=== PATIENT | female | born 1955 | race Caucasian/White ===

== ENCOUNTER → 2024-04-04 | Outpatient (CLI) | payer MEDICARE, SELFPAY ==
[2024-04-04 15:00] LABS: Absolute Lymphocyte Count 2.03 X10^3/uL (0.83-4.51); Absolute Neutrophil Count 4.4 X10^3/uL (2.0-7.7); Basophil# 0.08 X10^3/uL; Basophil% 1.1 % (0-1); Hematocrit 39.9 % (37-47); Lymphocyte # 2.03 X10^3/ul (0.83-4.51); Lymphocyte % 27.3 % (19-41); Mean Corp Hgb Conc 32.6 g/dL (32-36); Mean Corpuscular Hgb 30.7 pg (27.0-32.0); Mean Corpuscular Volume 94.1 fL (81-99); Mean Platelet Vol. 9.7 fl (6.2-12.0); Monocyte# 0.63 X10^3/uL; Monocyte% 8.5 % (0-10); NRBC Flagged by Analyzer 0 % (0-5); Neutrophil # 4.38 X10^3/uL (2.7-7.7); Neutrophil % 58.8 % (47-70); Platelet Count 343 K/mm3 (150-450); RBC Distribution Width CV 13.9 % (11.6-14.6); RBC Distribution Width SD 47.7 fl (35.1-43.9); Red Blood Count 4.24 M/mm3 (4.2-5.4); White Blood Count 7.4 K/mm3 (4.4-11.0)
[2024-04-04 15:18] LABS: ALB/GLOB Ratio 0.9 RATIO (0.9-2.4); AST(SGOT) 19 U/L (15-37); Alanine Aminotransfer ALT/SGPT 29 U/L (13-56); Albumin, Serum 3.4 g/dL (3.2-5.0); Alkaline Phosphatase 80 U/L (45-117); Anion Gap 6 (5-15); BUN 13 mg/dL (7-18); BUN/Creat Ratio 19.3 RATIO (10-20); Calcium,Total 8.8 mg/dL (8.5-10.1); Chloride 99 mmol/L (98-107); Creatinine, Serum 0.67 mg/dL (0.55-1.02); EST Glomerular Filtration Rate 92 mL/min (>60); Est Glom Filt Rate - Afr Amer 111 mL/min (>60); Globulin 3.9 g/dL (2.2-4.2); Glucose 110 mg/dL (74-106); Potassium 3.5 mmol/L (3.5-5.1); Protein, Total 7.3 g/dL (6.4-8.2); Sodium Level 136 mmol/L (136-145); Total Bilirubin < 0.10 mg/dL (0.20-1.00)
== END | disposition home or self-care (01) ==
LOC: MTLAB 12:52
PROVIDERS: PCP Family Medicine; Referring Provider Internal Medicine Rheumatology; Visit Provider Internal Medicine Rheumatology
DX: M06.4 Inflammatory polyarthropathy (principal); Z79.899 Other long term (current) drug therapy; M19.041 Primary osteoarthritis, right hand
CPT/HCPCS: 36415; 80053; 85025

== ENCOUNTER → 2024-05-01 | Outpatient (CLI) | payer MEDICARE, SELFPAY ==
[2024-05-01 12:42] LABS: Absolute Lymphocyte Count 1.63 X10^3/uL (0.83-4.51); Absolute Neutrophil Count 4.1 X10^3/uL (2.0-7.7); Basophil# 0.07 X10^3/uL; Eosinophil# 0.24 X10^3/uL; Eosinophils% 3.6 % (0-5); Hematocrit 41.8 % (37-47); Hemoglobin 13.4 g/dL (12.0-15.0); Lymphocyte # 1.63 X10^3/ul (0.83-4.51); Lymphocyte % 24.2 % (19-41); Mean Corp Hgb Conc 32.1 g/dL (32-36); Mean Corpuscular Hgb 30.4 pg (27.0-32.0); Mean Corpuscular Volume 94.8 fL (81-99); Mean Platelet Vol. 9.7 fl (6.2-12.0); Monocyte# 0.66 X10^3/uL; Monocyte% 9.8 % (0-10); NRBC Flagged by Analyzer 0 % (0-5); Neutrophil # 4.12 X10^3/uL (2.7-7.7); Neutrophil % 61.1 % (47-70); Platelet Count 370 K/mm3 (150-450); RBC Distribution Width SD 48.7 fl (35.1-43.9); Red Blood Count 4.41 M/mm3 (4.2-5.4); White Blood Count 6.7 K/mm3 (4.4-11.0)
[2024-05-01 12:50] LABS: Vitamin D,25 Hydroxy 44.1 ng/mL
[2024-05-01 12:51] LABS: ALB/GLOB Ratio 0.8 RATIO (0.9-2.4); AST(SGOT) 20 U/L (15-37); Alanine Aminotransfer ALT/SGPT 30 U/L (13-56); Albumin, Serum 3.2 g/dL (3.2-5.0); Alkaline Phosphatase 78 U/L (45-117); Anion Gap 9 (5-15); BUN 15 mg/dL (7-18); BUN/Creat Ratio 21.3 RATIO (10-20); Calcium,Total 9.2 mg/dL (8.5-10.1); Chloride 103 mmol/L (98-107); Cholesterol 144 mg/dL (200); EST Glomerular Filtration Rate 87 mL/min (>60); Est Glom Filt Rate - Afr Amer 105 mL/min (>60); Globulin 4.1 g/dL (2.2-4.2); Glucose 109 mg/dL (74-106); High Density Lipoprotein 64 mg/dL; Magnesium 1.8 mg/dL (1.6-2.6); Potassium 3.9 mmol/L (3.5-5.1); Protein, Total 7.3 g/dL (6.4-8.2); Sodium Level 137 mmol/L (136-145); T4 Free Direct 1.11 ng/dL (0.76-1.46); Triglycerides 133 mg/dL; Very Low Density Lipoprotein 27 mg/dL (5-40)
== END | disposition home or self-care (01) ==
LOC: MFPLAB 10:24
PROVIDERS: PCP Family Medicine; Visit Provider Family Medicine
DX: E11.59 Type 2 diabetes mellitus with other circulatory complications (principal); E03.9 Hypothyroidism, unspecified; M81.0 Age-related osteoporosis without current pathological fracture
CPT/HCPCS: 36415; 80053; 80061; 82306; 83036; 83735; 84439; 84443; 85025

== ENCOUNTER → 2024-05-29 | Outpatient (CLI) | payer MEDICARE, SELFPAY ==
[2024-05-29 15:14] LABS: Absolute Neutrophil Count 5.4 X10^3/uL (2.0-7.7); Basophil# 0.05 X10^3/uL; Basophil% 0.7 % (0-1); Eosinophil# 0.15 X10^3/uL; Hematocrit 42.9 % (37-47); Hemoglobin 13.5 g/dL (12.0-15.0); Lymphocyte % 19.7 % (19-41); Mean Corp Hgb Conc 31.5 g/dL (32-36); Mean Corpuscular Hgb 29.7 pg (27.0-32.0); Mean Corpuscular Volume 94.5 fL (81-99); Mean Platelet Vol. 9.7 fl (6.2-12.0); Monocyte# 0.48 X10^3/uL; Monocyte% 6.3 % (0-10); NRBC Flagged by Analyzer 0 % (0-5); Neutrophil % 70.9 % (47-70); Platelet Count 362 K/mm3 (150-450); RBC Distribution Width CV 13.9 % (11.6-14.6); RBC Distribution Width SD 48.1 fl (35.1-43.9); Red Blood Count 4.54 M/mm3 (4.2-5.4); White Blood Count 7.6 K/mm3 (4.4-11.0)
[2024-05-29 15:34] LABS: ALB/GLOB Ratio 0.8 RATIO (0.9-2.4); AST(SGOT) 20 U/L (15-37); Alanine Aminotransfer ALT/SGPT 30 U/L (13-56); Albumin, Serum 3.5 g/dL (3.2-5.0); Alkaline Phosphatase 91 U/L (45-117); Anion Gap 6 (5-15); BUN 13 mg/dL (7-18); BUN/Creat Ratio 18.3 RATIO (10-20); Calcium,Total 9.5 mg/dL (8.5-10.1); Chloride 102 mmol/L (98-107); Creatinine, Serum 0.71 mg/dL (0.55-1.02); EST Glomerular Filtration Rate 86 mL/min (>60); Est Glom Filt Rate - Afr Amer 104 mL/min (>60); Globulin 4.2 g/dL (2.2-4.2); Glucose 187 mg/dL (74-106); Potassium 3.9 mmol/L (3.5-5.1); Protein, Total 7.7 g/dL (6.4-8.2); Sodium Level 138 mmol/L (136-145)
== END | disposition home or self-care (01) ==
PROVIDERS: PCP Family Medicine; Referring Provider Internal Medicine Rheumatology; Visit Provider Internal Medicine Rheumatology
DX: M06.4 Inflammatory polyarthropathy (principal); Z79.899 Other long term (current) drug therapy
CPT/HCPCS: 36415; 80053; 85025

== ENCOUNTER → 2024-07-14 | Outpatient (CLI) | payer MEDICARE, SELFPAY ==
[2024-07-14 12:53] LABS: AST(SGOT) 21 U/L (15-37); Alanine Aminotransfer ALT/SGPT 30 U/L (13-56); Anion Gap 7 (5-15); BUN 12 mg/dL (7-18); BUN/Creat Ratio 19.9 RATIO (10-20); Calcium,Total 8.8 mg/dL (8.5-10.1); Chloride 104 mmol/L (98-107); Cholesterol 149 mg/dL (200); EST Glomerular Filtration Rate 104 mL/min (>60); Est Glom Filt Rate - Afr Amer 126 mL/min (>60); Glucose 109 mg/dL (74-106); High Density Lipoprotein 56 mg/dL; Potassium 3.8 mmol/L (3.5-5.1); Sodium Level 137 mmol/L (136-145); T4 Free Direct 1.18 ng/dL (0.76-1.46); Thyroid Stim Hormone (TSH) 0.283 uIU/mL (0.358-3.740); Triglycerides 201 mg/dL; Very Low Density Lipoprotein 40 mg/dL (5-40)
[2024-07-14 13:06] LABS: Vitamin D,25 Hydroxy 45.1 ng/mL
[2024-07-14 13:09] LABS: Microalbumin,Random Urine 6.4 mg/L (NO RANGE EST.)
[2024-07-14 14:38] LABS: Hemoglobin A1c 5.9 % (3.8-5.6)
== END | disposition home or self-care (01) ==
PROVIDERS: PCP Family Medicine; Referring Provider Nurse Practitioner Adult Health; Visit Provider Nurse Practitioner Adult Health
DX: E11.65 Type 2 diabetes mellitus with hyperglycemia (principal); E89.0 Postprocedural hypothyroidism; E55.9 Vitamin D deficiency, unspecified
CPT/HCPCS: 36415; 80048; 80061; 82043; 82306; 83036; 84439; 84443; 84450; 84460

== ENCOUNTER → 2024-08-25 | Outpatient (CLI) | payer MEDICARE, SELFPAY ==
[2024-08-25 12:17] LABS: Absolute Lymphocyte Count 1.55 X10^3/uL (0.83-4.51); Absolute Neutrophil Count 4.4 X10^3/uL (2.0-7.7); Basophil# 0.06 X10^3/uL; Basophil% 0.9 % (0-1); Eosinophil# 0.15 X10^3/uL; Eosinophils% 2.2 % (0-5); Hematocrit 43.5 % (37-47); Lymphocyte # 1.55 X10^3/ul (0.83-4.51); Lymphocyte % 23.2 % (19-41); Mean Corp Hgb Conc 32.2 g/dL (32-36); Mean Corpuscular Hgb 30.2 pg (27.0-32.0); Mean Platelet Vol. 9.7 fl (6.2-12.0); Monocyte# 0.51 X10^3/uL; Monocyte% 7.6 % (0-10); NRBC Flagged by Analyzer 0 % (0-5); Neutrophil % 65.8 % (47-70); Platelet Count 362 K/mm3 (150-450); RBC Distribution Width CV 13.6 % (11.6-14.6); RBC Distribution Width SD 46.8 fl (35.1-43.9); Red Blood Count 4.63 M/mm3 (4.2-5.4); White Blood Count 6.7 K/mm3 (4.4-11.0)
[2024-08-25 16:40] LABS: ALB/GLOB Ratio 0.9 RATIO (0.9-2.4); AST(SGOT) 20 U/L (15-37); Alanine Aminotransfer ALT/SGPT 34 U/L (13-56); Albumin, Serum 3.8 g/dL (3.2-5.0); Alkaline Phosphatase 80 U/L (45-117); Anion Gap 5 (5-15); BUN 13 mg/dL (7-18); BUN/Creat Ratio 18.5 RATIO (10-20); Calcium,Total 9.4 mg/dL (8.5-10.1); Chloride 100 mmol/L (98-107); EST Glomerular Filtration Rate 87 mL/min (>60); Est Glom Filt Rate - Afr Amer 105 mL/min (>60); Globulin 4.1 g/dL (2.2-4.2); Glucose 112 mg/dL (74-106); Potassium 3.6 mmol/L (3.5-5.1); Protein, Total 7.9 g/dL (6.4-8.2); Sodium Level 134 mmol/L (136-145)
== END | disposition home or self-care (01) ==
LOC: MTLAB 10:03
PROVIDERS: PCP Family Medicine; Referring Provider Internal Medicine Rheumatology; Visit Provider Internal Medicine Rheumatology
DX: M06.4 Inflammatory polyarthropathy (principal); Z79.899 Other long term (current) drug therapy

== ENCOUNTER → 2024-09-12 | Outpatient (CLI) | payer MEDICARE, SELFPAY ==
[2024-09-12 12:54] LABS: Absolute Neutrophil Count 3.9 X10^3/uL (2.0-7.7); Basophil# 0.06 X10^3/uL; Basophil% 0.9 % (0-1); Eosinophil# 0.27 X10^3/uL; Eosinophils% 4.2 % (0-5); Hematocrit 42.1 % (37-47); Hemoglobin 13.8 g/dL (12.0-15.0); Lymphocyte % 24.9 % (19-41); Mean Corp Hgb Conc 32.8 g/dL (32-36); Mean Corpuscular Hgb 30.9 pg (27.0-32.0); Mean Corpuscular Volume 94.2 fL (81-99); Mean Platelet Vol. 9.8 fl (6.2-12.0); Monocyte# 0.61 X10^3/uL; Monocyte% 9.5 % (0-10); NRBC Flagged by Analyzer 0 % (0-5); Neutrophil # 3.87 X10^3/uL (2.7-7.7); Neutrophil % 60.3 % (47-70); Platelet Count 362 K/mm3 (150-450); RBC Distribution Width CV 14.3 % (11.6-14.6); RBC Distribution Width SD 49.1 fl (35.1-43.9); Red Blood Count 4.47 M/mm3 (4.2-5.4); White Blood Count 6.4 K/mm3 (4.4-11.0)
[2024-09-12 14:09] LABS: ALB/GLOB Ratio 0.9 RATIO (0.9-2.4); AST(SGOT) 22 U/L (15-37); Alanine Aminotransfer ALT/SGPT 35 U/L (13-56); Albumin, Serum 3.6 g/dL (3.2-5.0); Alkaline Phosphatase 79 U/L (45-117); Anion Gap 9 (5-15); BUN 12 mg/dL (7-18); Calcium,Total 9.1 mg/dL (8.5-10.1); Chloride 101 mmol/L (98-107); Cholesterol 151 mg/dL (200); Creatinine, Serum 0.63 mg/dL (0.55-1.02); EST Glomerular Filtration Rate 99 mL/min (>60); Est Glom Filt Rate - Afr Amer 120 mL/min (>60); Globulin 3.9 g/dL (2.2-4.2); Glucose 116 mg/dL (74-106); High Density Lipoprotein 67 mg/dL; Potassium 3.6 mmol/L (3.5-5.1); Protein, Total 7.5 g/dL (6.4-8.2); Sodium Level 137 mmol/L (136-145); T4 Free Direct 1.07 ng/dL (0.76-1.46); Thyroid Stim Hormone (TSH) 0.758 uIU/mL (0.358-3.740); Triglycerides 176 mg/dL; Very Low Density Lipoprotein 35 mg/dL (5-40)
[2024-09-13 10:40] LABS: Vitamin D,25 Hydroxy 43.5 ng/mL
[2024-09-15 14:42] LABS: Hemoglobin A1c 5.6 % (3.8-5.6)
== END | disposition home or self-care (01) ==
LOC: MTLAB 09:55
PROVIDERS: PCP Family Medicine; Referring Provider Family Medicine; Visit Provider Family Medicine
DX: R73.09 Other abnormal glucose (principal); E03.9 Hypothyroidism, unspecified; M81.0 Age-related osteoporosis without current pathological fracture
CPT/HCPCS: 36415; 80053; 80061; 82306; 83036; 84439; 84443; 85025

== ENCOUNTER → 2024-10-07 | Outpatient (CLI) | payer MEDICARE, SELFPAY ==
--- NOTE | 2024-10-07 12:53 | BI_ITS ---
PROCEDURE: SCRN MAMM (CAD)W/FATOU BILAT REASON FOR EXAM: F, Age 69 y/o, presents for annual screening mammogram. Family history of breast cancer in a paternal aunt in her 70s. TECHNIQUE: Bilateral screening digital breast tomosynthesis with 2D and 3D images. Computer aided detection. COMPARISON: 10/18/2022, 05/04/2021 FINDINGS: There are scattered areas of fibroglandular density. There is an irregular high density mass in the upper-outer right breast at posterior depth. No suspicious masses, areas of developing architectural distortion, or suspicious calcifications in the left breast. BI/SCRN MAMM (CAD)W/FATOU BILAT IMPRESSION: The irregular high density mass in the upper-outer right breast at posterior de pth requires further evaluation. Recommend diagnostic ultrasound of the right breast. BI-RADS 0: INCOMPLETE - NEED ADDITIONAL IMAGING EVALUATION. Follow-up code: Additional Views obtained/call backs The patient will be notified of the results by letter. Reading Location: [id number]
--- NOTE | 2024-10-07 12:55 | BD_ITS ---
PROCEDURE: DEXA BONE DENSITY STUDY REASON FOR EXAM: F, age 69 y/o . Postmenopausal. TECHNIQUE: DEXA scan of the lumbar spine and both hips. Scanning of the left forearm was obtained as well. COMPARISON: None. FINDINGS: Lumbar Spine (L1-L4): g/cm2 (1.282)/T-score (2 point)/Z-score (4.4) findings are suggestive of normal with a low fracture risk. Left Femur Total: g/cm2 (0.745)/T-score (-1.6)/Z-score (0.0) Left Femoral Neck: g/cm2 (0.513)/T-score (-3.0)/Z-score (-1.1) Right Femur Total: g/cm2 (0.745)/T-score (-1.6)/Z-score (0.0) Right Femoral Neck: g/cm2 (0.513)/T-score (-3.0)/Z-score (-1.1) Left Forearm: g/cm2 (0.550)/T-score (-0.5)/Z-score (1.6) BD/Dexa Bone Density Study IMPRESSION: The patient is considered osteoporotic as outlined below according to World Hea th Organization (WHO) criteria with a high fracture risk. Reading Location: [id number]
== END | disposition home or self-care (01) ==
LOC: OPBD 12:51
PROVIDERS: PCP Family Medicine
DX: Z12.31 Encounter for screening mammogram for malignant neoplasm of breast (principal); Z80.3 Family history of malignant neoplasm of breast; M81.0 Age-related osteoporosis without current pathological fracture
CPT/HCPCS: 77063; 77067; 77080

== ENCOUNTER → 2024-10-14 | Outpatient (CLI) | payer MEDICARE, SELFPAY ==
--- NOTE | 2024-10-14 10:35 | US_ITS ---
PROCEDURE: BREAST LIMITED UNILATERAL REASON FOR EXAM: 69-year-old female presents for diagnostic ultrasound of the right breast, callback from screening mammogram of 10/07/2024. Family history of breast cancer in a paternal aunt in her 70s.. TECHNIQUE: Targeted right breast ultrasound. COMPARISON: Mammogram 10/07/2024, 10/18/2022 and 05/04/2021 FINDINGS: RIGHT: Follow-up examination performed of the right breast mass seen on the screening mammogram of 10/07/2024. On the present examination, the ultrasound performed of the upper-outer right breast demonstrates an irregular hypoechoic mass with ill-defined margins and posterior acoustic shadowing at 9-10 o'clock 10 cm from the nipple measuring 1.0 x 0.7 x 0.8 cm. There is increased flow at the periphery of the mass. This mass correlates to the mammographic finding. Also, at 12 o'clock 8 cm from the nipple there is a cystic mass, with an internal septation and no associated flow measuring 0.5 x 0.3 x 0.5 cm. This mass appears mammographically stable dating back to 2020 and is considered benign. US/Breast Limited Unilateral IMPRESSION: Suspicious right breast mass at 9-10 o'clock 10 cm from the nipple. Recommend further evaluation with tissue sampling with ultrasound-guided core needle biopsy. BI-RADS 4: SUSPICIOUS ABNORMALITY. Follow-up code: Biopsy Recommended Reading Location: [id number]
[2024-10-14 12:24] LABS: Absolute Lymphocyte Count 2.08 X10^3/uL (0.83-4.51); Absolute Neutrophil Count 5.1 X10^3/uL (2.0-7.7); Basophil# 0.07 X10^3/uL; Basophil% 0.9 % (0-1); Eosinophils% 2.5 % (0-5); Hemoglobin 13.8 g/dL (12.0-15.0); Lymphocyte # 2.08 X10^3/ul (0.83-4.51); Lymphocyte % 25.6 % (19-41); Mean Corp Hgb Conc 32.9 g/dL (32-36); Mean Corpuscular Hgb 30.5 pg (27.0-32.0); Mean Corpuscular Volume 92.9 fL (81-99); Mean Platelet Vol. 9.8 fl (6.2-12.0); Monocyte# 0.66 X10^3/uL; Monocyte% 8.1 % (0-10); NRBC Flagged by Analyzer 0 % (0-5); Neutrophil # 5.07 X10^3/uL (2.7-7.7); Neutrophil % 62.5 % (47-70); Platelet Count 401 K/mm3 (150-450); RBC Distribution Width CV 14.3 % (11.6-14.6); RBC Distribution Width SD 48.4 fl (35.1-43.9); Red Blood Count 4.52 M/mm3 (4.2-5.4); White Blood Count 8.1 K/mm3 (4.4-11.0)
[2024-10-14 13:14] LABS: ALB/GLOB Ratio 1.3 RATIO (0.9-2.4); AST(SGOT) 21 U/L (<=31); Alanine Aminotransfer ALT/SGPT 23 U/L (<=34); Albumin, Serum 4.3 g/dL (3.4-4.8); Alkaline Phosphatase 89 U/L (35-104); Anion Gap 13 (5-15); BUN 11 mg/dL (4-19); BUN/Creat Ratio 17.8 RATIO (10-20); Calcium,Total 9.7 mg/dL (7.6-11.0); Carbon Dioxide 27.5 mmol/L (21.0-32.0); Chloride 97 mmol/L (98-108); Creatinine, Serum 0.64 mg/dL (0.70-1.20); EST Glomerular Filtration Rate 95 (>60); Globulin 3.4 g/dL (2.2-4.2); Glucose 111 mg/dL (70-99); Potassium 3.5 mmol/L (3.3-5.1); Protein, Total 7.6 g/dL (5.9-8.4); Sodium Level 138 mmol/L (133-145); Total Bilirubin 0.29 mg/dL (0.00-1.30)
[2024-10-14 14:35] LABS: Cholesterol 149 mg/dL (<=200); High Density Lipoprotein 65 mg/dL; Low Density Lipoprotein Calc. 55 mg/dL; Triglycerides 145 mg/dL; Very Low Density Lipoprotein 29 mg/dL (5-40); Vitamin D,25 Hydroxy 46.9 ng/mL (30-100); cholesterol:hdl ratio screen 2.28
[2024-10-15 08:09] LABS: LDL, Direct 120295 70 mg/dL (0-99)
== END | disposition home or self-care (01) ==
PROVIDERS: PCP Family Medicine; Referring Provider Family Medicine; Visit Provider Family Medicine
DX: E11.65 Type 2 diabetes mellitus with hyperglycemia (principal); M06.4 Inflammatory polyarthropathy; E89.0 Postprocedural hypothyroidism; E55.9 Vitamin D deficiency, unspecified; E78.49 Other hyperlipidemia; Z79.899 Other long term (current) drug therapy; N63.11 Unspecified lump in the right breast, upper outer quadrant
CPT/HCPCS: 36415; 76642; 80053; 80061; 82306; 83036; 83721; 84439; 84443; 85025

== ENCOUNTER → 2024-10-23 | Outpatient (CLI) | payer MEDICARE, SELFPAY ==
--- NOTE | 2024-10-23 14:55 | BREAST_PTH ---
PATIENT: LAURI RASCON LOC: [facility] U#:[id number] AGE/SX: 69/F ROOM: RE10/23/[address]: Dr. Leela Bazan MD : 1955 BED: DIS: 10/23/2024 SPEC #: [id number] RECD: 10/24/24 09:19 STATUS: ARAVIND REQ #: [id number] PABLO: 10/23/24 14:[address]: Leela Bazan DEPT: SURGICAL PATHOLOGY RECD BY: Humza Westfall ENTERED: 10/24/24 09:20 SP TYPE: BREAST OTHR DR: Dr. Jere Mae MD Tissues: A - Right breast, NOS Procedures: Immunohistochemical Stains Surgery Specimen Level IV IHC Stain ADDITIONAL HEADER OPERATION: Right breast biopsy PRE-OP DIAGNOSIS: Right breast biopsy TISSUE SUBMITTED: A- Right breast mass - 9o'clock, 10cm from nipple Ischemic Time: 1 minute Formalin fixation Time: >48 hours MICROSCOPIC DIAGNOSIS A. RIGHT BREAST MASS AT 9:00, 10 CM FROM NIPPLE, CORE BIOPSY: * Invasive ductal carcinoma NST, at least 0.7 cm. * Grade 2 (tubule 3, nuclear 2, mitosis 1) * Estrogen Receptor: positive (95%, strong intensity) * Progesterone Receptor: positive (95%, strong intensity) * HER2 (IHC): equivocal (2+) * HER2(FISH): pending at [facility] (to be reported in an addendum) * Ki67 proliferative index: 15-20% Note: E-cadherin IHC is positive, confirming the ductal origin. MICROSCOPIC DESCRIPTION Slides are reviewed. These tests were developed and their performance characteristics determined by [facility]. They may not have been cleared or approved by the U.S. Food and Drug Administration. The FDA has determined that such clearance or approval is not necessary. The above immunohistochemical/dualISH markers are ordered and reviewed by the Pathologist. GROSS DESCRIPTION Received in fixative is one container labeled with the patient's name and designated right breast mass. The specimen consists of 2 cores of red soft tissue measuring in aggregate 1 x 0.3 x 0.2 cm. TE1 eh 10/24/24 CPT:35136, [id number] ADDENDUM ADDENDUM ADDENDUM ADDENDUM ADDENDUM ADDENDUM ADDENDUM ADDENDUM ADDENDUM ADDENDUM ADDENDUM ADDENDUM ADDENDUM ADDENDUM ADDENDUM ADDENDUM ADDENDUM ADDENDUM 11/10/2024 08:23 ADDENDUM 11/10/2024 08:23 ADDENDUM 11/10/2024 08:23 ADDENDUM 11/10/2024 08:23 ADDENDUM 12/12/2024 11:44 ADDENDUM 11/10/2024 08:23 This addendum is added to incorporate an outside pathology consultation report. The case was examined at [facility] by Dr. Terrell (#[id number]) and the following diagnosis was rendered. A. Right breast mass at 9:00, 10 cm from nipple, core biopsy: HER2 FISH: Negative HER2 FISH REPORT: HER2 SCORE: NEGATIVE HER2/CEP17 RATIO: 09 HER2 COPY NUMBER/CELL: 2.3 Please see complete above mentioned consultation report in EMR ONCOTYPE DX BREAST RECURRENCE SCORE REPORT - BLOCK A1 RECURRENCE SCORE: 3 DISTANT RECURRENCE RISK AT 9 YEARS: 3% GROUP AVERAGE ABSOLUTE CHEMOTHERAPY BENEFIT: <1% Please see complete above mentioned consultation report in EMR
== END | disposition home or self-care (01) ==
LOC: LABSPEC 15:23
PROVIDERS: PCP Family Medicine; Referring Provider Surgery; Visit Provider Surgery
DX: N63.10 Unspecified lump in the right breast, unspecified quadrant (principal)
CPT/HCPCS: 88305; 88341; 88342

== ENCOUNTER 2024-11-18 09:26 | Day surgery (SDC) | payer MEDICARE, SELFPAY ==
[2024-11-18] VITALS (9 sets, daily range): BP systolic 126–160; BP diastolic 47–69; PULSE 86–102; RESP 16–18; TEMP 36.1–36.9; O2SAT 92–98; BMI 34.2
[2024-11-18] MEDS: 0.9% Normal Saline (1000mL) 1,000 ML 15 ML IV (10:07)
--- NOTE | 2024-11-18 10:08 | NM_ITS ---
EXAM: SENTINEL LYMPH NODE INJECTION CLINICAL HISTORY: RIGHT BREAST CANCER. COMPARISON: RIGHT BREAST ULTRASOUND DATED 10/14/2024. TECHNIQUE: Radiopharmaceutical: 556 uCi of Technetium 99 M Tilmanocept (Lymphoseek) Injection site: Periareolar subdermal injection at 12 o'clock. FINDINGS: No significant findings. NM/Lymph Node Injection Only IMPRESSION: Successful right breast sentinel lymph node injection. Reading Location: [place] [address]
--- NOTE | 2024-11-18 10:21 | PCM.HP.BLA ---
History and Physical Date of Admission: 11/18/24 Date of Service: 11/07/24 MR#: [id number] Acct: [id number] Name: LAURI RASCON Rep #: [id number] : 1955 Provider: Dr. Leela Bazan MD Age/Sex: 69/F Location: [facility] Status: Signed Intake Vital Signs 10/23/2514:02 11/07/2508:53 Height 5 ft 4 in Weight: 170 lb 173 lb BMI 29.2 BP 131/75 H 161/75 H Blood Pressure Location Lt brachial Rt brachial Position Sitting Sitting Respiration 17 17 Pulse 83 82 Pulse Source Monitor Monitor Temp 97.4 F L Temp Source Temporal Pulse Oximetry (%) 92 98 Oxygen Delivery Method room air room air Intake Visit Reasons: DISCUSS BREAST SURGERY Chief Complaint: discuss breast surgery Is patient in pain?: No Allergies sitagliptin (From Januvia) Allergy (Intermediate, Verified 11/10/24 09:00) hallucinationsSulfa (Sulfonamide Antibiotics) Allergy (Intermediate, Verified 11/10/24 09:00) Hivesvenlafaxine (From Effexor) Allergy (Intermediate, Verified 11/10/24 09:00) Other Medications ?Medication ?Instructions ?Recorded ?Confirmed ?Type alendronate 70 mg tablet 70 mg PO ADAMS 10/23/24 11/10/24 History amlodipine 5 mg-benazepril 20 mg 1 cap PO QDAY 10/23/24 11/10/24 History capsule aspirin 81 mg tablet,delayed 81 mg PO QHS 10/23/24 11/10/24 History release atorvastatin 20 mg tablet 20 mg PO QDAY 10/23/24 11/10/24 History calcium glucarate 500 mg capsule 1 tab-cap PO QDAY 10/23/24 11/10/24 History levothyroxine 137 mcg tablet 68.5 mcg PO ADAMS 10/23/24 11/10/24 History (Synthroid) methotrexate (PF) 25 mg/0.5 mL 25 mg subcut FR 10/23/24 11/10/24 History subcutaneous auto-injector multivitamin 1 tab PO QAM 10/23/24 11/10/24 History pantoprazole 40 mg tablet,delayed 40 mg PO QDAY 10/23/24 11/10/24 History release semaglutide 0.25 mg or 0.5 mg (2 1 mg subcut FR 10/23/24 11/10/24 History mg/3 mL) subcutaneous pen injector (Ozempic) sertraline 100 mg tablet (Zoloft) 100 mg PO QDAY 10/23/24 11/10/24 History meloxicam 15 mg tablet 7.5 mg PO DAILY PRN PRN pain 11/10/24 11/10/24 History mirtazapine 15 mg tablet 15 mg PO QHS ANXIETY AND SLEEP 11/10/24 11/10/24 History Have you fallen in the past year?: No PFSH Medical History (Updated 11/10/24 @ 09:22 by Lori Ashton) Wears glasses Wears dentures Cancer Post-menopausal Anxiety Alcohol use Depression High cholesterol Dietary restriction History of ulceration Former smoker History of rheumatic fever Thyroid disease Rheumatoid arthritis Heart murmur GERD (gastroesophageal reflux disease) HTN (hypertension) Diabetes Surgical History (Updated 11/10/24 @ 09:10 by Lori Ashton) History of Trina fundoplication History of colonoscopy History of back surgery H/O thyroidectomy Family History (Updated 10/23/24 @ 14:34 by Annalise Matos) Aunt Breast cancerFather Diabetes Heart disease HypertensionMother CancerSister Diabetes Heart disease Social History (Updated 10/23/24 @ 15:01 by Annalise Matos) Smoking Status: Former smoker HPI HPI HPI: 69-year-old female presents with her to discuss right breast biopsy pathology and plan for surgical treatment. Pathology showed invasive ductal carcinoma ER/LA positive, HER2/josselyn equivocal, FISH pending, grade 2. This was approximately a centimeter on ultrasound. ROS General General: Yes breast cancer; No weight change, appetite, fatigue or colon cancer HEENT HEENT: Yes eye surgery; No difficulty swallowing, eye injury, swollen glands or hoarseness Endo Endocrine: Yes thyroid disease, diabetes mellitus and thyroid cancer; No Hair loss, heat intolerance or cold intolerance Skin Skin: No rash or changing moles Breast Breast: Yes right breast lump, abnormal mammogram and abnormal US; No left breast lump, nipple discharge, breast pain or breast enlargement Musc Musculoskeletal: Yes rheumatoid arthritis; No back problems, arthritis, gout or joint pain Cardio Cardiovascular: Yes murmur and high blood pressure; No pacemaker, heart disease, atrial fibrillation, heart attack, heart stent, palpitations, shortness of breath with exertion or chest pain Psych Psychiatric: No depression, anxiety or hearing voices Resp Respiratory: No shortness of breath, No sleep apnea, No cough, No COPD, No asthma, No emphysema and No wheezing Gastro Gastrointestinal: No abdominal pain, No nausea or vomiting, No diarrhea, No constipation, No blood in stool, Yes acid reflux, No hemorrhoids, No ulcers, No gallbladder problem and No black,tarry stools Pancho Hematologic: No blood thinners, No blood disorders, No bleeding, No anemia and No blood clots Neuro Neurologic: No numbness and No tingling Exam Const General: cooperative, healthy appearing and no acute distress HENMT Head: normal to inspection Chest Other: Right breast biopsy well-healed, able to visualize mass with bedside ultrasound Resp Effort & Inspection: normal respiratory effort Cardio Rate: regular rate GI Inspection: non-distended Palpation: soft Skin General: no rashes or lesions noted Neuro General: patient oriented x3 Extrem General: no clubbing, cyanosis or edema Psych Affect: normal affect Assessment and Plan Assessment and Plan (1) Invasive ductal carcinoma of right breast: Status: Acute Orders: Orders Lymph Node Injection Only 11/18/24 C50.911 - Malignant neoplasm of unspecified site of right female breast, N63.10 - Unspecified lump in the right breast, unspecified quadrant Plan I have given the patient options for initial surgical treatment. Options are the following: lumpectomy followed by radiation therapy vs. mastectomy vs. mastectomy followed by immediate reconstruction (which would be covered with insurance due to breast cancer). I have described the procedures to the patient. I have described the advantages and disadvantages of the options, but I have told the patient that among the options, the survival rate for breast cancer is the same. I have told the patient that with all the surgeries that a sentinel lymph node biopsy is required. I have described the procedure of sentinel lymph node biopsy to the patient. I have told the patient that if the biopsy is positive for metastatic disease (greater than 2 nodes), then a full axillary lymph node dissection would be considered at time of operation. I have told the patient that adjuvant chemotherapy will be discussed if the lymph nodes reveal metastatic disease. Also, a full lymph node dissection will increase the risk for lymphedema, especially if there are 4 or more lymph nodes positive for metastatic disease and radiation to the axilla is also required. I have told the patient the risks of surgery, including but not limited to: infection, bleeding, scar tissue, seroma and persistent seroma, lymph leak, injury to any blood vessels, injury to any nerves (particularly the long thoracic, the thoracodorsal, and the second intercostal brachial and the resultant sequelae), lymphedema, cosmetic deformity, dysesthesias, wound infections, further surgery (especially if margins are not clear), complications of anesthesia, etc. the patient understands. Patient plan to have an ultrasound wire needle localization right breast lumpectomy, sentinel lymph node biopsy with nuclear tracer and blue dye and possible axillary node dissection. I have answered all the patient?s questions at this point to her satisfaction and she has no further questions. Leela Bazan M.D. Pager: [phone] [facility] [address] [place] [address] [address] [place] [address] Office: [phone] Coding Level of Care Code Off vis,est,level 4 Diagnoses Invasive ductal carcinoma of right breast C50.911 Clinical Quality Measures Falls Risk Screening/Assistive Devices Have you fallen in the past year?: No 11/10/24 1141 <Electronically signed by Leela Bazna MD> Date Leela Bazan MD
[2024-11-18 10:30] LABS: Bedside Glucose 127 mg/dL (74-106)
--- NOTE | 2024-11-18 11:05 | PRE.ANES_ITS ---
ASA Classification* ASA Classification ASA Classification: 2 Assessment & Plan Anesthesia* Anesthesia Assessment Anesthesia Assessment: Discussed sedation and/or anesthesia options, risks, benefits, and alternatives with patient/parents/legal guardian/POA. Questions invited. The patient/parents/legal guardian/POA seems to understand and agrees to proceed with anesthesia plan. Reviewed the physical assessment, medical history, allergy history and patient home medications list prior to surgery/procedure/anesthetic and documented any changes. Performed airway and anesthesia risk assessments. Anesthesia Type Anesthesia Type: General History Source History Obtained from:: Patient and Chart Anesthesia Focused Assessment* Temperature: 98.4 F Pulse Rate: 86 Blood Pressure: 160/51 Respiratory Rate: 16 Pulse Ox: 98 Oxygen Delivery Method: Room Air Airway Assessment Mouth opens: >3 cm Mallampati Score: II Teeth Condition: Missing (Missing molars on the lower jaw.) and Partial (Patient has upper partial. It is out. Rest of the teeth are tight.) Neck Range of motion (ROM): Full ROM Focused Labs Anesthesia Preop lab: CBC WBC 8.1 K/mm3 (4.4-11.0) 10/14/24 10:15 10/14/24 RBC 4.52 M/mm3 (4.2-5.4) 10/14/24 10:10/14/24 Hgb 13.8 g/dL (12.0-15.0) 10/14/24 10:15 10/14/24 Hct 42.0 % (37-47) 10/14/24 10:15 10/14/24 Plt Count 401 K/mm3 (150-450) 10/14/24 10:15 10/14/24 CHEMISTRY Potassium 3.5 mmol/L (3.3-5.1) 10/14/24 10:15 10/14/24 Sodium 138 mmol/L (133-145) 10/14/24 10:10/14/24 Magnesium 1.8 mg/dL (1.6-2.6) 05/01/24 10:25 05/01/24 BUN 11 mg/dL (4-19) 10/14/24 10:15 10/14/24 Creatinine 0.64 mg/dL (0.70-1.20) L 10/14/24 10:15 Glucose 111 mg/dL (70-99) H 10/14/24 10:15 10/14/24 POC Glucose 127 mg/dL (74-106) H 11/18/24 09:54 11/18/24 TSH 1.030 uIU/mL (0.300-4.200) 10/14/24 10:15 03/0 12/05 COAG Pre-Assessment Diagnosis/Proposed Procedure Planned Operative Procedure(s): (R) U/S wire loc right Breast, Lumpectomy,[place] Node,blue dye & lymphoseek, poss Ax Dis Anesthesia History 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 When Was Last Pacemaker Check QUESTION #4 FULL TEXT: You/Your Family Experience fever (hyperthermia) with Anesthesia Last Oral Intake Last Oral intake: Last Oral Intake NPO since 07:30 11/18/24 09:55 Meds taken in AM with sips of Yes 11/18/24 09:55 water? Meds patient instructed to take am of surgery Any additional information?: Yes NPO since: 07:30 (Patient took a.m. 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 Female Yes 11/10/24 09:11 HX of Motion Sickness No 11/10/24 09:11 HX of N/V After Surgery No 11/10/24 09:11 Non-Smoker Yes 11/10/24 09:11 Duration of Surgery greater Yes 11/10/24 09:11 than 60 minutes Number of Risk Factors 3 11/10/24 09:11 PONV Score Moderate Risk 11/10/24 09:11 Height & Weight Height & Weight: Anesthesia: Height & Weight Height 4 ft 11 in 11/18/24 09:55 Weight: 77 kg 11/18/24 09:55 Body Mass Index (BMI) 34.2 11/18/24 09:55 Respiratory Assessment Respiratory Assessment - explosive operator: Respiratory Tract Infection Hx - explosive operator Hx Respiratory Tract Infection No 11/10/24 09:11 STOP Sleep Apnea STOP Sleep Apnea - explosive operator: STOP Sleep Apnea - explosive operator Hx Hypertension Yes: PER PT, CONTROLLED ON 11/10/24 09:11 MEDS Hx Sleep Apnea No 11/10/24 09:11 CPAP BIPAP Do you snore loudly (louder Yes 11/10/24 09:11 than talking or can be heard Do you often feel tired/ No 11/10/24 09:11 fatigued/ sleepy during daytime? Has anyone observed you stop No 11/10/24 09:11 breathing during sleep? STOP Results Positive 11/10/24 09:11 QUESTION #5 FULL TEXT : Do you snore loudly (louder than talking or can be heard through closed doors)? 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 Specify any problems Hx of Preganancy in last 3 No 11/10/24 09:11 Months Nurse Filling Out Transfusion MGRIFFITH 11/10/24 09:11 & Questions: Date: 11/10/24 11/10/24 09:11 Time: 09:13 11/10/24 09:11 Patient unable to answer at this time (ie. confused, unrespo /Reproduction History /Reproductive History - explosive operator: /Reproductive Hx- explosive operator Hx Now No 11/10/24 09:11 Gestational Age (in weeks): EDC: Hx Hx Para Hx Section SAB No 11/10/24 09:11 Active Medications Active Medications: Current Medications Generic Name Dose Route Start Last Admin Trade Name Uzair PRN Reason Stop Dose Admin Cefazolin Sodium 2 gm/ N/A 20 mls @ 400 mls/hr 11/18/24 11:30 IV 11/18/24 11:32 PREOP ONE Sodium Chloride 1,000 mls @ 15 mls/hr 11/18/24 09:40 11/18/24 10:07 IV 15 mls/hr .Q48H EDIN Administration PFSH Medical History Wears glasses Wears dentures Cancer Post-menopausal Anxiety Alcohol use Depression High cholesterol Dietary restriction History of ulceration Former smoker History of rheumatic fever Thyroid disease Rheumatoid arthritis Heart murmur GERD (gastroesophageal reflux disease) HTN (hypertension) Diabetes Home Medications ?Medication ?Instructions ?Recorded ?Last Taken ?Type alendronate 70 mg tablet 70 mg PO ADAMS 10/23/24 Unknown History amlodipine 5 mg-benazepril 20 mg 1 cap PO QDAY 5 11/18/24 08:00 History capsule aspirin 81 mg tablet,delayed 81 mg PO QHS 10/23/2410/07 History release atorvastatin 20 mg tablet 20 mg PO QDAY 10/23/24 Unkno wn History calcium glucarate 500 mg capsule 1 tab-cap PO QDAY Unknown History levothyroxine 137 mcg tablet 68.5 mcg PO ADAMS 10/23/24 0 11/18/24 08:00 History (Synthroid) methotrexate (PF) 25 mg/0.5 mL 25 mg subcut FR 5 11/14/24 History subcutaneous auto-injector multivitamin 1 tab PO QAM 10/23/24 Unknow n History pantoprazole 40 mg tablet,delayed 40 mg PO QDAY 11/18/24 08:00 History release semaglutide 0.25 mg or 0.5 mg (2 1 mg subcut FR 11/07/24 History mg/3 mL) subcutaneous pen injector (Ozempic) sertraline 100 mg tablet (Zoloft) 100 mg PO QDAY 10/23 Unknown History meloxicam 15 mg tablet 7.5 mg PO DAILY PRN PRN pain 11/10/24 Unknown History mirtazapine 15 mg tablet 15 mg PO QHS ANXIETY AND SLE EP 11/10/24 Unknown History Allergy/AdvReac Type Severity Reaction Status Date / Time sitagliptin (From Januvia) Allergy Intermediate hallucinati Verified 11/18/24 09:50 ons Sulfa (Sulfonamide Allergy Intermediate Hives Verified 11/18/24 09:50 Antibiotics) venlafaxine (From Effexor) Allergy Intermediate Other Verified 11/18/24 09:50 Family History Aunt Breast cancer Father Diabetes Heart disease Hypertension Mother Cancer Sister Diabetes Heart disease Surgical History History of Trina fundoplication History of colonoscopy History of back surgery H/O thyroidectomy Social History Smoking Status: Former smoker Review of Systems (Anesthesia) ROS Narrative System reviewed and no additional complaints, except as documented.
[2024-11-18] MEDS: Cefazolin 2 GM in Syringe IV (11:16)
--- NOTE | 2024-11-18 11:30 | LYMN_PTH ---
PATIENT: LAURI RASCON [place]: [facility] [place][id number] AGE/SX: 69/F ROOM: RE11/18/[address]: Dr. Leela Bazan MD : [id number] BED: DIS: 11/18/2024 SPEC #: [id number] RECD: 11/18/24 13:17 STATUS: ARAVIND REGem #: [id number] PABLO: 11/18/24 11:[address]: Leela Bazan DEPT: SURGICAL PATHOLOGY RECD BY: Humza Westfall ENTERED: 11/18/24 13:18 SP TYPE: LYMPH NODE OTHR DR: Dr. Jere Mae MD Tissues: A - LYMPH NODE BIOPSY B - Right breast, NOS Procedures: Frozen Section (charge) Immunohistochemical Stains Frozen Section Add[facility]l ([facility]) Surgery Specimen Level IV IHC Stain ADDITIONAL HEADER OPERATION: Ultrasound wire localization right breast, lumpectomy, sentinel lymph node, blue dye radiotracer PRE-OP DIAGNOSIS: Invasive ductal carcinoma of right breast TISSUE SUBMITTED: A- Right breast sentinel lymph node, B- Right breast mass *long stitch- lateral, short stitch- superior* Ischemic Time: 1 minute Fixation Time: hours FROZEN SECTION DIAGNOSIS A. Right breast sentinel lymph node, excision: Negative for macrometastasis. B. Right breast mass for gross assessment of margins: Margins grossly adequate. Diagnoses provided by Dr Sergio Quintana. MICROSCOPIC DIAGNOSIS A. Right axilla, sentinel lymph node, biopsy: * Negative for metastasis (0/1). * IHC for pancytokeratin was utilized in the assessment. B. Right breast, invasive ductal carcinoma, lumpectomy: * Invasive ductal carcinoma NST, Grade 2 (tubule 3, nuclear 2, mitosis 1) 1.3 cm (pT1c pN0) margins free- see Synoptic Report. * DCIS (ductal carcinoma in situ), intermediate nuclear grade, negative for comedonecrosis, margins free (<1 mm to superior and medial margins) * Scattered microcalcifications noted. COMMENT SYNOPTIC REPORT FOR INVASIVE BREAST CARCINOMA Specimen (P=partial, M=mastectomy): P Laterality (R=right, L=left): R Focality (U=unifocal, M=multifocal): U Tumor size (cm): 1.3 Histologic type: invasive ductal NST Histologic grade: 2 ??? Tubule score (1-3): 3 ??? Nuclear score (1-3): 2 ??? Mitotic score (1-3): 1 Skin, nipple epidermis, skeletal muscle (I=involved, N=negative, NA=not applicable): NA Lymphovascular invasion (E=extensive, F=focal, N=not identified): N Margins of main specimen (P=positive, N=negative): N Distance to closest margin of main specimen (mm): 5 Designation of closest margin of main specimen: anterior, medial Designation of other margins of main specimen </=1 mm: NA Re-resection margin status (P=positive, N=negative, NA=not applicable): NA DCIS (P=present, N=not identified): P ?? Nuclear grade: intermediate ?? Comedo necrosis (P=present, N=not identified): N ?? Extensive intraductal component (P=present, N=not identified): P ?? Margins of main specimen (P=positive, N=negative): N ?? Distance to closest margin of main specimen (mm): < 1 ?? Designation of closest margin of main specimen: superior and medial ?? Designation of other margins of main specimen </=2 mm: NA ?? Longest span </= 2 mm to margin of main specimen (mm): < 1 ?? Re-resection margin status (P=positive, N=negative, NA=not applicable): NA Regional lymph nodes: ?? Total number of lymph nodes: 1 ?? Number of sentinel lymph nodes: 1 ?? Number with macrometastases: 0 ?? Number with micrometastases: 0 ?? Number with isolated tumor cells: 0 ?? Size of largest wayne metastasis (mm): NA ?? Size of extranodal extension (mm) (N=not identified): NA Estrogen receptor: positive (95%, strong intensity) Progesterone receptor: positive (95%, strong intensity) HER2 IHC: negative (1+) HER2 FISH: NA Specimen in which ER/ND/HER2 performed: [id number] B4 pTNM: pT1c pN0 Additional findings: Comment: IHCs utilized in the assessment: Pankeratin A1,2) CK5/6 (B1,2,3,6) SMM (B1,2) E-cadherin (B1) ER (B4) ND (B4) HER2(B4) CD31 (B6) The above synoptic report complies, in slightly modified form, with the guidelines of the [employer] [place] [employer] and the Association of Directors of Anatomic and Surgical Pathology for the reporting of cancer specimens. MICROSCOPIC DESCRIPTION Slides are reviewed. All matched controls reacted appropriately. These tests were developed and their performance characteristics determined by [facility]. They may not have been cleared or approved by the U.S. Food and Drug Administration. The FDA has determined that such clearance or approval is not necessary. The above immunohistochemical/dualISH markers are ordered and reviewed by the Pathologist. GROSS DESCRIPTION A. Received fresh for intraoperative consultation in a container labeled with the patient's name, date of , and right breast sentinel node is a 2.4 x 2.3 x 1.1 cm fragment of zavaleta-yellow fatty tissue. Sectioning reveals a zavaleta-pink, firm strip of possible lymph node which is submitted for frozen section analysis. The remaining remnants are submitted entirely as follows:A1. Frozen section remnantA2. Remainder of fatty tissue B. Received fresh for intraoperative consultation in a container labeled with the patient's name, date of , and right breast mass, long stitch lateral, short stitch superior is an oriented, 20.7 g right lumpectomy specimen with a long stitch indicating lateral and short stitch indicating superior. The specimen is 5.2 cm from superior to inferior, 4.2 cm from medial to lateral, and 3.5 cm from anterior to posterior. A metal localization wire is protruding from the lateral margin. Ink jimenez:Vvmfgefo-jtpsYddrqakh-gzvynIljkwg-akuJxtmcof-ltvsezWdsmcxvj-qdxosiIvvdznslb-black The specimen is serially sectioned from superior to inferior into 6 slices to reveal an ill-defined, white-zavaleta, spiculated, and firm mass within slices 2-5, toward the mid-aspect of the specimen. A spiral metal biopsy clip is identified within the mass in slice 3.Mass measurement: 1.3 x 1.3 x 1.0 cm. It is situated to the margins as follows:Anterior: 0.5 cmPosterior/deep: 0.5 cmMedial: 0.5 cmSuperior: 0.7 cmInferior: 0.7 cmLateral: 1.0 cm No other mass lesion is grossly recognized. The remaining cut surfaces are comprised of approximately 90% zavaleta-yellow adipose tissue and 10% white-zavaleta, dense and nodular fibrous tissue. College Admissions Counselor sections:B1. Slice 1, perpendicular sections of superior marginB2. Slice 2, mass to closest medial/deep marginB3. Slice 3, mass at greatest dimension (area of clip) to deep and closest anterior margin B4. Slice 4, mass with deep and closest lateral marginB5. Slice 4, fibrous area adjacent to mass with medial and anterior marginsB6. Slice 5, mass to lateral/deep margins (margin disrupted due to removal of localization wire) with sampled adjacent medial/anterior marginB7. Slice 6, perpendicular sections of inferior margin Total formalin fixation: Between 6 and 72 hours. [facility] 11-19-2024 CPT:[id number]
--- NOTE | 2024-11-18 12:25 | BI_ITS ---
PROCEDURE: BREAST BIOPSY SPECIMEN 11/18/2024 REASON FOR EXAM: 69-year-old female presents for localization of the biopsy-proven malignancy in the right breast. TECHNIQUE: The image submitted demonstrates a specimen with the wire, biopsy marker clip and right breast tissue sample. COMPARISON: Mammogram 10/07/2024 and ultrasound 10/14/2024 BI/Breast Biopsy Specimen IMPRESSION: WIRE / NEEDLE LOCALIZATION OF THE RIGHT BREAST. Reading Location: [id number]
--- NOTE | 2024-11-18 12:31 | OP.PCM_ITS ---
Oncology: [place] Requirements . Oncology surgical intervention performed: [place] Node Biopsy for Breast Cancer performed [place] Node Bx - Breast Cancer: Synoptic Portion: Element Response Options Operation performed with curative intent. Yes Tracer(s) used to identify sentinel nodes in the upfront surgery (non- neoadjuvant) setting (select all that apply). Dye; Radioactive tracer Tracer(s) used to identify sentinel nodes in the neoadjuvant setting (select all that apply).N/A. All nodes (colored or non-colored) present at the end of a dye-filled lymphatic channel were removed. Yes All significantly radioactive nodes were removed. Yes All palpably suspicious nodes were removed. N/A. Biopsy-proven positive nodes marked with clips prior to chemotherapy were identified and removed. N/A. Operative Report (Standard) Operative Information Date of Procedure: 11/18/24 Pre-Operative Diagnosis: Right breast cancer Post-Operative Diagnosis: Same Surgery/Procedure Performed: Ultrasound-guided right breast needle localization lumpectomy, sentinel lymph node biopsy with Lymphazurin and Lymphoseek insurance office manager: Yes Seismology Teacher: Julia Boyle Tasks completed by first officer: Opening & closing and Retracting Type of Anesthesia: General/Supplemental RN Documented Start/Stop Times: Operation Date: 11/18/24 11:30 Case Time Into Pre-Op 11/18/24 09:35 Out of Pre-Op 11/18/24 11:15 Anesthesia Start 11/18/24 11:16 Into Room 11/18/24 11:16 Procedure Start 11/18/24 11:50 Procedure End 11/18/24 12:46 Anesthesia End 11/18/24 12:52 Out of Room 11/18/24 12:52 Into Recovery 11/18/24 12:55 Into Phase II Recovery 11/18/24 13:15 Out of Recovery 11/18/24 13:15 Out of Phase II 11/18/24 14:07 Procedure Start Time: 11:50 Procedure Stop Time: 12:46 Select all DRAINS/GRAFTS/IMPLANTS that apply: None Special Medications: Ancef 2 g IV x 1 Estimated Blood Loss: 15 cc Specimen collected: Yes Description of specimen(s) removed: Right sentinel lymph node, right lumpectomy/breast mass Description of surgery: In AC the breast tissue was injected with Lymphoseek. 30 minutes later the patient was taken to the operating room and general anesthesia was induced. 5 cc of Lymphazurin 1% blue dye was injected in the 4 quadrants periareolar a long with 10 cc of normal saline. This was massaged gently for 5 minutes. The right breast and axilla were prepped and draped in usual sterile fashion. A timeout was completed verifying correct patient, procedure, site, positioning, special equipment prior to beginning procedure. Handheld gamma probe was used to identify the location of the hottest spot in the axilla. Prior to the incision, the counts were 15. The incision was made in the hot and blue was identified. The probe was placed in contact with the node in the 10 count was 549. The bed of the node measured 14 counts. No anya tional blue or hot nodes or palpable were detected. Frozen had 1 negative. Ultrasound was use for localization of the breast mass using the Kopan's needle. The wire was placed just inferiorly to the mass. A radial incision was planned in such a way as to minimize the amount of dissection to reach the mass. Flaps were raised in the location of the wire confirmed. The wire was delivered into the wound. 2 silk qeczyi-pq-ymvtf stay suture was placed around the wire and used for traction. Dissection was then taken down circumferentially, taking care to include the entire localization needle and wide margin of grossly normal tissue. The specimen and entire localizing wire were removed. The specimen was oriented and sent to mammography for x-ray. Confirmation was received that the entire target lesion and needle/clip had been resected. 3 medium clips were placed in the line at the deep area of the cavity. The cavities were irrigated. Hemostasis was checked. The breast and axillary incisions were closed with interrupted sutures of 3-0 Vicryl and subcuticular sutures of 4-0 Monocryl. No attempt was made to close the space. Steri-Strips were placed at the breast incision and Dermabond at the axilla incision. A supportive/surgical bra placed. The patient tolerated procedure well was taken to the postanesthesia care in stable condition Surgical Findings: See operative report Complications Complications: No
--- NOTE | 2024-11-18 12:39 | DCINST_ITS ---
Discharge Instructions Diet Discharge Diet: No restrictions Activity Discharge Activity: May Not Drive (for 2-3 days or while taking narcotic pain meds.) May shower in (days): 1 Lifting Restrictions: 10 pounds for 1 week. Dressing / Incision Call your doctor if your incision/area has: Continuous Slow Oozing, Sudden Increased Bleeding, Increased Pain/ Swelling and Increased Redness Call your doctor if you observe: Fever of 101 or Higher Suture Line Care: Avoid Pulling/Pushing and Avoid Pinching/Bending Remove Dressing in: 1 day Additional Dressing/Incision Instructions:: Remove bulky dressing tomorrow. May leave op-site dressing for 3-4 days. Dermabond (glue) was used at the axillary incision this may start to peel off in about 5 days. Okay to remove Steri- Strips from the breast incision in 7 to 10 days. Follow Up Care Please Follow Up With: Leela Rivera MD When: Please call [phone] for an appointment to be seen in 2 week. Test Results: Test results from this visit will be discussed in further detail at your follow- up appointment, if applicable. Discharge Plan Admission Attending Provider: Leela Rivera Primary Care Provider: Jere Mae Instructions Print Language: Ukrainian Discharge Orders/Prescriptions Prescriptions: New tramadol 50 mg tablet 50 mg PO Q6H PRN (Reason: pain) 2 Days Qty: 5 0RF Continued atorvastatin 20 mg tablet 20 mg PO QDAY alendronate 70 mg tablet 70 mg PO ADAMS calcium glucarate 500 mg capsule 1 tab-cap PO QDAY methotrexate (PF) 25 mg/0.5 mL auto-injector 25 mg subcut FR pantoprazole 40 mg tablet,delayed release (DR/EC) 40 mg PO QDAY multivitamin Tablet 1 tab PO QAM Ozempic 0.25 mg or 0.5 mg (2 mg/3 mL) pen injector 1 mg subcut FR Patient Comments: PT TO STOP TAKING 7 DAYS BEFORE SURGERY ON 11/18/[address] RIVERA INSTRUCTIONS Rx Instructions: for 4 weeks levothyroxine [Synthroid] 137 mcg tablet 68.5 mcg PO ADAMS sertraline [Zoloft] 100 mg tablet 100 mg PO QDAY amlodipine-benazepril 5-20 mg capsule 1 cap PO QDAY mirtazapine 15 mg tablet 15 mg PO QHS Patient Comments: [NO ORIGINAL SIG] meloxicam 15 mg tablet 7.5 mg PO DAILY PRN PRN (Reason: pain) Patient Comments: [NO ORIGINAL SIG] Held aspirin 81 mg tablet,delayed release (DR/EC) 81 mg PO QHS Hold Instructions: Resume on 11/20/24. Patient Comments: PT TO STOP ON 11/13/24 FOR SURGERY ON 11/18/[address] RIVERA INSTRUCTIONS; LAST DOSE 11/12/2024 Referrals / Follow Up: Jere Mae MD [Primary Care Provider] - Disposition Disposition (needs filled in before D/C Order can be placed): Home, Self Care
[2024-11-18] MEDS: Bupivacaine 0.25% 30 ML Vial (12:40)
--- NOTE | 2024-11-18 14:20 | PCM.POST.ANE ---
Anesthesia: Postop Eval I Current Vital Signs Temperature: 97 F Pulse Rate: 95 Blood Pressure: 132/47 Respiratory Rate: 16 Pulse Ox: 98 Oxygen Delivery Method: Room Air Assessment Airway patent: Yes Spontaneous unlabored respirations: Yes Mental status: Awake and Calm nausea: No Vomiting: No Anesthesia Complication: No Fluid Hydration Crystalloid volume administer (ml): 900 Total IV fluid infused: 900 Progress Note Anesthesia document: Postop Eval 1 completed: Yes
--- NOTE | 2024-11-18 20:18 | POSTOPAN2_ITS ---
Anesthesia Postop Eval I Sum Postop Eval Completion status Anesthesia document: Postop Eval 1 completed: Yes Anesthesia Postop Eval I Summary Anesthesia Postop Eval I Summary: Anesthesia Postop Eval I: Assessment Summary Airway patent Yes 11/18/24 14:21 NET [email or web address] Spontaneous unlabored Yes 11/18/24 14:21 NET [email or web address] respirations Mental status Awake,Calm 11/18/24 14:21 NET [email or web address] nausea No 11/18/24 14:21 NET [email or web address] Vomiting No 11/18/24 14:21 NET [email or web address] Anesthesia Postop Eval I: Fluid Summary Crystalloid volume administer 900 11/18/24 14:21 NET [email or web address] (ml) Colloids volume administered ( ml) Blood Product volume administered (ml) Total IV fluid infused 900 11/18/24 14:21 NET [email or web address] Anesthesia Postop Eval I: Summary Notes Anesthesia Complication No 11/18/24 14:21 NET [email or web address] Anesthesia Complication Comment: Post-operative progress note Anesthesia: Postop Eval II Evaluation Mental status: Awake and Calm Pain Level: 1 nausea: No Vomiting: No Complications Anesthesia Complication: No
--- NOTE | 2024-11-18 20:18 | PCM.POSTANE2 ---
Anesthesia Postop Eval I Sum Postop Eval Completion status Anesthesia document: Postop Eval 1 completed: Yes Anesthesia Postop Eval I Summary Anesthesia Postop Eval I Summary: Anesthesia Postop Eval I: Assessment Summary Airway patent Yes 11/18/24 14:21 DNA [email or web address] Spontaneous unlabored Yes 11/18/24 14:21 DNA [email or web address] respirations Mental status Awake,Calm 11/18/24 14:21 DNA [email or web address] nausea No 11/18/24 14:21 DNA [email or web address] Vomiting No 11/18/24 14:21 DNA [email or web address] Anesthesia Postop Eval I: Fluid Summary Crystalloid volume administer 900 11/18/24 14:21 DNA [email or web address] (ml) Colloids volume administered ( ml) Blood Product volume administered (ml) Total IV fluid infused 900 11/18/24 14:21 DNA [email or web address] Anesthesia Postop Eval I: Summary Notes Anesthesia Complication No 11/18/24 14:21 DNA [email or web address] Anesthesia Complication Comment: Post-operative progress note Anesthesia: Postop Eval II Evaluation Mental status: Awake and Calm Pain Level: 1 nausea: No Vomiting: No Complications Anesthesia Complication: No
== END 2024-11-18 14:08 | disposition home or self-care (01) ==
LOC: SDC 09:27 → AC 09:29
PROVIDERS: PCP Family Medicine; Referring Provider Surgery; Visit Provider Surgery
PROC: 0HBV0ZZ Excision of Bilateral Breast, Open Approach (ICD-10-PCS; CPT 19302; principal; 2024-11-18 11:15)
DX: C50.911 Malignant neoplasm of unspecified site of right female breast (principal); Z17.0 Estrogen receptor positive status [ER+]; E78.00 Pure hypercholesterolemia, unspecified; I10 Essential (primary) hypertension; Z79.82 Long term (current) use of aspirin; Z79.899 Other long term (current) drug therapy; Z87.891 Personal history of nicotine dependence; Z80.3 Family history of malignant neoplasm of breast
CPT/HCPCS: 19301; 00404; 38792; 76098; 82962; 88305; 88331; 88332; 88341; 88342; A4648; A9520; J2405; Q9968

== ENCOUNTER → 2025-02-11 | Outpatient (CLI) | payer MEDICARE, SELFPAY ==
[2025-02-11 12:22] LABS: Hematocrit 42.2 % (37-47); Hemoglobin 14.1 g/dL (12.0-15.0); Immature Granulocytes Count 0.040 X10^3/uL (0.0-0.0); Mean Corp Hgb Conc 33.4 g/dL (32-36); Mean Corpuscular Volume 94.8 fL (81-99); Mean Platelet Vol. 10.0 fl (6.2-12.0); NRBC Flagged by Analyzer 0 % (0-5); Platelet Count 312 K/mm3 (150-450); RBC Distribution Width CV 14.7 % (11.6-14.6); RBC Distribution Width SD 50.8 fl (35.1-43.9); Red Blood Count 4.45 M/mm3 (4.2-5.4); White Blood Count 6.9 K/mm3 (4.4-11.0)
[2025-02-11 16:16] LABS: Creatinine, Urine (random) 37.40 mg/dL (28.00-217.00); Microalbumin,Random Urine < 12.0 mg/L (NO RANGE EST.)
[2025-02-11 16:42] LABS: AST(SGOT) 23 U/L (<=31); Alanine Aminotransfer ALT/SGPT 23 U/L (<=34); Albumin, Serum 4.1 g/dL (3.4-4.8); Alkaline Phosphatase 78 U/L (35-104); Anion Gap 12 (5-15); BUN 16 mg/dL (4-19); BUN/Creat Ratio 27.4 RATIO (10-20); Calcium,Total 9.3 mg/dL (7.6-11.0); Carbon Dioxide 25.1 mmol/L (21.0-32.0); Chloride 101 mmol/L (98-108); Cholesterol 140 mg/dL (<=200); Globulin 3.0 g/dL (2.2-4.2); Glucose 93 mg/dL (70-99); Low Density Lipoprotein Calc. 53 mg/dL; Potassium 4.0 mmol/L (3.3-5.1); Triglycerides 120 mg/dL; Very Low Density Lipoprotein 24 mg/dL (5-40); Vitamin D,25 Hydroxy 45.5 ng/mL (30-100); cholesterol:hdl ratio screen 2.21
== END | disposition home or self-care (01) ==
LOC: MTLAB 10:26
PROVIDERS: PCP Family Medicine; Referring Provider Internal Medicine Rheumatology; Visit Provider Internal Medicine Rheumatology
DX: M06.4 Inflammatory polyarthropathy (principal); E11.65 Type 2 diabetes mellitus with hyperglycemia; Z79.899 Other long term (current) drug therapy; E55.9 Vitamin D deficiency, unspecified
CPT/HCPCS: 36415; 80053; 80061; 82043; 82306; 82570; 83036; 84439; 84443; 85025

== ENCOUNTER → 2025-03-25 | Outpatient (CLI) | payer MEDICARE, SELFPAY ==
[2025-03-25 12:40] LABS: Hematocrit 40.6 % (37-47); Hemoglobin 13.6 g/dL (12.0-15.0); Immature Granulocytes Count 0.020 X10^3/uL (0.0-0.0); Mean Corp Hgb Conc 33.5 g/dL (32-36); Mean Corpuscular Volume 93.1 fL (81-99); Mean Platelet Vol. 9.8 fl (6.2-12.0); NRBC Flagged by Analyzer 0 % (0-5); Platelet Count 353 K/mm3 (150-450); RBC Distribution Width CV 14.3 % (11.6-14.6); RBC Distribution Width SD 48.4 fl (35.1-43.9); Red Blood Count 4.36 M/mm3 (4.2-5.4); White Blood Count 6.4 K/mm3 (4.4-11.0)
[2025-03-25 12:58] LABS: AST(SGOT) 24 U/L (<=31); Alanine Aminotransfer ALT/SGPT 28 U/L (<=34); Albumin, Serum 4.1 g/dL (3.4-4.8); Alkaline Phosphatase 90 U/L (35-104); Anion Gap 13 (5-15); BUN 14 mg/dL (4-19); BUN/Creat Ratio 23.0 RATIO (10-20); Calcium,Total 9.4 mg/dL (7.6-11.0); Carbon Dioxide 24.2 mmol/L (21.0-32.0); Chloride 102 mmol/L (98-108); Globulin 3.1 g/dL (2.2-4.2); Glucose 114 mg/dL (70-99); Potassium 3.7 mmol/L (3.3-5.1)
--- OUTSIDE RECORDS SUMMARY | 2025-03-25 18:46 | XMS RPT_ITS | CCD ---
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 Name Role Phone DOMINIQUE PEDROZA DO Primary Care Physician [phone] YOVANY DO, DOMINIQUE Primary Care Unavailable YOVANY KAUFMAN, DOMINIQUE Attending Unavailable RYNE HAGAN, DR MAGANA Attending Unavailabl e YOVANY DO, DOMINIQUE Primary Care Unavailable YOVANY DO, DOMINIQUE Primary Care Unavailable EMMA RESIDENT BUYER, VICTORINA CULLEN Attending Unavaila ble OYVANY KAUFMAN, DOMINIQUE Primary Care Unavailable RYNE HAGAN, DR MAGANA Attending Unavailadis e YOVANY DO, DOMINIQUE Primary Care Unavailable EMMA RESIDENT BUYER, VICTORINA CULLEN Attending Unavaila ble YOVANY DO, DOMINIQUE Primary Care Unavailable YOVANY DO, DOMINIQUE Attending Unavailable YOVANY DO, DOMINIQUE Primary Care Unavailable EMMA RESIDENT BUYER, VICTORINA CULLEN Attending Unavaildionicio Mae MD, Dr. Boris Leyva Primary Care Provider Emma RESIDENT BUYER-C, Victorina Attending Provider [phone] Emma RESIDENT BUYER-C, Victorina Referring Provider [phone] Izzy Michele MD Attending Provider Dr. Izzy Michele MD Referring Provider Dr. Boris Mae MD Attending Provider Dr. Boris Mae MD Referring Provider [phone] Dr. Boris Mae MD Other Provider KACIE ANDUJAR Attending Provider KACIE ANDUJAR Referring Provider Ryne HAGAN, Dr. Magana Other Provider Con RESIDENT BUYER-CKacie Other Provider Hortensia HAGAN, Dr. Swenson Attending Provider [phone] Hortensia HAGAN, Dr. Swenson Referring Provider Carmelita HAGAN, Dr. Boris Leyva Primary Care Provider Hortensia HAGAN, Dr. Swenson Other Provider Carmelita HAGAN, Dr. Boris Leyva Primary Care Provider Geneva HAGAN, Dr. Cleary Attending Provider [place] , Dr. Vilchis Attending Provider Carmelita HAGAN, Dr. Boris Leyva Primary Care Provider Carmelita HAGAN, Dr. Boris Leyva Attending Provider Carmelita HAGAN, Dr. Boris Leyva Referring Provider Camille HAGAN, Dr. Manzano Attending Provider [place] , Dr. Vilchis Referring Provider [facility], Dr. Vilchis Referring Provider [facility], Dr. Vilchis Referring Provider [facility], Dr. Vilchis Referring Provider Carmelita HAGAN, Dr. Boris Leyva Primary Care Provider [phone] Carmelita HAGAN, Dr. Boris Leyva Referring Provider [place] , Dr. Vilchis Referring Provider Ryne HAGAN, Dr. Magana Attending Provider Ryne HAGAN, Dr. Magana Referring Provider Emma JOHNSON-C, Victorina Other Provider Carmeltia HAGAN, Dr. Boris Leyva Primary Care Provider Carmelita HAGAN, Dr. Boris Leyva Referring Provider [phone] Hortensia HAGAN, Dr. Swenson Attending Provider Hortensia HAGAN, Dr. Swenson Referring Provider Izzy Michele Attending Unavailable Vellanki, Izzy Referring Unavailable Schinmayo, Boris E Primary Care Unavailable SchinBoris huber E Primary Care Unavailable SchBoris umanzor Attending Unavailable Vellanki, Izzy Attending Unavailable Vellanraleigh, Izzy Referring Unavailable Schinner, Boris E Primary Care Unavailable Schinner, Boris E Primary Care Unavailable Schinner, Boris E Referring Unavailable SchinBoris huber E Attending Unavailable Emma RESIDENT BUYER, Victorina Attending Unavailable Emma RESIDENT BUYER, Victorina Referring Unavailable Schinmayo, Boris E Primary Care Unavailable Vellanki, Izzy Consulting Unavailable Schinmayo, Boris E Primary Care Unavailable Schinmayo, Boris E Referring Unavailable SchBoris umanzor Attending Unavailable Kacie Andujar Consulting Unavailable Deng Beard Attending Unavailable Deng Beard Referring Unavailable SchBoris umanzor Primary Care Unavailable SchBoris umanzor Primary Care Unavailable Robotham, Leela Referring Unavailable Robotham, Leela Attending Unavailable Deng Beard Attending Unavailable Boris Mae Primary Care Unavailable Deng Beard Referring Unavailable Deng Beard Attending Unavailable Boris Mae Primary Care Unavailable Deng Beard Attending Unavailable Boris Mae Referring Unavailable SchBoris umanzor Primary Care Unavailable Deng Beard Attending Unavailable Boris Mae Referring Unavailable Boris Mae Primary Care Unavailable Deng Beard Attending Unavailable Deng Beard Referring Unavailable Boris Mae Primary Care Unavailable Deng Beard Referring Unavailable Deng Beard Attending Unavailable Boris aMe Primary Care Unavailable Deng Beard Referring Unavailable Deng Beard Attending Unavailable SchBoris umanzor Primary Care Unavailable Robotham, Leela Attending Unavailable Boris Mae Primary Care Unavailable SchBoris umanzor Referring Unavailable Vellanki, Izzy Referring Unavailable Vellanraleigh, Izzy Attending Unavailable Boris Mae Primary Care Unavailable Vellanki, Izzy Attending Unavailable Vellanki, Izzy Referring Unavailable Emma RESIDENT BUYER, Victorina Consulting Unavailable SchBoris umanzor E Primary Care Unavailable Deng Beard Referring Unavailable Deng Beard Attending Unavailable Boris Mae E Primary Care Unavailable Deng Beard Referring Unavailable Deng Beard Attending Unavailable SchinBoris huber E Primary Care Unavailable Schinmayo, Boris E Primary Care Unavailable Robotham, Leela Referring Unavailable Robotham, Leela Consulting Unavailable Robotham, Leela Attending Unavailable Deng Beard Referring Unavailable Deng Beard Attending Unavailable Boris Mae Primary Care Unavailable Robotham, Leela Attending Unavailable Robotham, Leela Referring Unavailable Boris Mae E Primary Care Unavailable Deng Beard Referring Unavailable Deng Beard Attending Unavailable Boris Mae E Primary Care Unavailable SchinnerBoris E Primary Care Unavailable ERIK FRANKLIN Attending Unavailable ERIK FRANKLIN Referring Unavailable SchinBoris huber Consulting Unavailable SchinnerBoris E Primary Care Unavailable Evin Bean Attending Unavailable Schinner, Boris E Referring Unavailable Schinner, Boris E Primary Care Unavailable Robotham, Leela Referring Unavailable Evin Bean Attending Unavailable Boris Mae E Primary Care Unavailable Robotham, Leela Attending Unavailable Boris Mae E Referring Unavailable Robotham, Leela Attending Unavailable SchBoris umanzor E Primary Care Unavailable Boris Mae E Referring Unavailable Allergies Allergy Classification Reported Allergen(s) Allergy Type Date of Onset Reaction(s) Facility canagliflozin (2 sources) canagliflozin; Translations: [canagliflozin] Drug Allergy [facility] Latex (2 sources) Latex Substance Allergy Rash [facility] Sulfonamides (antibiotic) (2 sources) Sulfamethoxazole; Translations: [sulfamethoxazole ] Drug Allergy Nausea and vomiting (disorder) [facility] venlafaxine (2 sources) venlafaxine; Translations: [venlafaxine] Drug Allergy [facility] (11 sources) canagliflozin; Translations: [canagliflozin] Drug Allergy [facility] (11 sources) Latex Allergy to substance Rash [facility] (11 sources) Sulfamethoxazole; Translations: [sulfamethoxazole ] Drug Allergy Nausea and vomiting (disorder) [facility] (20 sources) venlafaxine; Translations: [venlafaxine] Drug Allergy 10-24-19 25 Other [facility] Comment on above: hallucinations (10 sources) SITagliptin Drug Allergy 03-13-[address] [facility] (10 sources) Sulfonamides (Antibiotic) Allergy to substance 10-24-[address] [facility] (1 source) SITagliptin Drug Allergy 03-05-[address] [facility] (1 source) Sulfonamides (Antibiotic) Drug allergy (disorder) 03-05-[address] [facility] (1 source) venlafaxine Drug Allergy 03-05-[address] [facility] Medications Current Medications Medication Drug Class(es) Dates Sig (Normalized) Sig (Original) alendronic acid 70 mg oral tablet (20 sources) Bisphosphonate Start: 10-23-2024 Alendronate 70 mg tablet Active 70 mg PO ADAMS October 23, 2024 12:00am Start: 09-12-2021 alendronate 70 mg oral tablet Dose : 70 mg = 1 tab(s), Oral, qWeek, # 12 tab(s), 0 Refill(s) Start Date: 09/12/21 Status: Ordered amLODIPine 5 mg / benazepril hydrochloride 20 mg oral capsule (20 sources) Dihydropyridine Calcium Channel Lauren, Angiotensin Converting Enzyme Inhibitor Start: 10-23-2024 Amlodipine-Benazepril 5-20 mg capsule Active 1 NMA PO daily October 23, 2024 12:00am Start: 09-26-2023 take 1 capsule by [facility] once daily amlodipine-benazepril 5 mg-10 mg oral capsule Dose = 1 cap(s), Oral, qDay, # 90 cap(s), 3 Refill(s), Pharmacy: [facility], Diabetes High blood pressure, 158.3, cm, 03/15/23 15:24:00 EDT, Height, kg, 03/15/23 15:24:00 EDT, Dosing Weight Start Date: 09/26/23 Status: Ordered Start: 09-08-2022 take 1 capsule by [facility] once daily amlodipine-benazepril 5 mg-10 mg oral capsule Dose = 1 cap(s), Oral, qDay, # 90 cap(s), 3 Refill(s), Pharmacy: [facility], Diabetes High blood pressure, 150.5, cm, 09/08/22 14:39:00 EST, Height, kg, 09/08/22 14:39:00 EST, Dosing Weight Start Date: 09/08/22 Status: Ordered Start: 09-28-2021 take 1 capsule by [facility] once daily amlodipine-benazepril 5 mg-10 mg oral capsule Dose = 1 cap(s), Oral, qDay, # 90 cap(s), 3 Refill(s), Pharmacy: [facility], Hypertension, 149, cm, 09/28/21 13:31:00 EST, Height, kg, 09/28/21 13:31:00 EST, Dosing Weight Start Date: 09/28/21 Status: Ordered Start: 03-24-2021 take 1 capsule by [facility] once daily amlodipine-benazepril 5 mg-10 mg oral capsule Dose = 1 cap(s), Oral, qDay, # 90 cap(s), 1 Refill(s), Pharmacy: [facility], Hypertension, 150, cm, 03/24/21 14:06:00 EDT, Height, kg, 03/24/21 14:06:00 EDT, Dosing Weight Start Date: 03/24/21 Status: Ordered aspirin 81 mg delayed release oral tablet (20 sources) Platelet Aggregation Inhibitor, Nonsteroidal Anti-inflammatory Drug Start: 10-23-2024 take 1 tablet by mouth at bedtime Aspirin 81 mg tablet,delayed release (DR/EC) Active 81 mg PO AT BEDTIME October 23, 2024 12:00am On Hold: Resume on 11/20/24. Start: 03-04-2019 aspirin 81 mg oral delayed release tablet Dose : 81 mg = 1 tab(s), Oral, Daily, 0 Refill(s) Start Date: 03/04/19 Status: Ordered Start: 03-04-2019 aspirin 81 mg oral delayed release tablet Dose : 81 mg = 1 tab(s), Oral, Daily, 0 Refill(s) Start Date: 03/04/19 Status: Ordered atorvastatin 20 mg oral tablet (20 sources) HMG-CoA Reductase Inhibitor Start: 10-23-2024 take 1 tablet by mouth once daily Atorvastatin 20 mg tablet Active 20 mg PO daily October 23, 2024 12:00am Start: 09-26-2023 End: 09-20-2024 atorvastatin 20 mg oral tabl et Dose : 20 mg = 1 tab(s), Oral, qDay, # 90 tab(s), 3 Refill(s), Pharmacy: [facility], Hypercholesterolemia, 158.3, cm, 03/15/23 15:24:00 EDT, Height, kg, 03/15/23 15:24:00 EDT, Dosing Weight Start Date: 09/26/23 Stop Date: 09/20/24 Status: Ordered Start: 09-08-2022 End: 09-03-2023 atorvastatin 20 mg oral tabl et Dose : 20 mg = 1 tab(s), Oral, qDay, # 90 tab(s), 3 Refill(s), Pharmacy: [facility], Hypercholesterolemia, 150.5, cm, 09/08/22 14:39:00 EST, Height, kg, 09/08/22 14:39:00 EST, Dosing Weight Start Date: 09/08/22 Stop Date: 09/03/23 Status: Ordered Start: 09-01-2020 End: 06-18-2022 atorvastatin 20 mg oral tabl et Dose : 20 mg = 1 tab(s), Oral, qDay, # 90 tab(s), 3 Refill(s), Pharmacy: [facility], Hypercholesterolemia, 150, cm, 06/23/21 15:00:00 EST, Height, kg, 06/23/21 15:00:00 EST, Dosing Weight Start Date: 06/23/21 Stop Date: 06/18/22 Status: Ordered Calcium (11 sources) Phosphate Binder, Calcium Start: 09-12-2021 take 1 tablet by mouth twice daily Calcium 500+D oral tablet, chewable Dose = 1 tab(s), Chewed, BID, 0 Refill(s) Start Date: 09/12/21 Status: Ordered calcium glucarate 500 mg oral capsule (10 sources) Start: 10-23-2024 Calcium Glucarate 500 mg capsule Active 1 NMA PO daily October 23, 2024 12:00am cetirizine hydrochloride 10 mg oral tablet (2 sources) Histamine-1 Receptor Antagonist Start: 03-04-2019 cetirizine 10 mg oral tablet Dose : 10 mg = 1 tab(s), Oral, qDay, # 30 tab(s), 0 Refill(s) Start Date: 03/04/19 Status: Ordered fenofibric acid 135 mg delayed release oral capsule (13 sources) Peroxisome Proliferator Receptor alpha Agonist Start: 10-23-2024 take 1 capsule by mouth once daily Fenofibric Acid (Choline) (Trilipix) 135 mg capsule,delayed release(DR/EC) Active 135 mg PO daily October 23, 2024 12:00am Start: 09-12-2021 Trilipix 135 m g oral delayed release capsule Dose : 135 mg = 1 cap(s), Oral, Daily, # 30 cap(s), 0 Refill(s) Start Date: 09/12/21 Status: Ordered Fish Oils (13 sources) Start: 03-04-2019 Fish Oil 1200 mg oral capsule Dose : 2,400 mg = 2 cap(s), Oral, qDay, # 90 cap(s), 0 Refill(s) Start Date: 03/04/19 Status: Ordered folic acid 1 mg oral tablet (7 sources) Start: 12-30-2024 take 1 tablet by mouth once daily Folic Acid 1 mg tablet Active 1 mg PO daily December 30, 2024 12:00am HUMANA TRUE METRIX AIR METER (13 sources) Start: 03-04-2019 HUMANA TRUE METRIX AIR METER HUMANA TRUE METRIX AIR METER, 0 Refill(s) Start Date: 03/04/19 Status: Ordered hydroCHLOROthiazide 25 mg / triamterene 37.5 mg oral capsule (13 sources) Potassium-spar ing Diuretic, Thiazide Diuretic Start: 09-26-2023 take 1 capsule by mouth once daily hydrochlorothiaz chu-triamterene 25 mg-37.5 mg oral capsule Dose = 2 cap(s), Oral, Daily, # 180 cap(s), 3 Refill(s), Pharmacy: [facility], High blood pressure, 158.3, cm, 03/15/23 15:24:00 EDT, Height, kg, 03/15/23 15:24:00 EDT, Dosing Weight Start Date: 09/26/23 Status: Ordered Start: 09-08-2022 take 1 capsule by mouth once daily hydrochlorothiazide-triamterene 25 mg-37 .5 mg oral capsule Dose = 2 cap(s), Oral, Daily, # 180 cap(s), 3 Refill(s), Pharmacy: [facility], High blood pressure, 150.5, cm, 09/08/22 14:39:00 EST, Height, kg, 09/08/22 14:39:00 EST, Dosing Weight Start Date: 09/08/22 Status: Ordered Start: 06-23-2021 take 1 capsule by mouth once daily hydrochlorothiazide-triamterene 25 mg-37 .5 mg oral capsule Dose = 2 cap(s), Oral, Daily, # 180 cap(s), 3 Refill(s), Pharmacy: [facility], High blood pressure, 150, cm, 06/23/21 15:00:00 EST, Height, kg, 06/23/21 15:00:00 EST, Dosing Weight Start Date: 06/23/21 Status: Ordered Start: 09-01-2020 take 1 capsule by mouth once daily hydrochlorothiazide-triamterene 25 mg-37 .5 mg oral capsule Dose = 2 cap(s), Oral, Daily, # 180 cap(s), 3 Refill(s), Pharmacy: [facility], High blood pressure, 152, cm, 09/01/20 15:26:00 EST, Height, kg, 09/01/20 15:26:00 EST, Dosing Weight Start Date: 09/01/20 Status: Ordered levothyroxine sodium 0.137 mg oral tablet (20 sources) l-Thyroxine Start: 10-23-2024 Levothyroxine (Synthroid) 137 mcg tablet Active 68.5 ug PO ADAMS October 23, 2024 12:00am Start: 10-23-2024 take 1 tablet by sharmaine th once daily Levothyroxine (Synthroid) 137 mcg tablet Active 137 ug PO daily October 23, 2024 12:00am Start: 03-04-2019 levothyroxine 175 mcg (0.175 mg) oral tablet Dose : 175 mcg = 1 tab(s), Oral, qDay, # 30 tab(s), 0 Refill(s) Start Date: 03/04/19 Status: Ordered meloxicam 15 mg oral tablet (20 sources) Nonsteroidal Anti-inflammatory Drug Start: 11-10-2024 take 7.5 mg by mouth once daily as needed for pain Meloxicam 15 mg tablet Active 7.5 mg PO DAILY NEEDED as needed for pain November 10, 2024 12:00am Start: 09-26-2023 meloxicam 15 m g oral tablet Dose : 15 mg = 1 tab(s), Oral, qDay, # 90 tab(s), 3 Refill(s), Pharmacy: [facility], 158.3, cm, 03/15/23 15:24:00 EDT, Height, kg, 03/15/23 15:24:00 EDT, Dosing Weight Start Date: 09/26/23 Status: Ordered Start: 09-08-2022 meloxicam 15 m g oral tablet Dose : 15 mg = 1 tab(s), Oral, qDay, # 90 tab(s), 3 Refill(s), Pharmacy: [facility], 150.5, cm, 09/08/22 14:39:00 EST, Height, kg, 09/08/22 14:39:00 EST, Dosing Weight Start Date: 09/08/22 Status: Ordered Start: 04-28-2022 meloxicam 15 m g oral tablet Dose : 15 mg = 1 tab(s), Oral, qDay, # 90 tab(s), 0 Refill(s), Pharmacy: [facility] (Now [facility]), 149, cm, 09/28/21 13:31:00 EST, Height, kg, 09/28/21 13:31:00 EST, Dosing Weight Start Date: 04/28/22 Status: Ordered Start: 06-23-2021 meloxicam 15 m g oral tablet Dose : 15 mg = 1 tab(s), Oral, qDay, # 90 tab(s), 1 Refill(s), Pharmacy: [facility], 150, cm, 06/23/21 15:00:00 EST, Height, kg, 06/23/21 15:00:00 EST, Dosing Weight Start Date: 06/23/21 Status: Ordered Start: 12-21-2020 meloxicam 15 m g oral tablet Dose : 15 mg = 1 tab(s), Oral, qDay, # 90 tab(s), 1 Refill(s), Pharmacy: [facility], 152, cm, 10/26/20 15:31:00 EDT, Height, kg, 10/26/20 15:31:00 EDT, Dosing Weight Start Date: 12/21/20 Status: Ordered 0.5 ml methotrexate 50 mg/ml auto-injector (10 sources) Folate Analog Metabolic Inhibitor Start: 10-23-2024 Methotrexate (Pf) 25 mg/0.5 mL auto-injector Active 25 mg SC FR October 23, 2024 12:00am Start: 10-23-2024 Methotrexate ( Pf) 25 mg/0.5 mL auto-injector Active 25 mg SC EVERY WEEK October 23, 2024 12:00am mirtazapine 15 mg oral tablet (20 sources) Start: 11-10-2024 take 1 tablet by mouth at bedtime Mirtazapine 15 mg tablet Active 15 mg PO AT BEDTIME November 10, 2024 12:00am ANXIETY AND SLEEP Start: 09-26-2023 mirtazapine 15 mg oral tablet Dose : 15 mg = 1 tab(s), Oral, qHS, # 90 tab(s), 3 Refill(s), Pharmacy: [facility], Depression, 158.3, cm, 03/15/23 15:24:00 EDT, Height, kg, 03/15/23 15:24:00 EDT, Dosing Weight Start Date: 09/26/23 Status: Ordered Start: 09-08-2022 mirtazapine 15 mg oral tablet Dose : 15 mg = 1 tab(s), Oral, qHS, # 90 tab(s), 3 Refill(s), Pharmacy: [facility], Depression, 150.5, cm, 09/08/22 14:39:00 EST, Height, kg, 09/08/22 14:39:00 EST, Dosing Weight Start Date: 09/08/22 Status: Ordered Start: 06-23-2021 mirtazapine 15 mg oral tablet Dose : 15 mg = 1 tab(s), Oral, qHS, # 90 tab(s), 3 Refill(s), Pharmacy: [facility], Depression, 150, cm, 06/23/21 15:00:00 EST, Height, kg, 06/23/21 15:00:00 EST, Dosing Weight Start Date: 06/23/21 Status: Ordered Start: 09-01-2020 mirtazapine 15 mg oral tablet Dose : 15 mg = 1 tab(s), Oral, qHS, # 90 tab(s), 3 Refill(s), Pharmacy: [facility], Depression, 152, cm, 09/01/20 15:26:00 EST, Height, kg, 09/01/20 15:26:00 EST, Dosing Weight Start Date: 09/01/20 Status: Ordered Multivitamin preparation (11 sources) Start: 09-12-2021 take 1 tablet by mouth once daily Multivitamin Dose = 1 tab(s), Oral, Daily, 0 Refill(s) Start Date: 09/12/21 Status: Ordered Multivitamin tablet (10 sources) Start: 10-23-2024 Multivitamin t ablet Active 1 {tbl} PO EVERY MORNING October 23, 2024 12:00am ondansetron 4 mg oral tablet (4 sources) Serotonin-3 Receptor Antagonist Start: 09-13-2021 Zofran 4 mg oral tablet Dose : 4 mg = 1 tab(s), Oral, q6h, PRN Nausea/Vomiting, # 20 tab(s), 0 Refill(s), Pharmacy: [facility]/pharmacy #[id number], 149.9, cm, 09/12/21 20:22:00 EST, Height, kg, 09/12/21 20:22:00 EST, Dosing Weight Start Date: 09/13/21 Status: Ordered Ozempic (1 mg dose) 2 mg/1.5 mL subcutaneous solution (4 sources) Start: 03-04-2019 Ozempic (1 mg dose) 2 mg/1.5 mL subcutaneous solution Dose : 1 mg =, Subcutaneous, qWeek, # 3 mL, 0 Refill(s) Start Date: 03/04/19 Status: Ordered pantoprazole 40 mg delayed release oral tablet (20 sources) Proton Pump Inhibitor Start: 10-23-2024 take 1 tablet by mouth once daily Pantoprazole 40 mg tablet,delayed release (DR/EC) Active 40 mg PO daily October 23, 2024 12:00am Start: 09-26-2023 pantoprazole 4 0 mg oral enteric coated tablet Dose : 40 mg = 1 tab(s), Oral, BID, # 180 tab(s), 3 Refill(s), Pharmacy: [facility], GERD without esophagitis, 158.3, cm, 03/15/23 15:24:00 EDT, Height, kg, 03/15/23 15:24:00 EDT, Dosing Weight Start Date: 09/26/23 Status: Ordered Start: 09-08-2022 pantoprazole 4 0 mg oral enteric coated tablet Dose : 40 mg = 1 tab(s), Oral, BID, # 180 tab(s), 3 Refill(s), Pharmacy: [facility], GERD without esophagitis, 150.5, cm, 09/08/22 14:39:00 EST, Height, kg, 09/08/22 14:39:00 EST, Dosing Weight Start Date: 09/08/22 Status: Ordered Start: 09-28-2021 pantoprazole 4 0 mg oral enteric coated tablet Dose : 40 mg = 1 tab(s), Oral, BID, # 180 tab(s), 3 Refill(s), Pharmacy: [facility], GERD without esophagitis, 149, cm, 09/28/21 13:31:00 EST, Height, kg, 09/28/21 13:31:00 EST, Dosing Weight Start Date: 09/28/21 Status: Ordered Start: 10-26-2020 pantoprazole 4 0 mg oral enteric coated tablet Dose : 40 mg = 1 tab(s), Oral, BID, # 180 tab(s), 3 Refill(s), Pharmacy: [facility], GERD without esophagitis, 152, cm, 10/26/20 15:31:00 EDT, Height, kg, 10/26/20 15:31:00 EDT, Dosing Weight Start Date: 10/26/20 Status: Ordered 1 mg dose 1.5 ml semaglutide 1.34 mg/ml pen injector (9 sources) Start: 03-04-2019 Ozempic (1 mg dose) 2 mg/1.5 mL subcutaneous solution Dose : 1 mg =, Subcutaneous, qWeek, # 3 mL, 0 Refill(s) Start Date: 03/04/19 Status: Ordered Semaglutide (10 sources) Start: 10-23-2024 Semaglutide (O zempic) 0.25 mg or 0.5 mg (2 mg/3 mL) pen injector Active 1 mg SC FR October 23, 2024 12:00am for 4 weeks Start: 10-23-2024 Semaglutide (O zempic) 0.25 mg or 0.5 mg (2 mg/3 mL) pen injector Active 1 mg SC EVERY WEEK October 23, 2024 12:00am for 4 weeks sertraline 100 mg oral tablet (20 sources) Serotonin Reuptake Inhibitor Start: 10-23-2024 take 1 tablet by mouth once daily Sertraline (Zoloft) 100 mg tablet Active 100 mg PO daily October 23, 2024 12:00am Start: 09-26-2023 sertraline 100 mg oral tablet Dose : 100 mg = 1 tab(s), Oral, qDay, # 90 tab(s), 3 Refill(s), Pharmacy: [facility], Depression, 158.3, cm, 03/15/23 15:24:00 EDT, Height, kg, 03/15/23 15:24:00 EDT, Dosing Weight Start Date: 09/26/23 Status: Ordered Start: 09-08-2022 sertraline 100 mg oral tablet Dose : 100 mg = 1 tab(s), Oral, qDay, # 90 tab(s), 3 Refill(s), Pharmacy: [facility], Depression, 150.5, cm, 09/08/22 14:39:00 EST, Height, kg, 09/08/22 14:39:00 EST, Dosing Weight Start Date: 09/08/22 Status: Ordered Start: 06-23-2021 sertraline 100 mg oral tablet Dose : 100 mg = 1 tab(s), Oral, qDay, # 90 tab(s), 3 Refill(s), Pharmacy: [facility], Depression, 150, cm, 06/23/21 15:00:00 EST, Height, kg, 06/23/21 15:00:00 EST, Dosing Weight Start Date: 06/23/21 Status: Ordered Start: 09-01-2020 sertraline 100 mg oral tablet Dose : 100 mg = 1 tab(s), Oral, qDay, # 90 tab(s), 3 Refill(s), Pharmacy: [facility], Depression, 152, cm, 09/01/20 15:26:00 EST, Height, kg, 09/01/20 15:26:00 EST, Dosing Weight Start Date: 09/01/20 Status: Ordered Triamterene-Hydrochlorothiaz id 50-25 mg capsule (7 sources) Start: 12-03-2024 Triamterene-Hydrochlorothiaz id 50-25 mg capsule Active NMA PO December 03, 2024 12:00am zinc gluconate 50 mg oral ta blet (11 sources) Start: 09-12-2021 zinc (as gluconate) 50 mg or al tablet Dose : 50 mg = 1 tab(s), Oral, Daily, 0 Refill(s) Start Date: 09/12/21 Status: Ordered Completed/Discontinued Medications Medication Drug Class(es) Dates Sig (Normalized) Sig (Original) cefdinir 300 mg oral capsule (7 sources) Cephalosporin Antibacterial Start: 12-04-2024 End: 12-30-2024 take 1 capsule by mouth twice daily Cefdinir 300 mg capsule Discontinued 300 mg PO TWICE A DAY 6 0 December 04, 2024 12:00am December 30, 2024 1:35pm sucralfate 1000 mg oral tablet (12 sources) Aluminum Complex Start: 09-13-2021 End: 09-20-2021 Carafate 1 g oral tablet Dose : 1 gram(s) = 1 tab(s), Oral, TIDAC, # 21 tab(s), 0 Refill(s), Pharmacy: [facility]/pharmacy #[id number], 149.9, cm, 09/12/21 20:22:00 EST, Height, kg, 09/12/21 20:22:00 EST, Dosing Weight Start Date: 09/13/21 Stop Date: 09/20/21 Status: Ordered Start: 10-26-2020 End: 12-25-2020 Carafate 1 g oral tablet Dos e : 1 gram(s) = 1 tab(s), Oral, QID, # 120 tab(s), 1 Refill(s), Pharmacy: [facility]/pharmacy #[id number], GERD without esophagitis, 152, cm, 10/26/20 15:31:00 EDT, Height, kg, 10/26/20 15:31:00 EDT, Dosing Weight Start Date: 10/26/20 Stop Date: 12/25/20 Status: Ordered traMADol hydrochloride 50 mg oral tablet (8 sources) Opioid Agonist Start: 11-18-2024 End: 12-03-2024 take 1 tablet by mouth every six hours as needed for pain Tramadol 50 mg tablet Discontinued 50 mg PO EVERY 6 HOURS as needed for pain 5 2 0 November 18, 2024 12:00am December 03, 2024 9:25am Postoperative pain Other acute postprocedural pain Problems Active Problems Problem Classification Problem Date Documented Da te Episodic/Chronic Anxiety disorders (20 sources) Anxiety; Translations: [Claustrophobia] 09-22-2016 Chronic Cancer of breast (20 sources) Malignant neoplasm of unspecified site of right female breast; Translations: [Infiltrating ductal carcinoma of right breast] Onset: 5 11-10-2024 Chronic Complications of surgical procedures or medical care (1 source) Postoperative hypothyroidism; Translations: [Postprocedural hypothyroidism] Chronic Diabetes mellitus with complications (3 sources) Hyperglycemia due to type 2 diabetes mellitus; Translations: [Type 2 diabetes mellitus with hyperglycemia] Onset: 4 Chronic Diabetes mellitus without complication (20 sources) Diabetes mellitus; Translations: [Type 2 diabetes mellitus] 10-02-2014 Chronic Disorders of lipid metabolism (20 sources) Hypercholesterolemia; Translations: [Pure hypercholesterolemia, unspecified] 10-02-2014 Chronic Esophageal disorders (13 sources) Gastroesophageal reflux disease 09-22-2016 Chronic Essential hypertension (20 sources) Hypertensive disorder; Translations: [Essential (primary) hypertension] 10-02-2014 Chronic Comment on above: PER PT, CONTROLLED O N MEDS Mood disorders (13 sources) Depressive disorder 09-22-2016 Chronic Nutritional deficiencies (14 sources) Vitamin D deficiency; Translations: [Vitamin D deficiency, unspecified] 09-22-2016 Chronic Osteoarthritis (13 sources) Arthritis 10-02-2014 Chronic Other aftercare (11 sources) Post-discharge follow-up 09-28-2021 Episodic Other connective tissue disease (4 sources) Polymyalgia 11-02-2023 Chronic Other diseases of kidney and ureters (11 sources) Kidney lesion 09-28-2021 Episodic Other gastrointestinal disorders (11 sources) Adrenal mass 09-28-2021 Episodic Other lower respiratory disease (13 sources) Dyspnea 09-22-2016 Episodic Comment on above: occasional upon awak ening Other lower respiratory disease (13 sources) Snoring 09-22-2016 Episodic Other non-traumatic joint disorders (4 sources) Multiple joint pain 11-02-2023 Episodic Other nutritional; endocrine; and metabolic disorders (13 sources) Morbid obesity 09-22-2016 Chronic Other nutritional; endocrine; and metabolic disorders (7 sources) Obesity 09-08-2022 Chronic Other nutritional; endocrine; and metabolic disorders (4 sources) Body mass index 30+ - obesity 03-15-2023 Chronic Other upper respiratory disease (13 sources) Seasonal allergy 09-22-2016 Chronic Pancreatic disorders (not diabetes) (20 sources) Cyst of pancreas; Translations: [Pancreatic duct disorder] 09-28-2021 Episodic Residual codes; unclassified (12 sources) Needs influenza immunization 06-23-2021 Episodic Residual codes; unclassified (12 sources) Requires vaccination 06-23-2021 Episodic Residual codes; unclassified (14 sources) Other specified postprocedural states; Translations: [Status post right breast lumpectomy] 12-02-2024 Episodic Retinal detachments; defects; vascular occlusion; and retinopathy (13 sources) Age related macular degeneration 09-22-2016 Chronic Rheumatoid arthritis and related disease (8 sources) Rheumatoid arthritis; Translations: [Rheumatoid arthritis, unspecified] Onset: 12-03-2024 Chronic Spondylosis; intervertebral disc disorders; other back problems (13 sources) Displacement of lumbar intervertebral disc without myelopathy 09-22-2016 Chronic Spondylosis; intervertebral disc disorders; other back problems (13 sources) Backache 09-22-2016 Episodic Substance-related disorders (13 sources) Smoker 09-22-2016 Chronic Comment on above: occasional Thyroid disorders (13 sources) Hypothyroidism 09-22-2016 Chronic Thyroid disorders (13 sources) Thyroid dysfunction 10-02-2014 Episodic Unclassified (13 sources) Eye glasses, device (physical object) 09-22-2016 Unclassified (20 sources) Patient encounter status 06-23-2021 Unclassified (16 sources) Infiltrating ductal carcinoma of right breast; Translations: [C50.911 - Malignant neoplasm of unspecified site of right female breast] Past or Other Problems Problem Classification Problem Date Documented Da te Episodic/Chronic Diabetes mellitus without complication (1 source) Other abnormal glucose; Translations: [Other abnormal glucose] Onset: 10-01-2024 Episodic Nonmalignant breast conditions (13 sources) Breast lump; Translations: [Unspecified lump in the right breast, unspecified quadrant] Onset: 11-03-2024 10-23-2024 Episodic Other screening for suspected conditions (not mental disorders or infectious disease) (8 sources) Viral screening status; Translations: [Encounter for screening mammogram for malignant neoplasm of breast] Onset: 10-20-2024 09-08-2022 Episodic Results Test Name Value Interpretation Reference Range Facility Radiation Oncology Visiton 0 03-05-2025 Radiation Oncology Visit [facility] [address] [place] [address] OFFICE VISIT Date of Service: 03/05/25 1301 MR#: [id number] Acct: [id number] Name: ALLYSON CLAUDIO Rep #: [id number] : 1955 From: Deng Beard DO Age/Sex: 69/F [place] [facility] [place]: Signed Intake Vital Signs 02/04/25 12:53 03/05/25 13:02 Height 4 ft 11 in 4 ft 11 in Weight: 173 lb 8 oz 173 lb 5 oz BMI 35.0 34.9 BP 147/76 H 157/74 H Blood Pressure Location Lt brachial Lt brachial Position Sitting Sitting Respiration 16 18 Pulse 89 81 Pulse Source Monitor Monitor Temp 98.8 F 97.2 F L Temperature Source Temporal Artery Temporal Artery Pulse Oximetry (%) 95 94 Oxygen Delivery Method room air room air Intake Visit Reasons: 1 MONTH F/U POST RT Is patient in pain?: No Allergies sitagliptin (From Januvia) Allergy (Intermediate, Verified 03/05/25 13:03) hallucinations Sulfa (Sulfonamide Antibiotics) Allergy (Intermediate, Verified 03/05/25 13:03) Hives venlafaxine (From Effexor) Allergy (Intermediate, Verified 03/05/25 13:03) Other Medications ???Medication ???Instructions ???Recorded ???Confirmed ???Type alendronate 70 mg tablet 70 mg PO ADAMS 10/23/24 03/05/25 Hist ory amlodipine 5 mg-benazepril 20 mg 1 cap PO QDAY 10/23/24 03/05/25 Hi story capsule aspirin 81 mg tablet,delayed 81 mg PO QHS 10/23/24 03/05/25 His tory release Held on 11/18/24. Instructions: Resume on 11/20/24. atorvastatin 20 mg tablet 20 mg PO QDAY 10/23/24 03/05/25 Hi story calcium glucarate 500 mg capsule 1 tab-cap PO QDAY 10/23/24 5 History levothyroxine 137 mcg tablet 68.5 mcg PO ADAMS 10/23/24 03/05/25 H istory (Synthroid) methotrexate (PF) 25 mg/0.5 mL 25 mg subcut FR 10/23/24 03/05/25 History subcutaneous auto-injector multivitamin 1 tab PO QAM 10/23/24 03/05/25 His tory pantoprazole 40 mg tablet,delayed 40 mg PO QDAY 10/23/24 03/05/25 H istory release semaglutide 0.25 mg or 0.5 mg (2 1 mg subcut FR 10/23/24 03/05/25 H istory mg/3 mL) subcutaneous pen injector (Ozempic) sertraline 100 mg tablet (Zoloft) 100 mg PO QDAY 10/23/24 03/05/25 History meloxicam 15 mg tablet 7.5 mg PO DAILY PRN PRN pain 11/1003/05/25 History mirtazapine 15 mg tablet 15 mg PO QHS ANXIETY AND SLEEP 03/05/25 History triamterene 50 cap PO 12/03/24 03/05/25 History mg-hydrochlorothiazide 25 mg capsule folic acid 1 mg tablet 1 mg PO QDAY 12/30/24 03/05/25 His tory Have you fallen in the past year?: No [facility] Medical History Wears glasses Wears dentures Cancer Post-menopausal Anxiety Alcohol use Depression High cholesterol Dietary restriction History of ulceration Former smoker History of rheumatic fever Thyroid disease Rheumatoid arthritis Heart murmur GERD (gastroesophageal reflux disease) HTN (hypertension) Diabetes Home Medications ???Medication ???Instructions ???Recorded ???Last Taken ???Type alendronate 70 mg tablet 70 mg PO ADAMS 10/23/24 Unknown Histo ry amlodipine 5 mg-benazepril 20 mg 1 cap PO QDAY 10/23/24 11/18/24 08 :00 History capsule aspirin 81 mg tablet,delayed 81 mg PO QHS 10/23/24 11/12/24 His tory release Held on 11/18/24. Instructions: Resume on 11/20/24. atorvastatin 20 mg tablet 20 mg PO QDAY 10/23/24 Unknown His tory calcium glucarate 500 mg capsule 1 tab-cap PO QDAY 10/23/24 Unknown History levothyroxine 137 mcg tablet 68.5 mcg PO ADAMS 10/23/24 11/18/24 0 8:00 History (Synthroid) methotrexate (PF) 25 mg/0.5 mL 25 mg subcut FR 10/23/24 11/14/24 History subcutaneous auto-injector multivitamin 1 tab PO QAM 10/23/24 Unknown Hist ory pantoprazole 40 mg tablet,delayed 40 mg PO QDAY 10/23/24 11/18/24 0 8:00 History release semaglutide 0.25 mg or 0.5 mg (2 1 mg subcut FR 10/23/24 11/07/24 H istory mg/3 mL) subcutaneous pen injector (Ozempic) sertraline 100 mg tablet (Zoloft) 100 mg PO QDAY 10/23/24 Unknown H istory meloxicam 15 mg tablet 7.5 mg PO DAILY PRN PRN pain 11/10 Unknown History mirtazapine 15 mg tablet 15 mg PO QHS ANXIETY AND SLEEP Unknown History triamterene 50 cap PO 12/03/24 Unknown History mg-hydrochlorothiazide 25 mg capsule folic acid 1 mg tablet 1 mg PO QDAY 12/30/24 Unknown Hist ory Allergy/AdvReac Type Severity Reaction Status Date / Time sitagliptin (From Januvia) Allergy Intermediate hallucinati Verified 03/05/25 13:03 ons Sulfa (Sulfonamide Allergy Intermediate Hives Verified 03/05/25 13:03 Antibiotics) venlafaxine (From Effexor) Allergy Intermediate Other Verified 03/05/25 13:03 Family History ... Normal [facility] Absolute lymphocyte countOrd ered By: Izzy Michele on 02-11-2025 Lymphocytes Auto (Unsp spec) [#/Vol] 1.20 10*3/uL 0.83-4.[address] [facility] Absolute neutrophil countOrd ered By: Izzy Michele on 02-11-2025 Neutrophils (Bld) [#/Vol] 4.6 10*3/uL 2.0-7.[address] [facility] Anion gap in Serum or Plasma Ordered By: Izzy Michele on 02-11-2025 Anion gap [Moles/Vol] 12 mmol/L 5-15 [facility] Automated lymphocyte count a s percentage of total leukocytesOrdered By: Izzy Michele on 02-11-2025 Lymphocytes/100 WBC Auto (Unsp spec) 17.5 % Low 19-[address] [facility] BUN/creatinine ratioOrdered By: Izzycynthia Michele on 02-11-2025 Urea nitrogen/Creatinine [Mass ratio] 27.4 mg/mg High 10-[address] [facility] Basophil percentageOrdered B y: Izzy Michele on 02-11-2025 Basophils/100 WBC (Bld) 1.0 % 0-[address] [facility] Bilirubin, totalOrdered By: Izzy Michele on 02-11-2025 Bilirubin [Mass/Vol] 0.18 mg/dL 0.00-1.30 [facility] CBC W/Diff, Automatedon Absolute Lymph 1.20 X10 3/uL Normal 0.83-4.[address] [facility] Comment on above: Order Comment: DR.VE DUNCAN GETS CBCD AND CMP. DR. VICTORINA CARTER GETS ALLRESULTS [id number] Performed By: #### L 501.080 #### [facility] [address] [place], [address] Absolute Neut 4.6 X10 3/uL Normal 2.0-7.[address] [facility] Comment on above: Order Comment: DR.VE DUNCAN GETS CBCD AND CMP. DR. VICTORINA CARTER GETS ALLRESULTS [id number] Performed By: #### L 501.080 #### [facility] [address] [place], [address] Basophils/100 WBC (Bld) 1.0 % Normal 0-[address] [facility] Comment on above: Order Comment: DR.VE DUNCAN GETS CBCD AND CMP. DR. VICTORINA CARTER GETS ALLRESULTS [id number] Performed By: #### L 501.080 #### [facility] [address] [place], [address] Eosinophils/100 WBC (Bld) 4.1 % Normal 0-[address] [facility] Comment on above: Order Comment: DR.VE DUNCAN GETS CBCD AND CMP. DR. VICTORINA CARTER GETS ALLRESULTS [id number] Performed By: #### L 501.080 #### [facility] [address] [place], [address] Erythrocyte distribution width (RBC) [Ratio] 14.7 % High 11.6-14.[address] [facility] Comment on above: Order Comment: DR.VE DUNCAN GETS CBCD AND CMP. DR. VICTORINA CARTER GETS ALLRESULTS [id number] Performed By: #### L 501.080 #### [facility] [address] [place], [address] Hematocrit (Bld) [Volume fraction] 42.2 % Normal 37-[address] [facility] Comment on above: Order Comment: DR.VE DUNCAN GETS CBCD AND CMP. DR. VICTORINA CARTER GETS ALLRESULTS [id number] Performed By: #### L 501.080 #### [facility] [address] [place], [address] Hemoglobin (Bld) [Mass/Vol] 14.1 g/dL Normal 12.0-15.[address] [facility] Comment on above: Order Comment: DR.VE DUNCAN GETS CBCD AND CMP. DR. VICTORINA CARTER GETS ALLRESULTS [id number] Performed By: #### L 501.080 #### [facility] [address] [place], [address] IG% 0.600 Normal 0.0-0.[address] [facility] Comment on above: Order Comment: DR.VE DUNCAN GETS CBCD AND CMP. DR. VICTORINA CARTER GETS ALLRESULTS [id number] Result Comment: IG% - Immature Granulocytes (promyelocytes, myelocytes and metamyelocytes) > 1% indicates that a LEFT SHIFT is Present. Performed By: #### L 501.080 #### [facility] [address] [place], [address] Lymphocytes/100 WBC (Bld) 17.5 % Low 19-[address] [facility] Comment on above: Order Comment: DR.VE DUNCAN GETS CBCD AND CMP. DR. VICTORINA CARTER GETS ALLRESULTS [id number] Performed By: #### L 501.080 #### [facility] [address] [place], [address] MCH (RBC) [Entitic mass] 31.7 pg Normal 27.0-32.[address] [facility] Comment on above: Order Comment: DR.VE DUNCAN GETS CBCD AND CMP. DR. VICTORINA CARTER GETS ALLRESULTS [id number] Performed By: #### L 501.080 #### [facility] [address] [place], [address] MCHC (RBC) [Mass/Vol] 33.4 g/dL Normal 32-36 [facility] Comment on above: Order Comment: DR.VE DUNCAN GETS CBCD AND CMP. DR. VICTORINA CARTER GETS ALLRESULTS [id number] Performed By: #### L 501.080 #### [facility] [address] [place], [address] MCV (RBC) [Entitic vol] 94.8 fL Normal 81-99 [facility] Comment on above: Order Comment: DR.VE DUNCAN GETS CBCD AND CMP. DR. VICTORINA CARTER GETS ALLRESULTS [id number] Performed By: #### L 501.080 #### [facility] [address] [place], [address] Monocytes/100 WBC (Bld) 10.2 % High 0-[address] [facility] Comment on above: Order Comment: DR.VE DUNCAN GETS CBCD AND CMP. DR. VICTORINA CARTER GETS ALLRESULTS [id number] Performed By: #### L 501.080 #### [facility] [address] [place], [address] Neutrophils/100 WBC (Bld) 66.6 % Normal 47-[address] [facility] Comment on above: Order Comment: DR.VE DUNCAN GETS CBCD AND CMP. DR. VICTORINA CARTER GETS ALLRESULTS [id number] Performed By: #### L 501.080 #### [facility] [address] [place], [address] Nucleated RBC (Bld) [#/Vol] 0 10*3/uL Normal 0-[address] [facility] Comment on above: Order Comment: DR.VE DUNCAN GETS CBCD AND CMP. DR. VICTORINA CARTER GETS ALLRESULTS [id number] Performed By: #### L 501.080 #### [facility] [address] [place], [address] Platelet mean volume (Bld) [Entitic vol] 10.0 fL Normal 6.2-12.[address] [facility] Comment on above: Order Comment: DR.VE DUNCAN GETS CBCD AND CMP. DR. VICTORINA CARTER GETS ALLRESULTS [id number] Performed By: #### L 501.080 #### [facility] [address] [place], [address] Platelets (Bld) [#/Vol] 312 10*3/uL Normal 150-[address] [facility] Comment on above: Order Comment: DR.VE DUNCAN GETS CBCD AND CMP. DR. VICTORINA CARTER GETS ALLRESULTS [id number] Performed By: #### L 501.080 #### [facility] [address] [place], [address] RBC (Bld) [#/Vol] 4.45 10*6/uL Normal 4.2-5.4 [facility] Comment on above: Order Comment: DR.VE DUNCAN GETS CBCD AND CMP. DR. VICTORINA CARTER GETS ALLRESULTS [id number] Performed By: #### L 501.080 #### [facility] [address] [place], [address] RDW SD 50.8 fl High 35.1-43.[address] [facility] Comment on above: Order Comment: DR.VE DUNCAN GETS CBCD AND CMP. DR. VICTORINA CARTER GETS ALLRESULTS [id number] Performed By: #### L 501.080 #### [facility] [address] [place], [address] WBC (Bld) [#/Vol] 6.9 10*3/uL Normal 4.4-11.0 [facility] Comment on above: Order Comment: DR.VE DUNCAN GETS CBCD AND CMP. DR. VICTORINA CARTER GETS ALLRESULTS [id number] Performed By: #### L 501.080 #### [facility] [address] [place], [address] Calculated very low density lipoprotein (VLDL) cholesterol measurementOrdered By: Izzy Michele on 02-11-2025 Calculated very low density lipoprotein (VLDL) cholesterol measurement 24 mg/dL 5-[address] [facility] Carbon dioxide, total [Moles /volume] in Central venous bloodOrdered By: Izzy Michele on 02-11-2025 CO2 [Moles/Vol] 25.1 mmol/L 21.0-32.[address] [facility] Chloride assayOrdered By: Godfrey Michele on 02-11-2025 Chloride [Moles/Vol] 101 mmol/L 98-108 [facility] Comprehensive Metabolic Prof ilon 02-11-2025 Albumin [Mass/Vol] 4.1 g/dL Normal 3.4-4.8 [facility] Comment on above: Order Comment: DR.VE DUNCAN GETS CBCD AND CMP. DR. VICTORINA CARTER GETS ALLRESULTS [id number] Performed By: #### L 501.080 #### [facility] [address] [place], [address] Albumin/Globulin [Mass ratio] 1.4 {ratio} Normal 0.9-2.[address] [facility] Comment on above: Order Comment: DR.VE DUNCAN GETS CBCD AND CMP. DR. VICTORINA CARTER GETS ALLRESULTS [id number] Performed By: #### L 501.080 #### [facility] [address] [place], [address] ALK PHOS 78 U/L Normal 35-[address] [facility] Comment on above: Order Comment: DR.VE DUNCAN GETS CBCD AND CMP. DR. VICTORINA CARTER GETS ALLRESULTS [id number] Performed By: #### L 501.080 #### [facility] [address] [place], [address] ALT [Catalytic activity/Vol] 23 U/L Normal <=[address] [facility] Comment on above: Order Comment: DR.VE DUNCAN GETS CBCD AND CMP. DR. VICTORINA CARTER GETS ALLRESULTS [id number] Performed By: #### L 501.080 #### [facility] [address] [place], [address] AST [Catalytic activity/Vol] 23 U/L Normal <=[address] [facility] Comment on above: Order Comment: DR.VE DUNCAN GETS CBCD AND CMP. DR. VICTORINA CARTER GETS ALLRESULTS [id number] Performed By: #### L 501.080 #### [facility] [address] [place], [address] Bilirubin [Mass/Vol] 0.18 mg/dL Normal 0.00-1.30 [facility] Comment on above: Order Comment: DR.VE DUNCAN GETS CBCD AND CMP. DR. VICTORINA CARTER GETS ALLRESULTS [id number] Performed By: #### L 501.080 #### [facility] [address] [place], [address] BUN/CRE 27.4 RATIO High 10-[address] [facility] Comment on above: Order Comment: DR.VE DUNCAN GETS CBCD AND CMP. DR. VICTORINA CARTER GETS ALLRESULTS [id number] Performed By: #### L 501.080 #### [facility] [address] [place], [address] Calcium [Mass/Vol] 9.3 mg/dL Normal 7.6-11.0 [facility] Comment on above: Order Comment: DR.VE DNUCAN GETS CBCD AND CMP. DR. VICTORINA CARTER GETS ALLRESULTS [id number] Performed By: #### L 501.080 #### [facility] [address] [place], [address] Chloride [Moles/Vol] 101 mmol/L Normal 98-108 [facility] Comment on above: Order Comment: DR.VE DUNCAN GETS CBCD AND CMP. DR. VICTORINA CARTER GETS ALLRESULTS [id number] Performed By: #### L 501.080 #### [facility] [address] [place], [address] CO2 [Moles/Vol] 25.1 mmol/L Normal 21.0-32.[address] [facility] Comment on above: Order Comment: DR.VE DUNCAN GETS CBCD AND CMP. DR. VICTORINA CARTER GETS ALLRESULTS [id number] Performed By: #### L 501.080 #### [facility] [address] [place], [address] Creatinine [Mass/Vol] 0.59 mg/dL Low 0.70-1.20 [facility] Comment on above: Order Comment: DR.VE DUNCAN GETS CBCD AND CMP. DR. VICTORINA CARTER GETS ALLRESULTS [id number] Performed By: #### L 501.080 #### [facility] [address] [place], [address] GAP 12 Normal 5-[address] [facility] Comment on above: Order Comment: DR.VE DUNCAN GETS CBCD AND CMP. DR. VICTORINA CARTER GETS ALLRESULTS [id number] Performed By: #### L 501.080 #### [facility] [address] [facility] [place], [address] GFR/1.73 sq M.predicted among non-blacks MDRD (S/P/Bld) [Vol rate/Area] 96 mL/min/{1.73_m2} Normal >[address] [facility] Comment on above: Order Comment: DR.VE DUNCAN GETS CBCD AND CMP. DR. VICTORINA CARTER GETS ALLRESULTS [id number] Result Comment: mL/m in/1.73m2 CKD-EPI Creatinine Equation (2020) Performed By: #### L 501.080 #### [facility] [address] [place], [address] Globulin (S) [Mass/Vol] 3.0 g/dL Normal 2.2-4.2 [facility] Comment on above: Order Comment: DR.VE DUNCAN GETS CBCD AND CMP. DR. VICTORINA CARTER GETS ALLRESULTS [id number] Performed By: #### L 501.080 #### [facility] [address] [place], [address] Glucose [Mass/Vol] 93 mg/dL Normal 70-99 [facility] Comment on above: Order Comment: DR.VE DUNCAN GETS CBCD AND CMP. DR. VICTORINA CARTER GETS ALLRESULTS [id number] Performed By: #### L 501.080 #### [facility] [address] [place], [address] Potassium [Moles/Vol] 4.0 mmol/L Normal 3.3-5.1 [facility] Comment on above: Order Comment: DR.VE DUNCAN GETS CBCD AND CMP. DR. VICTORINA CARTER GETS ALLRESULTS [id number] Performed By: #### L 501.080 #### [facility] [address] [place], [address] Sodium [Moles/Vol] 139 mmol/L Normal 133-145 [facility] Comment on above: Order Comment: DR.VE DUNCAN GETS CBCD AND CMP. DR. VICTORINA CARTER GETS ALLRESULTS [id number] Performed By: #### L 501.080 #### [facility] [address] [place], [address] T PROT 7.2 g/dL Normal 5.9-8.[address] [facility] Comment on above: Order Comment: DR.VE DUNCAN GETS CBCD AND CMP. DR. VICTORINA CARTER GETS ALLRESULTS [id number] Performed By: #### L 501.080 #### [facility] [address] [place], [address] Urea nitrogen [Mass/Vol] 16 mg/dL Normal 4-[address] [facility] Comment on above: Order Comment: DR.VE DUNCAN GETS CBCD AND CMP. DR. VICTORINA CARTER GETS ALLRESULTS [id number] Performed By: #### L 501.080 #### [facility] [address] [place], [address] Eosinophil percentageOrdered By: Izzy Michele on 02-11-2025 Eosinophils/100 WBC (Bld) 4.1 % 0-[address] [facility] Erythrocyte distribution wid th ratioOrdered By: Izzy Michele on 02-11-2025 Erythrocyte distribution width (RBC) [Ratio] 14.7 % High 11.6-14.[address] [facility] Erythrocyte distribution wid th standard deviationOrdered By: Izzy Michele on 02-11-2025 Erythrocyte distribution width (RBC) [Ratio] 50.8 fl High 35.1-43.[address] [facility] Glomerular filtration rate ( GFR) estimation/1.73 sq m using serum, plasma, or whole bOrdered By: Izzy Michele on 02-11-2025 GFR/1.73 sq M.predicted among non-blacks MDRD (S/P/Bld) [Vol rate/Area] 96 mL/min/{1.73_m2} >[address] [facility] Comment on above: mL/min/1.73m2 CKD-EP I Creatinine Equation (2020) Hematocrit Auto (Bld) [Volum e fraction]Ordered By: Izzy Michele on 02-11-2025 Hematocrit (Bld) [Volume fraction] 42.2 % 37-[address] [facility] Hemoglobin A1con 02-11-2025 HbA1c (Bld) [Mass fraction] 6.0 % High <=5.[address] [facility] Comment on above: Order Comment: DR.VE DUNCAN GETS CBCD AND CMP. DR. VICTORINA CARTER GETS ALLRESULTS [id number] Result Comment: Norm al < 5.7 % Prediabetic 5.7 - 6.4 % Diabetic >or= 6.5 % Please note range changes. Performed By: #### L 501.080 #### [facility] [address] [place] [address], [id number] Hemoglobin A1c percentageOrd ered By: Izzy Michele on 02-11-2025 HbA1c (Bld) [Mass fraction] 6.0 % High <5.[address] [facility] Comment on above: Normal < 5.7 % Predi abetic 5.7 - 6.4 % Diabetic >or= 6.5 % Please note range changes. Hemoglobin measurementOrdere d By: Izzy Michele on 02-11-2025 Hemoglobin (Bld) [Mass/Vol] 14.1 g/dL 12.0-15.[address] [facility] Immature granulocytes/100 WB C Auto (Bld)Ordered By: Izzy Michele on 02-11-2025 Immature granulocytes/100 WBC (Bld) 0.600 % 0.0-0.[address] [facility] Comment on above: IG% - Immature Granu locytes (promyelocytes, myelocytes and metamyelocytes) > 1% indicates that a LEFT SHIFT is Present. LDL calc ser/plasOrdered By: Izzy Michele on 02-11-2025 Cholesterol in LDL [Mass/Vol] 53 mg/dL [facility] Comment on above: Izcfdiyciu=008-031 m g/dL & Higher Surb=192 mg/dL or greater Laboratory - Chemistry and C hemistry - challengeOrdered By: Izzy Michele on 02-11-2025 AST [Catalytic activity/Vol] 23 U/L <[address] [facility] Lipid Profileon 02-11-2025 CHOL:HDL 2.[address] [facility] Comment on above: Order Comment: DR.VE DUNCAN GETS CBCD AND CMP. DR. VICTORINA CARTER GETS ALLRESULTS [id number] Performed By: #### L 501.080 #### [facility] [address] [place], [place], [phone] (421) Cholesterol [Mass/Vol] 140 mg/dL Normal <=200 [facility] Comment on above: Order Comment: DR.VE DUNCAN GETS CBCD AND CMP. DR. VICTORINA CARTER GETS ALLRESULTS [id number] Result Comment: Chol esterol level, Desirable <200 mg/dL Borderline high cholesterol 200-239 mg/dL High cholesterol >=240 mg/dL Recommendations of the NCEP Adult Treatment Panel for the following risk-cutoff thresholds for the [place] population. Performed By: #### L 501.080 #### [facility] [address] [place], [address] Cholesterol in HDL [Mass/Vol] 63 mg/dL Normal [facility] Comment on above: Order Comment: DR.VE DUNCAN GETS CBCD AND CMP. DR. VICTORINA CARTER GETS ALLRESULTS [id number] Result Comment: Viktoriya onal Cholesterol Education Program (NCEP) guidelines: <40 mg/dL: Low HDL-cholesterol (major risk factor for CHD) >= 60 mg/dL: High HDL-cholesterol (negative risk factor for CHD) HDL-cholesterol is affected by a number of factors, e.g. smoking, exercise, hormones, sex and age. Performed By: #### L 501.080 #### [facility] [address] [place], [address] (622) Cholesterol in LDL [Mass/Vol] 53 mg/dL Normal [facility] Comment on above: Order Comment: DR.VE DUNCAN GETS CBCD AND CMP. DR. VICTORINA CARTER GETS ALLRESULTS [id number] Result Comment: Bord svprqp=230-737 mg/dL Higher Xgoo=669 mg/dL or greater Performed By: #### L 501.080 #### [facility] [address] [facility] [place], [address] (782) Cholesterol in VLDL [Mass/Vol] 24 mg/dL Normal 5-[address] [facility] Comment on above: Order Comment: DR.VE DUNCAN GETS CBCD AND CMP. DR. VICTORINA CARTER GETS ALLRESULTS [id number] Performed By: #### L 501.080 #### [facility] [address] [facility] [place], [place], [phone] ([address] Triglyceride [Mass/Vol] 120 mg/dL Normal [facility] Comment on above: Order Comment: DR.VE DUNCAN GETS CBCD AND CMP. DR. VICTORINA CARTER GETS ALLRESULTS [id number] Result Comment: The drugs N-Acetylcysteine and Metamizole may falsely depress this assay. Normal range: <150 mg/dL Borderline High: 150-199 mg/dL High: 200-499 mg/dL Very High: >500 mg/dL Performed By: #### L 501.080 #### [facility] [address] [place], [place], [id number] (150) MCV (mean corpuscular volume ) determinationOrdered By: Izzy Michele on 02-11-2025 MCV (RBC) [Entitic vol] 94.8 fL 81-[address] [facility] Mean corpuscular hemoglobin (MCH) determinationOrdered By: Izzy Michele on 02-11-2025 MCH (RBC) [Entitic mass] 31.7 pg 27.0-32.[address] [facility] Mean corpuscular hemoglobin concentration (MCHC) determinationOrdered By: Izzy Michele on 02-11-2025 MCHC (RBC) [Mass/Vol] 33.4 g/dL 32-36 [facility] Mean platelet volume determi nationOrdered By: Izzy Michele on 02-11-2025 Platelet mean volume (Bld) [Entitic vol] 10.0 fL 6.2-12.[address] [facility] Microalb:Creat Ratio,Random URon 02-11-2025 Creatinine [Mass/Vol] 37.40 mg/dL Normal 28.00- 217.[address] [facility] Comment on above: Order Comment: DR.VE DUNCAN GETS CBCD AND CMP. DR. VICTORINA CARTER GETS ALLRESULTS [id number] Performed By: #### L 501.080 #### [facility] [address] [place], [address] MALB:CREAT UNABLE TO CALCULATE Normal [facility] Comment on above: Order Comment: DR.VE DUNCAN GETS CBCD AND CMP. DR. VICTORINA CARTER GETS ALLRESULTS [id number] Performed By: #### L 501.080 #### [facility] [address] [place], [address] MICROALBUMIN,UR < 12.0 Normal NO RANGE EST. [facility] Comment on above: Order Comment: DR.VE DUNCAN GETS CBCD AND CMP. DR. VICTORINA CARTER GETS ALLRESULTS [id number] Performed By: #### L 501.080 #### [facility] [address] [place], [address] Microalbumin/creat ratio urO rdered By: Izzy Michele on 02-11-2025 Urine microalbumin/creatinine ratio measurement UNABLE TO CALCULATE mg/g CRE [facility] Monocyte percentageOrdered B y: Izzy Michele on 02-11-2025 Monocytes/100 WBC (Bld) 10.2 % High 0-[address] [facility] Neutrophil percentageOrdered By: Izzy Michele on 02-11-2025 Neutrophils/100 WBC (Bld) 66.6 % 47-[address] [facility] Nucleated red blood cell per centageOrdered By: Izzy Michele on 02-11-2025 Nucleated RBC/100 WBC (Bld) [Ratio] 0 % 0-[address] [facility] Platelet countOrdered By: Godfrey Michele on 02-11-2025 Platelets (Bld) [#/Vol] 312 10*3/uL 150-[address] [facility] Potassium measurement (mass/ volume)Ordered By: Izzy Michele on 02-11-2025 Potassium (Unsp spec) [Mass/Vol] 4.0 mmol/L 3.3-5.[address] [facility] RBC Auto (Bld) [#/Vol]Ordere d By: Izzy Michele on 02-11-2025 RBC (Bld) [#/Vol] 4.45 10*6/uL 4.2-5.4 [facility] Random urine creatinine lelia urement (mass/volume)Ordered By: Izzy Michele on 02-11-2025 Creatinine Unsp time (U) [Mass/Vol] 37.40 mg/dL 28.00-217.[address] [facility] Screening total cholesterol/ high density lipoprotein (HDL) cholesterol ratioOrdered By: Izzy Michele on 02-11-2025 Cholesterol.total/Nisreen sterol in HDL [Mass ratio] 2.21 {ratio} [facility] Serum creatinine measurement (mass/volume)Ordered By: Izzy Michele on 02-11-2025 Creatinine [Mass/Vol] 0.59 mg/dL Low 0.70-1.20 [facility] Serum globulin measurementOr dered By: Izzy Michele on 02-11-2025 Globulin (S) [Mass/Vol] 3.0 g/dL 2.2-4.[address] [facility] Serum glucose measurement (m ass/volume)Ordered By: Izzy Michele on 02-11-2025 Glucose [Mass/Vol] 93 mg/dL 70-99 [facility] Serum or plasma alanine salas otransferase (ALT) measurementOrdered By: Izzy Michele on 02-11-2025 ALT [Catalytic activity/Vol] 23 U/L <[address] [facility] Serum or plasma albumin lelia urement (mass/volume)Ordered By: Izzy Michele on 02-11-2025 Albumin [Mass/Vol] 4.1 g/dL 3.4-4.8 [facility] Serum or plasma albumin/glob ulin mass ratioOrdered By: Izzy Michele on 02-11-2025 Albumin/Globulin [Mass ratio] 1.4 {ratio} 0.9-2.[address] [facility] Serum or plasma alkaline zander sphatase measurementOrdered By: Izzy Michele on 02-11-2025 ALP [Catalytic activity/Vol] 78 U/L 35-[address] [facility] Serum or plasma calcium lelia urement (mass/volume)Ordered By: Izzy Michele on 02-11-2025 Calcium [Mass/Vol] 9.3 mg/dL 7.6-11.0 [facility] Serum or plasma cholesterol in HDL measurement (mass/volume)Ordered By: Izzy Michele on 02-11-2025 Cholesterol in HDL [Mass/Vol] 63 mg/dL >[address] [facility] Comment on above: National Cholesterol Education Program (NCEP) guidelines:<40 mg/dL: Low HDL-cholesterol (major risk factor for CHD)>= 60 mg/dL: High HDL-cholesterol (negative risk factor for CHD)HDL-cholesterol is affected by a number of factors, e.g. smoking, exercise, hormones, sex and age. Serum or plasma cholesterol measurement (mass/volume)Ordered By: Izzy Michele on 02-11-2025 Cholesterol [Mass/Vol] 140 mg/dL <201 [facility] Comment on above: Cholesterol level, D esirable <200 mg/dLBorderline high cholesterol 200-239 mg/dLHigh cholesterol >=240 mg/dLRecommendations of the NCEP Adult Treatment Panel for the following risk-cutoff thresholds for the [place] population. Serum or plasma urea nitroge n measurement (mass/volume)Ordered By: Izzy Michele on 02-11-2025 Urea nitrogen [Mass/Vol] 16 mg/dL 4-[address] [facility] Sodium levelOrdered By: Alex Michele on 02-11-2025 Sodium [Moles/Vol] 139 mmol/L 133-145 [facility] T4 Free Directon 02-11-2025 T4 FREE DIRECT 1.20 ng/dL Normal 0.76-1.[address] [facility] Comment on above: Order Comment: DR.VE DUNCAN GETS CBCD AND CMP. DR. VICTORINA CARTER GETS ALLRESULTS [id number] Performed By: #### L 501.080 #### [facility] [address] [place], [place], [id number] T4 freeOrdered By: Izzy Small on 02-11-2025 Free T4 [Mass/Vol] 1.20 ng/dL 0.76-1.46 [facility] TSH DL <= 0.005 mIU/L QnOrde red By: Izzy Michele on 02-11-2025 TSH Qn 1.930 uIU/mL 0.300-4.[address] [facility] Thyroid Stim Hormone (TSH)on 02-11-2025 TSH 1.930 uIU/mL Normal 0.300-4.[address] [facility] Comment on above: Order Comment: DR.VE DUNCAN GETS CBCD AND CMP. DR. VICTORINA CARTER GETS ALLRESULTS [id number] Performed By: #### L 501.080 #### [facility] [address] [facility] [place], [place], [phone] Total proteinOrdered By: Ina Michele on 02-11-2025 Protein [Mass/Vol] 7.2 g/dL 5.9-8.4 [facility] Triglycerides measurementOrd ered By: Izzy Michele on 02-11-2025 Triglyceride [Mass/Vol] 120 mg/dL <[address] [facility] Comment on above: The drugs N-Acetylcy steine and Metamizole may falsely depress this assay. Normal range: <150 mg/dLBorderline High: 150-199 mg/dLHigh: 200-499 mg/dLVery High: >500 mg/dL Urine albumin measurement [facility] detection limit of 20 mg/L or less (mass/volume)Ordered By: Izzy Michele on 02-11-2025 Albumin DL <= 20 mg/L (U) [Mass/Vol] < 12.0 mg/L NO RANGE EST. [facility] Vitamin D,25 Hydroxyon 02-11 Vitamin D 25-OH 45.5 ng/mL Normal 30-[address] [facility] Comment on above: Order Comment: DR.VE DUNCAN GETS CBCD AND CMP. DR. VICTORINA CARTER GETS ALLRESULTS [id number] Result Comment: Viky min D Status Deficiency: <20 ng/mL (50nmol/L) Insufficiency: 20-30 ng/mL (50-75 nmol/L) Sufficiency: 30-100 ng/mL (75-250 nmol/L) Toxicity: >100 ng/mL (>250 nmol/L) Performed By: #### L 501.080 #### [facility] [address] [facility] [place], [address] White blood cell (WBC) count Ordered By: Izzy Michele on 02-11-2025 WBC (Bld) [#/Vol] 6.9 10*3/uL 4.4-11.0 [facility] Radiation Oncology Visiton 0 02-04-2025 Radiation On[address] [facility] [address] [facility] [place] [address] OFFICE VISIT Date of Service: 02/04/25 1251 MR#: [id number] Acct: [id number] Name: ALLYSON CLAUDIO Rep #: [id number] : 1955 From: Deng Beard DO Age/Sex: 69/F Location: [facility] [place] [facility] Status: Signed Intake Vital Signs 12/30/24 13:36 01/28/25 12:45 02/04/25 12:53 Height 4 ft 11 in 4 ft 11 in 4 ft 11 in Weight: 174 lb 6 oz 173 lb 8 oz BMI 35.2 35.0 BP 145/77 H 147/76 H Blood Pressure Location Lt brachial Lt brachial Position Sitting Sitting Respiration 18 16 Pulse 87 89 Pulse Source Monitor Monitor Temp 98.6 F 98.8 F Temperature Source Temporal Artery Temporal Artery Pulse Oximetry (%) 95 95 Oxygen Delivery Method room air room air Intake Visit Reasons: OTV Is patient in pain?: No Allergies sitagliptin (From Januvia) Allergy (Intermediate, Verified 02/04/25 12:53) hallucinations Sulfa (Sulfonamide Antibiotics) Allergy (Intermediate, Verified 02/04/25 12:53) Hives venlafaxine (From Effexor) Allergy (Intermediate, Verified 02/04/25 12:53) Other Medications ???Medication ???Instructions ???Recorded ???Confirmed ???Type alendronate 70 mg tablet 70 mg PO ADAMS 10/23/24 02/04/25 Hist ory amlodipine 5 mg-benazepril 20 mg 1 cap PO QDAY 10/23/24 02/04/25 Hi story capsule aspirin 81 mg tablet,delayed 81 mg PO QHS 10/23/24 02/04/25 His tory release Held on 11/18/24. Instructions: Resume on 11/20/24. atorvastatin 20 mg tablet 20 mg PO QDAY 10/23/24 02/04/25 Hi story calcium glucarate 500 mg capsule 1 tab-cap PO QDAY 10/23/2402/04/ 5 History levothyroxine 137 mcg tablet 68.5 mcg PO ADAMS 10/23/24 02/04/25 H istory (Synthroid) methotrexate (PF) 25 mg/0.5 mL 25 mg subcut FR 10/23/24 02/04/25 History subcutaneous auto-injector multivitamin 1 tab PO QAM 10/23/24 02/04/25 His tory pantoprazole 40 mg tablet,delayed 40 mg PO QDAY 10/23/24 02/04/25 H istory release semaglutide 0.25 mg or 0.5 mg (2 1 mg subcut FR 10/23/24 02/04/25 H istory mg/3 mL) subcutaneous pen injector (Ozempic) sertraline 100 mg tablet (Zoloft) 100 mg PO QDAY 10/23/24 02/04/25 History meloxicam 15 mg tablet 7.5 mg PO DAILY PRN PRN pain 11/1002/04/25 History mirtazapine 15 mg tablet 15 mg PO QHS ANXIETY AND SLEEP 02/04/25 History triamterene 50 cap PO 12/03/24 02/04/25 History mg-hydrochlorothiazide 25 mg capsule folic acid 1 mg tablet 1 mg PO QDAY 12/30/24 02/04/25 His tory Have you fallen in the past year?: No PFSH PFSH Medical History Wears glasses Wears dentures Cancer Post-menopausal Anxiety Alcohol use Depression High cholesterol Dietary restriction History of ulceration Former smoker History of rheumatic fever Thyroid disease Rheumatoid arthritis Heart murmur GERD (gastroesophageal reflux disease) HTN (hypertension) Diabetes Home Medications ???Medication ???Instructions ???Recorded ???Last Taken ???Type alendronate 70 mg tablet 70 mg PO ADAMS 10/23/24 Unknown Histo ry amlodipine 5 mg-benazepril 20 mg 1 cap PO QDAY 10/23/24 11/18/24 08 :00 History capsule aspirin 81 mg tablet,delayed 81 mg PO QHS 10/23/24 11/12/24 His tory release Held on 11/18/24. Instructions: Resume on 11/20/24. atorvastatin 20 mg tablet 20 mg PO QDAY 10/23/24 Unknown His tory calcium glucarate 500 mg capsule 1 tab-cap PO QDAY 10/23/24 Unknown History levothyroxine 137 mcg tablet 68.5 mcg PO ADAMS 10/23/24 11/18/24 0 8:00 History (Synthroid) methotrexate (PF) 25 mg/0.5 mL 25 mg subcut FR 10/23/24 11/14/24 History subcutaneous auto-injector multivitamin 1 tab PO QAM 10/23/24 Unknown Hist ory pantoprazole 40 mg tablet,delayed 40 mg PO QDAY 10/23/24 11/18/24 0 8:00 History release semaglutide 0.25 mg or 0.5 mg (2 1 mg subcut FR 10/23/24 11/07/24 H istory mg/3 mL) subcutaneous pen injector (Ozempic) sertraline 100 mg tablet (Zoloft) 100 mg PO QDAY 10/23/24 Unknown H istory meloxicam 15 mg tablet 7.5 mg PO DAILY PRN PRN pain 11/10 Unknown History mirtazapine 15 mg tablet 15 mg PO QHS ANXIETY AND SLEEP Unknown History triamterene 50 cap PO 12/03/24 Unknown History mg-hydrochlorothiazide 25 mg capsule folic acid 1 mg tablet 1 mg PO QDAY 12/30/24 Unknown Hist ory Allergy/AdvReac Type Severity Reaction Status Date / Time sitagliptin (From Januvia) Allergy Intermediate hallucinati Verified 02/04/25 12:53 ons Sulfa (Sulfonamide Allergy Intermediate Hives Verified 02/04/25 12:53 Antibiotics) venlafaxine (From Effexor) Allergy Intermediate Other Verified 02/04/25 12:53 Family History (Reviewed 02/04/25 @ (more content not included)... Normal [facility] Radiation Oncology Visit [facility] [address] [place] [address] [place] [address] OFFICE VISIT Date of Service: 02/04/25 0900 MR#: [id number] Acct: [id number] Name: ALLYSON CLAUDIO Rep #: [id number] : 1955 From: Deng Beard DO Age/Sex: 69/F [place] [facility] [place] Status: Signed End of Treatment Summary: Diagnosis: Allyson Claudio is a 69 year-old female diagnosed with pathologic stage IA (pT1c pN0 (sn) Mx) grade 2 invasive ductal carcinoma (ER 95%, MI 95%, HER2 2+ IHC and negative on FISH) of the right breast 9:00 location status post bilateral great mammogram (10/07/2024), right breast ultrasound (10/14/2024), right breast ultrasound-guided biopsy (10/24/2024), and completion of right breast lumpectomy and sentinel lymph node biopsy (11/18/2024). Oncologic History: 10/07/2024: Patient completed bilateral screening mammography.??? This demonstrated irregular high density mass in the upper outer right breast at the posterior depth requiring further evaluation.??? BI-RADS Category 0. 10/14/2024: Patient completed right breast ultrasound.??? This demonstrated a suspicious right breast mass at the 9 to 10 o'clock position 10 cm in the nipple.??? Recommend biopsy.??? BI-RADS Category 4 10/24/2024: Right breast ultrasound at the 9:00 mass centimeters the nipple was performed.??? This demonstrated grade 2 invasive ductal carcinoma (ER 95%, MI 95%, HER2 2+ IHC and negative on FISH) 11/18/2024: Patient completed right breast lumpectomy and sentinel lymph node biopsy.??? Pathology demonstrated grade 2 invasive ductal carcinoma measuring 1.3 cm, margins are negative with the closest margin being 5 mm.??? There is associated intermediate grade DCIS with close margin at less than 1 mm in the superior and medial margin.??? 1 lymph node was removed and did not contain metastatic disease.??? No lymph-vascular invasion.??? pT1c pN0 (sn) Radiation Treatment History: None The patient completed a course of external beam radiotherapy in our department. This treatment was delivered for curative intent. Treatment was given according to the following parameters: ALLYSON CLAUDIO received adjuvant radiation therapy consisting of 4256 cGy delivered to the right breast. She was treated with a 3D conformal treatment plan in the prone position. The patient did not receive concurrent chemotherapy. Date of First Treatment: 01/13/2025 Date of Last Treatment: 02/04/2025 Total Elapsed Days (including weekend and holidays): 22 Missed Treatments: none Response and Tolerance: The patient tolerated this course of radiotherapy well overall. The following radiation related toxicities developed during the course of radiation therapy: * Grade 1 skin erythema * Grade 1 fatigue Total weight change during therapy: N/A Disposition: The patient tolerated the planned course of radiation therapy well without unexpected toxicity in an appropriate time course. I reviewed management of potential toxicities and discussed expected timing for toxicity resolution. I will have ALLYSON follow-up in one month for a routine visit. ALLYSON will maintain follow up with all other providers. ALLYSON was instructed to call with any further questions or concerns in the interim. If we can provide any further information on this patient's course of care, please do not hesitate to ask. We would like to thank you very much for allowing us to participate in the care of this patient. Sincerely, Deng Beard DO, MS Supervisor [employer] [facility], Department of Radiation Oncology [facility] 02/04/25 1311 Date Deng Beard DO Cosigner Signature: Date (if applicable) CC: Dr. Boris Mae MD; Dr. Evin Bean MD; Dr. Leela Rivera MD Normal [facility] Radiation Oncology Visiton 0 01-28-2025 Radiation Oncology Visit [facility] [address] [place] [address] OFFICE VISIT Date of Service: 01/28/25 1242 MR#: [id number] Acct: [id number] Name: ALLYSON CLAUDIO Rep #: [id number] : 1955 From: Deng Beard DO Age/Sex: 69/F [place] [facility] [place]: Signed Intake Vital Signs 12/30/24 13:36 01/28/25 12:45 Height 4 ft 11 in 4 ft 11 in Weight: 174 lb 6 oz BMI 35.2 BP 145/77 H Blood Pressure Location Lt brachial Position Sitting Respiration 18 Pulse 87 Pulse Source Monitor Temp 98.6 F Temperature Source Temporal Artery Pulse Oximetry (%) 95 Oxygen Delivery Method room air Intake Visit Reasons: OTV Is patient in pain?: No Allergies sitagliptin (From Januvia) Allergy (Intermediate, Verified 01/28/25 12:51) hallucinations Sulfa (Sulfonamide Antibiotics) Allergy (Intermediate, Verified 01/28/25 12:51) Hives venlafaxine (From Effexor) Allergy (Intermediate, Verified 01/28/25 12:51) Other Medications ???Medication ???Instructions ???Recorded ???Confirmed ???Type alendronate 70 mg tablet 70 mg PO ADAMS 10/23/24 01/28/25 Hist ory amlodipine 5 mg-benazepril 20 mg 1 cap PO QDAY 10/23/24 01/28/25 Hi story capsule aspirin 81 mg tablet,delayed 81 mg PO QHS 10/23/24 01/28/25 His tory release Held on 11/18/24. Instructions: Resume on 11/20/24. atorvastatin 20 mg tablet 20 mg PO QDAY 10/23/24 01/28/25 Hi story calcium glucarate 500 mg capsule 1 tab-cap PO QDAY 10/23/24 5 History levothyroxine 137 mcg tablet 68.5 mcg PO ADAMS 10/23/24 01/28/25 H istory (Synthroid) methotrexate (PF) 25 mg/0.5 mL 25 mg subcut FR 10/23/24 01/28/25 History subcutaneous auto-injector multivitamin 1 tab PO QAM 10/23/24 01/28/25 His tory pantoprazole 40 mg tablet,delayed 40 mg PO QDAY 10/23/24 01/28/25 H istory release semaglutide 0.25 mg or 0.5 mg (2 1 mg subcut FR 10/23/24 01/28/25 H istory mg/3 mL) subcutaneous pen injector (Ozempic) sertraline 100 mg tablet (Zoloft) 100 mg PO QDAY 10/23/24 01/28/25 History meloxicam 15 mg tablet 7.5 mg PO DAILY PRN PRN pain 11/1001/28/25 History mirtazapine 15 mg tablet 15 mg PO QHS ANXIETY AND SLEEP 01/28/25 History triamterene 50 cap PO 12/03/24 01/28/25 History mg-hydrochlorothiazide 25 mg capsule folic acid 1 mg tablet 1 mg PO QDAY 12/30/24 01/28/25 His tory Have you fallen in the past year?: No PFSH PFSH Medical History Wears glasses Wears dentures Cancer Post-menopausal Anxiety Alcohol use Depression High cholesterol Dietary restriction History of ulceration Former smoker History of rheumatic fever Thyroid disease Rheumatoid arthritis Heart murmur GERD (gastroesophageal reflux disease) HTN (hypertension) Diabetes Home Medications ???Medication ???Instructions ???Recorded ???Last Taken ???Type alendronate 70 mg tablet 70 mg PO ADAMS 10/23/24 Unknown Histo ry amlodipine 5 mg-benazepril 20 mg 1 cap PO QDAY 10/23/24 11/18/24 08 :00 History capsule aspirin 81 mg tablet,delayed 81 mg PO QHS 10/23/24 11/12/24 His tory release Held on 11/18/24. Instructions: Resume on 11/20/24. atorvastatin 20 mg tablet 20 mg PO QDAY 10/23/24 Unknown His tory calcium glucarate 500 mg capsule 1 tab-cap PO QDAY 10/23/24 Unknown History levothyroxine 137 mcg tablet 68.5 mcg PO ADAMS 10/23/24 11/18/24 0 8:00 History (Synthroid) methotrexate (PF) 25 mg/0.5 mL 25 mg subcut FR 10/23/24 11/14/24 History subcutaneous auto-injector multivitamin 1 tab PO QAM 10/23/24 Unknown Hist ory pantoprazole 40 mg tablet,delayed 40 mg PO QDAY 10/23/24 11/18/24 0 8:00 History release semaglutide 0.25 mg or 0.5 mg (2 1 mg subcut FR 10/23/24 11/07/24 H istory mg/3 mL) subcutaneous pen injector (Ozempic) sertraline 100 mg tablet (Zoloft) 100 mg PO QDAY 10/23/24 Unknown H istory meloxicam 15 mg tablet 7.5 mg PO DAILY PRN PRN pain 11/10 Unknown History mirtazapine 15 mg tablet 15 mg PO QHS ANXIETY AND SLEEP Unknown History triamterene 50 cap PO 12/03/24 Unknown History mg-hydrochlorothiazide 25 mg capsule folic acid 1 mg tablet 1 mg PO QDAY 12/30/24 Unknown Hist ory Allergy/AdvReac Type Severity Reaction Status Date / Time sitagliptin (From Januvia) Allergy Intermediate hallucinati Verified 01/28/25 12:51 ons Sulfa (Sulfonamide Allergy Intermediate Hives Verified 01/28/25 12:51 Antibiotics) venlafaxine (From Effexor) Allergy Intermediate Other Verified 01/28/25 12:51 Family History Aunt Breast cancer Father Diabetes Heart disease Hypertension Mother Cancer Sister Diab (more content not included)... Normal [facility] Radiation Oncology Visiton 0 01-21-2025 Radiation Oncology Visit [facility] [address] [address] OFFICE VISIT Date of Service: 01/21/25 1235 MR#: [id number] Acct: [id number] Name: ALLYSON CLAUDIO Rep #: [id number] : 1955 From: Jose Juan Obrien MD Age/Sex: 69/F Location: [facility] [place] Status: Signed Intake Vital Signs 12/30/24 13:36 01/21/25 12:52 Height 4 ft 11 in 4 ft 11 in Weight: 173 lb 4 oz BMI 34.9 BP 138/84 H Blood Pressure Location Lt brachial Position Sitting Respiration 16 Pulse 87 Pulse Source Monitor Temp 98.3 F Temperature Source Temporal Artery Pulse Oximetry (%) 94 Oxygen Delivery Method room air Intake Visit Reasons: OTV Is patient in pain?: No Allergies sitagliptin (From Januvia) Allergy (Intermediate, Verified 01/21/25 12:51) hallucinations Sulfa (Sulfonamide Antibiotics) Allergy (Intermediate, Verified 01/21/25 12:51) Hives venlafaxine (From Effexor) Allergy (Intermediate, Verified 01/21/25 12:51) Other Medications ???Medication ???Instructions ???Recorded ???Confirmed ???Type alendronate 70 mg tablet 70 mg PO ADAMS 10/23/24 01/21/25 Hist ory amlodipine 5 mg-benazepril 20 mg 1 cap PO QDAY 10/23/24 01/21/25 Hi story capsule aspirin 81 mg tablet,delayed 81 mg PO QHS 10/23/24 01/21/25 His tory release Held on 11/18/24. Instructions: Resume on 11/20/24. atorvastatin 20 mg tablet 20 mg PO QDAY 10/23/24 01/21/25 Hi story calcium glucarate 500 mg capsule 1 tab-cap PO QDAY 10/23/24 5 History levothyroxine 137 mcg tablet 68.5 mcg PO ADAMS 10/23/24 01/21/25 H istory (Synthroid) methotrexate (PF) 25 mg/0.5 mL 25 mg subcut FR 10/23/24 01/21/25 History subcutaneous auto-injector multivitamin 1 tab PO QAM 10/23/24 01/21/25 His tory pantoprazole 40 mg tablet,delayed 40 mg PO QDAY 10/23/24 01/21/25 H istory release semaglutide 0.25 mg or 0.5 mg (2 1 mg subcut FR 10/23/24 01/21/25 H istory mg/3 mL) subcutaneous pen injector (Ozempic) sertraline 100 mg tablet (Zoloft) 100 mg PO QDAY 10/23/24 01/21/25 History meloxicam 15 mg tablet 7.5 mg PO DAILY PRN PRN pain 11/1001/21/25 History mirtazapine 15 mg tablet 15 mg PO QHS ANXIETY AND SLEEP 01/21/25 History triamterene 50 cap PO 12/03/24 01/21/25 History mg-hydrochlorothiazide 25 mg capsule folic acid 1 mg tablet 1 mg PO QDAY 12/30/24 01/21/25 His tory Have you fallen in the past year?: No PFSH [facility] Medical History Wears glasses Wears dentures Cancer Post-menopausal Anxiety Alcohol use Depression High cholesterol Dietary restriction History of ulceration Former smoker History of rheumatic fever Thyroid disease Rheumatoid arthritis Heart murmur GERD (gastroesophageal reflux disease) HTN (hypertension) Diabetes Home Medications ???Medication ???Instructions ???Recorded ???Last Taken ???Type alendronate 70 mg tablet 70 mg PO ADAMS 10/23/24 Unknown Histo ry amlodipine 5 mg-benazepril 20 mg 1 cap PO QDAY 10/23/24 11/18/24 08 :00 History capsule aspirin 81 mg tablet,delayed 81 mg PO QHS 10/23/24 11/12/24 His tory release Held on 11/18/24. Instructions: Resume on 11/20/24. atorvastatin 20 mg tablet 20 mg PO QDAY 10/23/24 Unknown His tory calcium glucarate 500 mg capsule 1 tab-cap PO QDAY 10/23/24 Unknown History levothyroxine 137 mcg tablet 68.5 mcg PO ADAMS 10/23/24 11/18/24 0 8:00 History (Synthroid) methotrexate (PF) 25 mg/0.5 mL 25 mg subcut FR 10/23/24 11/14/24 History subcutaneous auto-injector multivitamin 1 tab PO QAM 10/23/24 Unknown Hist ory pantoprazole 40 mg tablet,delayed 40 mg PO QDAY 10/23/24 11/18/24 0 8:00 History release semaglutide 0.25 mg or 0.5 mg (2 1 mg subcut FR 10/23/24 11/07/24 H istory mg/3 mL) subcutaneous pen injector (Ozempic) sertraline 100 mg tablet (Zoloft) 100 mg PO QDAY 10/23/24 Unknown H istory meloxicam 15 mg tablet 7.5 mg PO DAILY PRN PRN pain 11/10 Unknown History mirtazapine 15 mg tablet 15 mg PO QHS ANXIETY AND SLEEP Unknown History triamterene 50 cap PO 12/03/24 Unknown History mg-hydrochlorothiazide 25 mg capsule folic acid 1 mg tablet 1 mg PO QDAY 12/30/24 Unknown Hist ory Allergy/AdvReac Type Severity Reaction Status Date / Time sitagliptin (From Januvia) Allergy Intermediate hallucinati Verified 01/21/25 12:51 ons Sulfa (Sulfonamide Allergy Intermediate Hives Verified 01/21/25 12:51 Antibiotics) venlafaxine (From Effexor) Allergy Intermediate Other Verified 01/21/25 12:51 Family History Aunt Breast cancer Father Diabetes Heart disease Hypertension Mother Cancer Sister (more content not included)... Normal [facility] Radiation Oncology Visiton 0 01-14-2025 Radiation Oncology Visit [facility] [place] [address] OFFICE VISIT Date of Service: 01/14/25 1004 MR#: [id number] Acct: [id number] Name: ALLYSON CLAUDIO Rep #: [id number] : 1955 From: Deng Beard DO Age/Sex: 69/F Location: [facility] [place] Status: Signed Intake Vital Signs 12/30/24 13:36 01/14/25 10:06 Height 4 ft 11 in 4 ft 11 in Weight: 172 lb 7 oz BMI 34.8 BP 184/78 H Blood Pressure Location Lt radial Position Sitting Respiration 18 Pulse 78 Pulse Source Monitor Temp 98.8 F Temperature Source Temporal Artery Pulse Oximetry (%) 94 Oxygen Delivery Method room air Intake Visit Reasons: OTV Chief Complaint: Breast cancer Is patient in pain?: No Allergies sitagliptin (From Januvia) Allergy (Intermediate, Verified 01/14/25 10:04) hallucinations Sulfa (Sulfonamide Antibiotics) Allergy (Intermediate, Verified 01/14/25 10:04) Hives venlafaxine (From Effexor) Allergy (Intermediate, Verified 01/14/25 10:04) Other Medications ???Medication ???Instructions ???Recorded ???Confirmed ???Type alendronate 70 mg tablet 70 mg PO ADAMS 10/23/24 01/14/25 Hist ory amlodipine 5 mg-benazepril 20 mg 1 cap PO QDAY 10/23/24 01/14/25 Hi story capsule aspirin 81 mg tablet,delayed 81 mg PO QHS 10/23/24 01/14/25 His tory release Held on 11/18/24. Instructions: Resume on 11/20/24. atorvastatin 20 mg tablet 20 mg PO QDAY 10/23/24 01/14/25 Hi story calcium glucarate 500 mg capsule 1 tab-cap PO QDAY 10/23/24 5 History levothyroxine 137 mcg tablet 68.5 mcg PO ADAMS 10/23/24 01/14/25 H istory (Synthroid) methotrexate (PF) 25 mg/0.5 mL 25 mg subcut FR 10/23/24 01/14/25 History subcutaneous auto-injector multivitamin 1 tab PO QAM 10/23/24 01/14/25 His tory pantoprazole 40 mg tablet,delayed 40 mg PO QDAY 10/23/24 01/14/25 H istory release semaglutide 0.25 mg or 0.5 mg (2 1 mg subcut FR 10/23/24 01/14/25 H istory mg/3 mL) subcutaneous pen injector (Ozempic) sertraline 100 mg tablet (Zoloft) 100 mg PO QDAY 10/23/24 01/14/25 History meloxicam 15 mg tablet 7.5 mg PO DAILY PRN PRN pain 11/1001/14/25 History mirtazapine 15 mg tablet 15 mg PO QHS ANXIETY AND SLEEP 01/14/25 History triamterene 50 cap PO 12/03/24 01/14/25 History mg-hydrochlorothiazide 25 mg capsule folic acid 1 mg tablet 1 mg PO QDAY 12/30/24 01/14/25 His tory Have you fallen in the past year?: No PFSH PFSH Medical History Wears glasses Wears dentures Cancer Post-menopausal Anxiety Alcohol use Depression High cholesterol Dietary restriction History of ulceration Former smoker History of rheumatic fever Thyroid disease Rheumatoid arthritis Heart murmur GERD (gastroesophageal reflux disease) HTN (hypertension) Diabetes Home Medications ???Medication ???Instructions ???Recorded ???Last Taken ???Type alendronate 70 mg tablet 70 mg PO ADAMS 10/23/24 Unknown Histo ry amlodipine 5 mg-benazepril 20 mg 1 cap PO QDAY 10/23/24 11/18/24 08 :00 History capsule aspirin 81 mg tablet,delayed 81 mg PO QHS 10/23/24 11/12/24 His tory release Held on 11/18/24. Instructions: Resume on 11/20/24. atorvastatin 20 mg tablet 20 mg PO QDAY 10/23/24 Unknown His tory calcium glucarate 500 mg capsule 1 tab-cap PO QDAY 10/23/24 Unknown History levothyroxine 137 mcg tablet 68.5 mcg PO ADAMS 10/23/24 11/18/24 0 8:00 History (Synthroid) methotrexate (PF) 25 mg/0.5 mL 25 mg subcut FR 10/23/24 11/14/24 History subcutaneous auto-injector multivitamin 1 tab PO QAM 10/23/24 Unknown Hist ory pantoprazole 40 mg tablet,delayed 40 mg PO QDAY 10/23/24 11/18/24 0 8:00 History release semaglutide 0.25 mg or 0.5 mg (2 1 mg subcut FR 10/23/24 11/07/24 H istory mg/3 mL) subcutaneous pen injector (Ozempic) sertraline 100 mg tablet (Zoloft) 100 mg PO QDAY 10/23/24 Unknown H istory meloxicam 15 mg tablet 7.5 mg PO DAILY PRN PRN pain 11/10 Unknown History mirtazapine 15 mg tablet 15 mg PO QHS ANXIETY AND SLEEP Unknown History triamterene 50 cap PO 12/03/24 Unknown History mg-hydrochlorothiazide 25 mg capsule folic acid 1 mg tablet 1 mg PO QDAY 12/30/24 Unknown Hist ory Allergy/AdvReac Type Severity Reaction Status Date / Time sitagliptin (From Januvia) Allergy Intermediate hallucinati Verified 01/14/25 10:04 ons Sulfa (Sulfonamide Allergy Intermediate Hives Verified 01/14/25 10:04 Antibiotics) venlafaxine (From Effexor) Allergy Intermediate Other Verified 01/14/25 10:04 Family History Aunt Breast cancer Father Diabetes Heart disease Hyp (more content not included)... Normal [facility] Radiation Oncology Visiton 0 12-30-2024 Radiation Oncology Visit [facility] [address] [place] [address] OFFICE VISIT Date of Service: 12/30/24 1328 MR#: [id number] Acct: [id number] Name: ALLYSON CLAUDIO Jami Rep #: [id number] : 1955 From: Deng Beard DO Age/Sex: 69/F [place] [facility] [place]: Signed Intake Vital Signs 12/17/24 10:02 12/30/24 13:36 Height 4 ft 11 in 4 ft 11 in Weight: 173 lb 174 lb 1 oz BMI 34.9 35.2 BP 161/76 H 155/83 H Blood Pressure Location Lt brachial Lt brachial Position Sitting Sitting Respiration 18 18 Pulse 92 83 Pulse Source Monitor Monitor Temp 98.4 F 97.2 F L Temperature Source Temporal Artery Temporal Artery Pulse Oximetry (%) 94 96 Oxygen Delivery Method room air room air Intake Visit Reasons: CONSULT - BREAST Is patient in pain?: No Allergies sitagliptin (From Januvia) Allergy (Intermediate, Verified 12/30/24 13:35) hallucinations Sulfa (Sulfonamide Antibiotics) Allergy (Intermediate, Verified 12/30/24 13:35) Hives venlafaxine (From Effexor) Allergy (Intermediate, Verified 12/30/24 13:35) Other Medications ???Medication ???Instructions ???Recorded ???Confirmed ???Type alendronate 70 mg tablet 70 mg PO ADAMS 10/23/24 12/30/24 Hist ory amlodipine 5 mg-benazepril 20 mg 1 cap PO QDAY 10/23/24 12/30/24 Hi story capsule aspirin 81 mg tablet,delayed 81 mg PO QHS 10/23/24 12/30/24 His tory release Held on 11/18/24. Instructions: Resume on 11/20/24. atorvastatin 20 mg tablet 20 mg PO QDAY 10/23/24 12/30/24 Hi story calcium glucarate 500 mg capsule 1 tab-cap PO QDAY 10/23/24 5 History levothyroxine 137 mcg tablet 68.5 mcg PO ADAMS 10/23/24 12/30/24 H istory (Synthroid) methotrexate (PF) 25 mg/0.5 mL 25 mg subcut FR 10/23/24 12/30/24 History subcutaneous auto-injector multivitamin 1 tab PO QAM 10/23/24 12/30/24 His tory pantoprazole 40 mg tablet,delayed 40 mg PO QDAY 10/23/24 12/30/24 H istory release semaglutide 0.25 mg or 0.5 mg (2 1 mg subcut FR 10/23/24 12/30/24 H istory mg/3 mL) subcutaneous pen injector (Ozempic) sertraline 100 mg tablet (Zoloft) 100 mg PO QDAY 10/23/24 12/30/24 History meloxicam 15 mg tablet 7.5 mg PO DAILY PRN PRN pain 11/1012/30/24 History mirtazapine 15 mg tablet 15 mg PO QHS ANXIETY AND SLEEP 12/30/24 History triamterene 50 cap PO 12/03/24 12/30/24 History mg-hydrochlorothiazide 25 mg capsule folic acid 1 mg tablet 1 mg PO QDAY 12/30/24 12/30/24 His tory Have you fallen in the past year?: No PFSH PFSH Medical History Wears glasses Wears dentures Cancer Post-menopausal Anxiety Alcohol use Depression High cholesterol Dietary restriction History of ulceration Former smoker History of rheumatic fever Thyroid disease Rheumatoid arthritis Heart murmur GERD (gastroesophageal reflux disease) HTN (hypertension) Diabetes Home Medications ???Medication ???Instructions ???Recorded ???Last Taken ???Type alendronate 70 mg tablet 70 mg PO ADAMS 10/23/24 Unknown Histo ry amlodipine 5 mg-benazepril 20 mg 1 cap PO QDAY 10/23/24 11/18/24 08 :00 History capsule aspirin 81 mg tablet,delayed 81 mg PO QHS 10/23/24 11/12/24 His tory release Held on 11/18/24. Instructions: Resume on 11/20/24. atorvastatin 20 mg tablet 20 mg PO QDAY 10/23/24 Unknown His tory calcium glucarate 500 mg capsule 1 tab-cap PO QDAY 10/23/24 Unknown History levothyroxine 137 mcg tablet 68.5 mcg PO ADAMS 10/23/24 11/18/24 0 8:00 History (Synthroid) methotrexate (PF) 25 mg/0.5 mL 25 mg subcut FR 10/23/24 11/14/24 History subcutaneous auto-injector multivitamin 1 tab PO QAM 10/23/24 Unknown Hist ory pantoprazole 40 mg tablet,delayed 40 mg PO QDAY 10/23/24 11/18/24 0 8:00 History release semaglutide 0.25 mg or 0.5 mg (2 1 mg subcut FR 10/23/24 11/07/24 H istory mg/3 mL) subcutaneous pen injector (Ozempic) sertraline 100 mg tablet (Zoloft) 100 mg PO QDAY 10/23/24 Unknown H istory meloxicam 15 mg tablet 7.5 mg PO DAILY PRN PRN pain 11/10 Unknown History mirtazapine 15 mg tablet 15 mg PO QHS ANXIETY AND SLEEP Unknown History triamterene 50 cap PO 12/03/24 Unknown History mg-hydrochlorothiazide 25 mg capsule folic acid 1 mg tablet 1 mg PO QDAY 12/30/24 Unknown Hist ory Allergy/AdvReac Type Severity Reaction Status Date / Time sitagliptin (From Januvia) Allergy Intermediate hallucinati Verified 12/30/24 13:35 ons Sulfa (Sulfonamide Allergy Intermediate Hives Verified 12/30/24 13:35 Antibiotics) venlafaxine (From Effexor) Allergy Intermediate Other Verified 12/30/24 13:35 Family History ... Normal [facility] Oncology Visit Reporton Oncology Visit Report [facility] [address] [place] [address] OFFICE VISIT Date of Service: 12/17/24 0956 MR#: [id number] Acct: [id number] Name: ALLYSON CLAUDIO Rep #: [id number] : 1955 From: Evin Bean MD Age/Sex: 69/F [place] [facility] [place]: Signed HPI Subjective Date of Service 12/17/24 Chief Complaint Breast cancer History of Present Illness 69-year-old female who is vigilant with annual screening mammography. October 07, 2024 screening mammogram: IMPRESSION: The irregular high density mass in the upper-outer right breast at posterior depth requires further evaluation. Recommend diagnostic ultrasound of the right breast. October 14, 2024 breast ultrasound: IMPRESSION: Suspicious right breast mass at 9-10 o'clock 10 cm from the nipple. Recommend further evaluation with tissue sampling with ultrasound-guided core needle biopsy. October 23, 2024 RIGHT BREAST MASS AT 9:00, 10 CM FROM NIPPLE, CORE BIOPSY: - Invasive ductal carcinoma NST, at least 0.7 cm. - Grade 2 (tubule 3, nuclear 2, mitosis 1) - Estrogen Receptor: positive (95%, strong intensity) - Progesterone Receptor: positive (95%, strong intensity) - HER2 (IHC): equivocal (2+) - HER2(FISH): pending at [facility] (to be reported in an addendum) - Ki67 proliferative index: 15-20% - HER2 FISH REPORT: HER2 SCORE: NEGATIVE November 18, 2024 Ultrasound wire localization right breast, lumpectomy, sentinel lymph node, blue dye radiotracer FROZEN SECTION DIAGNOSIS A. Right breast sentinel lymph node, excision: Negative for macrometastasis. B. Right breast mass for gross assessment of margins: Margins grossly adequate. Diagnoses provided by Dr Isrrael Quintana. MICROSCOPIC DIAGNOSIS A. Right axilla, sentinel lymph node, biopsy: - Negative for metastasis (0/1). - IHC for pancytokeratin was utilized in the assessment. B. Right breast, invasive ductal carcinoma, lumpectomy: - Invasive ductal carcinoma NST, Grade 2 (tubule 3, nuclear 2, mitosis 1) 1.3 cm (pT1c pN0) margins free??? see Synoptic Report. - DCIS (ductal carcinoma in situ), intermediate nuclear grade, negative for comedonecrosis, margins free (<1 mm to superior and medial margins) - Scattered microcalcifications noted. COMMENT SYNOPTIC REPORT FOR INVASIVE BREAST CARCINOMA Specimen (P=partial, M=mastectomy): P Laterality (R=right, L=left): R Focality (U=unifocal, M=multifocal): U Tumor size (cm): 1.3 Histologic type: invasive ductal NST Histologic grade: 2 Tubule score (1-3): 3 Nuclear score (1-3): 2 Mitotic score (1-3): 1 Skin, nipple epidermis, skeletal muscle (I=involved, N=negative, NA=not applicable): NA Lymphovascular invasion (E=extensive, F=focal, N=not identified): N Margins of main specimen (P=positive, N=negative): N Distance to closest margin of main specimen (mm): 5 Designation of closest margin of main specimen: anterior, medial Designation of other margins of main specimen Re-resection margin status (P=positive, N=negative, NA=not applicable): NA DCIS (P=present, N=not identified): P Nuclear grade: intermediate Comedo necrosis (P=present, N=not identified): N Extensive intraductal component (P=present, N=not identified): P Margins of main specimen (P=positive, N=negative): N Distance to closest margin of main specimen (mm): < 1 Designation of closest margin of main specimen: superior and medial Designation of other margins of main specimen Longest span Re-resection margin status (P=positive, N=negative, NA=not applicable): NA Regional lymph nodes: Total number of lymph nodes: 1 Number of sentinel lymph nodes: 1 Number with macrometastases: 0 Number with micrometastases: 0 Number with isolated tumor cells: 0 Size of largest wayne metastasis (mm): NA Size of extranodal extension (mm) (N=not identified): NA Estrogen receptor: positive (95%, strong intensity) Progesterone receptor: positive (95%, strong intensity) HER2 IHC: negative (1+) HER2 FISH: NA Specimen in which ER/MI/HER2 performed: [id number] B4 pTNM: pT1c pN0 Additional findings: Comment: IHCs utilized in the assessment: Pankeratin A1,2) CK5/6 (B1,2,3,6) SMM (B1,2) E-cadherin (B1) ER (B4) MI (B4) HER2(B4) CD31 (B6) December 2024 Oncotype DX score of 3 (low risk) Treatment summary and response: November 18, 2024 right partial mastectomy with sentinel lymph node biopsy. [facility] Medical History Wears glasses Wears dentures Cancer Post-menopausal Anxiety Alcohol use Depression High cholesterol Dietary restriction History of ulceration Former smoker History of rheumatic fever Thyroid disease Rheumatoid arthritis Heart murmur GERD (gastroesophageal reflux disease) HTN (hypertension) Diabetes Surgical History S/P (more content not included)... Normal [facility] Oncology Visit Reporton 11-12 Oncology Visit Report [facility] [address] [place] [address] OFFICE VISIT Date of Service: 12/03/24916 MR#: [id number] Acct: [id number] Name: ALLYSON CLAUDIO Rep #: [id number] : 1955 From: Evin Bean MD Age/Sex: 69/F [place] [facility] [place]: Signed HPI Subjective Date of Service 12/03/24 Chief Complaint Breast cancer History of Present Illness 69-year-old female who is vigilant with annual screening mammography. October 07, 2024 screening mammogram: IMPRESSION: The irregular high density mass in the upper-outer right breast at posterior depth requires further evaluation. Recommend diagnostic ultrasound of the right breast. October 14, 2024 breast ultrasound: IMPRESSION: Suspicious right breast mass at 9-10 o'clock 10 cm from the nipple. Recommend further evaluation with tissue sampling with ultrasound-guided core needle biopsy. October 23, 2024 RIGHT BREAST MASS AT 9:00, 10 CM FROM NIPPLE, CORE BIOPSY: - Invasive ductal carcinoma NST, at least 0.7 cm. - Grade 2 (tubule 3, nuclear 2, mitosis 1) - Estrogen Receptor: positive (95%, strong intensity) - Progesterone Receptor: positive (95%, strong intensity) - HER2 (IHC): equivocal (2+) - HER2(FISH): pending at [facility] (to be reported in an addendum) - Ki67 proliferative index: 15-20% - HER2 FISH REPORT: HER2 SCORE: NEGATIVE November 18, 2024 Ultrasound wire localization right breast, lumpectomy, sentinel lymph node, blue dye radiotracer FROZEN SECTION DIAGNOSIS A. Right breast sentinel lymph node, excision: Negative for macrometastasis. B. Right breast mass for gross assessment of margins: Margins grossly adequate. Diagnoses provided by Dr Isrrael Quintana. MICROSCOPIC DIAGNOSIS A. Right axilla, sentinel lymph node, biopsy: - Negative for metastasis (0/1). - IHC for pancytokeratin was utilized in the assessment. B. Right breast, invasive ductal carcinoma, lumpectomy: - Invasive ductal carcinoma NST, Grade 2 (tubule 3, nuclear 2, mitosis 1) 1.3 cm (pT1c pN0) margins free??? see Synoptic Report. - DCIS (ductal carcinoma in situ), intermediate nuclear grade, negative for comedonecrosis, margins free (<1 mm to superior and medial margins) - Scattered microcalcifications noted. COMMENT SYNOPTIC REPORT FOR INVASIVE BREAST CARCINOMA Specimen (P=partial, M=mastectomy): P Laterality (R=right, L=left): R Focality (U=unifocal, M=multifocal): U Tumor size (cm): 1.3 Histologic type: invasive ductal NST Histologic grade: 2 Tubule score (1-3): 3 Nuclear score (1-3): 2 Mitotic score (1-3): 1 Skin, nipple epidermis, skeletal muscle (I=involved, N=negative, NA=not applicable): NA Lymphovascular invasion (E=extensive, F=focal, N=not identified): N Margins of main specimen (P=positive, N=negative): N Distance to closest margin of main specimen (mm): 5 Designation of closest margin of main specimen: anterior, medial Designation of other margins of main specimen Re-resection margin status (P=positive, N=negative, NA=not applicable): NA DCIS (P=present, N=not identified): P Nuclear grade: intermediate Comedo necrosis (P=present, N=not identified): N Extensive intraductal component (P=present, N=not identified): P Margins of main specimen (P=positive, N=negative): N Distance to closest margin of main specimen (mm): < 1 Designation of closest margin of main specimen: superior and medial Designation of other margins of main specimen Longest span Re-resection margin status (P=positive, N=negative, NA=not applicable): NA Regional lymph nodes: Total number of lymph nodes: 1 Number of sentinel lymph nodes: 1 Number with macrometastases: 0 Number with micrometastases: 0 Number with isolated tumor cells: 0 Size of largest wayne metastasis (mm): NA Size of extranodal extension (mm) (N=not identified): NA Estrogen receptor: positive (95%, strong intensity) Progesterone receptor: positive (95%, strong intensity) HER2 IHC: negative (1+) HER2 FISH: NA Specimen in which ER/MI/HER2 performed: [id number] B4 pTNM: pT1c pN0 Additional findings: Comment: IHCs utilized in the assessment: Pankeratin A1,2) CK5/6 (B1,2,3,6) SMM (B1,2) E-cadherin (B1) ER (B4) MI (B4) HER2(B4) CD31 (B6) Treatment summary and response: November 18, 2024 right partial mastectomy with sentinel lymph node biopsy. [facility] Medical History (Updated 12/03/24 @ 10:[address] Evin Bean MD) Wears glasses Wears dentures Cancer Post-menopausal Anxiety Alcohol use Depression High cholesterol Dietary restriction History of ulceration Former smoker History of rheumatic fever Thyroid disease Rheumatoid arthritis Heart murmur GERD (gastroesophageal reflux disease) HTN (hypertension) Diabetes Surgical History S/P lumpectomy, right breast History of N (more content not included)... Normal [facility] Surgery Visit Reporton 12-02 Surgery Visit Report [facility] [address] [place] [address] OFFICE VISIT Date of Service: 12/02/24 MR#: [id number] Acct: [id number] Name: ALLYSON CLAUDIO Rep #: [id number] : 1955 Provider: Dr. Leela palomo MD Age/Sex: 69/F Location: [facility] Status: Signed Intake Vital Signs 11/18/24 09:55 Height 4 ft 11 in Intake Visit Reasons: LUMPECTOMY DOS 11/18 Chief Complaint: lumpectomy 11/18 Is patient in pain?: No Allergies sitagliptin (From Januvia) Allergy (Intermediate, Verified 12/03/24 09:24) hallucinations Sulfa (Sulfonamide Antibiotics) Allergy (Intermediate, Verified 12/03/24 09:24) Hives venlafaxine (From Effexor) Allergy (Intermediate, Verified 12/03/24 09:24) Other Medications ???Medication ???Instructions ???Recorded ???Confirmed ???Type alendronate 70 mg tablet 70 mg PO ADAMS 10/23/24 12/03/24 Hist ory amlodipine 5 mg-benazepril 20 mg 1 cap PO QDAY 10/23/24 12/03/24 Hi story capsule aspirin 81 mg tablet,delayed 81 mg PO QHS 10/23/24 12/03/24 His tory release Held on 11/18/24. Instructions: Resume on 11/20/24. atorvastatin 20 mg tablet 20 mg PO QDAY 10/23/24 12/03/24 Hi story calcium glucarate 500 mg capsule 1 tab-cap PO QDAY 10/23/24 5 History levothyroxine 137 mcg tablet 68.5 mcg PO ADAMS 10/23/24 12/03/24 H istory (Synthroid) methotrexate (PF) 25 mg/0.5 mL 25 mg subcut FR 10/23/24 12/03/24 History subcutaneous auto-injector multivitamin 1 tab PO QAM 10/23/24 12/03/24 His tory pantoprazole 40 mg tablet,delayed 40 mg PO QDAY 10/23/24 12/03/24 H istory release semaglutide 0.25 mg or 0.5 mg (2 1 mg subcut FR 10/23/24 12/03/24 H istory mg/3 mL) subcutaneous pen injector (Ozempic) sertraline 100 mg tablet (Zoloft) 100 mg PO QDAY 10/23/24 12/03/24 History meloxicam 15 mg tablet 7.5 mg PO DAILY PRN PRN pain 11/1012/03/24 History mirtazapine 15 mg tablet 15 mg PO QHS ANXIETY AND SLEEP 12/03/24 History triamterene 50 cap PO 12/03/24 12/03/24 History mg-hydrochlorothiazide 25 mg capsule cefdinir 300 mg capsule 300 mg PO BID #6 caps 12/04/24 Rx Have you fallen in the past year?: No Subjective Details: 69-year-old female presents status post ultrasound-guided right breast lumpectomy and sentinel lymph node biopsy. Patient's pathology showed 1 lymph node negative, invasive ductal carcinoma grade 2 (pT1c, pN0)???margins negative. Patient is doing well, patient does state that the axilla is little more sore than the other incision. But denies any drainage. Objective Details: Right lumpectomy incision healing well clean dry and intact, right axillary incision slight blanching and erythema on exam Coding Level of Care Code Global Post Op Diagnoses S/P lumpectomy, right breast Z98.890 [facility] Medical History (Updated 12/03/24 @ 10:[address] Evin Bean MD) Wears glasses Wears dentures Cancer Post-menopausal Anxiety Alcohol use Depression High cholesterol Dietary restriction History of ulceration Former smoker History of rheumatic fever Thyroid disease Rheumatoid arthritis Heart murmur GERD (gastroesophageal reflux disease) HTN (hypertension) Diabetes Surgical History S/P lumpectomy, right breast History of Trina fundoplication History of colonoscopy History of back surgery H/O thyroidectomy Family History (Updated 12/03/24 @ 09:28 by Sofia Romano) Aunt Breast cancer Father Diabetes Heart disease Hypertension Mother Cancer Sister Diabetes Heart disease AD (Alzheimer's disease) Social History (Updated 12/03/24 @ 09:28 by Sofia Romano) Smoking Status: Former smoker Tobacco: How many years used: 20 alcohol intake: never substance use type: does not use Assessment and Plan (No Qualifiers) Assessment and Plan (1) S/P lumpectomy, right breast: Status: Acute Plan Will plan to send in cefdinir 300 mg p.o. twice daily x 3 days for the right axillary incision. Will have patient follow-up in a couple weeks. Patient is agreeable to plan. Leela Rivera M.D. Pager: [phone] [facility] [address] [place] [address] [address] [place] [address] Office: [phone] 12/04/24811 Date Leela Hernández Signature: Date (if applicable) CC: Dr. Boris Mae MD Normal [facility] Bedside Glucoseon 11-18-2024 FINGERSTICK GLU 127 mg/dL High 74-[address] [facility] Comment on above: Result Comment: STEPHAN BELL OF PATIENT CARE PER NURSING PROTOCOL Performed By: #### L 501.080 #### [facility] [address] [facility] [place], [address] Breast Biopsy Specimenon Breast Biopsy Specimen [facility] [address] [place], [place] [id number] Breast Biopsy Specimen MR#: [id number] Acct: [id number] Name: ALLYSON CLAUDIO #: [id number] : 1955 F 69 From: Erica Armendariz MD PCP: Dr. Boris Mae MD Status: [facility] Study: Breast Biopsy Specimen Date of Exam: 11/18/24 Exam# [id number] Ordering Dr: Leela Rivera MD PROCEDURE: BREAST BIOPSY SPECIMEN 11/18/2024 REASON FOR EXAM: 69-year-old female presents for localization of the biopsy-proven malignancy in the right breast. TECHNIQUE: The image submitted demonstrates a specimen with the wire, biopsy marker clip and right breast tissue sample. COMPARISON: Mammogram 10/07/2024 and ultrasound 10/14/2024 BI/Breast Biopsy Specimen IMPRESSION: WIRE / NEEDLE LOCALIZATION OF THE RIGHT BREAST. Reading Location: [facility] CC: Dr. Boris Mae MD; Dr. Leela Rivera MD Production Solderer: Signed Normal [facility] Discharge Instructionon Discharge Instruction [facility] Medical Records Department [address] [place] [address] Instructions for Home/Discharge Instructions 11/18/24 1239 MR#: [id number] Acct: [id number] Name: ALLYSON CLAUDIO Rep #: [id number] : 1955 69 From: Leela Rivera MD PCP: Dr. Boris Mae MD Status:[facility] Discharge Instructions Diet Discharge Diet: No restrictions Activity Discharge Activity: May Not Drive (for 2-3 days or while taking narcotic pain meds.) May shower in (days): 1 Lifting Restrictions: 10 pounds for 1 week. Dressing / Incision Call your doctor if your incision/area has: Continuous Slow Oozing, Sudden Increased Bleeding, Increased Pain/ Swelling and Increased Redness Call your doctor if you observe: Fever of 101 or Higher Suture Line Care: Avoid Pulling/Pushing and Avoid Pinching/Bending Remove Dressing in: 1 day Additional Dressing/Incision Instructions:: Remove bulky dressing tomorrow. May leave op-site dressing for 3-4 days. Dermabond (glue) was used at the axillary incision this may start to peel off in about 5 days. Okay to remove Steri-Strips from the breast incision in 7 to 10 days. Follow Up Care Please Follow Up With: Leela Rivera MD When: Please call [phone] for an appointment to be seen in 2 week. Test Results: Test results from this visit will be discussed in further detail at your follow-up appointment, if applicable. Discharge Plan Admission Attending Provider: Leela Rivera Primary Care Provider: Boris Mae Instructions Print Language: [place] Discharge Orders/Prescriptions Prescriptions: New tramadol 50 mg tablet 50 mg PO Q6H PRN (Reason: pain) 2 Days Qty: 5 0RF Continued atorvastatin 20 mg tablet 20 mg PO QDAY alendronate 70 mg tablet 70 mg PO ADAMS calcium glucarate 500 mg capsule 1 tab-cap PO QDAY methotrexate (PF) 25 mg/0.5 mL auto-injector 25 mg subcut FR pantoprazole 40 mg tablet,delayed release (DR/EC) 40 mg PO QDAY multivitamin Tablet 1 tab PO QAM Ozempic 0.25 mg or 0.5 mg (2 mg/3 mL) pen injector 1 mg subcut FR Patient Comments: PT TO STOP TAKING 7 DAYS BEFORE SURGERY ON 11/18/[address] RIVERA INSTRUCTIONS Rx Instructions: for 4 weeks levothyroxine [Synthroid] 137 mcg tablet 68.5 mcg PO ADAMS sertraline [Zoloft] 100 mg tablet 100 mg PO QDAY amlodipine-benazepril 5-20 mg capsule 1 cap PO QDAY mirtazapine 15 mg tablet 15 mg PO QHS Patient Comments: [NO ORIGINAL SIG] meloxicam 15 mg tablet 7.5 mg PO DAILY PRN PRN (Reason: pain) Patient Comments: [NO ORIGINAL SIG] Held aspirin 81 mg tablet,delayed release (DR/EC) 81 mg PO QHS Hold Instructions: Resume on 11/20/24. Patient Comments: PT TO STOP ON 11/13/24 FOR SURGERY ON 11/18/[address] RIVERA INSTRUCTIONS; LAST DOSE 11/12/2024 Referrals / Follow Up: Boris Mae MD [Primary Care Provider] - Disposition Disposition (needs filled in before D/C Order can be placed): Home, Self Care 11/18/24 0865 Leela Rivera MD CC: Dr. Boris Mae MD Signed Normal [facility] Frozen Section (charge)on Frozen Section (charge) ------ ---- Patient Age/Sex Location Account Attending Physician ---- ALLYSON CLAUDIO 69/F [facility] [id number] Dr. Leela Rivera MD ---- Specimen: [id number] Received: 11/18/24 Status: ARAVIND Miner Num: [id number] Spec Type: LYMPH NODE Subm Dr: Dr. Leela Rivera MD HEADER OPERATION: Ultrasound wire localization right breast, lumpectomy, sentinel lymph node, blue dye radiotracer PRE-OP DIAGNOSIS: Invasive ductal carcinoma of right breast TISSUE SUBMITTED: A- Right breast sentinel lymph node, B- Right breast mass *long stitch- lateral, short stitch- superior* Ischemic Time: 1 minute Fixation Time: hours ---- FROZEN SECTION DIAGNOSIS A. Right breast sentinel lymph node, excision: Negative for macrometastasis. B. Right breast mass for gross assessment of margins: Margins grossly adequate. Diagnoses provided by Dr Isrrael Quintana. MICROSCOPIC DIAGNOSIS A. Right axilla, sentinel lymph node, biopsy: * Negative for metastasis (0/1). * IHC for pancytokeratin was utilized in the assessment. B. Right breast, invasive ductal carcinoma, lumpectomy: * Invasive ductal carcinoma NST, Grade 2 (tubule 3, nuclear 2, mitosis 1) 1.3 cm (pT1c pN0) margins free- see Synoptic Report. * DCIS (ductal carcinoma in situ), intermediate nuclear grade, negative for comedonecrosis, margins free (<1 mm to superior and medial margins) * Scattered microcalcifications noted. COMMENT SYNOPTIC REPORT FOR INVASIVE BREAST CARCINOMA Specimen (P=partial, M=mastectomy): P Laterality (R=right, L=left): R Focality (U=unifocal, M=multifocal): U Tumor size (cm): 1.3 Histologic type: invasive ductal NST Histologic grade: 2 ? Tubule score (1-3): 3 ? Nuclear score (1-3): 2 ? Mitotic score (1-3): 1 Skin, nipple epidermis, skeletal muscle (I=involved, N=negative, NA=not applicable): NA Lymphovascular invasion (E=extensive, F=focal, N=not identified): N Margins of main specimen (P=positive, N=negative): N Distance to closest margin of main specimen (mm): 5 Designation of closest margin of main specimen: anterior, medial ---- Patient Age/Sex Location Account Attending Physician ---- ALLYSON CLAUDIO 69/F [facility] [id number] Dr. Leela Rivera MD ---- Designation of other margins of main specimen Re-resection margin status (P=positive, N=negative, NA=not applicable): NA DCIS (P=present, N=not identified): P ? Nuclear grade: intermediate ? Comedo necrosis (P=present, N=not identified): N ? Extensive intraductal component (P=present, N=not identified): P ? Margins of main specimen (P=positive, N=negative): N ? Distance to closest margin of main specimen (mm): < 1 ? Designation of closest margin of main specimen: superior and medial ? Designation of other margins of main specimen ? Longest span ? Re-resection margin status (P=positive, N=negative, NA=not applicable): NA Regional lymph nodes: ? Total number of lymph nodes: 1 ? Number of sentinel lymph nodes: 1 ? Number with macrometastases: 0 ? Number with micrometastases: 0 ? Number with isolated tumor cells: 0 ? Size of largest wayne metastasis (mm): NA ? Size of extranodal extension (mm) (N=not identified): NA Estrogen receptor: positive (95%, strong intensity) Progesterone receptor: positive (95%, strong intensity) HER2 IHC: negative (1+) HER2 FISH: NA Specimen in which ER/MI/HER2 performed: [id number] B4 pTNM: pT1c pN0 Additional findings: Comment: IHCs utilized in the assessment: Pankeratin A1,2) CK5/6 (B1,2,3,6) SMM (B1,2) E-cadherin (B1) ER (B4) MI (B4) HER2(B4) CD31 (B6) The above synoptic report complies, in slightly modified form, with the guidelines of the [employer] [place] [employer] and the Association of Directors of Anatomic and Surgical Pathology for the reporting of cancer specimens. MICROSCOPIC DESCRIPTION Slides are reviewed. All matched controls reacted appropriately. These tests were developed and their performance characteristics determined by [facility]. They may not have been cleared or approved by the U.S. Food and Drug Administration. The FDA has determined that such clearance or approval is not necessary. -------- (more content not included)... Normal [facility] Comment on above: Performed By: #### L 500.4050, L100.0100, L506.0400, L501.9985, L501.9520, L506.1001, L500.4100, L3300.4490 #### [facility] [address], [address] Gl[facility] at [facility] deOrdered By: Leela Rivera on 11-18-2024 [facility] 127 mg/dL High 74-[address] [facility] Comment on above: MANAGEMENT OF PATIEN T CARE PER NURSING PROTOCOL Glucose [Mass/Vol] 127 mg/dL High 74-106 [facility] Comment on above: MANAGEMENT OF PATIEN T CARE PER NURSING PROTOCOL Lymph Node Injection Onlyon 11-18-2024 Lymph Node Injection Only [facility] Imaging Services [address] [facility] [place] [address] Lymph Node Injection Only MR#: [id number] Acct: [id number] Name: ALLYSON CLAUDIO Rep #: [id number] : 1955 F 69 From: Tate Beaulieu MD PCP: Dr. Boris Mae MD Status: [facility] Study: Lymph Node Injection Only Date of Exam: Exam# [id number] Ordering Dr: Jayla Ashton EXAM: SENTINEL LYMPH NODE INJECTION CLINICAL HISTORY: RIGHT BREAST CANCER. COMPARISON: RIGHT BREAST ULTRASOUND DATED 10/14/2024. TECHNIQUE: Radiopharmaceutical: 556 uCi of Technetium 99 M Tilmanocept (Lymphoseek) Injection site: Periareolar subdermal injection at 12 o'clock. FINDINGS: No significant findings. NM/Lymph Node Injection Only IMPRESSION: Successful right breast sentinel lymph node injection. Reading Location: [place] [address] CC: OTILIA Ashton; Dr. Boris Mae MD; Dr. Leela Rivera MD Production Solderer: Signed Normal [facility] MR/POSTOP.[facility] 11-18-2024 MR/POSTOP.[facility] Medical Records Department [address] [facility] [place] [address] Anesthesia Postop Eval I 11/18/24 1420 MR#: [id number] Acct: [id number] Name: ALLYSON CLAUDIO Rep #: [id number] : 1955 69 From: Sekou Crooks CRNA PCP: Dr. Boris Mae MD Status:[facility] Y Race: C Location: [facility] Anesthesia: Postop Eval I Current Vital Signs Temperature: 97 F Pulse Rate: 95 Blood Pressure: 132/47 Respiratory Rate: 16 Pulse Ox: 98 Oxygen Delivery Method: Room Air Assessment Airway patent: Yes Spontaneous unlabored respirations: Yes Mental status: Awake and Calm nausea: No Vomiting: No Anesthesia Complication: No Fluid Hydration Crystalloid volume administer (ml): 900 Total IV fluid infused: 900 Progress Note Anesthesia document: Postop Eval 1 completed: Yes 11/18/24 1421 Date Sekou Crooks SERGING MACHINE OPERATOR AUTOMATIC Cosigner Signature: Date CC: Signed Normal [facility] MR/[id number] 11-18-2024 MR/POSTOPAN2 [facility] Medical Records Department [address] [facility] [place] [address] Anesthesia Postop Eval II 11/18/242017 MR#: [id number] Acct: [id number] Name: ALLYSON CLAUDIO Rep #: [id number] : 1955 69 From: Fredo Hayward MD PCP: Dr. Boris Mae MD Status:[facility] Y Race: C Location: [facility] Anesthesia Postop Eval I Sum Postop Eval Completion status Anesthesia document: Postop Eval 1 completed: Yes Anesthesia Postop Eval I Summary Anesthesia Postop Eval I Summary: Anesthesia Postop Eval I: Assessment Summary Airway patent Yes 11/18/24 14:21 SERGING MACHINE OPERATOR AUTOMATIC.[email or web address] Spontaneous unlabored Yes 11/18/24 14:21 SERGING MACHINE OPERATOR AUTOMATIC.JBLOU respirations Mental status Awake,Calm 11/18/24 14:21 SERGING MACHINE OPERATOR AUTOMATIC.JBLOU nausea No 11/18/24 14:21 SERGING MACHINE OPERATOR AUTOMATIC.JBLOU Vomiting No 11/18/24 14:21 SERGING MACHINE OPERATOR AUTOMATIC.JBLOU Anesthesia Postop Eval I: Fluid Summary Crystalloid volume administer 900 11/18/24 14:21 SERGING MACHINE OPERATOR AUTOMATIC.JBLOU (ml) Colloids volume administered ( ml) Blood Product volume administered (ml) Total IV fluid infused 900 11/18/24 14:21 SERGING MACHINE OPERATOR AUTOMATIC.JBLOU Anesthesia Postop Eval I: Summary Notes Anesthesia Complication No 11/18/24 14:21 SERGING MACHINE OPERATOR AUTOMATIC.JBLOU Anesthesia Complication Comment: Post-operative progress note Anesthesia: Postop Eval II Evaluation Mental status: Awake and Calm Pain Level: 1 nausea: No Vomiting: No Complications Anesthesia Complication: No 11/18/242018 Date Fredo Hayward MD Cosigner Signature: Date CC: Signed Normal [facility] Operative Reporton 5 Operative Report [facility] Medical Records Department [address] [place] [address] Operative Report 11/18/24 1231 MR#: [id number] Acct: [id number] Name: ALLYSON CLAUDIO Rep #: [id number] : 1955 69 From: Leela Rivera MD PCP: Dr. Boris Mae MD Status:[facility] Location: [facility] Oncology: Galen Requirements . Oncology surgical intervention performed: [place] Node Biopsy for Breast Cancer performed [place] Node Bx - Breast Cancer: Synoptic Portion: Element Response Options Operation performed with curative intent. Yes Tracer(s) used to identify sentinel nodes in the upfront surgery (non-neoadjuvant) setting (select all that apply). Dye; Radioactive tracer Tracer(s) used to identify sentinel nodes in the neoadjuvant setting (select all that apply).N/A. All nodes (colored or non-colored) present at the end of a dye-filled lymphatic channel were removed. Yes All significantly radioactive nodes were removed. Yes All palpably suspicious nodes were removed. N/A. Biopsy-proven positive nodes marked with clips prior to chemotherapy were identified and removed. N/A. Operative Report (Standard) Operative Information Date of Procedure: 11/18/24 Pre-Operative Diagnosis: Right breast cancer Post-Operative Diagnosis: Same Surgery/Procedure Performed: Ultrasound-guided right breast needle localization lumpectomy, sentinel lymph node biopsy with Lymphazurin and Lymphoseek progress developer: Yes Steam Room Attendant: Julia Boyle Tasks completed by international first officer: Opening closing and Retracting Type of Anesthesia: General/Supplemental RN Documented Start/Stop Times: Operation Date: 11/18/24 11:30 Case Time Into Pre-Op 11/18/24 09:35 Out of Pre-Op 11/18/24 11:15 Anesthesia Start 11/18/24 11:16 Into Room 11/18/24 11:16 Procedure Start 11/18/24 11:50 Procedure End 11/18/24 12:46 Anesthesia End 11/18/24 12:52 Out of Room 11/18/24 12:52 Into Recovery 11/18/24 12:55 Into Phase II Recovery 11/18/24 13:15 Out of Recovery 11/18/24 13:15 Out of Phase II 11/18/24 14:07 Procedure Start Time: 11:50 Procedure Stop Time: 12:46 Select all DRAINS/GRAFTS/IMPLANTS that apply: None Special Medications: Ancef 2 g IV x 1 Estimated Blood Loss: 15 cc Specimen collected: Yes Description of specimen(s) removed: Right sentinel lymph node, right lumpectomy/breast mass Description of surgery: In AC the breast tissue was injected with Lymphoseek. 30 minutes later the patient was taken to the operating room and general anesthesia was induced. 5 cc of Lymphazurin 1% blue dye was injected in the 4 quadrants periareolar along with 10 cc of normal saline. This was massaged gently for 5 minutes. The right breast and axilla were prepped and draped in usual sterile fashion. A timeout was completed verifying correct patient, procedure, site, positioning, special equipment prior to beginning procedure. Handheld gamma probe was used to identify the location of the hottest spot in the axilla. Prior to the incision, the counts were 15. The incision was made in the hot and blue was identified. The probe was placed in contact with the node in the 10 count was 549. The bed of the node measured 14 counts. No additional blue or hot nodes or palpable were detected. Frozen had 1 negative. Ultrasound was use for localization of the breast mass using the Kopan's needle. The wire was placed just inferiorly to the mass. A radial incision was planned in such a way as to minimize the amount of dissection to reach the mass. Flaps were raised in the location of the wire confirmed. The wire was delivered into the wound. 2 silk zodzow-fq-ylyde stay suture was placed around the wire and used for traction. Dissection was then taken down circumferentially, taking care to include the entire localization needle and wide margin of grossly normal tissue. The specimen and entire localizing wire were removed. The specimen was oriented and sent to mammography for x-ray. Confirmation was received that the entire target lesion and needle/clip had been resected. 3 medium clips were placed in the line at the deep area of the cavity. The cavities were irrigated. Hemostasis was checked. The breast and axillary incisions were closed with interrupted sutures of 3-0 Vicryl and subcuticular sutures of 4-0 Monocryl. No attempt was made to close the space. Steri-Strips were placed at the breast incision and Dermabond at the axilla incision. A supportive/surgical bra placed. The patient tolerated procedure well was taken to the postanesthesia care in stable condition Surgical Findings: See operative report Complications Complications: No 11/19/24 0708 Cosigner Signature (if applicable): CC: Dr. Boris Mae MD; Dr. Leela Rivera MD Signed Normal [facility] Surgery Visit Reporton 11-07 Surgery Visit Report [facility] [address] [facility] [place] [address] OFFICE VISIT Date of Service: 11/07/24 MR#: [id number] Acct: [id number] Name: ALLYSON CLAUDIO Rep #: [id number] : 1955 Provider: Dr. Leela palomo MD Age/Sex: 69/F Location: [facility] Status: Signed Intake Vital Signs 10/23/24 15:02 11/07/24 09:53 Height 5 ft 4 in Weight: 170 lb 173 lb BMI 29.2 BP 131/75 H 161/75 H Blood Pressure Location Lt brachial Rt brachial Position Sitting Sitting Respiration 17 17 Pulse 83 82 Pulse Source Monitor Monitor Temp 97.4 F L Temp Source Temporal Pulse Oximetry (%) 92 98 Oxygen Delivery Method room air room air Intake Visit Reasons: DISCUSS BREAST SURGERY Chief Complaint: discuss breast surgery Is patient in pain?: No Allergies sitagliptin (From Januvia) Allergy (Intermediate, Verified 11/10/24 09:00) hallucinations Sulfa (Sulfonamide Antibiotics) Allergy (Intermediate, Verified 11/10/24 09:00) Hives venlafaxine (From Effexor) Allergy (Intermediate, Verified 11/10/24 09:00) Other Medications ???Medication ???Instructions ???Recorded ???Confirmed ???Type alendronate 70 mg tablet 70 mg PO ADAMS 10/23/24 11/10/24 Hist ory amlodipine 5 mg-benazepril 20 mg 1 cap PO QDAY 10/23/24 11/10/24 Hi story capsule aspirin 81 mg tablet,delayed 81 mg PO QHS 10/23/24 11/10/24 His tory release atorvastatin 20 mg tablet 20 mg PO QDAY 10/23/24 11/10/24 Hi story calcium glucarate 500 mg capsule 1 tab-cap PO QDAY 10/23/24 5 History levothyroxine 137 mcg tablet 68.5 mcg PO ADAMS 10/23/24 11/10/24 H istory (Synthroid) methotrexate (PF) 25 mg/0.5 mL 25 mg subcut FR 10/23/24 11/10/24 History subcutaneous auto-injector multivitamin 1 tab PO QAM 10/23/24 11/10/24 His tory pantoprazole 40 mg tablet,delayed 40 mg PO QDAY 10/23/24 11/10/24 H istory release semaglutide 0.25 mg or 0.5 mg (2 1 mg subcut FR 10/23/24 11/10/24 H istory mg/3 mL) subcutaneous pen injector (Ozempic) sertraline 100 mg tablet (Zoloft) 100 mg PO QDAY 10/23/24 11/10/24 History meloxicam 15 mg tablet 7.5 mg PO DAILY PRN PRN pain 11/1011/10/24 History mirtazapine 15 mg tablet 15 mg PO QHS ANXIETY AND SLEEP 11/10/24 History Have you fallen in the past year?: No PFSH Medical History (Updated 11/10/24 @ 09:22 by Lori Ashton) Wears glasses Wears dentures Cancer Post-menopausal Anxiety Alcohol use Depression High cholesterol Dietary restriction History of ulceration Former smoker History of rheumatic fever Thyroid disease Rheumatoid arthritis Heart murmur GERD (gastroesophageal reflux disease) HTN (hypertension) Diabetes Surgical History (Updated 11/10/24 @ 09:10 by Lori Ashton) History of Trina fundoplication History of colonoscopy History of back surgery H/O thyroidectomy Family History (Updated 10/23/24 @ 14:34 by Annalise Matos) Aunt Breast cancer Father Diabetes Heart disease Hypertension Mother Cancer Sister Diabetes Heart disease Social History (Updated 10/23/24 @ 15:01 by Annalise Matos) Smoking Status: Former smoker HPI HPI HPI: 69-year-old female presents with her to discuss right breast biopsy pathology and plan for surgical treatment. Pathology showed invasive ductal carcinoma ER/MI positive, HER2/josselyn equivocal, FISH pending, grade 2. This was approximately a centimeter on ultrasound. ROS General General: Yes breast cancer; No weight change, appetite, fatigue or colon cancer HEENT HEENT: Yes eye surgery; No difficulty swallowing, eye injury, swollen glands or hoarseness Endo Endocrine: Yes thyroid disease, diabetes mellitus and thyroid cancer; No Hair loss, heat intolerance or cold intolerance Skin Skin: No rash or changing moles Breast Breast: Yes right breast lump, abnormal mammogram and abnormal US; No left breast lump, nipple discharge, breast pain or breast enlargement Musc Musculoskeletal: Yes rheumatoid arthritis; No back problems, arthritis, gout or joint pain Cardio Cardiovascular: Yes murmur and high blood pressure; No pacemaker, heart disease, atrial fibrillation, heart attack, heart stent, palpitations, shortness of breath with exertion or chest pain Psych Psychiatric: No depression, anxiety or hearing voices Resp Respiratory: No shortness of breath, No sleep apnea, No cough, No COPD, No asthma, No emphysema and No wheezing Gastro Gastrointestinal: No abdominal pain, No nausea or vomiting, No diarrhea, No constipation, No blood in stool, Yes acid reflux, No hemorrhoids, No ulcers, No gallbladder problem and No black,tarry st ools Pancho Hematologic: No blood thinners, No blood disorders, No bleeding, No anemia and No blood cl (more content not included)... Normal [facility] SURG PATH REQUESTon 11-01-19 Case Report Normal [facility] Comment on above: Result Comment: Surg ical Pathology Report Case: [id number] Authorizing Provider: Maddison Quintana MD Collected: 10/31/2024 09:06 AM Ordering Location[facility] Received: 10/31/2024 09:06 AM [place] Pathologist: Brian Terrell MD, PhD Specimen: SURG PATH, Outside slides [id number] (A1); Right breast mass at 9:00, 10 cm from nipple, core biopsy; Molecular testing Performed By: #### S URGP #### [facility] (DEFAULT) [address] [address] Clinical History Request received fro isrrael Quintana MD at [facility], [address] [place] [address], for molecular studies on a paraffin block received from [facility]. [facility] Comment on above: Performed By: #### S URGP #### [facility] (DEFAULT) [address] [address] Gross Description [facility] Comment on above: Result Comment: The following material(s) are received from [facility], [address] [place] [address] with an identifying Surgical Pathology Report: 1 H&E slide and 2 unstained slides marked [id number] (A1), which is submitted to the [facility] histology/IHC laboratory for recutting and additional staining for HER2 FISH testing. Materials will be returned upon completion. Grosser for this case was: Dyana Quiñones Performed By: #### S URGP #### [facility] (DEFAULT) [address] [address] Microscopic Description Normal [facility] Comment on above: Result Comment: Tiss ue was assessed by a molecular pathologist to select areas for analysis and to correlate immunostaining with histology. No morphologic assessment was requested. Performed By: #### S URGP #### [facility] (DEFAULT) [address] [address] Pathologic Diagnosis [facility] Comment on above: Result Comment: Outs chu Slides: [id number] (10/23/24) Right breast mass at 9:00, 10 cm from nipple, core biopsy: HER2 FISH: Negative (see report for details) at 2129 EDT Performed By: #### S URGP #### [facility] (DEFAULT) [address] [place] [address] Professional Interpretation Performed at: Normal [facility] Comment on above: Result Comment: [facility] For Immediate Release to Patient's MyChart? Yes [address], [facility] [address] [place], [place] [address] Performed By: #### S URGP #### [facility] (DEFAULT) [address] [place] [address] Surgical pathology reportOrd ered By: Maddison Quintana on 10-29-[address] [facility] Immunohistochemical Stainson 10-23-2024 Immunohistochemical Stains ---- Patient Age/Sex Location Account Attending Physician ---- ALLYSON CLAUDIO 69/F [facility]SPEC [id number] Dr. Leela Rivera MD ---- Specimen: [id number] Received: 10/24/24 Status: ARAVIND Miner Num: [id number] Spec Type: BREAST Subm Dr: Dr. Leela Rivera MD HEADER OPERATION: Right breast biopsy PRE-OP DIAGNOSIS: Right breast biopsy TISSUE SUBMITTED: A- Right breast mass - 9o'clock, 10cm from nipple Ischemic Time: 1 minute Formalin fixation Time: >48 hours ---- MICROSCOPIC DIAGNOSIS A. RIGHT BREAST MASS AT 9:00, 10 CM FROM NIPPLE, CORE BIOPSY: * Invasive ductal carcinoma NST, at least 0.7 cm. * Grade 2 (tubule 3, nuclear 2, mitosis 1) * Estrogen Receptor: positive (95%, strong intensity) * Progesterone Receptor: positive (95%, strong intensity) * HER2 (IHC): equivocal (2+) * HER2(FISH): pending at [facility] (to be reported in an addendum) * Ki67 proliferative index: 15-20% Note: E-cadherin IHC is positive, confirming the ductal origin. MICROSCOPIC DESCRIPTION Slides are reviewed. These tests were developed and their performance characteristics determined by [facility]. They may not have been cleared or approved by the U.S. Food and Drug Administration. The FDA has determined that such clearance or approval is not necessary. The above immunohistochemical/du alISH markers are ordered and reviewed by the Pathologist. GROSS DESCRIPTION Received in fixative is one container labeled with the patient's name and designated right breast mass. The specimen consists of 2 cores of red soft tissue measuring in aggregate 1 x 0.3 x 0.2 cm. TE1 eh 10/24/24 CPT:89677, 29285,10002,03241l9 ---- ---- Patient Age/Sex Location Account Attending Physician ---- ALLYSON CLAUDIO 69/F [facility]SPEC [id number] Dr. Leela Rivera MD ---- ADDENDUM Addendum 2 Entered: 12/12/24-1144 ONCOTYPE DX BREAST RECURRENCE SCORE REPORT - BLOCK A1 RECURRENCE SCORE: 3 DISTANT RECURRENCE RISK AT 9 YEARS: 3% GROUP AVERAGE ABSOLUTE CHEMOTHERAPY BENEFIT: <1% Please see complete above mentioned consultation report in EMR Addendum Signed (signature on file) Dr. Maddison Quintana MD 12/12/24 1337 ---- Addendum 1 Entered: 11/10/24 This addendum is added to incorporate an outside pathology consultation report. The case was examined at [facility] by Dr. Terrell (#[id number]) and the following diagnosis was rendered. A. Right breast mass at 9:00, 10 cm from nipple, core biopsy: HER2 FISH: Negative HER2 FISH REPORT: HER2 SCORE: NEGATIVE HER2/CEP17 RATIO: 09 HER2 COPY NUMBER/CELL: 2.3 Please see complete above mentioned consultation report in EMR Addendum Signed (signature on file) Dr. Maddison Quintana MD 11/10/24 1321 ---- ---- Patient Age/Sex Location Account Attending Physician ---- ALLYSON CLAUDIO 69/F [facility] [id number] Dr. Leela Rivera MD ---- Signed (signature on file) Dr. Maddison Quintana MD 10/29/24 1108 ---- Normal [facility] Comment on above: Performed By: #### L 500.4050, L100.0100, L506.0400, L501.9985, L501.9520, L506.1001, L500.4100, L3300.4490 #### [facility] [address] [place], [place], [address] Surgery Visit Reporton 10-23 Surgery Visit Report [facility] [address] [place] [address] OFFICE VISIT Date of Service: 10/23/24 MR#: [id number] Acct: [id number] Name: ALLYSON CLAUDIO Jami Rep #: [id number] : 1955 Provider: Dr. Leela palomo MD Age/Sex: 69/F Location: [facility] Status: Signed Intake Vital Signs 10/23/24 15:02 Height 5 ft 4 in Weight: 170 lb BMI 29.2 BP 131/75 H Blood Pressure Location Lt brachial Position Sitting Respiration 17 Pulse 83 Pulse Source Monitor Temp 97.4 F L Temp Source Temporal Pulse Oximetry (%) 92 Oxygen Delivery Method room air Intake Visit Reasons: BIRADS 4 Chief Complaint: birads 4 Is patient in pain?: No Allergies sitagliptin (From Mena) Allergy (Intermediate, Verified 10/23/24 15:04) hallucinations Sulfa (Sulfonamide Antibiotics) Allergy (Intermediate, Verified 10/23/24 15:04) Hives venlafaxine (From Effexor) Allergy (Intermediate, Verified 10/23/24 15:04) Other Medications ???Medication ???Instructions ???Recorded ???Confirmed ???Type alendronate 70 mg tablet 70 mg PO QWEEK 10/23/24 10/23/24 H istory amlodipine 5 mg-benazepril 20 mg 1 cap PO QDAY 10/23/24 10/23/24 Hi story capsule aspirin 81 mg tablet,delayed 81 mg PO QDAY 10/23/24 10/23/24 Hi story release atorvastatin 20 mg tablet 20 mg PO QDAY 10/23/24 10/23/24 Hi story calcium glucarate 500 mg capsule 1 tab-cap PO QDAY 10/23/24 5 History fenofibric acid (choline) 135 mg 135 mg PO QDAY 10/23/24 10/23/24 H istory capsule,delayed release (Trilipix) levothyroxine 137 mcg tablet 137 mcg PO QDAY 10/23/24 10/23/24 History (Synthroid) methotrexate (PF) 25 mg/0.5 mL 25 mg subcut QWEEK 10/23/24 History subcutaneous auto-injector multivitamin 1 tab PO QAM 10/23/24 10/23/24 His tory pantoprazole 40 mg tablet,delayed 40 mg PO QDAY 10/23/24 10/23/24 H istory release semaglutide 0.25 mg or 0.5 mg (2 1 mg subcut QWEEK 10/23/24 5 History mg/3 mL) subcutaneous pen injector (Ozempic) sertraline 100 mg tablet (Zoloft) 100 mg PO QDAY 10/23/24 10/23/24 History Have you fallen in the past year?: No PFSH Medical History (Updated 10/23/24 @ 14:31 by Annalise Matos) Thyroid disease Rheumatoid arthritis Heart murmur GERD (gastroesophageal reflux disease) Diabetes HTN (hypertension) Surgical History (Updated 10/23/24 @ 14:33 by Annalise Matos) H/O thyroidectomy Family History (Updated 10/23/24 @ 14:34 by Annalise Matos) Aunt Breast cancer Father Diabetes Heart disease Hypertension Mother Cancer Sister Diabetes Heart disease Social History (Updated 10/23/24 @ 15:01 by Annalise Matos) Smoking Status: Never smoker HPI HPI HPI: 69-year-old female presents due to abnormal mammogram and ultrasound. Patient denies any pain or trauma or change in overlying skin or nipple discharge. Patient's ultrasound showed a suspicious right breast mass 9-10 o'clock 10 cm from the nipple given a BI-RADS 4. Age at menses 06/24, age at time of of first child N/A, paternal aunts history of breast cancer greater than age 50, previous breast biopsy 1 on the left cyst per patient. ROS General General: No weight change, appetite, fatigue, colon cancer, breast cancer or weakness HEENT HEENT: Yes eye surgery; No difficulty swallowing, eye injury, swollen glands or hoarseness Endo Endocrine: Yes thyroid disease, diabetes mellitus and thyroid cancer; No Hair loss, heat intolerance or cold intolerance Skin Skin: No rash or changing moles Breast Breast: Yes right breast lump, abnormal mammogram and abnormal US; No left breast lump, nipple discharge, breast pain or breast enlargement Musc Musculoskeletal: Yes rheumatoid arthritis; No back problems, arthritis, gout or joint pain Cardio Cardiovascular: Yes murmur and high blood pressure; No pacemaker, heart disease, atrial fibrillation, heart attack, heart stent, palpitations, shortness of breath with exertion or chest pain Psych Psychiatric: No depression, anxiety or hearing voices Resp Respiratory: No shortness of breath, No sleep apnea, No cough, No COPD, No asthma, No emphysema and No wheezing Gastro Gastrointestinal: No abdominal pain, No nausea or vomiting, No diarrhea, No constipation, No blood in stool, Yes acid reflux, No hemorrhoids, No ulcers, No gallbladder problem and No black,tarry stools Pancho Hematologic: No blood thinners, No blood disorders, No bleeding, No anemia and No blood clots Neuro Neurologic: No system reviewed and no additional complaints, except as documented, No as per HPI, No abnormal gait, No abnormal hearing, No abnormal movements, No abnormal speech, No behavioral changes, No burning sensations, No confusion, No convulsi (more content not included)... Normal [facility] LDL, Directon 10-15-2024 Cholesterol in LDL [Mass/Vol] 70 mg/dL Normal 0-[address] [facility] Comment on above: Order Comment: DR RUBIO NEEDS RESULTS OF CMP, A1C, TSH, T4F, VITD, LIPIDW/REFLEX OF LEOPOLDO MICHELE GET CMP CBCDN Result Comment: Perf ormed at: - [facility] [address] [id number] Sales Account Associate: Nathan Brown PhD, Phone: [phone] Performed By: #### L 500.4050, L100.0100 #### [facility] [address] [place], [place], [id number] COMMENT TNP Normal . [facility] Comment on above: Order Comment: DR RUBIO NEEDS RESULTS OF CMP, A1C, TSH, T4F, VITD, LIPIDW/REFLEX OF LEOPOLDO MICHELE GET CMP CBCDN Performed By: #### L 500.4050, L100.0100 #### [facility] [address] [place], [place], [address] Absolute lymphocyte countOrd ered By: Boris Mae on 10-14-2024 Lymphocytes Auto (Unsp spec) [#/Vol] 2.08 10*3/uL 0.83-4.[address] [facility] Absolute neutrophil countOrd ered By: Boris Mae on 10-14-2024 Neutrophils (Bld) [#/Vol] 5.1 10*3/uL 2.0-7.[address] [facility] Anion gap in Serum or Plasma Ordered By: Boris Mae on 10-14-2024 Anion gap [Moles/Vol] 13 mmol/L 5-15 [facility] Automated lymphocyte count a s percentage of total leukocytesOrdered By: Boris Mae on 10-14-2024 Lymphocytes/100 WBC Auto (Unsp spec) 25.6 % 19-[address] [facility] BUN/creatinine ratioOrdered By: Boris Mae on 10-14-2024 Urea nitrogen/Creatinine [Mass ratio] 17.8 mg/mg 10-[address] [facility] Basophil percentageOrdered B y: Boris Mae on 10-14-2024 Basophils/100 WBC (Bld) 0.9 % 0-[address] [facility] Bilirubin, totalOrdered By: Boris Mae on 10-14-2024 Bilirubin [Mass/Vol] 0.29 mg/dL 0.00-1.30 [facility] Breast Limited Unilateralon 10-14-2024 Breast Limited Unilateral [facility] [address] [place], [place] [address] Breast Limited Unilateral MR#: [id number] Acct: [id number] Name: ALLYSON CLAUDIO Rep #: [id number] : 1955 F 69 From: Erica Armendariz MD PCP: Dr. Boris Mae MD Status: REG CLI Study: Breast Limited Unilateral Date of Exam: Exam# [id number] Ordering Dr: Boris Mae MD PROCEDURE: BREAST LIMITED UNILATERAL REASON FOR EXAM: 69-year-old female presents for diagnostic ultrasound of the right breast, callback from screening mammogram of 10/07/2024. Family history of breast cancer in a paternal aunt in her 70s.. TECHNIQUE: Targeted right breast ultrasound. COMPARISON: Mammogram 10/07/2024, 10/18/2022 and 05/04/2021 FINDINGS: RIGHT: Follow-up examination performed of the right breast mass seen on the screening mammogram of 10/07/2024. On the present examination, the ultrasound performed of the upper-outer right breast demonstrates an irregular hypoechoic mass with ill-defined margins and posterior acoustic shadowing at 9-10 o'clock 10 cm from the nipple measuring 1.0 x 0.7 x 0.8 cm. There is increased flow at the periphery of the mass. This mass correlates to the mammographic finding. Also, at 12 o'clock 8 cm from the nipple there is a cystic mass, with an internal septation and no associated flow measuring 0.5 x 0.3 x 0.5 cm. This mass appears mammographically stable dating back to 2020 and is considered benign. US/Breast Limited Unilateral IMPRESSION: Suspicious right breast mass at 9-10 o'clock 10 cm from the nipple. Recommend further evaluation with tissue sampling with ultrasound-guided core needle biopsy. BI-RADS 4: SUSPICIOUS ABNORMALITY. Follow-up code: Biopsy Recommended Reading Location: [id number] CC: Dr. Boris Mae MD Production Solderer: Signed Normal [facility] CBC W/Diff, Automatedon 03-0 Absolute Lymph 2.08 X10 3/uL Normal 0.83-4.[address] [facility] Comment on above: Order Comment: DR RUBIO NEEDS RESULTS OF CMP, A1C, TSH, T4F, VITD, LIPID W/REFLEX OF LDL SHINNER VELLANKI GET CMP CBCD Performed By: #### L 500.4050, L100.0100, L506.0400, L501.9985, L501.9520, L506.1001, L500.4100, L3300.4490 #### [facility] [address] [place], [address] Absolute Neut 5.1 X10 3/uL Normal 2.0-7.[address] [facility] Comment on above: Order Comment: DR RUBIO NEEDS RESULTS OF CMP, A1C, TSH, T4F, VITD, LIPID W/REFLEX OF LDL SHINNER VELLANKI GET CMP CBCD Performed By: #### L 500.4050, L100.0100, L506.0400, L501.9985, L501.9520, L506.1001, L500.4100, L3300.4490 #### [facility] [address] [place], [address] Basophils/100 WBC (Bld) 0.9 % Normal 0-[address] [facility] Comment on above: Order Comment: DR RUBIO NEEDS RESULTS OF CMP, A1C, TSH, T4F, VITD, LIPID W/REFLEX OF LDL SHINNER VELLANKI GET CMP CBCD Performed By: #### L 500.4050, L100.0100, L506.0400, L501.9985, L501.9520, L506.1001, L500.4100, L3300.4490 #### [facility] [address] [place], [address] Eosinophils/100 WBC (Bld) 2.5 % Normal 0-[address] [facility] Comment on above: Order Comment: DR RUBIO NEEDS RESULTS OF CMP, A1C, TSH, T4F, VITD, LIPID W/REFLEX OF LDL SHINNER VELLANKI GET CMP CBCD Performed By: #### L 500.4050, L100.0100, L506.0400, L501.9985, L501.9520, L506.1001, L500.4100, L3300.4490 #### [facility] [address] [place], [address] Erythrocyte distribution width (RBC) [Ratio] 14.3 % Normal 11.6-14.[address] [facility] Comment on above: Order Comment: DR RUBIO NEEDS RESULTS OF CMP, A1C, TSH, T4F, VITD, LIPID W/REFLEX OF LDL SHINNER VELLANKI GET CMP CBCD Performed By: #### L 500.4050, L100.0100, L506.0400, L501.9985, L501.9520, L506.1001, L500.4100, L3300.4490 #### [facility] [address] [place], [address] Hematocrit (Bld) [Volume fraction] 42.0 % Normal 37-[address] [facility] Comment on above: Order Comment: DR RUBIO NEEDS RESULTS OF CMP, A1C, TSH, T4F, VITD, LIPID W/REFLEX OF LDL SHINNER VELLANKI GET CMP CBCD Performed By: #### L 500.4050, L100.0100, L506.0400, L501.9985, L501.9520, L506.1001, L500.4100, L3300.4490 #### [facility] [address] [place], [address] Hemoglobin (Bld) [Mass/Vol] 13.8 g/dL Normal 12.0-15.[address] [facility] Comment on above: Order Comment: DR RUBIO NEEDS RESULTS OF CMP, A1C, TSH, T4F, VITD, LIPID W/REFLEX OF LDL SHINNER VELLANKI GET CMP CBCD Performed By: #### L 500.4050, L100.0100, L506.0400, L501.9985, L501.9520, L506.1001, L500.4100, L3300.4490 #### [facility] [address] [place], [address] IG% 0.400 Normal 0.0-0.[address] [facility] Comment on above: Order Comment: DR RUBIO NEEDS RESULTS OF CMP, A1C, TSH, T4F, VITD, LIPID W/REFLEX OF LDL SHINNER VELLANRALEIGH GET CMP CBCD Result Comment: IG% - Immature Granulocytes (promyelocytes, myelocytes and metamyelocytes) > 1% indicates that a LEFT SHIFT is Present. Performed By: #### L 500.4050, L100.0100, L506.0400, L501.9985, L501.9520, L506.1001, L500.4100, L3300.4490 #### [facility] [address] [place], [address] Lymphocytes/100 WBC (Bld) 25.6 % Normal 19-[address] [facility] Comment on above: Order Comment: DR RUBIO NEEDS RESULTS OF CMP, A1C, TSH, T4F, VITD, LIPID W/REFLEX OF LDL [facility] CMP CBCD Performed By: #### L 500.4050, L100.0100, L506.0400, L501.9985, L501.9520, L506.1001, L500.4100, L3300.4490 #### [facility] [address] [place], [address] MCH (RBC) [Entitic mass] 30.5 pg Normal 27.0-32.[address] [facility] Comment on above: Order Comment: DR RUBIO NEEDS RESULTS OF CMP, A1C, TSH, T4F, VITD, LIPID W/REFLEX OF LDL SHINNER VELLANKI [facility] CMP CBCD Performed By: #### L 500.4050, L100.0100, L506.0400, L501.9985, L501.9520, L506.1001, L500.4100, L3300.4490 #### [facility] [address] [place], [address] MCHC (RBC) [Mass/Vol] 32.9 g/dL Normal 32-36 [facility] Comment on above: Order Comment: DR RUBIO NEEDS RESULTS OF CMP, A1C, TSH, T4F, VITD, LIPID W/REFLEX OF LDL SHINNER VELLANKI [facility] CMP CBCD Performed By: #### L 500.4050, L100.0100, L506.0400, L501.9985, L501.9520, L506.1001, L500.4100, L3300.4490 #### [facility] [address] [place], [address] MCV (RBC) [Entitic vol] 92.9 fL Normal 81-[address] [facility] Comment on above: Order Comment: DR RUBIO NEEDS RESULTS OF CMP, A1C, TSH, T4F, VITD, LIPID W/REFLEX OF LDL [facility] C[facility] Performed By: #### L 500.4050, L100.0100, L506.0400, L501.9985, L501.9520, L506.1001, L500.4100, L3300.4490 #### [facility] [address] [place], [address] Monocytes/100 WBC (Bld) 8.1 % Normal 0-[address] [facility] Comment on above: Order Comment: DR RUBIO NEEDS RESULTS OF CMP, A1C, TSH, T4F, VITD, LIPID W/REFLEX OF LDL SHINNER VELLANKI GET CMP CBCD Performed By: #### L 500.4050, L100.0100, L506.0400, L501.9985, L501.9520, L506.1001, L500.4100, L3300.4490 #### [facility] [address] [place], [address] Neutrophils/100 WBC (Bld) 62.5 % Normal 47-[address] [facility] Comment on above: Order Comment: DR RUBIO NEEDS RESULTS OF CMP, A1C, TSH, T4F, VITD, LIPID W/REFLEX OF LDL SHINNER VELLANKI GET CMP CBCD Performed By: #### L 500.4050, L100.0100, L506.0400, L501.9985, L501.9520, L506.1001, L500.4100, L3300.4490 #### [facility] [address] [place], [address] Nucleated RBC (Bld) [#/Vol] 0 10*3/uL Normal 0-[address] [facility] Comment on above: Order Comment: DR RUBIO NEEDS RESULTS OF CMP, A1C, TSH, T4F, VITD, LIPID W/REFLEX OF LDL [facility] GET CMP CBCD Performed By: #### L 500.4050, L100.0100, L506.0400, L501.9985, L501.9520, L506.1001, L500.4100, L3300.4490 #### [facility] [address] [place], [address] Platelet mean volume (Bld) [Entitic vol] 9.8 fL Normal 6.2-12.[address] [facility] Comment on above: Order Comment: DR RUBIO NEEDS RESULTS OF CMP, A1C, TSH, T4F, VITD, LIPID W/REFLEX OF LDL SHINNER VELLANKI GET CMP CBCD Performed By: #### L 500.4050, L100.0100, L506.0400, L501.9985, L501.9520, L506.1001, L500.4100, L3300.4490 #### [facility] [address] [place], [address] Platelets (Bld) [#/Vol] 401 10*3/uL Normal 150-[address] [facility] Comment on above: Order Comment: DR RUBIO NEEDS RESULTS OF CMP, A1C, TSH, T4F, VITD, LIPID W/REFLEX OF LDL SHINNER VELLANKI GET CMP CBCD Performed By: #### L 500.4050, L100.0100, L506.0400, L501.9985, L501.9520, L506.1001, L500.4100, L3300.4490 #### [facility] [address] [place], [address] RBC (Bld) [#/Vol] 4.52 10*6/uL Normal 4.2-5.4 [facility] Comment on above: Order Comment: DR RUBIO NEEDS RESULTS OF CMP, A1C, TSH, T4F, VITD, LIPID W/REFLEX OF LDL SHINNER VELLANKI GET CMP CBCD Performed By: #### L 500.4050, L100.0100, L506.0400, L501.9985, L501.9520, L506.1001, L500.4100, L3300.4490 #### [facility] [address] [place], [address] RDW SD 48.4 fl High 35.1-43.[address] [facility] Comment on above: Order Comment: DR RUBIO NEEDS RESULTS OF CMP, A1C, TSH, T4F, VITD, LIPID W/REFLEX OF LDL SHINNER VELLANKI GET CMP CBCD Performed By: #### L 500.4050, L100.0100, L506.0400, L501.9985, L501.9520, L506.1001, L500.4100, L3300.4490 #### [facility] [address] [place], [address] WBC (Bld) [#/Vol] 8.1 10*3/uL Normal 4.4-11.0 [facility] Comment on above: Order Comment: DR RUBIO NEEDS RESULTS OF CMP, A1C, TSH, T4F, VITD, LIPID W/REFLEX OF LDL ALEE ARREGUIN CMP CBCD Performed By: #### L 500.4050, L100.0100, L506.0400, L501.9985, L501.9520, L506.1001, L500.4100, L3300.4490 #### [facility] [address] [place], [place], [id number] Calculated very low density lipoprotein (VLDL) cholesterol measurementOrdered By: Boris Mae on 10-14-2024 Calculated very low density lipoprotein (VLDL) cholesterol measurement 29 mg/dL 5-[address] [facility] VLDL Cholesterol 29 mg/dL 5-[address] [facility] Carbon dioxide, total [Moles /volume] in Central venous bloodOrdered By: Boris Mae on 10-14-2024 CO2 [Moles/Vol] 27.5 mmol/L 21.0-32.[address] [facility] Chloride assayOrdered By: Guillermina Mae on 10-14-2024 Chloride [Moles/Vol] 97 mmol/L Low 98-108 [facility] Cholesterol in LDL Direct as say [Mass/Vol]Ordered By: Boris Mae on 10-14-2024 Cholesterol in LDL [Mass/Vol] 70 mg/dL 0-[address] [facility] Comment on above: Performed at: [facility] [address] [id number] Director: Nathan Brown PhD, Phone: [phone] LDL Cholesterol Direct 70 mg/dL 0-99 [facility] Comment on above: Performed at: [facility] [id number] [place] [id number] Director: Nathan Brown PhD, Phone: [phone] Comprehensive Metabolic Prof vasiliy 10-14-2024 Albumin [Mass/Vol] 4.3 g/dL Normal 3.4-4.8 [facility] Comment on above: Order Comment: DR RUBIO NEEDS RESULTS OF CMP, A1C, TSH, T4F, VITD, LIPID W/REFLEX OF LDL ALEE ARREGUIN CMP CBCD N Performed By: #### L 500.4050, L100.0100, L506.0400, L501.9985, L501.9520, L506.1001, L500.4100, L3300.4490 #### [facility] [address] [place], [address] Albumin/Globulin [Mass ratio] 1.3 {ratio} Normal 0.9-2.[address] [facility] Comment on above: Order Comment: DR RUBIO NEEDS RESULTS OF CMP, A1C, TSH, T4F, VITD, LIPID W/REFLEX OF LDL [facility] GET CMP CBCD N Performed By: #### L 500.4050, L100.0100, L506.0400, L501.9985, L501.9520, L506.1001, L500.4100, L3300.4490 #### [facility] [address] [place], [place], [phone] ([phone] ALK PHOS 89 U/L Normal 35-[address] [facility] Comment on above: Order Comment: DR RUBIO NEEDS RESULTS OF CMP, A1C, TSH, T4F, VITD, LIPID W/REFLEX OF LDL [facility] GET CMP CBCD N Performed By: #### L 500.4050, L100.0100, L506.0400, L501.9985, L501.9520, L506.1001, L500.4100, L3300.4490 #### [facility] [address] [place], [address] ALT [Catalytic activity/Vol] 23 U/L Normal <=[address] [facility] Comment on above: Order Comment: DR RUBIO NEEDS RESULTS OF CMP, A1C, TSH, T4F, VITD, LIPID W/REFLEX OF LDL SHINNER VELLANKI GET CMP CBCD N Performed By: #### L 500.4050, L100.0100, L506.0400, L501.9985, L501.9520, L506.1001, L500.4100, L3300.4490 #### [facility] [address] [place], [address] AST [Catalytic activity/Vol] 21 U/L Normal <=[address] [facility] Comment on above: Order Comment: DR RUBIO NEEDS RESULTS OF CMP, A1C, TSH, T4F, VITD, LIPID W/REFLEX OF LDL SHINNER VELLANKI GET CMP CBCD N Performed By: #### L 500.4050, L100.0100, L506.0400, L501.9985, L501.9520, L506.1001, L500.4100, L3300.4490 #### [facility] [address] [place], [address] Bilirubin [Mass/Vol] 0.29 mg/dL Normal 0.00-1.30 [facility] Comment on above: Order Comment: DR RUBIO NEEDS RESULTS OF CMP, A1C, TSH, T4F, VITD, LIPID W/REFLEX OF LDL SHINNER VELLANKI [facility] CMP CBCD N Performed By: #### L 500.4050, L100.0100, L506.0400, L501.9985, L501.9520, L506.1001, L500.4100, L3300.4490 #### [facility] [address] [place], [address] BUN/CRE 17.8 RATIO Normal 10-[address] [facility] Comment on above: Order Comment: DR RUBIO NEEDS RESULTS OF CMP, A1C, TSH, T4F, VITD, LIPID W/REFLEX OF LDL SHINNER VELLANKI GET CMP CBCD N Performed By: #### L 500.4050, L100.0100, L506.0400, L501.9985, L501.9520, L506.1001, L500.4100, L3300.4490 #### [facility] [address] [place], [address] Calcium [Mass/Vol] 9.7 mg/dL Normal 7.6-11.0 [facility] Comment on above: Order Comment: DR RUBIO NEEDS RESULTS OF CMP, A1C, TSH, T4F, VITD, LIPID W/REFLEX OF LDL SHINNER VELLANKI GET CMP CBCD N Performed By: #### L 500.4050, L100.0100, L506.0400, L501.9985, L501.9520, L506.1001, L500.4100, L3300.4490 #### [facility] [address] [place], [address] Chloride [Moles/Vol] 97 mmol/L Low 98-108 [facility] Comment on above: Order Comment: DR RUBIO NEEDS RESULTS OF CMP, A1C, TSH, T4F, VITD, LIPID W/REFLEX OF LDL SHINNER VELLANKI GET CMP CBCD N Performed By: #### L 500.4050, L100.0100, L506.0400, L501.9985, L501.9520, L506.1001, L500.4100, L3300.4490 #### [facility] [address] [place] [place], [address] CO2 [Moles/Vol] 27.5 mmol/L Normal 21.0-32.[address] [facility] Comment on above: Order Comment: DR RUBIO NEEDS RESULTS OF CMP, A1C, TSH, T4F, VITD, LIPID W/REFLEX OF LDL SHINNER VELLANKI GET CMP CBCD N Performed By: #### L 500.4050, L100.0100, L506.0400, L501.9985, L501.9520, L506.1001, L500.4100, L3300.4490 #### [facility] [address] [place], [address] Creatinine [Mass/Vol] 0.64 mg/dL Low 0.70-1.20 [facility] Comment on above: Order Comment: DR RUBIO NEEDS RESULTS OF CMP, A1C, TSH, T4F, VITD, LIPID W/REFLEX OF LDL SHINNER VELLANKI GET CMP CBCD N Performed By: #### L 500.4050, L100.0100, L506.0400, L501.9985, L501.9520, L506.1001, L500.4100, L3300.4490 #### [facility] [address] [place], [place], [id number] GAP 13 Normal 5-[address] [facility] Comment on above: Order Comment: DR RUBIO NEEDS RESULTS OF CMP, A1C, TSH, T4F, VITD, LIPID W/REFLEX OF LDL SHINNER VELLANKI GET CMP CBCD N Performed By: #### L 500.4050, L100.0100, L506.0400, L501.9985, L501.9520, L506.1001, L500.4100, L3300.4490 #### [facility] [address] [place], [address] GFR/1.73 sq M.predicted among non-blacks MDRD (S/P/Bld) [Vol rate/Area] 95 mL/min/{1.73_m2} Normal >[address] [facility] Comment on above: Order Comment: DR RUBIO NEEDS RESULTS OF CMP, A1C, TSH, T4F, VITD, LIPID W/REFLEX OF LDL SHINNER VELLANKI GET CMP CBCD N Result Comment: mL/m in/1.73m2 CKD-EPI Creatinine Equation (2020) Performed By: #### L 500.4050, L100.0100, L506.0400, L501.9985, L501.9520, L506.1001, L500.4100, L3300.4490 #### [facility] [address] [place], [place], [phone] Globulin (S) [Mass/Vol] 3.4 g/dL Normal 2.2-4.[address] [facility] Comment on above: Order Comment: DR RUBIO NEEDS RESULTS OF CMP, A1C, TSH, T4F, VITD, LIPID W/REFLEX OF LDL SHINNER VELLANKI GET CMP CBCD N Performed By: #### L 500.4050, L100.0100, L506.0400, L501.9985, L501.9520, L506.1001, L500.4100, L3300.4490 #### [facility] [address] [place], [address] Glucose [Mass/Vol] 111 mg/dL High 70-99 [facility] Comment on above: Order Comment: DR RUBIO NEEDS RESULTS OF CMP, A1C, TSH, T4F, VITD, LIPID W/REFLEX OF LDL [facility] CBCD N Performed By: #### L 500.4050, L100.0100, L506.0400, L501.9985, L501.9520, L506.1001, L500.4100, L3300.4490 #### [facility] [address] [place], [address] Potassium [Moles/Vol] 3.5 mmol/L Normal 3.3-5.1 [facility] Comment on above: Order Comment: DR RUBIO NEEDS RESULTS OF CMP, A1C, TSH, T4F, VITD, LIPID W/REFLEX OF LDL [facility] CMP CBCD N Performed By: #### L 500.4050, L100.0100, L506.0400, L501.9985, L501.9520, L506.1001, L500.4100, L3300.4490 #### [facility] [address] [place], [address] Sodium [Moles/Vol] 138 mmol/L Normal 133-145 [facility] Comment on above: Order Comment: DR RUBIO NEEDS RESULTS OF CMP, A1C, TSH, T4F, VITD, LIPID W/REFLEX OF LDL [facility] VELLANKI [facility] CMP CBCD N Performed By: #### L 500.4050, L100.0100, L506.0400, L501.9985, L501.9520, L506.1001, L500.4100, L3300.4490 #### [facility] [address] [place], [address] T PROT 7.6 g/dL Normal 5.9-8.[address] [facility] Comment on above: Order Comment: DR RUBIO NEEDS RESULTS OF CMP, A1C, TSH, T4F, VITD, LIPID W/REFLEX OF LDL [facility] CMP CBCD N Performed By: #### L 500.4050, L100.0100, L506.0400, L501.9985, L501.9520, L506.1001, L500.4100, L3300.4490 #### [facility] [address] [place], [place], [phone] Urea nitrogen [Mass/Vol] 11 mg/dL Normal 4-[address] [facility] Comment on above: Order Comment: DR RUBIO NEEDS RESULTS OF CMP, A1C, TSH, T4F, VITD, LIPID W/REFLEX OF LDL [facility] CMP CBCD N Performed By: #### L 500.4050, L100.0100, L506.0400, L501.9985, L501.9520, L506.1001, L500.4100, L3300.4490 #### [facility] [address] [place], [place], [phone] Eosinophil percentageOrdered By: Boris Mae on 10-14-2024 Eosinophils/100 WBC (Bld) 2.5 % 0-[address] [facility] Erythrocyte distribution wid th ratioOrdered By: Boris Mae on 10-14-2024 Erythrocyte distribution width (RBC) [Ratio] 14.3 % 11.6-14.[address] [facility] Erythrocyte distribution wid th standard deviationOrdered By: Boris Mae on 10-14-2024 Erythrocyte distribution width (RBC) [Entitic vol] 48.4 fL High 35.1-43.[address] [facility] Erythrocyte distribution width (RBC) [Ratio] 48.4 fl High 35.1-43.[address] [facility] GFR/1.73 sq M.predicted tara g non-blacks MDRD (S/P/Bld) [Vol rate/Area]Ordered By: Boris Mae on 10-14-2024 Estimated GFR (MDRD) Non-Af Amer [address] [facility] Comment on above: mL/min/1.73m2 CKD-EP I Creatinine Equation (2020) Glomerular filtration rate ( GFR) estimation/1.73 sq m using serum, plasma, or whole bOrdered By: Boris Mae on 10-14-2024 GFR/1.73 sq M.predicted among non-blacks MDRD (S/P/Bld) [Vol rate/Area] 95 mL/min/{1.73_m2} >[address] [facility] Comment on above: mL/min/1.73m2 CKD-EP I Creatinine Equation (2020) Hematocrit Auto (Bld) [Volum e fraction]Ordered By: Boris Mae on 10-14-2024 Hematocrit (Bld) [Volume fraction] 42.0 % 37-[address] [facility] Hemoglobin A1con 10-14-2024 HbA1c (Bld) [Mass fraction] 6.0 % Normal <=5.[address] [facility] Comment on above: Order Comment: DR RUBIO NEEDS RESULTS OF CMP, A1C, TSH, T4F, VITD, LIPID W/REFLEX OF LDL ALEE MICHELE GET CMP CBCD Performed By: #### L 500.4050, L100.0100, L506.0400, L501.9985, L501.9520, L506.1001, L500.4100, L3300.4490 #### [facility] [address] [place], [place], [address] Hemoglobin A1c percentageOrd ered By: Boris Mae on 10-14-2024 HbA1c (Bld) [Mass fraction] 6.0 % >5.[address] [facility] Hemoglobin measurementOrdere d By: Boris Mae on 10-14-2024 Hemoglobin (Bld) [Mass/Vol] 13.8 g/dL 12.0-15.[address] [facility] Immature granulocytes/100 WB C Auto (Bld)Ordered By: Boris Mae on 10-14-2024 Immature granulocytes/100 WBC (Bld) 0.400 % 0.0-0.[address] [facility] Comment on above: IG% - Immature Granu locytes (promyelocytes, myelocytes and metamyelocytes) > 1% indicates that a LEFT SHIFT is Present. L506.1001on 10-14-2024 Vitamin D 25-OH 46.9 ng/mL Normal 30-[address] [facility] Comment on above: Order Comment: DR RUBIO NEEDS RESULTS OF CMP, A1C, TSH, T4F, VITD, LIPIDW/REFLEX OF LDLALEE MICHELE GET CMP CBCD Result Comment: Viky min D Status Deficiency: <20 ng/mL (50nmol/L) Insufficiency: 20-30 ng/mL (50-75 nmol/L) Sufficiency: 30-100 ng/mL (75-250 nmol/L) Toxicity: >100 ng/mL (>250 nmol/L) Performed By: #### L 500.4050, L100.0100 #### [facility] [address] [place], [place], [phone] LDL calc ser/plasOrdered By: Boris Mae on 10-14-2024 Cholesterol in LDL [Mass/Vol] 55 mg/dL [facility] Comment on above: Lpyvcfqnvl=586-010 m g/dL & Higher Bkro=076 mg/dL or greater LDL Cholesterol, Calculated 55 mg/dL [facility] Comment on above: Qujnykywdl=049-869 m g/dL & Higher Addx=864 mg/dL or greater Laboratory - Chemistry and C hemistry - challengeOrdered By: Boris Mae on 10-14-2024 AST [Catalytic activity/Vol] 21 U/L <[address] [facility] - Miscellaneous t estsOrdered By: Boris Mae on 10-14-2024 Service comment (Unsp spec) [Interp] TNP [facility] Comment on above: Test not performed Lipid Profileon 10-14-2024 CHOL:HDL 2.[address] [facility] Comment on above: Order Comment: DR RUBIO NEEDS RESULTS OF CMP, A1C, TSH, T4F, VITD, LIPID W/REFLEX OF LDL ALEE ARREGUIN CMP CBCD Performed By: #### L 500.4050, L100.0100, L506.0400, L501.9985, L501.9520, L506.1001, L500.4100, L3300.4490 #### [facility] [address] [place], [place], [phone] (148) Cholesterol [Mass/Vol] 149 mg/dL Normal <=200 [facility] Comment on above: Order Comment: DR RUBIO NEEDS RESULTS OF CMP, A1C, TSH, T4F, VITD, LIPID W/REFLEX OF LDL SHINNER VELLANKI GET CMP CBCD Result Comment: Chol esterol level, Desirable <200 mg/dL Borderline high cholesterol 200-239 mg/dL High cholesterol >=240 mg/dL Recommendations of the NCEP Adult Treatment Panel for the following risk-cutoff thresholds for the [place] population. Performed By: #### L 500.4050, L100.0100, L506.0400, L501.9985, L501.9520, L506.1001, L500.4100, L3300.4490 #### [facility] [address] [place], [phone] Cholesterol in HDL [Mass/Vol] 65 mg/dL Normal [facility] Comment on above: Order Comment: DR RUBIO NEEDS RESULTS OF CMP, A1C, TSH, T4F, VITD, LIPID W/REFLEX OF LDL SHINNER VELLANKI GET [facility] CBCD Result Comment: Viktoriya onal Cholesterol Education Program (NCEP) guidelines: <40 mg/dL: Low HDL-cholesterol (major risk factor for CHD) >= 60 mg/dL: High HDL-cholesterol (negative risk factor for CHD) HDL-cholesterol is affected by a number of factors, e.g. smoking, exercise, hormones, sex and age. Performed By: #### L 500.4050, L100.0100, L506.0400, L501.9985, L501.9520, L506.1001, L500.4100, L3300.4490 #### [facility] [address] [place], [phone] Cholesterol in LDL [Mass/Vol] 55 mg/dL Normal [facility] Comment on above: Order Comment: DR RUBIO NEEDS RESULTS OF CMP, A1C, TSH, T4F, VITD, LIPID W/REFLEX OF LDL SHINNER VELLANKI GET CMP CBCD Result Comment: Bord qzizuy=570-811 mg/dL Higher Bzyn=047 mg/dL or greater Performed By: #### L 500.4050, L100.0100, L506.0400, L501.9985, L501.9520, L506.1001, L500.4100, L3300.4490 #### [facility] [address] [place], [address] Cholesterol in VLDL [Mass/Vol] 29 mg/dL Normal 5-[address] [facility] Comment on above: Order Comment: DR RUBIO NEEDS RESULTS OF CMP, A1C, TSH, T4F, VITD, LIPID W/REFLEX OF LDL ALEE ARREGUIN CMP CBCD Performed By: #### L 500.4050, L100.0100, L506.0400, L501.9985, L501.9520, L506.1001, L500.4100, L3300.4490 #### [facility] [address] [facility] [place], [address] Triglyceride [Mass/Vol] 145 mg/dL Normal [facility] Comment on above: Order Comment: DR RUBIO NEEDS RESULTS OF CMP, A1C, TSH, T4F, VITD, LIPID W/REFLEX OF LDL ALEE ARREGUIN CMP CBCD Result Comment: The drugs N-Acetylcysteine and Metamizole may falsely depress this assay. Normal range: <150 mg/dL Borderline High: 150-199 mg/dL High: 200-499 mg/dL Very High: >500 mg/dL Performed By: #### L 500.4050, L100.0100, L506.0400, L501.9985, L501.9520, L506.1001, L500.4100, L3300.4490 #### [facility] [address] [place], [address] Lymphocytes Auto (Unsp spec) [#/Vol]Ordered By: Boris Mae on 10-14-2024 Lymphocytes (Bld) [#/Vol] 2.08 10*3/uL 0.83-4.[address] [facility] Lymphocytes/100 WBC Auto (Un sp spec)Ordered By: Boris Mae on 10-14-2024 Lymphocytes/100 WBC (Bld) 25.6 % 19-[address] [facility] MCV (mean corpuscular volume ) determinationOrdered By: Boris Mae on 10-14-2024 MCV (RBC) [Entitic vol] 92.9 fL 81-[address] [facility] Mean corpuscular hemoglobin (MCH) determinationOrdered By: Boris Mae on 10-14-2024 MCH (RBC) [Entitic mass] 30.5 pg 27.0-32.[address] [facility] Mean corpuscular hemoglobin concentration (MCHC) determinationOrdered By: Boris Mae on 10-14-2024 MCHC (RBC) [Mass/Vol] 32.9 g/dL 32-36 [facility] Mean platelet volume determi nationOrdered By: Boris Mae on 10-14-2024 Platelet mean volume (Bld) [Entitic vol] 9.8 fL 6.2-12.[address] [facility] Monocyte percentageOrdered B y: Boris Mae on 10-14-2024 Monocytes/100 WBC (Bld) 8.1 % 0-10 [facility] Neutrophil percentageOrdered By: Boris Mae on 10-14-2024 Neutrophils/100 WBC (Bld) 62.5 % 47-[address] [facility] Nucleated red blood cell per centageOrdered By: Boris Mae on 10-14-2024 Nucleated RBC/100 WBC (Bld) [Ratio] 0 % 0-[address] [facility] Platelet countOrdered By: Guillermina Mae on 10-14-2024 Platelets (Bld) [#/Vol] 401 10*3/uL 150-[address] [facility] Potassium (Unsp spec) [Mass/ Vol]Ordered By: Boris Mae on 10-14-2024 Potassium [Moles/Vol] 3.5 mmol/L 3.3-5.1 [facility] Potassium measurement (mass/ volume)Ordered By: Boris Mae on 10-14-2024 Potassium (Unsp spec) [Mass/Vol] 3.5 mmol/L 3.3-5.[address] [facility] RBC Auto (Bld) [#/Vol]Ordere d By: Boris Mae on 10-14-2024 RBC (Bld) [#/Vol] 4.52 10*6/uL 4.2-5.4 [facility] Screening total cholesterol/ high density lipoprotein (HDL) cholesterol ratioOrdered By: Boris Mae on 10-14-2024 Cholesterol.total/Nisreen sterol in HDL [Mass ratio] 2.28 {ratio} [facility] Serum creatinine measurement (mass/volume)Ordered By: Boris Mae on 10-14-2024 Creatinine [Mass/Vol] 0.64 mg/dL Low 0.70-1.20 [facility] Serum globulin measurementOr dered By: Boris Mae on 10-14-2024 Globulin (S) [Mass/Vol] 3.4 g/dL 2.2-4.[address] [facility] Serum glucose measurement (m ass/volume)Ordered By: Boris Mae on 10-14-2024 Glucose [Mass/Vol] 111 mg/dL High 70-99 [facility] Serum or plasma alanine salas otransferase (ALT) measurementOrdered By: Boris Mae on 10-14-2024 ALT [Catalytic activity/Vol] 23 U/L <[address] [facility] Serum or plasma albumin lelia urement (mass/volume)Ordered By: Boris Mae on 10-14-2024 Albumin [Mass/Vol] 4.3 g/dL 3.4-4.8 [facility] Serum or plasma albumin/glob ulin mass ratioOrdered By: Boris Mae on 10-14-2024 Albumin/Globulin [Mass ratio] 1.3 {ratio} 0.9-2.[address] [facility] Serum or plasma alkaline zander sphatase measurementOrdered By: Boris Mae on 10-14-2024 ALP [Catalytic activity/Vol] 89 U/L 35-[address] [facility] Serum or plasma calcium lelia urement (mass/volume)Ordered By: Boris Mae on 10-14-2024 Calcium [Mass/Vol] 9.7 mg/dL 7.6-11.0 [facility] Serum or plasma cholesterol in HDL measurement (mass/volume)Ordered By: Boris Mae on 10-14-2024 Cholesterol in HDL [Mass/Vol] 65 mg/dL >[address] [facility] Comment on above: National Cholesterol Education Program (NCEP) guidelines:<40 mg/dL: Low HDL-cholesterol (major risk factor for CHD)>= 60 mg/dL: High HDL-cholesterol (negative risk factor for CHD)HDL-cholesterol is affected by a number of factors, e.g. smoking, exercise, hormones, sex and age. Serum or plasma cholesterol measurement (mass/volume)Ordered By: Boris Mae on 10-14-2024 Cholesterol [Mass/Vol] 149 mg/dL <201 [facility] Comment on above: Cholesterol level, D esirable <200 mg/dLBorderline high cholesterol 200-239 mg/dLHigh cholesterol >=240 mg/dLRecommendations of the NCEP Adult Treatment Panel for the following risk-cutoff thresholds for the [place] population. Serum or plasma urea nitroge n measurement (mass/volume)Ordered By: Boris Mae on 10-14-2024 Urea nitrogen [Mass/Vol] 11 mg/dL 4-[address] [facility] Service comment (Unsp spec) [Interp]Ordered By: Boris Mae on 10-14-2024 LDL Cholesterol Direct Comment TNP [facility] Comment on above: Test not performed Sodium levelOrdered By: Boris Mae on 10-14-2024 Sodium [Moles/Vol] 138 mmol/L 133-145 [facility] T4 Free Directon 10-14-2024 T4 FREE DIRECT 1.40 ng/dL Normal 0.76-1.[address] [facility] Comment on above: Order Comment: DR RUBIO NEEDS RESULTS OF CMP, A1C, TSH, T4F, VITD, LIPID W/REFLEX OF LDL ALEE MICHELE GET CMP CBCD N N Performed By: #### L 500.4050, L100.0100, L506.0400, L501.9985, L501.9520, L506.1001, L500.4100, L3300.4490 #### [facility] [address] [place], [place], [id number] T4 freeOrdered By: Boris cherry on 10-14-2024 Free T4 [Mass/Vol] 1.40 ng/dL 0.76-1.46 [facility] TSH DL <= 0.005 mIU/L QnOrde red By: Boris Mae on 10-14-2024 Thyroid Stimulating Hormone (TSH) 1.030 uIU/mL 0.300-4.[address] [facility] TSH Qn 1.030 uIU/mL 0.300-4.[address] [facility] Thyroid Stim Hormone (TSH)on 10-14-2024 TSH 1.030 uIU/mL Normal 0.300-4.[address] [facility] Comment on above: Order Comment: DR RUBIO NEEDS RESULTS OF CMP, A1C, TSH, T4F, VITD, LIPID W/REFLEX OF LDL ALEE ARREGUIN CMP CBCD Performed By: #### L 500.4050, L100.0100, L506.0400, L501.9985, L501.9520, L506.1001, L500.4100, L3300.4490 #### [facility] [facility]) [facility] [address] [place], [address] Total proteinOrdered By: Ramirez Mae on 10-14-2024 Protein [Mass/Vol] 7.6 g/dL 5.9-8.4 [facility] Triglycerides measurementOrd ered By: Boris Mae on 10-14-2024 Triglyceride [Mass/Vol] 145 mg/dL <[address] [facility] Comment on above: The drugs N-Acetylcy steine and Metamizole may falsely depress this assay. Normal range: <150 mg/dLBorderline High: 150-199 mg/dLHigh: 200-499 mg/dLVery High: >500 mg/dL Vitamin D, 25-hydroxyOrdered By: Boris Mae on 10-14-2024 Vitamin D 25-Hydroxy 46.9 ng/mL 30-100 [facility] Comment on above: Vitamin D StatusDefi ciency: <20 ng/mL (50nmol/L)Insufficiency: 20-30 ng/mL (50-75 nmol/L)Sufficiency: 30-100 ng/mL (75-250 nmol/L)Toxicity: >100 ng/mL (>250 nmol/L) White blood cell (WBC) count Ordered By: Boris Mae on 10-14-2024 WBC (Bld) [#/Vol] 8.1 10*3/uL 4.4-11.0 [place] [facility], [facility]1983 Bone density reportOrdered B y: Prabhakar Jayden on 10-07-2024 Study report Skeletal system DXA [facility] Imaging Services [address] [place] [address] Dexa Bone Density Study MR#: [id number] Acct: [id number] Name: ALLYSON CLAUDIO Rep #: [id number] : 1955 F 69 From: Toro Carpenter MD PCP: Dr. Boris Mae MD Status: RE G CLI Study:Dexa Bone Density Study Date of Exam: 10/07/24 Exam# [id number] Ordering Dr: CASEY ANDUJAR PROCEDURE: DEXA BONE DENSITY STUDY REASON FOR EXAM: F, age 69 y/o . Postmenopausal. TECHNIQUE: DEXA scan of the lumbar spine and both hips. Scanning of the left forearm was obtained as well. COMPARISON: None. FINDINGS: Lumbar Spine (L1-L4): g/cm2 (1.282)/T-score (2 point)/Z-score (4.4) findings are suggestive of normal with a low fracture risk. Left Femur Total: g/cm2 (0.745)/T-score (-1.6)/Z-score (0.0) Left Femoral Neck: g/cm2 (0.513)/T-score (-3.0)/Z-score (-1.1) Right Femur Total: g/cm2 (0.745)/T-score (-1.6)/Z-score (0.0) Right Femoral Neck: g/cm2 (0.513)/T-score (-3.0)/Z-score (-1.1) Left Forearm: g/cm2 (0.550)/T-score (-0.5)/Z-score (1.6) BD/Dexa Bone Density Study IMPRESSION: The patient is considered osteoporotic as outlined below according to World Dave Organization (WHO) criteria with a high fracture risk. Reading Location: [id number] CC: Dr. Boris Mae MD; KACIE ANDUJAR ~ Production Solderer: Signed [facility] Breast imaging reportOrdered By: Erica Armendariz on 10-07-2024 Study report [facility] Imaging Services [address] [place] [address] SCRN MAMM (CAD)W/MAURICIO BILAT MR#: [id number] Acct: [id number] Name: ALLYSON CLAUDIO Rep #: [id number] : 1955 F 69 From: Ritu Armendariz MD PCP: Dr. Boris Mae MD Status: RE G CLI Study:SCRN MAMM (CAD)W/MAURICIO BILAT Date of Exa m: 10/07/24 Exam# [id number] Ordering Dr: Boris Mae MD PROCEDURE: SCRN MAMM (CAD)W/MAURICIO BILAT REASON FOR EXAM: F, Age 69 y/o, presents for annual screening mammogram. Family history of breast cancer in a paternal aunt in her 70s. TECHNIQUE: Bilateral screening digital breast tomosynthesis with 2D and 3D images. Computeraided detection. COMPARISON: 10/18/2022, 05/04/2021 FINDINGS: There are scattered areas of fibroglandular density. There is an irregular high density mass in the upper-outer right breast at posterior depth. No suspicious masses, areas of developing architectural distortion, or suspicious calcifications in the left breast. BI/SCRN MAMM (CAD)W/MAURICIO BILAT IMPRESSION: The irregular high density mass in the upper-outer right breast at posterior depth requires further evaluation. Recommend diagnostic ultrasound of the right breast. BI-RADS 0: INCOMPLETE - NEED ADDITIONAL IMAGING EVALUATION. Follow-up code: Additional Views obtained/call backs The patient will be notified of the results by letter. Reading Location: [id number] CC: Dr. Boris Mae MD ~ Production Solderer: Signed [facility] Dexa Bone Density Studyon Dexa Bone Density Study [facility] Imaging Services [address] [place], [place] [address] Dexa Bone Density Study MR#: [id number] Acct: [id number] Name: ALLYSON CLAUDIO Rep #: [id number] : 1955 F 69 From: Prabhakar camarena MD PCP: Dr. Boris Mae MD Status: REG CLI Study: Dexa Bone Density Study Date of Exam: 10/07/24 Exam# [id number] Ordering Dr: KACIE ANDUJAR PROCEDURE: DEXA BONE DENSITY STUDY REASON FOR EXAM: F, age 69 y/o . Postmenopausal. TECHNIQUE: DEXA scan of the lumbar spine and both hips. Scanning of the left forearm was obtained as well. COMPARISON: None. FINDINGS: Lumbar Spine (L1-L4): g/cm2 (1.282)/T-score (2 point)/Z-score (4.4) findings are suggestive of normal with a low fracture risk. Left Femur Total: g/cm2 (0.745)/T-score (-1.6)/Z-score (0.0) Left Femoral Neck: g/cm2 (0.513)/T-score (-3.0)/Z-score (-1.1) Right Femur Total: g/cm2 (0.745)/T-score (-1.6)/Z-score (0.0) Right Femoral Neck: g/cm2 (0.513)/T-score (-3.0)/Z-score (-1.1) Left Forearm: g/cm2 (0.550)/T-score (-0.5)/Z-score (1.6) BD/Dexa Bone Density Study IMPRESSION: The patient is considered osteoporotic as outlined below according to World Dave Organization (WHO) criteria with a high fracture risk. Reading Location: [id number] CC: Dr. Boris Mae MD; KACIE ANDUJAR Production Solderer: Signed Normal [facility] SCRN MAMM (CAD)W/MAURICIO BILATo n 10-07-2024 SCRN MAMM (CAD)W/MAURICIO BILAT [facility] Imaging Services [address] [place] [address] SCRN MAMM (CAD)W/MAURICIO BILAT MR#: [id number] Acct: [id number] Name: ALLYSON CLAUDIO Rep #: [id number] : 1955 F 69 From: Erica Armendariz MD PCP: Dr. Boris Mae MD Status: REG CLI Study: SCRN MAMM (CAD)W/MAURICIO BILAT Date of Exam: 09/14 01/04 Exam# [id number] Ordering Dr: Boris Mae MD PROCEDURE: SCRN MAMM (CAD)W/MAURICIO BILAT REASON FOR EXAM: F, Age 69 y/o, presents for annual screening mammogram. Family history of breast cancer in a paternal aunt in her 70s. TECHNIQUE: Bilateral screening digital breast tomosynthesis with 2D and 3D images. Computer aided detection. COMPARISON: 10/18/2022, 05/04/2021 FINDINGS: There are scattered areas of fibroglandular density. There is an irregular high density mass in the upper-outer right breast at posterior depth. No suspicious masses, areas of developing architectural distortion, or suspicious calcifications in the left breast. BI/SCRN MAMM (CAD)W/MAURICIO BILAT IMPRESSION: The irregular high density mass in the upper-outer right breast at posterior depth requires further evaluation. Recommend diagnostic ultrasound of the right breast. BI-RADS 0: INCOMPLETE - NEED ADDITIONAL IMAGING EVALUATION. Follow-up code: Additional Views obtained/call backs The patient will be notified of the results by letter. Reading Location: [facility] CC: Dr. Boris Mae MD Production Solderer: Signed Normal [facility] Hemoglobin A1con 09-15-2024 HbA1c (Bld) [Mass fraction] 5.6 % Normal 3.8-5.[address] [facility] Comment on above: Order Comment: MARCUS Leyva ADD A1C TO BLOOD DRAWN 09/12/24 PER Result Comment: Norm al < 5.7 % Prediabetic 5.7 - 6.4 % Diabetic >or= 6.5 % Please note range changes. Performed By: #### L 501.9985 #### [facility] [address] [place], [place], [address] Vitamin D,25 Hydroxyon 09-13 Vitamin D 25-OH 43.5 ng/mL Normal [facility] Comment on above: Order Comment: Order Date: 06/19/24Order Info: [id number] - [id number] Result Comment: Viky min D 25(OH) Status Range Deficiency <20 ng/mL (50nmol/L) Insufficiency 20 - 30 ng/mL (50 - 75 nmol/L) Sufficiency 30 - 100 ng/mL (75 - 250 nmol/L) Toxicity >100 ng/mL (>250 nmol/L) Performed By: #### L 500.4052, L100.0100 #### [facility] [address] [place], [place], [address] [id number] DOrdered By: Jacqueline Mae on 09-12-2024 Vitamin D 25-Hydroxy 43.5 ng/mL [facility] Comment on above: Vitamin D 25(OH) Sta tus Range Deficiency <20 ng/mL (50nmol/L) Insufficiency 20 - 30 ng/mL (50 - 75 nmol/L) Sufficiency 30 - 100 ng/mL (75 - 250 nmol/L) Toxicity >100 ng/mL (>250 nmol/L) Absolute lymphocyte countOrd ered By: Boris Mae on 09-12-2024 Lymphocytes Auto (Unsp spec) [#/Vol] 1.60 10*3/uL 0.83-4.[address] [facility] Absolute neutrophil countOrd ered By: Boris Mae on 09-12-2024 Neutrophils (Bld) [#/Vol] 3.9 10*3/uL 2.0-7.[address] [facility] Albumin to globulin ratioOrd ered By: Boris Mae on 09-12-2024 Albumin/Globulin [Mass ratio] 0.9 {ratio} 0.9-2.[address] [facility] Automated lymphocyte count a s percentage of total leukocytesOrdered By: Boris Carmelita on 09-12-2024 Lymphocytes/100 WBC Auto (Unsp spec) 24.9 % - [facility] Basophil percentageOrdered B y: Boris Mae on 09-12-2024 Basophils/100 WBC (Bld) 0.9 % 0-[address] [facility] Bilirubin, totalOrdered By: Boris Mae on 09-12-2024 Bilirubin [Mass/Vol] 0.20 mg/dL 0.20-1.00 [facility] Comment on above: For patients on eltr ombopag therapy, use of Dimension Lucama TBIL is not recommended. Blood urea nitrogen (BUN)/cr eatinine ratioOrdered By: Boris Mae on 09-12-2024 Urea nitrogen/Creatinine [Mass ratio] 19.0 mg/mg 10-[address] [facility] CBC W/Diff, Automatedon 08-15 Absolute Lymph 1.60 X10 3/uL Normal 0.83-4.[address] [facility] Comment on above: Order Comment: Order Date: 06/19/24Order Info: 018- - CBCD Performed By: #### L 500.4050, L100.0100 #### [facility] [address] [place], [address] Absolute Neut 3.9 X10 3/uL Normal 2.0-7.[address] [facility] Comment on above: Order Comment: Order Date: 06/19/24Order Info: 018- - CBCD Performed By: #### L 500.4050, L100.0100 #### [facility] [address] [place], [address] Basophils/100 WBC (Bld) 0.9 % Normal 0-[address] [facility] Comment on above: Order Comment: Order Date: 06/19/24Order Info: 0184-1 - CBCD Performed By: #### L 500.4050, L100.0100 #### [facility] [address] [place], [address] Eosinophils/100 WBC (Bld) 4.2 % Normal 0-[address] [facility] Comment on above: Order Comment: Order Date: 06/19/24Order Info: 0184-1 - CBCD Performed By: #### L 500.4050, L100.0100 #### [facility] [address] [place], [address] Erythrocyte distribution width (RBC) [Ratio] 14.3 % Normal 11.6-14.[address] [facility] Comment on above: Order Comment: Order Date: 06/19/24Order Info: 018- - CBCD Performed By: #### L 500.4050, L100.0100 #### [facility] [address] [place], [address] Hematocrit (Bld) [Volume fraction] 42.1 % Normal 37-[address] [facility] Comment on above: Order Comment: Order Date: 06/19/24Order Info: 018- - CBCD Performed By: #### L 500.4050, L100.0100 #### [facility] [address] [place], [address] Hemoglobin (Bld) [Mass/Vol] 13.8 g/dL Normal 12.0-15.[address] [facility] Comment on above: Order Comment: Order Date: 06/19/24Order Info: 018-1 - CBCD Performed By: #### L 500.4050, L100.0100 #### [facility] [address] [place], [address] IG% 0.200 Normal 0.0-0.[address] [facility] Comment on above: Order Comment: Order Date: 06/19/24Order Info: 0184-1 - CBCD Result Comment: IG% - Immature Granulocytes (promyelocytes, myelocytes and metamyelocytes) > 1% indicates that a LEFT SHIFT is Present. Performed By: #### L 500.4050, L100.0100 #### [place] [facility] [address] [place], [address] Lymphocytes/100 WBC (Bld) 24.9 % Normal 19-[address] [facility] Comment on above: Order Comment: Order Date: 06/19/24Order Info: 0184-1 - CBCD Performed By: #### L 500.4050, L100.0100 #### [facility] [address] [place], [address] MCH (RBC) [Entitic mass] 30.9 pg Normal 27.0-32.[address] [facility] Comment on above: Order Comment: Order Date: 06/19/24Order Info: 4- - CBCD Performed By: #### L 500.4050, L100.0100 #### [facility] [address] [place], [address] MCHC (RBC) [Mass/Vol] 32.8 g/dL Normal 32-36 [facility] Comment on above: Order Comment: Order Date: 06/19/24Order Info: 018- - CBCD Performed By: #### L 500.4050, L100.0100 #### [facility] [address] [place], [address] MCV (RBC) [Entitic vol] 94.2 fL Normal 81-99 [facility] Comment on above: Order Comment: Order Date: 06/19/24Order Info: 0184-1 - CBCD Performed By: #### L 500.4050, L100.0100 #### [facility] [address] [place], [address] Monocytes/100 WBC (Bld) 9.5 % Normal 0-10 [facility] Comment on above: Order Comment: Order Date: 06/19/24Order Info: 0184-1 - CBCD Performed By: #### L 500.4050, L100.0100 #### [facility] [address] [place], [address] Neutrophils/100 WBC (Bld) 60.3 % Normal 47-[address] [facility] Comment on above: Order Comment: Order Date: 06/19/24Order Info: 0184-1 - CBCD Performed By: #### L 500.4050, L100.0100 #### [facility] [address] [place], [address] Nucleated RBC (Bld) [#/Vol] 0 10*3/uL Normal 0-[address] [facility] Comment on above: Order Comment: Order Date: 06/19/24Order Info: 018- - CBCD Performed By: #### L 500.4050, L100.0100 #### [facility] [address] [place], [address] Platelet mean volume (Bld) [Entitic vol] 9.8 fL Normal 6.2-12.[address] [facility] Comment on above: Order Comment: Order Date: 06/19/24Order Info: 018- - CBCD Performed By: #### L 500.4050, L100.0100 #### [facility] [address] [place], [address] Platelets (Bld) [#/Vol] 362 10*3/uL Normal 150-[address] [facility] Comment on above: Order Comment: Order Date: 06/19/24Order Info: 0184-1 - CBCD Performed By: #### L 500.4050, L100.0100 #### [facility] [address] [place], [address] RBC (Bld) [#/Vol] 4.47 10*6/uL Normal 4.2-5.4 [facility] Comment on above: Order Comment: Order Date: 06/19/24Order Info: 0184-1 - CBCD Performed By: #### L 500.4050, L100.0100 #### [facility] [address] [place], [address] RDW SD 49.1 fl High 35.1-43.[address] [facility] Comment on above: Order Comment: Order Date: 06/19/24Order Info: 018- - CBCD Performed By: #### L 500.4050, L100.0100 #### [facility] [address] [place], [address] WBC (Bld) [#/Vol] 6.4 10*3/uL Normal 4.4-11.0 [facility] Comment on above: Order Comment: Order Date: 06/19/24Order Info: 018- - CBCD Performed By: #### L 500.4050, L100.0100 #### [facility] [address] [place], [address] Carbon dioxide measurementOr dered By: Boris Mae on 09-12-2024 CO2 [Moles/Vol] 27.0 mmol/L 21.0-32.[address] [facility] Chloride measurementOrdered By: Boris Mae on 09-12-2024 Chloride [Moles/Vol] 101 mmol/L 98-107 [facility] Comprehensive Metabolic Prof ilon 09-12-2024 Albumin [Mass/Vol] 3.6 g/dL Normal 3.2-5.0 [facility] Comment on above: Order Comment: Order Date: 06/19/24Order Info: [id number] - CMPOrder Info: [id number] - LIPIDOrder Info: 6-3 - TSHOrder Info: 3024-7 - T4F Performed By: #### L 500.4050, L100.0100 #### [facility] [address] [place], [address] Albumin/Globulin [Mass ratio] 0.9 {ratio} Normal 0.9-2.[address] [facility] Comment on above: Order Comment: Order Date: 06/19/24Order Info: 0786-1 - CMPOrder Info: [id number] - LIPIDOrder Info: 6-3 - TSHOrder Info: 3024-7 - T4F Performed By: #### L 500.4050, L100.0100 #### [facility] [address] [place], [address] ALK P 79 U/L Normal 45-[address] [facility] Comment on above: Order Comment: Order Date: 06/19/24Order Info: [id number] - CMPOrder Info: [id number] - LIPIDOrder Info: [id number] - TSHOrder Info: 3024-7 - T4F Performed By: #### L 500.4050, L100.0100 #### [facility] [address] [place], [address] ALT [Catalytic activity/Vol] 35 U/L Normal 13-[address] [facility] Comment on above: Order Comment: Order Date: 06/19/24Order Info: [id number] - CMPOrder Info: [id number] - LIPIDOrder Info: 3 - TSHOrder Info: 3024-7 - T4F Performed By: #### L 500.4050, L100.0100 #### [facility] [address] [place], [address] AST [Catalytic activity/Vol] 22 U/L Normal 15-[address] [facility] Comment on above: Order Comment: Order Date: 06/19/24Order Info: [id number] - CMPOrder Info: [id number] - LIPIDOrder Info: 3 - TSHOrder Info: 3024-7 - T4F Performed By: #### L 500.4050, L100.0100 #### [facility] [address] [place], [address] Bilirubin [Mass/Vol] 0.20 mg/dL Normal 0.20-1.00 [facility] Comment on above: Order Comment: Order Date: 06/19/24Order Info: 0786-1 - CMPOrder Info: [id number] - LIPIDOrder Info: [id number] - TSHOrder Info: 3024-7 - T4F Result Comment: For patients on eltrombopag therapy, use of Dimension Lucama TBIL is not recommended. Performed By: #### L 500.4050, L100.0100 #### [facility] [address] [place], [address] BUN/CRE 19.0 RATIO Normal 10-[address] [facility] Comment on above: Order Comment: Order Date: 06/19/24Order Info: 0786-1 - CMPOrder Info: [id number] - LIPIDOrder Info: [id number] - TSHOrder Info: 3024-7 - T4F Performed By: #### L 500.4050, L100.0100 #### [facility] [address] [place], [address] CA,Total 9.1 mg/dL Normal 8.5-10.[address] [facility] Comment on above: Order Comment: Order Date: 06/19/24Order Info: [id number] - CMPOrder Info: [id number] - LIPIDOrder Info: [id number] - TSHOrder Info: 3024-7 - T4F Performed By: #### L 500.4050, L100.0100 #### [facility] [address] [place], [address] Chloride [Moles/Vol] 101 mmol/L Normal 98-107 [facility] Comment on above: Order Comment: Order Date: 06/19/24Order Info: 0786-1 - CMPOrder Info: [id number] - LIPIDOrder Info: [id number] - TSHOrder Info: 3024-7 - T4F Performed By: #### L 500.4050, L100.0100 #### [facility] [address] [place], [address] CO2 [Moles/Vol] 27.0 mmol/L Normal 21.0-32.[address] [facility] Comment on above: Order Comment: Order Date: 06/19/24Order Info: 0786-1 - CMPOrder Info: [id number] - LIPIDOrder Info: [id number] - TSHOrder Info: 3024-7 - T4F Performed By: #### L 500.4050, L100.0100 #### [facility] [address] [place], [address] Creatinine [Mass/Vol] 0.63 mg/dL Normal 0.55-1.02 [facility] Comment on above: Order Comment: Order Date: 06/19/24Order Info: 0786-1 - CMPOrder Info: [id number] - LIPIDOrder Info: [id number] - TSHOrder Info: 3024-7 - T4F Result Comment: The validity of the calculated GFR GFRAA in patients over 70 years has not been determined. Clinical correlation is essential. Performed By: #### L 500.4050, L100.0100 #### [facility] [address] [place], [address] EST GFR - AA 120 mL/min Normal >[address] [facility] Comment on above: Order Comment: Order Date: 06/19/24Order Info: 86-1 - CMPOrder Info: [id number] - LIPIDOrder Info: [id number] - TSHOrder Info: 3024-7 - T4F Result Comment: Afri can [place] GFR Calc Performed By: #### L 500.4050, L100.0100 #### [facility] [address] [place], [address] GAP 9 Normal 5-[address] [facility] Comment on above: Order Comment: Order Date: 06/19/24Order Info: 0786-1 - CMPOrder Info: [id number] - LIPIDOrder Info: [id number] - TSHOrder Info: 3024-7 - T4F Performed By: #### L 500.4050, L100.0100 #### [facility] [address] [place], [address] GFR/1.73 sq M.predicted among non-blacks MDRD (S/P/Bld) [Vol rate/Area] 99 mL/min/{1.73_m2} Normal >[address] [facility] Comment on above: Order Comment: Order Date: 06/19/24Order Info: 86-1 - CMPOrder Info: [id number] - LIPIDOrder Info: 3 - TSHOrder Info: 7 - T4F Result Comment: Non- GFR Calc Performed By: #### L 500.4050, L100.0100 #### [facility] [address] [place], [address] Globulin (S) [Mass/Vol] 3.9 g/dL Normal 2.2-4.[address] [facility] Comment on above: Order Comment: Order Date: 06/19/24Order Info: 785- - CMPOrder Info: [id number] - LIPIDOrder Info: [id number] - TSHOrder Info: 3024-02 - T4F Performed By: #### L 500.4050, L100.0100 #### [facility] [address] [place], [address] Glucose [Mass/Vol] 116 mg/dL High 74-106 [facility] Comment on above: Order Comment: Order Date: 06/19/24Order Info: 785- - CMPOrder Info: - LIPIDOrder Info: [id number] - TSHOrder Info: [id number] - T4F Result Comment: Fast ing Glucose result from 100 to 125 mg/dL suggests IMPAIRED HOMEOSTASIS per A.D.A. criteria. Performed By: #### L 500.4050, L100.0100 #### [facility] [address] [place], [address] Potassium [Moles/Vol] 3.6 mmol/L Normal 3.5-5.1 [facility] Comment on above: Order Comment: Order Date: 06/19/24Order Info: 785- - CMPOrder Info: [id number] - LIPIDOrder Info: [id number] - TSHOrder Info: 3027 - T4F Performed By: #### L 500.4050, L100.0100 #### [facility] [address] [place], [address] Sodium [Moles/Vol] 137 mmol/L Normal 136-145 [facility] Comment on above: Order Comment: Order Date: 06/19/24Order Info: [id number] - CMPOrder Info: [id number] - LIPIDOrder Info: 3 - TSHOrder Info: 7 - T4F Performed By: #### L 500.4050, L100.0100 #### [facility] [address] [place], [place], [address] T PROT 7.5 g/dL Normal 6.4-8.[address] [facility] Comment on above: Order Comment: Order Date: 06/19/24Order Info: [id number] - CMPOrder Info: [id number] - LIPIDOrder Info: [id number] - TSHOrder Info: 7 - T4F Performed By: #### L 500.4050, L100.0100 #### [facility] [address] [place], [place], [address] Urea nitrogen [Mass/Vol] 12 mg/dL Normal 7-[address] [facility] Comment on above: Order Comment: Order Date: 06/19/24Order Info: [id number] - CMPOrder Info: [id number] - LIPIDOrder Info: 3 - TSHOrder Info: 7 - T4F Performed By: #### L 500.4050, L100.0100 #### [facility] [address] [place], [place], [address] Direct serum free thyroxine (FT4) measurementOrdered By: Boris Mae on 09-12-2024 Free T4 [Mass/Vol] 1.07 ng/dL 0.76-1.46 [facility] Eosinophil percentageOrdered By: Boris Mae on 09-12-2024 Eosinophils/100 WBC (Bld) 4.2 % 0-[address] [facility] Erythrocyte distribution wid th ratioOrdered By: Boris Mae on 09-12-2024 Erythrocyte distribution width (RBC) [Ratio] 14.3 % 11.6-14.[address] [facility] Erythrocyte distribution wid th standard deviationOrdered By: Boris Mae on 09-12-2024 Erythrocyte distribution width (RBC) [Entitic vol] 49.1 fL High 35.1-43.[address] [facility] Erythrocyte distribution width (RBC) [Ratio] 49.1 fl High 35.1-43.[address] [facility] Estimated glomerular filtrat ion rate (GFR) AmericanOrdered By: Boris Mae on 09-12-2024 Estimated GFR (MDRD) Amer 120 mL/min >[address] [facility] Comment on above: GFR Calc Glomerular filtration rate ( GFR) estimationOrdered By: Boris Mae on 09-12-2024 Estimated GFR (MDRD) Non-Af Amer 99 mL/min >[address] [facility] Comment on above: Non- GFR Calc GFR/1.73 sq M.predicted among non-blacks MDRD (S/P/Bld) [Vol rate/Area] 99 mL/min/{1.73_m2} >[address] [facility] Comment on above: Non- GFR Calc Glucose measurementOrdered B y: Boris Mae on 09-12-2024 Glucose [Mass/Vol] 116 mg/dL High 74-106 [facility] Comment on above: Fasting Glucose resu lt from 100 to 125 mg/dL suggests IMPAIRED HOMEOSTASIS per A.D.A. criteria. Hematocrit Auto (Bld) [Volum e fraction]Ordered By: Boris Mae on 09-12-2024 Hematocrit (Bld) [Volume fraction] 42.1 % 37-[address] [facility] Hemoglobin A1c percentageOrd ered By: Boris Mae on 09-12-2024 HbA1c (Bld) [Mass fraction] 5.6 % 3.8-5.[address] [facility] Comment on above: Normal < 5.7 % Predi abetic 5.7 - 6.4 % Diabetic >or= 6.5 % Please note range changes. Hemoglobin measurementOrdere d By: Boirs Mae on 09-12-2024 Hemoglobin (Bld) [Mass/Vol] 13.8 g/dL 12.0-15.[address] [facility] High density lipoprotein (HD L) measurementOrdered By: Boris Mae on 09-12-2024 Cholesterol in HDL [Mass/Vol] 67 mg/dL >[address] [facility] Comment on above: The drugs N-Acetylcy steine and Metamizole may falsely depress this assay. Reference Range HDL <40 mg/dL Low HDL Cholesterol HDL >or= 60 mg/dL High HDL Cholesterol Immature granulocytes/100 WB C Auto (Bld)Ordered By: Boris Mae on 09-12-2024 Immature granulocytes/100 WBC (Bld) 0.200 % 0.0-0.[address] [facility] Comment on above: IG% - Immature Granu locytes (promyelocytes, myelocytes and metamyelocytes) > 1% indicates that a LEFT SHIFT is Present. Laboratory - Chemistry and C hemistry - challengeOrdered By: Boris Mae on 09-12-2024 AST [Catalytic activity/Vol] 22 U/L 15-[address] [facility] Lipid Profileon 09-12-2024 Cholesterol [Mass/Vol] 151 mg/dL Normal 200 [facility] Comment on above: Order Comment: Order Date: 06/19/24Order Info: [id number] - CMPOrder Info: [id number] - LIPIDOrder Info: [id number] - TSHOrder Info: [id number] - T4F Result Comment: <200 mg/dL Desirable 200-240 mg/dL Borderline >240 mg/dL High Risk Performed By: #### L 500.4050, L100.0100 #### [facility] [address] [place], [address] Cholesterol in HDL [Mass/Vol] 67 mg/dL Normal [facility] Comment on above: Order Comment: Order Date: 06/19/24Order Info: [id number] - CMPOrder Info: [id number] - LIPIDOrder Info: [id number] - TSHOrder Info: [id number] - T4F Result Comment: The drugs N-Acetylcysteine and Metamizole may falsely depress this assay. Reference Range HDL <40 mg/dL Low HDL Cholesterol HDL >or= 60 mg/dL High HDL Cholesterol Performed By: #### L 500.4050, L100.0100 #### [facility] [address] [place], [address] Cholesterol in LDL [Mass/Vol] 49 mg/dL Normal 0-[address] [facility] Comment on above: Order Comment: Order Date: 06/19/24Order Info: [id number] - CMPOrder Info: [id number] - LIPIDOrder Info: [id number] - TSHOrder Info: 7 - T4F Performed By: #### L 500.4050, L100.0100 #### [facility] [address] [place], [address] Cholesterol in VLDL [Mass/Vol] 35 mg/dL Normal 5-[address] [facility] Comment on above: Order Comment: Order Date: 06/19/24Order Info: [id number] - CMPOrder Info: [id number] - LIPIDOrder Info: 3 - TSHOrder Info: 7 - T4F Performed By: #### L 500.4050, L100.0100 #### [facility] [address] [place], [address] Triglyceride [Mass/Vol] 176 mg/dL Normal [facility] Comment on above: Order Comment: Order Date: 06/19/24Order Info: [id number] - CMPOrder Info: [id number] - LIPIDOrder Info: 3 - TSHOrder Info: 7 - T4F Result Comment: The drugs N-Acetylcysteine and Metamizole may falsely depress this assay. Serum Triglycerides Reference Interval Normal <150 mg/dL Borderline high 150 - 199 mg/dL High 200 - 499 mg/dL Very High > or = 500 mg/dL Performed By: #### L 500.4050, L100.0100 #### [facility] [address] [place], [address] Low density lipoprotein (LDL ) cholesterol measurementOrdered By: Boris Mae on 09-12-2024 Cholesterol in LDL [Mass/Vol] 49 mg/dL 0-[address] [facility] Lymphocytes Auto (Unsp spec) [#/Vol]Ordered By: Boris Mae on 09-12-2024 Lymphocytes (Bld) [#/Vol] 1.60 10*3/uL 0.83-4.[address] [facility] Lymphocytes/100 WBC Auto (Un sp spec)Ordered By: Boris Mae on 09-12-2024 Lymphocytes/100 WBC (Bld) 24.9 % 19-[address] [facility] MCV (mean corpuscular volume ) determinationOrdered By: Boris Mae on 09-12-2024 MCV (RBC) [Entitic vol] 94.2 fL 81-[address] [facility] Mean corpuscular hemoglobin (MCH) determinationOrdered By: Boris Mae on 09-12-2024 MCH (RBC) [Entitic mass] 30.9 pg 27.0-32.[address] [facility] Mean corpuscular hemoglobin concentration (MCHC) determinationOrdered By: Boris Mae on 09-12-2024 MCHC (RBC) [Mass/Vol] 32.8 g/dL 32-36 [facility] Mean platelet volume determi nationOrdered By: Boris Mae on 09-12-2024 Platelet mean volume (Bld) [Entitic vol] 9.8 fL 6.2-12.[address] [facility] Monocyte percentageOrdered B y: Boris Mae on 09-12-2024 Monocytes/100 WBC (Bld) 9.5 % 0-[address] [facility] Neutrophil percentageOrdered By: Boris Mae on 09-12-2024 Neutrophils/100 WBC (Bld) 60.3 % 47-[address] [facility] Nucleated red blood cell per centageOrdered By: Boris Mae on 09-12-2024 Nucleated RBC/100 WBC (Bld) [Ratio] 0 % 0-[address] [facility] Platelet countOrdered By: Guillermina Mae on 09-12-2024 Platelets (Bld) [#/Vol] 362 10*3/uL 150-[address] [facility] Potassium measurementOrdered By: Boris Mae on 09-12-2024 Potassium [Moles/Vol] 3.6 mmol/L 3.5-5.1 [facility] RBC Auto (Bld) [#/Vol]Ordere d By: Boris Mae on 09-12-2024 RBC (Bld) [#/Vol] 4.47 10*6/uL 4.2-5.4 [facility] Serum anion gap measurementO rdered By: Boris Mae on 09-12-2024 Anion gap [Moles/Vol] 9 mmol/L 5-15 [facility] Serum globulin measurementOr dered By: Boris Mae on 09-12-2024 Globulin (S) [Mass/Vol] 3.9 g/dL 2.2-4.2 [facility] Serum or plasma alanine salas otransferase (ALT) measurementOrdered By: Boris Mae on 09-12-2024 ALT [Catalytic activity/Vol] 35 U/L 13-[address] [facility] Serum or plasma albumin lelia urement (mass/volume)Ordered By: Boris Mae on 09-12-2024 Albumin [Mass/Vol] 3.6 g/dL 3.2-5.0 [facility] Serum or plasma alkaline zander sphatase measurementOrdered By: Boris Mae on 09-12-2024 ALP [Catalytic activity/Vol] 79 U/L 45-[address] [facility] Serum or plasma calcium lelia urement (mass/volume)Ordered By: Boris Mae on 09-12-2024 Calcium [Mass/Vol] 9.1 mg/dL 8.5-10.1 [facility] Serum or plasma cholesterol measurement (mass/volume)Ordered By: Boris Mae on 09-12-2024 Cholesterol [Mass/Vol] 151 mg/dL <200 [facility] Comment on above: <200 mg/dL Desirable 200-240 mg/dL Borderline >240 mg/dL High Risk Serum or plasma creatinine m easurement (mass/volume)Ordered By: Boris Mae on 09-12-2024 Creatinine [Mass/Vol] 0.63 mg/dL 0.55-1.02 [facility] Comment on above: The validity of the calculated GFR & GFRAA in patients over 70 years has not been determined. Clinical correlation is essential. Serum or plasma thyroid stim ulating hormone (TSH) measurement (units/volume)Ordered By: Boris Mae on 09-12-2024 TSH Qn 0.758 uIU/mL 0.358-3.[address] [facility] Serum or plasma urea nitroge n measurement (mass/volume)Ordered By: Boris Mae on 09-12-2024 Urea nitrogen [Mass/Vol] 12 mg/dL 7-[address] [facility] Sodium levelOrdered By: Boris Mae on 09-12-2024 Sodium [Moles/Vol] 137 mmol/L 136-145 [facility] T4 Free Directon 09-12-2024 T4 FREE DIRECT 1.07 ng/dL Normal 0.76-1.[address] [facility] Comment on above: Order Comment: Order Date: 06/19/24Order Info: [id number] - CMPOrder Info: [id number] - LIPIDOrder Info: [id number] - TSHOrder Info: [id number] - T4F Performed By: #### L 500.4050, L100.0100 #### [facility] [address] [place], [place], [id number] TSH QnOrdered By: Boris huber on 09-12-2024 Thyroid Stimulating Hormone (TSH) 0.758 uIU/mL 0.358-3.[address] [facility] Thyroid Stim Hormone (TSH)on 09-12-2024 TSH 0.758 uIU/mL Normal 0.358-3.[address] [facility] Comment on above: Order Comment: Order Date: 06/19/24Order Info: [id number] - CMPOrder Info: [id number] - LIPIDOrder Info: [id number] - TSHOrder Info: 7 - T4F Performed By: #### L 500.4050, L100.0100 #### [facility] [address] [place], [place], [id number] Total proteinOrdered By: Ramirez Mae on 09-12-2024 Protein [Mass/Vol] 7.5 g/dL 6.4-8.2 [facility] Triglycerides measurementOrd ered By: Boris Mae on 09-12-2024 Triglyceride [Mass/Vol] 176 mg/dL <[address] [facility] Comment on above: The drugs N-Acetylcy steine and Metamizole may falsely depress this assay.Serum Triglycerides Reference Interval Normal <150 mg/dL Borderline high 150 - 199 mg/dL High 200 - 499 mg/dL Very High > or = 500 mg/dL Very low density lipoprotein (VLDL) cholesterol measurementOrdered By: Boris Mae on 09-12-2024 Very low density lipoprotein (VLDL) cholesterol measurement 35 mg/dL [facility] VLDL Cholesterol 35 mg/dL [facility] White blood cell (WBC) count Ordered By: Boris Mae on 09-12-2024 WBC (Bld) [#/Vol] 6.4 10*3/uL 4.4-11.0 [facility] Absolute neutrophil countOrd ered By: Izzy Michele on 08-25-2024 Neutrophils (Bld) [#/Vol] 4.4 10*3/uL 2.0-7.[address] [facility] Albumin to globulin ratioOrd ered By: Izzycynthia Michele on 08-25-2024 Albumin/Globulin [Mass ratio] 0.9 {ratio} 0.9-2.[address] [facility] Basophil percentageOrdered B y: Izzy Michele on 08-25-2024 Basophils/100 WBC (Bld) 0.9 % 0-[address] [facility] Bilirubin, totalOrdered By: Izzy Michele on 08-25-2024 Bilirubin [Mass/Vol] 0.30 mg/dL 0.20-1.00 [facility] Comment on above: For patients on eltr ombopag therapy, use of Dimension Lucama TBIL is not recommended. Blood urea nitrogen (BUN)/cr eatinine ratioOrdered By: Izzy Michele on 08-25-2024 Urea nitrogen/Creatinine [Mass ratio] 18.5 mg/mg 10-[address] [facility] CBC W/Diff, Automatedon 08-13 Absolute Lymph 1.55 X10 3/uL Normal 0.83-4.[address] [facility] Comment on above: Performed By: #### L 500.4050, L100.0100 #### [facility] [address] [place], [address] Absolute Neut 4.4 X10 3/uL Normal 2.0-7.[address] [facility] Comment on above: Performed By: #### L 500.4050, L100.0100 #### [facility] [address] [place], [address] Basophils/100 WBC (Bld) 0.9 % Normal 0-[address] [facility] Comment on above: Performed By: #### L 500.4050, L100.0100 #### [facility] [address] [place], [address] Eosinophils/100 WBC (Bld) 2.2 % Normal 0-[address] [facility] Comment on above: Performed By: #### L 500.4050, L100.0100 #### [facility] [address] [place], [address] Erythrocyte distribution width (RBC) [Ratio] 13.6 % Normal 11.6-14.[address] [facility] Comment on above: Performed By: #### L [id number], L100.0100 #### [facility] [address] [place], [address] Hematocrit (Bld) [Volume fraction] 43.5 % Normal 37-[address] [facility] Comment on above: Performed By: #### L [id number], L100.0100 #### [facility] [address] [place], [address] Hemoglobin (Bld) [Mass/Vol] 14.0 g/dL Normal 12.0-15.[address] [facility] Comment on above: Performed By: #### L 500.4050, L100.0100 #### [facility] [address] [place], [address] IG% 0.300 Normal 0.0-0.[address] [facility] Comment on above: Result Comment: IG% - Immature Granulocytes (promyelocytes, myelocytes and metamyelocytes) > 1% indicates that a LEFT SHIFT is Present. Performed By: #### L 500.4050, L100.0100 #### [facility] [address] [place], [address] Lymphocytes/100 WBC (Bld) 23.2 % Normal 19-[address] [facility] Comment on above: Performed By: #### L 500.4050, L100.0100 #### [facility] [address] [place], [address] MCH (RBC) [Entitic mass] 30.2 pg Normal 27.0-32.[address] [facility] Comment on above: Performed By: #### L 500.4050, L100.0100 #### [facility] [address] [place], [address] MCHC (RBC) [Mass/Vol] 32.2 g/dL Normal 32-36 [facility] Comment on above: Performed By: #### L 500.4050, L100.0100 #### [facility] [address] [place], [address] MCV (RBC) [Entitic vol] 94.0 fL Normal 81-99 [facility] Comment on above: Performed By: #### L 500.4050, L100.0100 #### [facility] [address] [place], [address] Monocytes/100 WBC (Bld) 7.6 % Normal 0-10 [facility] Comment on above: Performed By: #### L 500.4050, L100.0100 #### [facility] [address] [place], [address] Neutrophils/100 WBC (Bld) 65.8 % Normal 47-[address] [facility] Comment on above: Performed By: #### L 500.4050, L100.0100 #### [facility] [address] [place], [address] Nucleated RBC (Bld) [#/Vol] 0 10*3/uL Normal 0-[address] [facility] Comment on above: Performed By: #### L 500.4050, L100.0100 #### [facility] [address] [place], [address] Platelet mean volume (Bld) [Entitic vol] 9.7 fL Normal 6.2-12.[address] [facility] Comment on above: Performed By: #### L 500.4050, L100.0100 #### [facility] [address] [place], [address] Platelets (Bld) [#/Vol] 362 10*3/uL Normal 150-[address] [facility] Comment on above: Performed By: #### L 500.4050, L100.0100 #### [facility] [address] [place], [address] RBC (Bld) [#/Vol] 4.63 10*6/uL Normal 4.2-5.4 [facility] Comment on above: Performed By: #### L 500.4050, L100.0100 #### [facility] [address] [place], [address] RDW SD 46.8 fl High 35.1-43.[address] [facility] Comment on above: Performed By: #### L 500.4050, L100.0100 #### [facility] [address] [place], [address] WBC (Bld) [#/Vol] 6.7 10*3/uL Normal 4.4-11.0 [facility] Comment on above: Performed By: #### L 500.4050, L100.0100 #### [facility] [address] [place], [address] Carbon dioxide measurementOr dered By: Izzy Michele on 08-25-2024 CO2 [Moles/Vol] 30.0 mmol/L 21.0-32.[address] [facility] Chloride measurementOrdered By: Izzy Michele on 08-25-2024 Chloride [Moles/Vol] 100 mmol/L 98-107 [facility] Comprehensive Metabolic Prof ilon 08-25-2024 Albumin [Mass/Vol] 3.8 g/dL Normal 3.2-5.0 [facility] Comment on above: Order Comment: ASKED PT ABOUT FEB 1-EORDERS. SHE WILL WAIT TILL CLOSER. Performed By: #### L 500.4050, L100.0100 #### [facility] [address] [place], [address] Albumin/Globulin [Mass ratio] 0.9 {ratio} Normal 0.9-2.[address] [facility] Comment on above: Order Comment: ASKED PT ABOUT FEB 1-EORDERS. SHE WILL WAIT TILL CLOSER. Performed By: #### L 500.4050, L100.0100 #### [facility] [address] [place], [address] ALK P 80 U/L Normal 45-[address] [facility] Comment on above: Order Comment: ASKED PT ABOUT FEB 1-EORDERS. SHE WILL WAIT TILL CLOSER. Performed By: #### L 500.4050, L100.0100 #### [facility] [address] [place], [address] ALT [Catalytic activity/Vol] 34 U/L Normal 13-[address] [facility] Comment on above: Order Comment: ASKED PT ABOUT FEB 1-EORDERS. SHE WILL WAIT TILL CLOSER. Performed By: #### L 500.4050, L100.0100 #### [facility] [address] [place], [address] AST [Catalytic activity/Vol] 20 U/L Normal 15-[address] [facility] Comment on above: Order Comment: ASKED PT ABOUT FEB 1-EORDERS. SHE WILL WAIT TILL CLOSER. Performed By: #### L 500.4050, L100.0100 #### [facility] [address] [place], [address] Bilirubin [Mass/Vol] 0.30 mg/dL Normal 0.20-1.00 [facility] Comment on above: Order Comment: ASKED PT ABOUT FEB 1-EORDERS. SHE WILL WAIT TILL CLOSER. Result Comment: For patients on eltrombopag therapy, use of Dimension Lucama TBIL is not recommended. Performed By: #### L 500.4050, L100.0100 #### [facility] [address] [place], [address] BUN/CRE 18.5 RATIO Normal 10-[address] [facility] Comment on above: Order Comment: ASKED PT ABOUT FEB 1-EORDERS. SHE WILL WAIT TILL CLOSER. Performed By: #### L 500.4050, L100.0100 #### [facility] [address] [place], [address] CA,Total 9.4 mg/dL Normal 8.5-10.[address] [facility] Comment on above: Order Comment: ASKED PT ABOUT FEB 1-EORDERS. SHE WILL WAIT TILL CLOSER. Performed By: #### L 500.4050, L100.0100 #### [facility] [address] [place], [address] Chloride [Moles/Vol] 100 mmol/L Normal 98-107 [facility] Comment on above: Order Comment: ASKED PT ABOUT FEB 1-EORDERS. SHE WILL WAIT TILL CLOSER. Performed By: #### L 500.4050, L100.0100 #### [facility] [address] [place], [address] CO2 [Moles/Vol] 30.0 mmol/L Normal 21.0-32.[address] [facility] Comment on above: Order Comment: ASKED PT ABOUT FEB 1-EORDERS. SHE WILL WAIT TILL CLOSER. Performed By: #### L 500.4050, L100.0100 #### [facility] [address] [place], [address] Creatinine [Mass/Vol] 0.70 mg/dL Normal 0.55-1.02 [facility] Comment on above: Order Comment: ASKED PT ABOUT FEB 1-EORDERS. SHE WILL WAIT TILL CLOSER. Result Comment: The validity of the calculated GFR GFRAA in patients over 70 years has not been determined. Clinical correlation is essential. Performed By: #### L 500.4050, L100.0100 #### [facility] [address] [place], [address] EST GFR - AA 105 mL/min Normal >[address] [facility] Comment on above: Order Comment: ASKED PT ABOUT FEB 1-EORDERS. SHE WILL WAIT TILL CLOSER. Result Comment: Afri can [place] GFR Calc Performed By: #### L 500.4050, L100.0100 #### [facility] [address] [place], [address] GAP 5 Normal 5-[address] [facility] Comment on above: Order Comment: ASKED PT ABOUT FEB 1-EORDERS. SHE WILL WAIT TILL CLOSER. Performed By: #### L 500.4050, L100.0100 #### [facility] [address] [place], [address] GFR/1.73 sq M.predicted among non-blacks MDRD (S/P/Bld) [Vol rate/Area] 87 mL/min/{1.73_m2} Normal >[address] [facility] Comment on above: Order Comment: ASKED PT ABOUT FEB 1-EORDERS. SHE WILL WAIT TILL CLOSER. Result Comment: Non- GFR Calc Performed By: #### L 500.4050, L100.0100 #### [facility] [address] [place], [address] Globulin (S) [Mass/Vol] 4.1 g/dL Normal 2.2-4.[address] [facility] Comment on above: Order Comment: ASKED PT ABOUT FEB 1-EORDERS. SHE WILL WAIT TILL CLOSER. Performed By: #### L 500.4050, L100.0100 #### [facility] [address] [place], [address] Glucose [Mass/Vol] 112 mg/dL High 74-106 [facility] Comment on above: Order Comment: ASKED PT ABOUT FEB 1-EORDERS. SHE WILL WAIT TILL CLOSER. Result Comment: Fast ing Glucose result from 100 to 125 mg/dL suggests IMPAIRED HOMEOSTASIS per A.D.A. criteria. Performed By: #### L 500.4050, L100.0100 #### [facility] [address] [place], [address] Potassium [Moles/Vol] 3.6 mmol/L Normal 3.5-5.1 [facility] Comment on above: Order Comment: ASKED PT ABOUT FEB 1-EORDERS. SHE WILL WAIT TILL CLOSER. Performed By: #### L 500.4050, L100.0100 #### [facility] [address] [place], [address] Sodium [Moles/Vol] 134 mmol/L Low 136-145 [facility] Comment on above: Order Comment: ASKED PT ABOUT FEB 1-EORDERS. SHE WILL WAIT TILL CLOSER. Performed By: #### L 500.4050, L100.0100 #### [facility] [address] [place], [address] T PROT 7.9 g/dL Normal 6.4-8.[address] [facility] Comment on above: Order Comment: ASKED PT ABOUT FEB 1-EORDERS. SHE WILL WAIT TILL CLOSER. Performed By: #### L 500.4050, L100.0100 #### [facility] [address] [place], [address] Urea nitrogen [Mass/Vol] 13 mg/dL Normal 7-[address] [facility] Comment on above: Order Comment: ASKED PT ABOUT FEB 1-EORDERS. SHE WILL WAIT TILL CLOSER. Performed By: #### L 500.4050, L100.0100 #### [facility] [address] [place], [address] Eosinophil percentageOrdered By: Izzy Michele on 08-25-2024 Eosinophils/100 WBC (Bld) 2.2 % 0-[address] [facility] Erythrocyte distribution wid th ratioOrdered By: Izzy Michele on 08-25-2024 Erythrocyte distribution width (RBC) [Ratio] 13.6 % 11.6-14.[address] [facility] Erythrocyte distribution wid th standard deviationOrdered By: Izzy Michele on 08-25-2024 Erythrocyte distribution width (RBC) [Entitic vol] 46.8 fL High 35.1-43.[address] [facility] Estimated glomerular filtrat ion rate (GFR) AmericanOrdered By: Izzy Michele on 08-25-2024 Estimated GFR (MDRD) Amer 105 mL/min >[address] [facility] Comment on above: GFR Calc Glomerular filtration rate ( GFR) estimationOrdered By: Izzy Michele on 08-25-2024 Estimated GFR (MDRD) Non-Af Amer 87 mL/min >[address] [facility] Comment on above: Non- GFR Calc Glucose measurementOrdered B y: Izzy Michele on 08-25-2024 Glucose [Mass/Vol] 112 mg/dL High 74-106 [facility] Comment on above: Fasting Glucose resu lt from 100 to 125 mg/dL suggests IMPAIRED HOMEOSTASIS per A.D.A. criteria. Hematocrit Auto (Bld) [Volum e fraction]Ordered By: Izzy Michele on 08-25-2024 Hematocrit (Bld) [Volume fraction] 43.5 % 37-[address] [facility] Hemoglobin measurementOrdere d By: Izzy Michele on 08-25-2024 Hemoglobin (Bld) [Mass/Vol] 14.0 g/dL 12.0-15.[address] [facility] Immature granulocytes/100 WB C Auto (Bld)Ordered By: Izzy Michele on 08-25-2024 Immature granulocytes/100 WBC (Bld) 0.300 % 0.0-0.[address] [facility] Comment on above: IG% - Immature Granu locytes (promyelocytes, myelocytes and metamyelocytes) > 1% indicates that a LEFT SHIFT is Present. Laboratory - Chemistry and C hemistry - challengeOrdered By: Izzy Michele on 08-25-2024 AST [Catalytic activity/Vol] 20 U/L 15-[address] [facility] Lymphocytes Auto (Unsp spec) [#/Vol]Ordered By: Izzy Michele on 08-25-2024 Lymphocytes (Bld) [#/Vol] 1.55 10*3/uL 0.83-4.[address] [facility] Lymphocytes/100 WBC Auto (Un sp spec)Ordered By: Izzy Michele on 08-25-2024 Lymphocytes/100 WBC (Bld) 23.2 % 19-[address] [facility] MCV (mean corpuscular volume ) determinationOrdered By: Izzy Michele on 08-25-2024 MCV (RBC) [Entitic vol] 94.0 fL 81-[address] [facility] Mean corpuscular hemoglobin (MCH) determinationOrdered By: Izzy Michele on 08-25-2024 MCH (RBC) [Entitic mass] 30.2 pg 27.0-32.[address] [facility] Mean corpuscular hemoglobin concentration (MCHC) determinationOrdered By: Izzy Michele on 08-25-2024 MCHC (RBC) [Mass/Vol] 32.2 g/dL 32-36 [facility] Mean platelet volume determi nationOrdered By: Izzy Michele on 08-25-2024 Platelet mean volume (Bld) [Entitic vol] 9.7 fL 6.2-12.[address] [facility] Monocyte percentageOrdered B y: Izzy Michele on 08-25-2024 Monocytes/100 WBC (Bld) 7.6 % 0-[address] [facility] Neutrophil percentageOrdered By: Izzy Michele on 08-25-2024 Neutrophils/100 WBC (Bld) 65.8 % 47-[address] [facility] Nucleated red blood cell per centageOrdered By: Izzy Michele on 08-25-2024 Nucleated RBC/100 WBC (Bld) [Ratio] 0 % 0-[address] [facility] Platelet countOrdered By: Godfrey Michele on 08-25-2024 Platelets (Bld) [#/Vol] 362 10*3/uL 150-[address] [facility] Potassium measurementOrdered By: Izzy Michele on 08-25-2024 Potassium [Moles/Vol] 3.6 mmol/L 3.5-5.1 [facility] RBC Auto (Bld) [#/Vol]Ordere d By: Izzy Michele on 08-25-2024 RBC (Bld) [#/Vol] 4.63 10*6/uL 4.2-5.4 [facility] Serum anion gap measurementO rdered By: Izzy Michele on 08-25-2024 Anion gap [Moles/Vol] 5 mmol/L 5-15 [facility] Serum globulin measurementOr dered By: Izzy Michele on 08-25-2024 Globulin (S) [Mass/Vol] 4.1 g/dL 2.2-4.[address] [facility] Serum or plasma alanine salas otransferase (ALT) measurementOrdered By: Izzy Michele on 08-25-2024 ALT [Catalytic activity/Vol] 34 U/L 13-[address] [facility] Serum or plasma albumin lelia urement (mass/volume)Ordered By: Izzy Michele on 08-25-2024 Albumin [Mass/Vol] 3.8 g/dL 3.2-5.0 [facility] Serum or plasma alkaline zander sphatase measurementOrdered By: Izzy Michele on 08-25-2024 ALP [Catalytic activity/Vol] 80 U/L 45-[address] [facility] Serum or plasma calcium lelia urement (mass/volume)Ordered By: Izzy Michele on 08-25-2024 Calcium [Mass/Vol] 9.4 mg/dL 8.5-10.1 [facility] Serum or plasma creatinine m easurement (mass/volume)Ordered By: Izzy Michele on 08-25-2024 Creatinine [Mass/Vol] 0.70 mg/dL 0.55-1.02 [facility] Comment on above: The validity of the calculated GFR & GFRAA in patients over 70 years has not been determined. Clinical correlation is essential. Serum or plasma urea nitroge n measurement (mass/volume)Ordered By: Izzy Michele on 08-25-2024 Urea nitrogen [Mass/Vol] 13 mg/dL 7-[address] [facility] Sodium levelOrdered By: Alex Michele on 08-25-2024 Sodium [Moles/Vol] 134 mmol/L Low 136-145 [facility] Total proteinOrdered By: Ina Michele on 08-25-2024 Protein [Mass/Vol] 7.9 g/dL 6.4-8.2 [facility] White blood cell (WBC) count Ordered By: Izzy Michele on 08-25-2024 WBC (Bld) [#/Vol] 6.7 10*3/uL 4.4-11.0 [facility] 65-WG-Mgkwmsg DOrdered By: Mireya Carter on 07-14-2024 Vitamin D 25-Hydroxy 45.1 ng/mL [facility] Comment on above: Vitamin D 25(OH) Sta tus Range Deficiency <20 ng/mL (50nmol/L) Insufficiency 20 - 30 ng/mL (50 - 75 nmol/L) Sufficiency 30 - 100 ng/mL (75 - 250 nmol/L) Toxicity >100 ng/mL (>250 nmol/L) AST(SGOT)on 07-14-2024 AST [Catalytic activity/Vol] 21 U/L Normal 15-[address] [facility] Comment on above: Performed By: #### L 500.4050, L100.0100, L506.0400, L501.9985, L501.9520, L506.1001, L500.4100, L3300.4490 #### [facility] [address] [place], [address] Alanine Aminotransferas (SGP T)on 07-14-2024 ALT [Catalytic activity/Vol] 30 U/L Normal 13-[address] [facility] Comment on above: Performed By: #### L 500.4050, L100.0100, L506.0400, L501.9985, L501.9520, L506.1001, L500.4100, L3300.4490 #### [facility] [address] [place], [address] Basic Metabolic Profile (BMP )on 07-14-2024 BUN/CRE 19.9 RATIO Normal 10-[address] [facility] Comment on above: Performed By: #### L 500.4050, L100.0100, L506.0400, L501.9985, L501.9520, L506.1001, L500.4100, L3300.4490 #### [facility] [address] [place], [address] CA,Total 8.8 mg/dL Normal 8.5-10.[address] [facility] Comment on above: Performed By: #### L 500.4050, L100.0100, L506.0400, L501.9985, L501.9520, L506.1001, L500.4100, L3300.4490 #### [facility] [address] [place], [address] Chloride [Moles/Vol] 104 mmol/L Normal 98-107 [facility] Comment on above: Performed By: #### L 500.4050, L100.0100, L506.0400, L501.9985, L501.9520, L506.1001, L500.4100, L3300.4490 #### [facility] [address] [place], [address] CO2 [Moles/Vol] 27.0 mmol/L Normal 21.0-32.[address] [facility] Comment on above: Performed By: #### L 500.4050, L100.0100, L506.0400, L501.9985, L501.9520, L506.1001, L500.4100, L3300.4490 #### [facility] [address] [place], [address] Creatinine [Mass/Vol] 0.60 mg/dL Normal 0.55-1.02 [facility] Comment on above: Result Comment: The validity of the calculated GFR GFRAA in patients over 70 years has not been determined. Clinical correlation is essential. Performed By: #### L 500.4050, L100.0100, L506.0400, L501.9985, L501.9520, L506.1001, L500.4100, L3300.4490 #### [facility] [address] [place], [address] EST GFR - AA 126 mL/min Normal >[address] [facility] Comment on above: Result Comment: Afri can [place] GFR Calc Performed By: #### L 500.4050, L100.0100, L506.0400, L501.9985, L501.9520, L506.1001, L500.4100, L3300.4490 #### [facility] [address] [place], [address] GAP 7 Normal 5-[address] [facility] Comment on above: Performed By: #### L 500.4050, L100.0100, L506.0400, L501.9985, L501.9520, L506.1001, L500.4100, L3300.4490 #### [facility] [address] [place], [address] GFR/1.73 sq M.predicted among non-blacks MDRD (S/P/Bld) [Vol rate/Area] 104 mL/min/{1.73_m2} Normal >[address] [facility] Comment on above: Result Comment: Non- GFR Calc Performed By: #### L 500.4050, L100.0100, L506.0400, L501.9985, L501.9520, L506.1001, L500.4100, L3300.4490 #### [facility] [address] [place], [address] Glucose [Mass/Vol] 109 mg/dL High 74-106 [facility] Comment on above: Result Comment: Fast ing Glucose result from 100 to 125 mg/dL suggests IMPAIRED HOMEOSTASIS per A.D.A. criteria. Performed By: #### L 500.4050, L100.0100, L506.0400, L501.9985, L501.9520, L506.1001, L500.4100, L3300.4490 #### [facility] [address] [place], [address] Potassium [Moles/Vol] 3.8 mmol/L Normal 3.5-5.1 [facility] Comment on above: Performed By: #### L 500.4050, L100.0100, L506.0400, L501.9985, L501.9520, L506.1001, L500.4100, L3300.4490 #### [facility] [address] [place], [address] Sodium [Moles/Vol] 137 mmol/L Normal 136-145 [facility] Comment on above: Performed By: #### L 500.4050, L100.0100, L506.0400, L501.9985, L501.9520, L506.1001, L500.4100, L3300.4490 #### [facility] [address] [place], [address] Urea nitrogen [Mass/Vol] 12 mg/dL Normal 7-[address] [facility] Comment on above: Performed By: #### L 500.4050, L100.0100, L506.0400, L501.9985, L501.9520, L506.1001, L500.4100, L3300.4490 #### [facility] [address] [place], [address] Blood urea nitrogen (BUN)/cr eatinine ratioOrdered By: Victorina Carter on 07-14-2024 Urea nitrogen/Creatinine [Mass ratio] 19.9 mg/mg 10- [facility] Carbon dioxide measurementOr dered By: Victorina Carter on 07-14-2024 CO2 [Moles/Vol] 27.0 mmol/L 21.0-32.[address] [facility] Chloride measurementOrdered By: Victorina Carter on 07-14-2024 Chloride [Moles/Vol] 104 mmol/L 98-107 [facility] Direct serum free thyroxine (FT4) measurementOrdered By: Victroina Carter on 07-14-2024 Free T4 [Mass/Vol] 1.18 ng/dL 0.76-1.46 [facility] Estimated glomerular filtrat ion rate (GFR) AmericanOrdered By: Victorina Carter on 07-14-2024 Estimated GFR (MDRD) Amer 126 mL/min >[address] [facility] Comment on above: GFR Calc Glomerular filtration rate ( GFR) estimationOrdered By: Victorina Carter on 07-14-2024 Estimated GFR (MDRD) Non-Af Amer 104 mL/min >[address] [facility] Comment on above: Non- GFR Calc Glucose measurementOrdered B y: Victorina Carter on 07-14-2024 Glucose [Mass/Vol] 109 mg/dL High 74-106 [facility] Comment on above: Fasting Glucose resu lt from 100 to 125 mg/dL suggests IMPAIRED HOMEOSTASIS per A.D.A. criteria. Hemoglobin A1con 07-14-2024 HbA1c (Bld) [Mass fraction] 5.9 % High 3.-5.[address] [facility] Comment on above: Result Comment: Norm al < 5.7 % Prediabetic 5.7 - 6.4 % Diabetic >or= 6.5 % Please note range changes. Performed By: #### L 500.4050, L100.0100, L506.0400, L501.9985, L501.9520, L506.1001, L500.4100, L3300.4490 #### [facility] [address] [place], [place], [id number] Hemoglobin A1c percentageOrd ered By: Victorina Carter on 07-14-2024 HbA1c (Bld) [Mass fraction] 5.9 % [facility] 3.-5.[address] [facility] Comment on above: Normal < 5.7 % Predi abetic 5.7 - 6.4 % Diabetic >or= 6.5 % Please note range changes. High density lipoprotein (HD L) measurementOrdered By: Victorina Carter on 07-14-2024 Cholesterol in HDL [Mass/Vol] 56 mg/dL >[address] [facility] Comment on above: The drugs N-Acetylcy steine and Metamizole may falsely depress this assay. Reference Range HDL <40 mg/dL Low HDL Cholesterol HDL >or= 60 mg/dL High HDL Cholesterol Laboratory - Chemistry and C hemistry - challengeOrdered By: Vitcorina Carter on 07-14-2024 AST [Catalytic activity/Vol] 21 U/L 15-[address] [facility] Lipid Profileon 07-14-2024 Cholesterol [Mass/Vol] 149 mg/dL Normal 200 [facility] Comment on above: Result Comment: <200 mg/dL Desirable 200-240 mg/dL Borderline >240 mg/dL High Risk Performed By: #### L 500.4050, L100.0100, L506.0400, L501.9985, L501.9520, L506.1001, L500.4100, L3300.4490 #### [facility] [address] [place], [address] Cholesterol in HDL [Mass/Vol] 56 mg/dL Normal [facility] Comment on above: Result Comment: The drugs N-Acetylcysteine and Metamizole may falsely depress this assay. Reference Range HDL <40 mg/dL Low HDL Cholesterol HDL >or= 60 mg/dL High HDL Cholesterol Performed By: #### L 500.4050, L100.0100, L506.0400, L501.9985, L501.9520, L506.1001, L500.4100, L3300.4490 #### [facility] [address] [place], [address] Cholesterol in LDL [Mass/Vol] 53 mg/dL Normal 0-[address] [facility] Comment on above: Performed By: #### L 500.4050, L100.0100, L506.0400, L501.9985, L501.9520, L506.1001, L500.4100, L3300.4490 #### [facility] [address] [place], [address] Cholesterol in VLDL [Mass/Vol] 40 mg/dL Normal 5-[address] [facility] Comment on above: Performed By: #### L 500.4050, L100.0100, L506.0400, L501.9985, L501.9520, L506.1001, L500.4100, L3300.4490 #### [facility] [address] [place], [address] Triglyceride [Mass/Vol] 201 mg/dL High [facility] Comment on above: Result Comment: The drugs N-Acetylcysteine and Metamizole may falsely depress this assay. Serum Triglycerides Reference Interval Normal <150 mg/dL Borderline high 150 - 199 mg/dL High 200 - 499 mg/dL Very High > or = 500 mg/dL Performed By: #### L 500.4050, L100.0100, L506.0400, L501.9985, L501.9520, L506.1001, L500.4100, L3300.4490 #### [facility] [address] [place], [address] Low density lipoprotein (LDL ) cholesterol measurementOrdered By: Victorina Carter on 07-14-2024 Cholesterol in LDL [Mass/Vol] 53 mg/dL 0-[address] [facility] Microalbumin,Random Urineon 07-14-2024 MICROALBUMIN,UR 6.4 mg/L Normal NO RANGE EST. [facility] Comment on above: Performed By: #### L 500.4050, L100.0100, L506.0400, L501.9985, L501.9520, L506.1001, L500.4100, L3300.4490 #### [facility] [address] [place], [address] Potassium measurementOrdered By: Victorina Carter on 07-14-2024 Potassium [Moles/Vol] 3.8 mmol/L 3.5-5.1 [facility] Random urine microalbumin me asurementOrdered By: Victorina Carter on 07-14-2024 Urine Random Microalbumin 6.4 mg/L NO RANGE EST. [facility] Serum anion gap measurementO rdered By: Victorina Carter on 07-14-2024 Anion gap [Moles/Vol] 7 mmol/L 5-15 [facility] Serum or plasma alanine salas otransferase (ALT) measurementOrdered By: Victorina Carter on 07-14-2024 ALT [Catalytic activity/Vol] 30 U/L 13-[address] [facility] Serum or plasma calcium lelia urement (mass/volume)Ordered By: Victorina Carter on 07-14-2024 Calcium [Mass/Vol] 8.8 mg/dL 8.5-10.1 [facility] Serum or plasma cholesterol measurement (mass/volume)Ordered By: Victorina Carter on 07-14-2024 Cholesterol [Mass/Vol] 149 mg/dL <200 [facility] Comment on above: <200 mg/dL Desirable 200-240 mg/dL Borderline >240 mg/dL High Risk Serum or plasma creatinine m easurement (mass/volume)Ordered By: Victorina Carter on 07-14-2024 Creatinine [Mass/Vol] 0.60 mg/dL 0.55-1.02 [facility] Comment on above: The validity of the calculated GFR & GFRAA in patients over 70 years has not been determined. Clinical correlation is essential. Serum or plasma urea nitroge n measurement (mass/volume)Ordered By: Victorina Carter on 07-14-2024 Urea nitrogen [Mass/Vol] 12 mg/dL 7-[address] [facility] Sodium levelOrdered By: Lori Carter on 07-14-2024 Sodium [Moles/Vol] 137 mmol/L 136-145 [facility] T4 Free Directon 07-14-2024 T4 FREE DIRECT 1.18 ng/dL Normal 0.76-1.[address] [facility] Comment on above: Performed By: #### L 500.4050, L100.0100, L506.0400, L501.9985, L501.9520, L506.1001, L500.4100, L3300.4490 #### [facility] [address] [place], [place], [id number] TSH QnOrdered By: Vicotrina araya on 07-14-2024 Thyroid Stimulating Hormone (TSH) 0.283 uIU/mL Low 0.358-3.[address] [facility] Thyroid Stim Hormone (TSH)on 07-14-2024 TSH 0.283 uIU/mL Low 0.358-3.[address] [facility] Comment on above: Performed By: #### L 500.4050, L100.0100, L506.0400, L501.9985, L501.9520, L506.1001, L500.4100, L3300.4490 #### [facility] [address] [place] [place], [address] Triglycerides measurementOrd ered By: Victorina Carter on 07-14-2024 Triglyceride [Mass/Vol] 201 mg/dL High <[address] [facility] Comment on above: The drugs N-Acetylcy steine and Metamizole may falsely depress this assay.Serum Triglycerides Reference Interval Normal <150 mg/dL Borderline high 150 - 199 mg/dL High 200 - 499 mg/dL Very High > or = 500 mg/dL Very low density lipoprotein (VLDL) cholesterol measurementOrdered By: Victorina Carter on 07-14-2024 VLDL Cholesterol 40 mg/dL 5-[address] [facility] Vitamin D,25 Hydroxyon 07-14 Vitamin D 25-OH 45.1 ng/mL Normal [facility] Comment on above: Result Comment: Viky min D 25(OH) Status Range Deficiency <20 ng/mL (50nmol/L) Insufficiency 20 - 30 ng/mL (50 - 75 nmol/L) Sufficiency 30 - 100 ng/mL (75 - 250 nmol/L) Toxicity >100 ng/mL (>250 nmol/L) Performed By: #### L 500.4050, L100.0100, L506.0400, L501.9985, L501.9520, L506.1001, L500.4100, L3300.4490 #### [facility] [address] [place], [place], [id number] CBC W/Diff, Automatedon 10-1 7-2024 Absolute Lymph 1.50 X10 3/uL Normal 0.83-4.[address] [facility] Comment on above: Performed By: #### L 500.4050, L100.0100 #### [facility] [address] [place], [address] Absolute Neut 5.4 X10 3/uL Normal 2.0-7.[address] [facility] Comment on above: Performed By: #### L 500.4050, L100.0100 #### [facility] [address] [place], [address] Basophils/100 WBC (Bld) 0.7 % Normal 0-[address] [facility] Comment on above: Performed By: #### L 500.4050, L100.0100 #### [facility] [address] [place], [address] Eosinophils/100 WBC (Bld) 2.0 % Normal 0-[address] [facility] Comment on above: Performed By: #### L 500.4050, L100.0100 #### [facility] [address] [place], [address] Erythrocyte distribution width (RBC) [Ratio] 13.9 % Normal 11.6-14.[address] [facility] Comment on above: Performed By: #### L 500.4050, L100.0100 #### [facility] [address] [place], [address] Hematocrit (Bld) [Volume fraction] 42.9 % Normal 37-[address] [facility] Comment on above: Performed By: #### L 500.4050, L100.0100 #### [facility] [address] [place], [address] Hemoglobin (Bld) [Mass/Vol] 13.5 g/dL Normal 12.0-15.[address] [facility] Comment on above: Performed By: #### L 500.4050, L100.0100 #### [facility] [address] [place], [address] IG% 0.400 Normal 0.0-0.[address] [facility] Comment on above: Result Comment: IG% - Immature Granulocytes (promyelocytes, myelocytes and metamyelocytes) > 1% indicates that a LEFT SHIFT is Present. Performed By: #### L 500.4050, L100.0100 #### [facility] [address] [place], [address] Lymphocytes/100 WBC (Bld) 19.7 % Normal 19-[address] [facility] Comment on above: Performed By: #### L 500.4050, L100.0100 #### [facility] [address] [place], [address] MCH (RBC) [Entitic mass] 29.7 pg Normal 27.0-32.[address] [facility] Comment on above: Performed By: #### L 500.4050, L100.0100 #### [facility] [address] [place], [address] MCHC (RBC) [Mass/Vol] 31.5 g/dL Low 32-36 [facility] Comment on above: Performed By: #### L 500.4050, L100.0100 #### [facility] [address] [place], [address] MCV (RBC) [Entitic vol] 94.5 fL Normal 81-[address] [facility] Comment on above: Performed By: #### L 500.4050, L100.0100 #### [facility] [address] [place], [address] Monocytes/100 WBC (Bld) 6.3 % Normal 0-[address] [facility] Comment on above: Performed By: #### L 500.4050, L100.0100 #### [facility] [address] [place], [address] Neutrophils/100 WBC (Bld) 70.9 % High 47-[address] [facility] Comment on above: Performed By: #### L 500.4050, L100.0100 #### [facility] [address] [place], [address] Nucleated RBC (Bld) [#/Vol] 0 10*3/uL Normal 0-[address] [facility] Comment on above: Performed By: #### L 500.4050, L100.0100 #### [facility] [address] [place], [address] Platelet mean volume (Bld) [Entitic vol] 9.7 fL Normal 6.2-12.[address] [facility] Comment on above: Performed By: #### L 500.4050, L100.0100 #### [facility] [address] [place], [address] Platelets (Bld) [#/Vol] 362 10*3/uL Normal 150-[address] [facility] Comment on above: Performed By: #### L 500.4050, L100.0100 #### [facility] [address] [place], [address] RBC (Bld) [#/Vol] 4.54 10*6/uL Normal 4.2-5.4 [facility] Comment on above: Performed By: #### L 500.4050, L100.0100 #### [facility] [address] [place], [address] RDW SD 48.1 fl High 35.1-43.[address] [facility] Comment on above: Performed By: #### L 500.4050, L100.0100 #### [facility] [address] [place], [address] WBC (Bld) [#/Vol] 7.6 10*3/uL Normal 4.4-11.0 [facility] Comment on above: Performed By: #### L 500.4050, L100.0100 #### [facility] [address] [place], [address] Comprehensive Metabolic Prof ilon 05-29-2024 Albumin [Mass/Vol] 3.5 g/dL Normal 3.2-5.0 [facility] Comment on above: Performed By: #### L 500.4050, L100.0100 #### [facility] [address] [place], [address] Albumin/Globulin [Mass ratio] 0.8 {ratio} Low 0.9-2.[address] [facility] Comment on above: Performed By: #### L 500.4050, L100.0100 #### [facility] [address] [place], [address] ALK P 91 U/L Normal 45-[address] [facility] Comment on above: Performed By: #### L 500.4050, L100.0100 #### [facility] [address] [place], [address] ALT [Catalytic activity/Vol] 30 U/L Normal 13-[address] [facility] Comment on above: Performed By: #### L 500.4050, L100.0100 #### [facility] [address] [place], [address] AST [Catalytic activity/Vol] 20 U/L Normal 15-[address] [facility] Comment on above: Performed By: #### L 500.4050, L100.0100 #### [facility] [address] [place], [address] Bilirubin [Mass/Vol] 0.30 mg/dL Normal 0.20-1.00 [facility] Comment on above: Result Comment: For patients on eltrombopag therapy, use of Dimension [place] TBIL is not recommended. Performed By: #### L 500.4050, L100.0100 #### [facility] [address] [place], [address] BUN/CRE 18.3 RATIO Normal 10-[address] [facility] Comment on above: Performed By: #### L 500.4050, L100.0100 #### [facility] [address] [place], [address] CA,Total 9.5 mg/dL Normal 8.5-10.[address] [facility] Comment on above: Performed By: #### L 500.4050, L100.0100 #### [facility] [address] [place], [address] Chloride [Moles/Vol] 102 mmol/L Normal 98-107 [facility] Comment on above: Performed By: #### L 500.4050, L100.0100 #### [facility] [address] [place], [address] CO2 [Moles/Vol] 30.0 mmol/L Normal 21.0-32.[address] [facility] Comment on above: Performed By: #### L 500.4050, L100.0100 #### [facility] [address] [place], [address] Creatinine [Mass/Vol] 0.71 mg/dL Normal 0.55-1.02 [facility] Comment on above: Result Comment: The validity of the calculated GFR GFRAA in patients over 70 years has not been determined. Clinical correlation is essential. Performed By: #### L 500.4050, L100.0100 #### [facility] [address] [place], [address] EST GFR - AA 104 mL/min Normal >[address] [facility] Comment on above: Result Comment: Afri can [place] GFR Calc Performed By: #### L 500.4050, L100.0100 #### [facility] [address] [place], [address] GAP 6 Normal 5-[address] [facility] Comment on above: Performed By: #### L 500.4050, L100.0100 #### [facility] [address] [place], [address] GFR/1.73 sq M.predicted among non-blacks MDRD (S/P/Bld) [Vol rate/Area] 86 mL/min/{1.73_m2} Normal >[address] [facility] Comment on above: Result Comment: Non- GFR Calc Performed By: #### L 500.4050, L100.0100 #### [facility] [address] [place] [place], [address] Globulin (S) [Mass/Vol] 4.2 g/dL Normal 2.2-4.2 [facility] Comment on above: Performed By: #### L 500.4050, L100.0100 #### [facility] [address] [place], [address] Glucose [Mass/Vol] 187 mg/dL High 74-106 [facility] Comment on above: Result Comment: Fast ing Glucose result greater than or equal to 126 mg/dL suggests DIABETES MELLITUS per A.D.A. criteria. Performed By: #### L 500.4050, L100.0100 #### [facility] [address] [place], [address] Potassium [Moles/Vol] 3.9 mmol/L Normal 3.5-5.1 [facility] Comment on above: Performed By: #### L 500.4050, L100.0100 #### [facility] [address] [place], [address] Sodium [Moles/Vol] 138 mmol/L Normal 136-145 [facility] Comment on above: Performed By: #### L 500.4050, L100.0100 #### [facility] [address] [place], [address] T PROT 7.7 g/dL Normal 6.4-8.[address] [facility] Comment on above: Performed By: #### L 500.4050, L100.0100 #### [facility] [address] [place], [address] Urea nitrogen [Mass/Vol] 13 mg/dL Normal 7-[address] [facility] Comment on above: Performed By: #### L 500.4050, L100.0100 #### [facility] [address] [place], [address] CBC W/Diff, Automatedon 04-13 Absolute Lymph 1.63 X10 3/uL Normal 0.83-4.[address] [facility] Comment on above: Order Comment: Order Date: 04/10/24Order Info: [id number] - CBCD Performed By: #### L 500.4050, L100.0100 #### [facility] [address] [place], [address] Absolute Neut 4.1 X10 3/uL Normal 2.0-7.[address] [facility] Comment on above: Order Comment: Order Date: 04/10/24Order Info: [id number] - CBCD Performed By: #### L 500.4050, L100.0100 #### [facility] [address] [place], [address] Basophils/100 WBC (Bld) 1.0 % Normal 0-[address] [facility] Comment on above: Order Comment: Order Date: 04/10/24Order Info: 0184-1 - CBCD Performed By: #### L 500.4050, L100.0100 #### [facility] [address] [place], [address] Eosinophils/100 WBC (Bld) 3.6 % Normal 0-[address] [facility] Comment on above: Order Comment: Order Date: 04/10/24Order Info: [id number] - CBCD Performed By: #### L 500.4050, L100.0100 #### [facility] [address] [place], [address] Erythrocyte distribution width (RBC) [Ratio] 14.0 % Normal 11.6-14.[address] [facility] Comment on above: Order Comment: Order Date: 04/10/24Order Info: 0184-1 - CBCD Performed By: #### L 500.4050, L100.0100 #### [facility] [address] [place], [address] Hematocrit (Bld) [Volume fraction] 41.8 % Normal 37-[address] [facility] Comment on above: Order Comment: Order Date: 04/10/24Order Info: 018- - CBCD Performed By: #### L 500.4050, L100.0100 #### [facility] [address] [place], [address] Hemoglobin (Bld) [Mass/Vol] 13.4 g/dL Normal 12.0-15.[address] [facility] Comment on above: Order Comment: Order Date: 04/10/24Order Info: 018- - CBCD Performed By: #### L 500.4050, L100.0100 #### [facility] [address] [place], [address] IG% 0.300 Normal 0.0-0.[address] [facility] Comment on above: Order Comment: Order Date: 04/10/24Order Info: 0184-1 - CBCD Result Comment: IG% - Immature Granulocytes (promyelocytes, myelocytes and metamyelocytes) > 1% indicates that a LEFT SHIFT is Present. Performed By: #### L 500.4050, L100.0100 #### [facility] [address] [place], [address] Lymphocytes/100 WBC (Bld) 24.2 % Normal 19-[address] [facility] Comment on above: Order Comment: Order Date: 04/10/24Order Info: 018-1 - CBCD Performed By: #### L 500.4050, L100.0100 #### [facility] [address] [place], [address] MCH (RBC) [Entitic mass] 30.4 pg Normal 27.0-32.[address] [facility] Comment on above: Order Comment: Order Date: 04/10/24Order Info: 4- - CBCD Performed By: #### L 500.4050, L100.0100 #### [facility] [address] [place], [address] MCHC (RBC) [Mass/Vol] 32.1 g/dL Normal 32-36 [facility] Comment on above: Order Comment: Order Date: 04/10/24Order Info: 018- - CBCD Performed By: #### L 500.4050, L100.0100 #### [facility] [address] [place], [address] MCV (RBC) [Entitic vol] 94.8 fL Normal 81-99 [facility] Comment on above: Order Comment: Order Date: 04/10/24Order Info: 018- - CBCD Performed By: #### L 500.4050, L100.0100 #### [facility] [address] [place], [address] Monocytes/100 WBC (Bld) 9.8 % Normal 0-10 [facility] Comment on above: Order Comment: Order Date: 04/10/24Order Info: [id number] - CBCD Performed By: #### L 500.4050, L100.0100 #### [facility] [address] [place], [address] Neutrophils/100 WBC (Bld) 61.1 % Normal 47-[address] [facility] Comment on above: Order Comment: Order Date: 04/10/24Order Info: 018- - CBCD Performed By: #### L 500.4050, L100.0100 #### [facility] [address] [place], [address] Nucleated RBC (Bld) [#/Vol] 0 10*3/uL Normal 0-[address] [facility] Comment on above: Order Comment: Order Date: 04/10/24Order Info: 018- - CBCD Performed By: #### L 500.4050, L100.0100 #### [facility] [address] [place], [address] Platelet mean volume (Bld) [Entitic vol] 9.7 fL Normal 6.2-12.[address] [facility] Comment on above: Order Comment: Order Date: 04/10/24Order Info: 183- - CBCD Performed By: #### L 500.4050, L100.0100 #### [facility] [address] [place], [address] Platelets (Bld) [#/Vol] 370 10*3/uL Normal 150-[address] [facility] Comment on above: Order Comment: Order Date: 04/10/24Order Info: 018- - CBCD Performed By: #### L 500.4050, L100.0100 #### [facility] [address] [place], [address] RBC (Bld) [#/Vol] 4.41 10*6/uL Normal 4.2-5.4 [facility] Comment on above: Order Comment: Order Date: 04/10/24Order Info: 018- - CBCD Performed By: #### L 500.4050, L100.0100 #### [facility] [address] [place], [address] RDW SD 48.7 fl High 35.1-43.[address] [facility] Comment on above: Order Comment: Order Date: 04/10/24Order Info: [id number] - CBCD Performed By: #### L 500.4050, L100.0100 #### [facility] [address] [place], [address] WBC (Bld) [#/Vol] 6.7 10*3/uL Normal 4.4-11.0 [facility] Comment on above: Order Comment: Order Date: 04/10/24Order Info: [id number] - CBCD Performed By: #### L 500.4050, L100.0100 #### [facility] [address] [place], [address] Comprehensive Metabolic Prof alon 05-01-2024 Albumin [Mass/Vol] 3.2 g/dL Normal 3.2-5.0 [facility] Comment on above: Order Comment: Order Date: 04/10/24Order Info: [id number] - CMPOrder Info: [id number] - LIPIDOrder Info: [id number] - MGOrder Info: [id number] - TSHOrder Info: 3024-7 - T4F Performed By: #### L 500.4050, L100.0100 #### [facility] [address] [place], [address] Albumin/Globulin [Mass ratio] 0.8 {ratio} Low 0.9-2.[address] [facility] Comment on above: Order Comment: Order Date: 04/10/24Order Info: [id number] - CMPOrder Info: [id number] - LIPIDOrder Info: [id number] - MGOrder Info: [id number] - TSHOrder Info: 3024-7 - T4F Performed By: #### L 500.4050, L100.0100 #### [facility] [address], [address] ALK P 78 U/L Normal 45-[address] [facility] Comment on above: Order Comment: Order Date: 04/10/24Order Info: [id number] - CMPOrder Info: [id number] - LIPIDOrder Info: [id number] - MGOrder Info: [id number] - TSHOrder Info: 3024-7 - T4F Performed By: #### L 500.4050, L100.0100 #### [facility] [address] [place], [address] ALT [Catalytic activity/Vol] 30 U/L Normal 13-[address] [facility] Comment on above: Order Comment: Order Date: 04/10/24Order Info: [id number] - CMPOrder Info: [id number] - LIPIDOrder Info: [id number] - MGOrder Info: [id number] - TSHOrder Info: 3024-7 - T4F Performed By: #### L 500.4050, L100.0100 #### [facility] [address] [place], [address] AST [Catalytic activity/Vol] 20 U/L Normal 15-[address] [facility] Comment on above: Order Comment: Order Date: 04/10/24Order Info: [id number] - CMPOrder Info: [id number] - LIPIDOrder Info: [id number] - MGOrder Info: [id number] - TSHOrder Info: 3024-7 - T4F Performed By: #### L 500.4050, L100.0100 #### [facility] [address] [place], [address] Bilirubin [Mass/Vol] 0.30 mg/dL Normal 0.20-1.00 [facility] Comment on above: Order Comment: Order Date: 04/10/24Order Info: [id number] - CMPOrder Info: [id number] - LIPIDOrder Info: [id number] - MGOrder Info: [id number] - TSHOrder Info: 3024-7 - T4F Result Comment: For patients on eltrombopag therapy, use of Dimension Luc[place] TBIL is not recommended. Performed By: #### L 500.4050, L100.0100 #### [facility] [address] [place], [address] BUN/CRE 21.3 RATIO High 10-[address] [facility] Comment on above: Order Comment: Order Date: 04/10/24Order Info: [id number] - CMPOrder Info: [id number] - LIPIDOrder Info: [id number] - MGOrder Info: [id number] - TSHOrder Info: 3024-7 - T4F Performed By: #### L 500.4050, L100.0100 #### [facility] [address] [place], [address] CA,Total 9.2 mg/dL Normal 8.5-10.[address] [facility] Comment on above: Order Comment: Order Date: 04/10/24Order Info: [id number] - CMPOrder Info: [id number] - LIPIDOrder Info: [id number] - MGOrder Info: [id number] - TSHOrder Info: 3024-7 - T4F Performed By: #### L 500.4050, L100.0100 #### [facility] [address] [place], [address] Chloride [Moles/Vol] 103 mmol/L Normal 98-107 [facility] Comment on above: Order Comment: Order Date: 04/10/24Order Info: [id number] - CMPOrder Info: [id number] - LIPIDOrder Info: [id number] - MGOrder Info: [id number] - TSHOrder Info: 3024-7 - T4F Performed By: #### L 500.4050, L100.0100 #### [facility] [address] [place], [address] CO2 [Moles/Vol] 25.0 mmol/L Normal 21.0-32.[address] [facility] Comment on above: Order Comment: Order Date: 04/10/24Order Info: [id number] - CMPOrder Info: [id number] - LIPIDOrder Info: [id number] - MGOrder Info: [id number] - TSHOrder Info: 3024-7 - T4F Performed By: #### L 500.4050, L100.0100 #### [facility] [address] [place], [address] Creatinine [Mass/Vol] 0.70 mg/dL Normal 0.55-1.02 [facility] Comment on above: Order Comment: Order Date: 04/10/24Order Info: 86-1 - CMPOrder Info: [id number] - LIPIDOrder Info: [id number] - MGOrder Info: 301-3 - TSHOrder Info: 3024-7 - T4F Result Comment: The validity of the calculated GFR GFRAA in patients over 70 years has not been determined. Clinical correlation is essential. Performed By: #### L 500.4050, L100.0100 #### [facility] [address] [place], [place], [address] EST GFR - AA 105 mL/min Normal >[address] [facility] Comment on above: Order Comment: Order Date: 04/10/24Order Info: 86-1 - CMPOrder Info: [id number] - LIPIDOrder Info: [id number] - MGOrder Info: [id number] - TSHOrder Info: 3024-7 - T4F Result Comment: Afri can [place] GFR Calc Performed By: #### L 500.4050, L100.0100 #### [facility] [address] [place], [address] GAP 9 Normal 5-[address] [facility] Comment on above: Order Comment: Order Date: 04/10/24Order Info: [id number] - CMPOrder Info: [id number] - LIPIDOrder Info: [id number] - MGOrder Info: [id number] - TSHOrder Info: 3024-7 - T4F Performed By: #### L 500.4050, L100.0100 #### [facility] [address] [place], [address] GFR/1.73 sq M.predicted among non-blacks MDRD (S/P/Bld) [Vol rate/Area] 87 mL/min/{1.73_m2} Normal >[address] [facility] Comment on above: Order Comment: Order Date: 04/10/24Order Info: [id number] - CMPOrder Info: [id number] - LIPIDOrder Info: [id number] - MGOrder Info: [id number] - TSHOrder Info: 3024-7 - T4F Result Comment: Non- GFR Calc Performed By: #### L 500.4050, L100.0100 #### [facility] [address] [place], [address] Globulin (S) [Mass/Vol] 4.1 g/dL Normal 2.2-4.[address] [facility] Comment on above: Order Comment: Order Date: 04/10/24Order Info: [id number] - CMPOrder Info: [id number] - LIPIDOrder Info: [id number] - MGOrder Info: [id number] - TSHOrder Info: 3024-7 - T4F Performed By: #### L 500.4050, L100.0100 #### [facility] [address] [place], [address] Glucose [Mass/Vol] 109 mg/dL High 74-106 [facility] Comment on above: Order Comment: Order Date: 04/10/24Order Info: 86-1 - CMPOrder Info: [id number] - LIPIDOrder Info: [id number] - MGOrder Info: [id number] - TSHOrder Info: 3024-7 - T4F Result Comment: Fast ing Glucose result from 100 to 125 mg/dL suggests IMPAIRED HOMEOSTASIS per A.D.A. criteria. Performed By: #### L 500.4050, L100.0100 #### [facility] [address] [place], [address] Potassium [Moles/Vol] 3.9 mmol/L Normal 3.5-5.1 [facility] Comment on above: Order Comment: Order Date: 04/10/24Order Info: [id number] - CMPOrder Info: [id number] - LIPIDOrder Info: [id number] - MGOrder Info: [id number] - TSHOrder Info: 3024-7 - T4F Performed By: #### L 500.4050, L100.0100 #### [facility] [address] [place], [address] Sodium [Moles/Vol] 137 mmol/L Normal 136-145 [facility] Comment on above: Order Comment: Order Date: 04/10/24Order Info: [id number] - CMPOrder Info: [id number] - LIPIDOrder Info: [id number] - MGOrder Info: [id number] - TSHOrder Info: 3024-7 - T4F Performed By: #### L 500.4050, L100.0100 #### [facility] [address] [place], [address] T PROT 7.3 g/dL Normal 6.4-8.[address] [facility] Comment on above: Order Comment: Order Date: 04/10/24Order Info: 0786-1 - CMPOrder Info: [id number] - LIPIDOrder Info: [id number] - MGOrder Info: [id number] - TSHOrder Info: 3024-7 - T4F Performed By: #### L 500.4050, L100.0100 #### [facility] [address] [place], [address] Urea nitrogen [Mass/Vol] 15 mg/dL Normal 7-[address] [facility] Comment on above: Order Comment: Order Date: 04/10/24Order Info: [id number] - CMPOrder Info: [id number] - LIPIDOrder Info: [id number] - MGOrder Info: [id number] - TSHOrder Info: 3024-7 - T4F Performed By: #### L 500.4050, L100.0100 #### [facility] [address] [place], [address] Hemoglobin A1con 05-01-2024 HbA1c (Bld) [Mass fraction] 6.0 % High 3.8-5.[address] [facility] Comment on above: Order Comment: PLEAS E ADD A1C Result Comment: Norm al < 5.7 % Prediabetic 5.7 - 6.4 % Diabetic >or= 6.5 % Please note range changes. Performed By: #### L 500.4050, L100.0100 #### [facility] [address] [place], [address] Lipid Profileon 05-01-2024 Cholesterol [Mass/Vol] 144 mg/dL Normal 200 [facility] Comment on above: Order Comment: Order Date: 04/10/24Order Info: [id number] - CMPOrder Info: [id number] - LIPIDOrder Info: [id number] - MGOrder Info: [id number] - TSHOrder Info: 3024-7 - T4F Result Comment: <200 mg/dL Desirable 200-240 mg/dL Borderline >240 mg/dL High Risk Performed By: #### L 500.4050, L100.0100 #### [facility] [address] [place], [address] Cholesterol in HDL [Mass/Vol] 64 mg/dL Normal [facility] Comment on above: Order Comment: Order Date: 04/10/24Order Info: [id number] - CMPOrder Info: [id number] - LIPIDOrder Info: [id number] - MGOrder Info: [id number] - TSHOrder Info: 3024-7 - T4F Result Comment: The drugs N-Acetylcysteine and Metamizole may falsely depress this assay. Reference Range HDL <40 mg/dL Low HDL Cholesterol HDL >or= 60 mg/dL High HDL Cholesterol Performed By: #### L 500.4050, L100.0100 #### [facility] [address] [place], [address] Cholesterol in LDL [Mass/Vol] 53 mg/dL Normal 0-[address] [facility] Comment on above: Order Comment: Order Date: 04/10/24Order Info: [id number] - CMPOrder Info: [id number] - LIPIDOrder Info: [id number] - MGOrder Info: [id number] - TSHOrder Info: 3024-7 - T4F Performed By: #### L 500.4050, L100.0100 #### [facility] [address] [place], [address] Cholesterol in VLDL [Mass/Vol] 27 mg/dL Normal 5-[address] [facility] Comment on above: Order Comment: Order Date: 04/10/24Order Info: [id number] - CMPOrder Info: [id number] - LIPIDOrder Info: [id number] - MGOrder Info: [id number] - TSHOrder Info: 3024-7 - T4F Performed By: #### L 500.4050, L100.0100 #### [facility] [address] [place], [address] Triglyceride [Mass/Vol] 133 mg/dL Normal [facility] Comment on above: Order Comment: Order Date: 04/10/24Order Info: 785-1 - CMPOrder Info: [id number] - LIPIDOrder Info: [id number] - MGOrder Info: 63 - TSHOrder Info: 3024-7 - T4F Result Comment: The drugs N-Acetylcysteine and Metamizole may falsely depress this assay. Serum Triglycerides Reference Interval Normal <150 mg/dL Borderline high 150 - 199 mg/dL High 200 - 499 mg/dL Very High > or = 500 mg/dL Performed By: #### L 500.4050, L100.0100 #### [facility] [address] [place], [address] Magnesiumon 05-01-2024 Magnesium [Mass/Vol] 1.8 mg/dL Normal 1.6-2.6 [facility] Comment on above: Order Comment: Order Date: 04/10/24Order Info: 785-1 - CMPOrder Info: [id number] - LIPIDOrder Info: [id number] - MGOrder Info: 6-3 - TSHOrder Info: 3024-7 - T4F Performed By: #### L 500.4050, L100.0100 #### [facility] [address] [place], [address] T4 Free Directon 05-01-2024 T4 FREE DIRECT 1.11 ng/dL Normal 0.76-1.[address] [facility] Comment on above: Order Comment: Order Date: 04/10/24Order Info: 785-1 - CMPOrder Info: [id number] - LIPIDOrder Info: [id number] - MGOrder Info: 3 - TSHOrder Info: [id number] - T4F Performed By: #### L 500.4050, L100.0100 #### [facility] [address] [place], [address] Thyroid Stim Hormone (TSH)on 05-01-2024 TSH 0.490 uIU/mL Normal 0.358-3.[address] [facility] Comment on above: Order Comment: Order Date: 04/10/24Order Info: 07-1 - CMPOrder Info: [id number] - LIPIDOrder Info: - MGOrder Info: [id number] - TSHOrder Info: [id number] - T4F Performed By: #### L 500.4050, L100.0100 #### [facility] [address] [place], [address] Vitamin D,25 Hydroxyon 05-01 Vitamin D 25-OH 44.1 ng/mL Normal [facility] Comment on above: Order Comment: Order Date: 04/10/24Order Info: [id number] - VITD25 Result Comment: Viky min D 25(OH) Status Range Deficiency <20 ng/mL (50nmol/L) Insufficiency 20 - 30 ng/mL (50 - 75 nmol/L) Sufficiency 30 - 100 ng/mL (75 - 250 nmol/L) Toxicity >100 ng/mL (>250 nmol/L) Performed By: #### L 500.4050, L100.0100 #### [facility] [address] [place], [address] CBC W/Diff, Automatedon 03-14 Absolute Lymph 2.03 X10 3/uL Normal 0.83-4.[address] [facility] Comment on above: Performed By: #### L 500.4050, L100.0100 #### [facility] [address] [place], [address] Absolute Neut 4.4 X10 3/uL Normal 2.0-7.[address] [facility] Comment on above: Performed By: #### L 500.4050, L100.0100 #### [facility] [address] [place], [address] Basophils/100 WBC (Bld) 1.1 % High 0-[address] [facility] Comment on above: Performed By: #### L 500.4050, L100.0100 #### [facility] [address] [place], [address] Eosinophils/100 WBC (Bld) 4.0 % Normal 0-[address] [facility] Comment on above: Performed By: #### L 500.4050, L100.0100 #### [facility] [address] [place], [address] Erythrocyte distribution width (RBC) [Ratio] 13.9 % Normal 11.6-14.[address] [facility] Comment on above: Performed By: #### L 500.4050, L100.0100 #### [facility] [address] [place], [address] Hematocrit (Bld) [Volume fraction] 39.9 % Normal 37-[address] [facility] Comment on above: Performed By: #### L 500.4050, L100.0100 #### [facility] [address] [place], [address] Hemoglobin (Bld) [Mass/Vol] 13.0 g/dL Normal 12.0-15.[address] [facility] Comment on above: Performed By: #### L 500.4050, L100.0100 #### [facility] [address] [place], [address] IG% 0.300 Normal 0.0-0.[address] [facility] Comment on above: Result Comment: IG% - Immature Granulocytes (promyelocytes, myelocytes and metamyelocytes) > 1% indicates that a LEFT SHIFT is Present. Performed By: #### L 500.4050, L100.0100 #### [facility] [address] [place], [address] Lymphocytes/100 WBC (Bld) 27.3 % Normal 19-[address] [facility] Comment on above: Performed By: #### L 500.4050, L100.0100 #### [facility] [address] [place], [address] MCH (RBC) [Entitic mass] 30.7 pg Normal 27.0-32.[address] [facility] Comment on above: Performed By: #### L 500.4050, L100.0100 #### [facility] [address] [place], [address] MCHC (RBC) [Mass/Vol] 32.6 g/dL Normal 32-36 [facility] Comment on above: Performed By: #### L 500.4050, L100.0100 #### [facility] [address] [place], [address] MCV (RBC) [Entitic vol] 94.1 fL Normal 81-99 [facility] Comment on above: Performed By: #### L 500.4050, L100.0100 #### [facility] [address] [place], [address] Monocytes/100 WBC (Bld) 8.5 % Normal 0-10 [facility] Comment on above: Performed By: #### L 500.4050, L100.0100 #### [facility] [address] [place], [address] Neutrophils/100 WBC (Bld) 58.8 % Normal 47-[address] [facility] Comment on above: Performed By: #### L 500.4050, L100.0100 #### [facility] [address] [place], [address] Nucleated RBC (Bld) [#/Vol] 0 10*3/uL Normal 0-[address] [facility] Comment on above: Performed By: #### L 500.4050, L100.0100 #### [facility] [address] [place], [address] Platelet mean volume (Bld) [Entitic vol] 9.7 fL Normal 6.2-12.[address] [facility] Comment on above: Performed By: #### L 500.4050, L100.0100 #### [facility] [address] [place], [address] Platelets (Bld) [#/Vol] 343 10*3/uL Normal 150-[address] [facility] Comment on above: Performed By: #### L 500.4050, L100.0100 #### [facility] [address] [place], [address] RBC (Bld) [#/Vol] 4.24 10*6/uL Normal 4.2-5.4 [facility] Comment on above: Performed By: #### L 500.4050, L100.0100 #### [facility] [address] [place], [address] RDW SD 47.7 fl High 35.1-43.[address] [facility] Comment on above: Performed By: #### L 500.4050, L100.0100 #### [facility] [address] [place], [address] WBC (Bld) [#/Vol] 7.4 10*3/uL Normal 4.4-11.0 [facility] Comment on above: Performed By: #### L 500.4050, L100.0100 #### [facility] [address] [place], [address] Comprehensive Metabolic Prof [facility] 04-04-2024 Albumin [Mass/Vol] 3.4 g/dL Normal 3.2-5.0 [facility] Comment on above: Performed By: #### L 500.4050, L100.0100 #### [facility] [address] [place], [address] Albumin/Globulin [Mass ratio] 0.9 {ratio} Normal 0.9-2.[address] [facility] Comment on above: Performed By: #### L 500.4050, L100.0100 #### [facility] [address] [place], [address] ALK P 80 U/L Normal 45-[address] [facility] Comment on above: Performed By: #### L 500.4050, L100.0100 #### [facility] [address] [place], [address] ALT [Catalytic activity/Vol] 29 U/L Normal 13-[address] [facility] Comment on above: Performed By: #### L 500.4050, L100.0100 #### [facility] [address] [place], [address] AST [Catalytic activity/Vol] 19 U/L Normal 15-[address] [facility] Comment on above: Performed By: #### L 500.4050, L100.0100 #### [facility] [address] [place], [address] BUN/CRE 19.3 RATIO Normal 10-[address] [facility] Comment on above: Performed By: #### L 500.4050, L100.0100 #### [facility] Laboratory [address] [place], [address] CA,Total 8.8 mg/dL Normal 8.5-10.[address] [facility] Comment on above: Performed By: #### L 500.4050, L100.0100 #### [facility] [address] [place], [address] Chloride [Moles/Vol] 99 mmol/L Normal 98-107 [facility] Comment on above: Performed By: #### L 500.4050, L100.0100 #### [facility] [address] [place], [address] CO2 [Moles/Vol] 31.0 mmol/L Normal 21.0-32.[address] [facility] Comment on above: Performed By: #### L 500.4050, L100.0100 #### [facility] [address] [place], [address] Creatinine [Mass/Vol] 0.67 mg/dL Normal 0.55-1.02 [facility] Comment on above: Result Comment: The validity of the calculated GFR GFRAA in patients over 70 years has not been determined. Clinical correlation is essential. Performed By: #### L 500.4050, L100.0100 #### [facility] [address] [place], [address] EST GFR - AA 111 mL/min Normal >[address] [facility] Comment on above: Result Comment: Afri can [place] GFR Calc Performed By: #### L 500.4050, L100.0100 #### [facility] [address] [place], [address] GAP 6 Normal 5-[address] [facility] Comment on above: Performed By: #### L 500.4050, L100.0100 #### [facility] [address] [place], [address] GFR/1.73 sq M.predicted among non-blacks MDRD (S/P/Bld) [Vol rate/Area] 92 mL/min/{1.73_m2} Normal >[address] [facility] Comment on above: Result Comment: Non- GFR Calc Performed By: #### L 500.4050, L100.0100 #### [facility] [address] [place], [address] Globulin (S) [Mass/Vol] 3.9 g/dL Normal 2.2-4.[address] [facility] Comment on above: Performed By: #### L 500.4050, L100.0100 #### [facility] [address] [place], [address] Glucose [Mass/Vol] 110 mg/dL High 74-106 [facility] Comment on above: Result Comment: Fast ing Glucose result from 100 to 125 mg/dL suggests IMPAIRED HOMEOSTASIS per A.D.A. criteria. Performed By: #### L 500.4050, L100.0100 #### [facility] [address] [place], [address] Potassium [Moles/Vol] 3.5 mmol/L Normal 3.5-5.1 [facility] Comment on above: Performed By: #### L 500.4050, L100.0100 #### [facility] [address] [place], [address] Sodium [Moles/Vol] 136 mmol/L Normal 136-145 [facility] Comment on above: Performed By: #### L 500.4050, L100.0100 #### [facility] [address] [place], [address] T BILI < 0.10 Low 0.20-1.[address] [facility] Comment on above: Result Comment: For patients on eltrombopag therapy, use of Dimension [place] TBIL is not recommended. Performed By: #### L 500.4050, L100.0100 #### [facility] [address] [place], [address] T PROT 7.3 g/dL Normal 6.4-8.[address] [facility] Comment on above: Performed By: #### L 500.4050, L100.0100 #### [facility] [address] [place], [address] Urea nitrogen [Mass/Vol] 13 mg/dL Normal 7-[address] [facility] Comment on above: Performed By: #### L 500.4050, L100.0100 #### [facility] [address] [place], [address] .GFRon 02-01-2024 GFR Non- 86 ml/min/1.73sqm Normal [facility] ([place]) Comment on above: Result Comment: GFR Population mean for , Non- Americans Ages 20-29 = 116 mL/min/1.73 sq.m. Ages 30-39 = 107 mL/min/1.73 sq.m. Ages 40-49 = 99 mL/min/1.73 sq.m. Ages 50-59 = 93 mL/min/1.73 sq.m. Ages 60-69 = 85 mL/min/1.73 sq.m. Ages 70+ = 75 mL/min/1.73 sq.m. Chronic Kidney Disease: Less than 60 mL/min/1.73 square meters End Stage Renal Disease: Less than 15 mL/min/1.73 square meters Performed By: #### L IPID, DLDL, ALT, BMP, FT4, VIDH, GFR, TSH, A1C, AST #### Jm [address] [address] GFR 104 ml/min/1.73sqm Normal [facility] ([place]) Comment on above: Result Comment: GFR Population mean for , Non- Americans Ages 20-29 = 116 mL/min/1.73 sq.m. Ages 30-39 = 107 mL/min/1.73 sq.m. Ages 40-49 = 99 mL/min/1.73 sq.m. Ages 50-59 = 93 mL/min/1.73 sq.m. Ages 60-69 = 85 mL/min/1.73 sq.m. Ages 70+ = 75 mL/min/1.73 sq.m. Chronic Kidney Disease: Less than 60 mL/min/1.73 square meters End Stage Renal Disease: Less than 15 mL/min/1.73 square meters Performed By: #### L IPID, DLDL, ALT, BMP, FT4, VIDH, GFR, TSH, A1C, AST #### [address] [address] A1Con 02-01-2024 HbA1c (Bld) [Mass fraction] 6.0 % Normal 4.3-6.4 [facility] ([place]) Comment on above: Performed By: #### L IPID, DLDL, ALT, BMP, FT4, VIDH, GFR, TSH, A1C, AST #### [address] [address] ALT/SGPTon 02-01-2024 ALT [Catalytic activity/Vol] 32 U/L Normal 14-59 [facility] ([place]) Comment on above: Performed By: #### L IPID, DLDL, ALT, BMP, FT4, VIDH, GFR, TSH, A1C, AST #### [address] [address] Josselin 02-01-2024 AST [Catalytic activity/Vol] 18 U/L Normal 10-40 [facility] ([place]) Comment on above: Performed By: #### L IPID, DLDL, ALT, BMP, FT4, VIDH, GFR, TSH, A1C, AST #### [address] [address] BMPon 02-01-2024 BUN/Creatinine Ratio 19 ratio Normal 7-27 [facility] ([place]) Comment on above: Performed By: #### L IPID, DLDL, ALT, BMP, FT4, VIDH, GFR, TSH, A1C, AST #### [address] [address] Calcium [Mass/Vol] 8.7 mg/dL Normal 8.4-10.2 [facility] ([place]) Comment on above: Performed By: #### L IPID, DLDL, ALT, BMP, FT4, VIDH, GFR, TSH, A1C, AST #### [address] [address] Chloride [Moles/Vol] 100 mmol/L Normal 98-107 [facility] ([place]) Comment on above: Performed By: #### L IPID, DLDL, ALT, BMP, FT4, VIDH, GFR, TSH, A1C, AST #### [address] [address] CO2 [Moles/Vol] 30 mmol/L Normal 23-31 [facility] ([place]) Comment on above: Performed By: #### L IPID, DLDL, ALT, BMP, FT4, VIDH, GFR, TSH, A1C, AST #### [address] [address] Creatinine [Mass/Vol] 0.68 mg/dL Normal 0.55-1.02 [facility] ([place]) Comment on above: Performed By: #### L IPID, DLDL, ALT, BMP, FT4, VIDH, GFR, TSH, A1C, AST #### [address] [address] Electrolyte Balance 7.0 mEq/L Normal 4.0-15.0 [facility] ([place]) Comment on above: Performed By: #### L IPID, DLDL, ALT, BMP, FT4, VIDH, GFR, TSH, A1C, AST #### [address] [address] Glucose [Mass/Vol] 110 mg/dL Normal 83-110 [facility] ([place]) Comment on above: Performed By: #### L IPID, DLDL, ALT, BMP, FT4, VIDH, GFR, TSH, A1C, AST #### [address] [address] Potassium [Moles/Vol] 3.9 mmol/L Normal 3.5-5.1 [facility] ([place]) Comment on above: Performed By: #### L IPID, DLDL, ALT, BMP, FT4, VIDH, GFR, TSH, A1C, AST #### [address] [address] Sodium [Moles/Vol] 137 mmol/L Normal 136-145 [facility] ([place]) Comment on above: Performed By: #### L IPID, DLDL, ALT, BMP, FT4, VIDH, GFR, TSH, A1C, AST #### [address] [address] Urea nitrogen [Mass/Vol] 13 mg/dL Normal 7-18 [facility] ([place]) Comment on above: Performed By: #### L IPID, DLDL, ALT, BMP, FT4, VIDH, GFR, TSH, A1C, AST #### [address] [address] DLDLon 02-01-2024 Direct LDL Cholesterol 68 mg/dL Normal 0-99 [facility] ([place]) Comment on above: Result Comment: Dire ct LDL Cholesterol Reference Interval: Optimal: <100 mg/dL Near Optimal/above optimal: 100-129 mg/dL Borderline high: 130-159 mg/dL High: 160-189 mg/dL Very high: >=190 mg/dL Performed By: #### L IPID, DLDL, ALT, BMP, FT4, VIDH, GFR, TSH, A1C, AST #### [place] [id number] FT4on 02-01-2024 Free T4 [Mass/Vol] 1.04 ng/dL Normal 0.76-1.46 [facility] ([place]) Comment on above: Performed By: #### L IPID, DLDL, ALT, BMP, FT4, VIDH, GFR, TSH, A1C, AST #### [place] [id number] LABORATORYOrdered By: SYSTEM SYSTEM on 02-01-2024 25-hydroxyvitamin D3 [Mass/Vol] 36.5 ng/mL Invalid Interpretation Code AO ADM SS Comment on above: Interpretive Data: I nterpretive Values Based on Total 25(OH) Vitamin D: Deficient <20 ng/mL Insufficient 20 - <30 ng/mL Sufficient 30-100 ng/mL ALT With P-5'-P [Catalytic activity/Vol] 32 U/L Normal 14 - 59 U/L AO ADM SS AST With P-5'-P [Catalytic activity/Vol] 18 U/L Normal 10 - 40 U/L AO ADM SS Calcium [Mass/Vol] 8.7 mg/dL Normal 8.4 - 10. 2 mg/dL AO ADM SS Chloride [Moles/Vol] 100 mmol/L Normal 98 - 10 7 mmol/L AO ADM SS CO2 [Moles/Vol] 30 mmol/L Normal 23 - 31 mmol/L AO ADM SS Creatinine [Mass/Vol] 0.68 mg/dL Normal 0.55 - 1.02 mg/dL AO ADM SS Electrolyte Balance 7.0 mEq/L Normal 4.0 - 15 .0 mEq/L AO ADM SS Free T4 [Mass/Vol] 1.04 ng/dL Normal 0.76 - 1. 46 ng/dL AO ADM SS GFR/1.73 sq M.predicted among blacks MDRD (S/P/Bld) [Vol rate/Area] 104 ml/min/1.73sqm Invalid Interpretation Code AO Chemistry S Comment on above: Interpretive Data: GFR Population mean for , Non- Americans Ages 20-29 = 116 mL/min/1.73 sq.m. Ages 30-39 = 107 mL/min/1.73 sq.m. Ages 40-49 = 99 mL/min/1.73 sq.m. Ages 50-59 = 93 mL/min/1.73 sq.m. Ages 60-69 = 85 mL/min/1.73 sq.m. Ages 70+ = 75 mL/min/1.73 sq.m. Chronic Kidney Disease: Less than 60 mL/min/1.73 square meters End Stage Renal Disease: Less than 15 mL/min/1.73 square meters GFR/1.73 sq M.predicted among non-blacks MDRD (S/P/Bld) [Vol rate/Area] 86 ml/min/1.73sqm Invalid Interpretation Code AO Chemistry S Comment on above: Interpretive Data: GFR Population mean for , Non- Americans Ages 20-29 = 116 mL/min/1.73 sq.m. Ages 30-39 = 107 mL/min/1.73 sq.m. Ages 40-49 = 99 mL/min/1.73 sq.m. Ages 50-59 = 93 mL/min/1.73 sq.m. Ages 60-69 = 85 mL/min/1.73 sq.m. Ages 70+ = 75 mL/min/1.73 sq.m. Chronic Kidney Disease: Less than 60 mL/min/1.73 square meters End Stage Renal Disease: Less than 15 mL/min/1.73 square meters Glucose [Mass/Vol] 110 mg/dL Normal 83 - 110 mg/dL AO ADM SS HbA1c (Bld) [Mass fraction] 6.0 % Normal 4.3 - 6.4 % AO ADM SS Potassium [Moles/Vol] 3.9 mmol/L Normal 3.5 - 5.1 mmol/L AO ADM SS Sodium [Moles/Vol] 137 mmol/L Normal 136 - 145 mmol/L AO ADM SS TSH Qn 1.72 m[IU]/L Normal 0.36 - 3.74 mcIU/mL AO ADM SS Urea nitrogen [Mass/Vol] 13 mg/dL Normal 7 - 18 mg/dL AO ADM SS Urea nitrogen/Creatinine [Mass ratio] 19 ratio Normal 7 - 27 ratio AO ADM SS LABORATORYOrdered By: Lyo Bejarano on 02-01-2024 Cholesterol [Mass/Vol] 160 mg/dL Normal 0 - 2 00 mg/dL AO ADM SS Comment on above: Interpretive Data: C holesterol Reference Interval: Less than 200 Desirable 200-239 Borderline high risk 240 and above High risk Cholesterol in HDL [Mass/Vol] 70 mg/dL High 40 - 60 mg/dL AO ADM SS Cholesterol in LDL [Mass/Vol] 65 mg/dL Normal 0 - 130 mg/dL AO ADM SS Cholesterol in LDL [Mass/Vol] 68 mg/dL Normal 0 - 99 mg/dL AO ADM SS Comment on above: Interpretive Data: D irect LDL Cholesterol Reference Interval: Optimal: <100 mg/dL Near Optimal/above optimal: 100-129 mg/dL Borderline high: 130-159 mg/dL High: 160-189 mg/dL Very high: >=190 mg/dL Triglyceride [Mass/Vol] 124 mg/dL Normal 0 - 150 mg/dL AO ADM SS Comment on above: Interpretive Data: T riglyceride Reference Interval: Less than 150 Normal 150-199 Borderline high risk 200-499 High risk 500 or higher Very high risk LIPIDon 02-01-2024 Cholesterol [Mass/Vol] 160 mg/dL Normal 0-200 [facility] ([place]) Comment on above: Result Comment: Chol esterol Reference Interval: Less than 200 Desirable 200-239 Borderline high risk 240 and above High risk Performed By: #### L IPID, DLDL, ALT, BMP, FT4, VIDH, GFR, TSH, A1C, AST #### [address] [address] Cholesterol in HDL [Mass/Vol] 70 mg/dL High 40-60 [facility] ([place]) Comment on above: Performed By: #### L IPID, DLDL, ALT, BMP, FT4, VIDH, GFR, TSH, A1C, AST #### [address] [address] Cholesterol in LDL [Mass/Vol] 65 mg/dL Normal 0-130 [facility] ([place]) Comment on above: Performed By: #### L IPID, DLDL, ALT, BMP, FT4, VIDH, GFR, TSH, A1C, AST #### [address] [address] Triglyceride [Mass/Vol] 124 mg/dL Normal 0-150 A [facility] ([place]) Comment on above: Result Comment: Trig lyceride Reference Interval: Less than 150 Normal 150-199 Borderline high risk 200-499 High risk 500 or higher Very high risk Performed By: #### L IPID, DLDL, ALT, BMP, FT4, VIDH, GFR, TSH, A1C, AST #### [address] [address] TSHon 02-01-2024 TSH Qn 1.72 m[IU]/L Normal 0.36-3.74 [facility] ([place]) Comment on above: Performed By: #### L IPID, DLDL, ALT, BMP, FT4, VIDH, GFR, TSH, A1C, AST #### [address] [address] VIDHon 02-01-2024 Vit. D 25-Hydroxy 36.5 ng/mL Normal [facility] ([place]) Comment on above: Result Comment: Inte rpretive Values Based on Total 25(OH) Vitamin D: Deficient <20 ng/mL Insufficient 20 - <30 ng/mL Sufficient 30-100 ng/mL Performed By: #### L IPID, DLDL, ALT, BMP, FT4, VIDH, GFR, TSH, A1C, AST #### [address] [address] HBCABon 01-27-2024 Hep B Core Total Ab Negative Normal Negative [facility] ([place]) Comment on above: Result Comment: Perf ormed At: [facility] [address] [id number] Stephanie Evans PhD Ph:[phone] Performed By: #### L IPID, DLDL, ALT, BMP, FT4, VIDH, GFR, TSH, A1C, AST #### [address] [address] HBSABon 01-26-2024 Hep B Surf Ab <3.1 Low >=10.0 [facility] ([place]) Comment on above: Order Comment: Spoke to zachary (chem) about adding this on. JT 01/26/24 920am Result Comment: 0 to < 10.0 mIU/mL Nonreactive Patient is considered not to have protective immunity to HBV infection >/= 10.0 mIU/mL Reactive Patient is considered to have protective immunity to HBV infection. This assay is traceable to the World Health Organization (WHO) Hepatitis B Immunoglobulin 1st International Reference Preparation (1976). The accepted criteria for immunity to HBV is anti-HBs activity >/= 10.0 mIU/mL, as defined by the WHO International Reference Preparation. Performed By: #### L IPID, DLDL, ALT, BMP, FT4, VIDH, GFR, TSH, A1C, AST #### [address] [address] XR KNEE 4 VIEWS LEFTon 01-25 XR KNEE 4 VIEWS LEFT ORIGINAL EXAMINATION: FOUR XRAY VIEWS OF THE LEFT KNEE 01/25/2024 3:56 pm COMPARISON: None. HISTORY: ORDERING SYSTEM PROVIDED HISTORY: Reason for Exam: inflammation FINDINGS: Moderate osteoarthritis is present at all compartments, with marginal spurring seen. A small amount of knee joint fluid is evident. There are some superficial venous varicosities identified at the lower thigh. No fracture or dislocation is identified. IMPRESSION: Moderate osteoarthritis, no acute abnormality. Interpreted by: Teodoro Dennis MD Preliminary Report By: Teodoro Dennis MD Electronically signed By Teodoro Dennis MD Dictated Date: 01/26/2024 8:47:14 AM Prelim Date: 01/26/2024 8:47:57 AM Sign Date: 01/26/2024 8:47:57 AM Ordering Provider: [facility] ([place]) XR KNEE 4 VIEWS RIGHTon 01-11 XR KNEE 4 VIEWS RIGHT ORIGINAL EXAMINATION: FOUR XRAY VIEWS OF THE RIGHT KNEE 01/25/2024 3:57 pm COMPARISON: None. HISTORY: ORDERING SYSTEM PROVIDED HISTORY: Reason for Exam: inflammation FINDINGS: Cqqk-zq-suvzsois osteoarthritis is identified, and this is greatest at the medial compartment. Marginal spurs are noted especially here. There is minimal enthesopathy at the quadriceps insertion. No fracture or dislocation is visible. IMPRESSION: Mdsu-us-wruenapy osteoarthritis, no acute finding. Interpreted by: Teodoro Dennis MD Preliminary Report By: Teodoro Dennis MD Electronically signed By Teodoro Dennis MD Dictated Date: 01/26/2024 8:48:05 AM Prelim Date: 01/26/2024 8:48:42 AM Sign Date: 01/26/2024 8:48:42 AM Ordering Provider: [facility] ([place]) .Auto Diffon 01-25-2024 Basophil, Absolute 0.1 10 3/mcL Normal 0.0-0.2 [facility] ([place]) Comment on above: Performed By: #### L IPID, DLDL, ALT, BMP, FT4, VIDH, GFR, TSH, A1C, AST #### [address] [address] Basophils/100 WBC (Bld) 0.9 % Normal 0.0-2.5 A [facility] ([place]) Comment on above: Performed By: #### L IPID, DLDL, ALT, BMP, FT4, VIDH, GFR, TSH, A1C, AST #### [place] [id number] [place], [place] [address] Eosinophil, Absolute 0.2 10 3/mcL Normal 0.0-0.4 [facility] ([place]) Comment on above: Performed By: #### L IPID, DLDL, ALT, BMP, FT4, VIDH, GFR, TSH, A1C, AST #### [address] [address] Eosinophils/100 WBC (Bld) 2.2 % Normal 0.0-7.0 [facility] ([place]) Comment on above: Performed By: #### L IPID, DLDL, ALT, BMP, FT4, VIDH, GFR, TSH, A1C, AST #### [address] [address] Lymphocyte, Absolute 2.2 10 3/mcL Normal 0.8-3.9 [facility] ([place]) Comment on above: Performed By: #### L IPID, DLDL, ALT, BMP, FT4, VIDH, GFR, TSH, A1C, AST #### [address] [address] Lymphocytes/100 WBC (Bld) 25.6 % Normal 10.0-50.0 [facility] ([place]) Comment on above: Performed By: #### L IPID, DLDL, ALT, BMP, FT4, VIDH, GFR, TSH, A1C, AST #### [address] [address] Monocyte, Absolute 0.7 10 3/mcL Normal 0.2-1.0 [facility] ([place]) Comment on above: Performed By: #### L IPID, DLDL, ALT, BMP, FT4, VIDH, GFR, TSH, A1C, AST #### [address] [address] Monocytes/100 WBC (Bld) 7.6 % Normal 1.7-13.0 [facility] ([place]) Comment on above: Performed By: #### L IPID, DLDL, ALT, BMP, FT4, VIDH, GFR, TSH, A1C, AST #### [address] [address] Neutrophils/100 WBC (Bld) 63.7 % Normal 37.0-80.0 [facility] ([place]) Comment on above: Performed By: #### L IPID, DLDL, ALT, BMP, FT4, VIDH, GFR, TSH, A1C, AST #### [address] [address] .GFRon 01-25-2024 GFR 104 ml/min/1.73sqm Normal [facility] ([place]) Comment on above: Result Comment: GFR Population mean for , Non- Americans Ages 20-29 = 116 mL/min/1.73 sq.m. Ages 30-39 = 107 mL/min/1.73 sq.m. Ages 40-49 = 99 mL/min/1.73 sq.m. Ages 50-59 = 93 mL/min/1.73 sq.m. Ages 60-69 = 85 mL/min/1.73 sq.m. Ages 70+ = 75 mL/min/1.73 sq.m. Chronic Kidney Disease: Less than 60 mL/min/1.73 square meters End Stage Renal Disease: Less than 15 mL/min/1.73 square meters Performed By: #### L IPID, DLDL, ALT, BMP, FT4, VIDH, GFR, TSH, A1C, AST #### [address] [address] GFR Non- 86 ml/min/1.73sqm Normal [facility] ([place]) Comment on above: Result Comment: GFR Population mean for , Non- Americans Ages 20-29 = 116 mL/min/1.73 sq.m. Ages 30-39 = 107 mL/min/1.73 sq.m. Ages 40-49 = 99 mL/min/1.73 sq.m. Ages 50-59 = 93 mL/min/1.73 sq.m. Ages 60-69 = 85 mL/min/1.73 sq.m. Ages 70+ = 75 mL/min/1.73 sq.m. Chronic Kidney Disease: Less than 60 mL/min/1.73 square meters End Stage Renal Disease: Less than 15 mL/min/1.73 square meters Performed By: #### L IPID, DLDL, ALT, BMP, FT4, VIDH, GFR, TSH, A1C, AST #### [address] [address] .NEUABSon 01-25-2024 Neutrophil, Absolute 5.4 10 3/mcL Normal 2.9-6.2 [facility] ([place]) Comment on above: Performed By: #### L IPID, DLDL, ALT, BMP, FT4, VIDH, GFR, TSH, A1C, AST #### [place] [address] CBCon 01-25-2024 Erythrocyte distribution width (RBC) [Ratio] 14.3 % Normal 11.5-14.5 [facility] ([place]) Comment on above: Performed By: #### L IPID, DLDL, ALT, BMP, FT4, VIDH, GFR, TSH, A1C, AST #### [place] [address] Hematocrit (Bld) [Volume fraction] 41.5 % Normal 37.0-47.0 [facility] ([place]) Comment on above: Performed By: #### L IPID, DLDL, ALT, BMP, FT4, VIDH, GFR, TSH, A1C, AST #### [place] [address] Hgb 13.8 G/dL Normal 12.0-16.0 [facility] ([place]) Comment on above: Performed By: #### L IPID, DLDL, ALT, BMP, FT4, VIDH, GFR, TSH, A1C, AST #### [place] [address] MCH (RBC) [Entitic mass] 30.8 pg Normal 27.0-31.2 [facility] ([place]) Comment on above: Performed By: #### L IPID, DLDL, ALT, BMP, FT4, VIDH, GFR, TSH, A1C, AST #### [place] [address] MCHC 33.3 G/dL Normal 33.0-37.0 [facility] ([place]) Comment on above: Performed By: #### L IPID, DLDL, ALT, BMP, FT4, VIDH, GFR, TSH, A1C, AST #### [address] [address] MCV (RBC) [Entitic vol] 92.8 fL Normal 80.0-94.0 A [facility] ([place]) Comment on above: Performed By: #### L IPID, DLDL, ALT, BMP, FT4, VIDH, GFR, TSH, A1C, AST #### [address] [address] Platelet 387 10 3/mcL Normal 130-400 [facility] ([place]) Comment on above: Performed By: #### L IPID, DLDL, ALT, BMP, FT4, VIDH, GFR, TSH, A1C, AST #### [address] [address] Platelet mean volume (Bld) [Entitic vol] 7.8 fL Normal 7.4-10.4 [facility] ([place]) Comment on above: Performed By: #### L IPID, DLDL, ALT, BMP, FT4, VIDH, GFR, TSH, A1C, AST #### [address] [address] RBC 4.47 10 6/mcL Normal 4.20-5.40 [facility] ([place]) Comment on above: Performed By: #### L IPID, DLDL, ALT, BMP, FT4, VIDH, GFR, TSH, A1C, AST #### [place] [id number] WBC 8.5 10 3/mcL Normal 4.6-10.8 [facility] ([place]) Comment on above: Performed By: #### L IPID, DLDL, ALT, BMP, FT4, VIDH, GFR, TSH, A1C, AST #### [address] [address] CMPon 01-25-2024 Albumin Level 3.8 G/dL Normal 3.4-4.8 [facility] ([place]) Comment on above: Performed By: #### L IPID, DLDL, ALT, BMP, FT4, VIDH, GFR, TSH, A1C, AST #### [place] [address] Albumin/Globulin [Mass ratio] 1.0 {ratio} Low 1.1-2.5 [facility] ([place]) Comment on above: Performed By: #### L IPID, DLDL, ALT, BMP, FT4, VIDH, GFR, TSH, A1C, AST #### [address] [address] ALP [Catalytic activity/Vol] 78 U/L Normal 40-135 [facility] ([place]) Comment on above: Performed By: #### L IPID, DLDL, ALT, BMP, FT4, VIDH, GFR, TSH, A1C, AST #### [place] [address] ALT [Catalytic activity/Vol] 30 U/L Normal 14-59 [facility] ([place]) Comment on above: Performed By: #### L IPID, DLDL, ALT, BMP, FT4, VIDH, GFR, TSH, A1C, AST #### [place] [address] AST [Catalytic activity/Vol] 18 U/L Normal 10-40 [facility] ([place]) Comment on above: Performed By: #### L IPID, DLDL, ALT, BMP, FT4, VIDH, GFR, TSH, A1C, AST #### [place] [id number] Bili Total 0.3 mg/dL Normal 0.2-1.0 [facility] ([place]) Comment on above: Result Comment: Use of this assay is not recommended for patients undergoing treatment with eltrombopag due to the potential for falsely elevated results. Performed By: #### L IPID, DLDL, ALT, BMP, FT4, VIDH, GFR, TSH, A1C, AST #### [place] [address] BUN/Creatinine Ratio 19 ratio Normal 7-27 [facility] ([place]) Comment on above: Performed By: #### L IPID, DLDL, ALT, BMP, FT4, VIDH, GFR, TSH, A1C, AST #### [address] [address] Calcium [Mass/Vol] 9.2 mg/dL Normal 8.4-10.2 [facility] ([place]) Comment on above: Performed By: #### L IPID, DLDL, ALT, BMP, FT4, VIDH, GFR, TSH, A1C, AST #### [place] [address] Chloride [Moles/Vol] 98 mmol/L Normal 98-107 [facility] ([place]) Comment on above: Performed By: #### L IPID, DLDL, ALT, BMP, FT4, VIDH, GFR, TSH, A1C, AST #### [place] [address] CO2 [Moles/Vol] 28 mmol/L Normal 23-31 [facility] ([place]) Comment on above: Performed By: #### L IPID, DLDL, ALT, BMP, FT4, VIDH, GFR, TSH, A1C, AST #### [address] [address] Creatinine [Mass/Vol] 0.68 mg/dL Normal 0.55-1.02 Formerly [facility] ([place]) Comment on above: Performed By: #### L IPID, DLDL, ALT, BMP, FT4, VIDH, GFR, TSH, A1C, AST #### [place] [id number] Electrolyte Balance 9.0 mEq/L Normal 4.0-15.0 formerly [facility] ([place]) Comment on above: Performed By: #### L IPID, DLDL, ALT, BMP, FT4, VIDH, GFR, TSH, A1C, AST #### [place] [address] Globulin 3.8 G/dL Normal Formerly [facility] ([place]) Comment on above: Performed By: #### L IPID, DLDL, ALT, BMP, FT4, VIDH, GFR, TSH, A1C, AST #### [place] [address] Glucose [Mass/Vol] 92 mg/dL Normal 83-110 [facility] ([place]) Comment on above: Performed By: #### L IPID, DLDL, ALT, BMP, FT4, VIDH, GFR, TSH, A1C, AST #### [address] [address] Potassium [Moles/Vol] 3.8 mmol/L Normal 3.5-5.1 [facility] ([place]) Comment on above: Performed By: #### L IPID, DLDL, ALT, BMP, FT4, VIDH, GFR, TSH, A1C, AST #### [address] [address] Sodium [Moles/Vol] 135 mmol/L Low 136-145 [facility] ([place]) Comment on above: Performed By: #### L IPID, DLDL, ALT, BMP, FT4, VIDH, GFR, TSH, A1C, AST #### [address] [address] Total Protein 7.6 G/dL Normal 6.4-8.2 [facility] ([place]) Comment on above: Performed By: #### L IPID, DLDL, ALT, BMP, FT4, VIDH, GFR, TSH, A1C, AST #### [address] [address] Urea nitrogen [Mass/Vol] 13 mg/dL Normal 7-18 [facility] ([place]) Comment on above: Performed By: #### L IPID, DLDL, ALT, BMP, FT4, VIDH, GFR, TSH, A1C, AST #### [address] [address] CRPon 01-25-2024 C-Reactive Protein 0.2 mg/dL Normal 0.0-0.3 [facility] ([place]) Comment on above: Performed By: #### L IPID, DLDL, ALT, BMP, FT4, VIDH, GFR, TSH, A1C, AST #### [address] [address] ESRon 01-25-2024 Erythrocyte Sed Rate 41 mm/hr High 0-30 [facility] ([place]) Comment on above: Performed By: #### L IPID, DLDL, ALT, BMP, FT4, VIDH, GFR, TSH, A1C, AST #### [address] [address] HBSAGon 01-25-2024 Hep B Surf Ag Non-Reactive Normal Non-Reactiv e [facility] ([place]) Comment on above: Performed By: #### L IPID, DLDL, ALT, BMP, FT4, VIDH, GFR, TSH, A1C, AST #### [place] [address] HCVon 01-25-2024 Hep C Ab Non-Reactive Normal Non-Reactiv [facility] ([place]) Comment on above: Performed By: #### L IPID, DLDL, ALT, BMP, FT4, VIDH, GFR, TSH, A1C, AST #### [place] [address] Hep C Ab Int Normal [facility] ([place]) Comment on above: Result Comment: Nonr eactive: Samples with a value < 0.80 are considered nonreactive (negative) for antibodies to HCV. A negative test result does not exclude the possibility of exposure to or infection with HCV. HCV antibodies may be undetectable in some stages of the infection and in some clinical conditions. See Interp Performed By: #### L IPID, DLDL, ALT, BMP, FT4, VIDH, GFR, TSH, A1C, AST #### [place] [address] LABORATORYOrdered By: Huy long on 01-25-2024 Appearance (U) Clear (01/25/24 3:26 PM) Normal Clear AO Auto Urine SS Bilirubin Ql (U) Negative (01/25/24 3:26 PM) Normal Negative AO Auto Urine SS Color (U) Yellow (01/25/24 3:26 PM) Normal AO Auto Urine SS Glucose Test strip (U) [Mass/Vol] Negative Normal Negative AO Auto Urine SS Hemoglobin Auto test strip (U) [Mass/Vol] Negative (01/25/24 3:26 PM) Normal Negative AO Auto Urine SS Ketones Ql (U) Negative Normal Negative AO Auto Urine SS UA Leuk Est Negative (01/25/24 3:26 PM) Normal Negative AO Auto Urine SS UA Nitrite Negative (01/25/24 3:26 PM) Normal Negative AO Auto Urine SS UA pH 7.0 (01/25/24 3:26 PM) Normal 5.0 - 8.0 AO Auto Urine SS UA Protein Negative Normal Negative AO Auto Urine SS UA Spec Grav 1.015 (01/25/24 3:26 PM) Normal 1.015-1.025 AO Auto Urine SS UA Specimen Type Clean Catch (01/25/24 3:26 PM) Normal AO Auto Urine SS UA Urobilinogen 0.2 E.U./dL Normal 0.2-1.0 AO Auto Urine SS LABORATORYOrdered By: Silvano Rogers on 01-25-2024 Creatinine (U) [Mass/Vol] 68.1 mg/dL Normal 28.0 - 117.0 mg/dL AO ADM SS Protein (U) [Mass/Vol] 10 mg/dL Normal 0 - 1 1 mg/dL AO ADM SS U Ratio Prot/Creat 0.1 ratio Invalid Interpretation Code AO ADM SS LABORATORYOrdered By: [employer] on 01-25-2024 Albumin BCP dye [Mass/Vol] 3.8 G/dL Normal 3.4 - 4.8 G/dL AO ADM SS Albumin/Globulin [Mass ratio] 1.0 {ratio} Low 1.1 - 2.5 ratio AO ADM SS ALP [Catalytic activity/Vol] 78 U/L Normal 40 - 135 U/L AO ADM SS ALT With P-5'-P [Catalytic activity/Vol] 30 U/L Normal 14 - 59 U/L AO ADM SS AST With P-5'-P [Catalytic activity/Vol] 18 U/L Normal 10 - 40 U/L AO ADM SS Basophil, Absolute 0.1 103/mcL Normal 0.0 - 0.2 10^3/mcL AO Workflow SS Basophils/100 WBC (Bld) 0.9 % Normal 0.0 - 2.5 % AO Workflow SS Bilirubin [Mass/Vol] 0.3 mg/dL Normal 0.2 - 1 .0 mg/dL AO ADM SS Comment on above: Interpretive Data: U se of this assay is not recommended for patients undergoing treatment with eltrombopag due to the potential for falsely elevated results. Calcium [Mass/Vol] 9.2 mg/dL Normal 8.4 - 10. 2 mg/dL AO ADM SS Chloride [Moles/Vol] 98 mmol/L Normal 98 - 10 7 mmol/L AO ADM SS CO2 [Moles/Vol] 28 mmol/L Normal 23 - 31 mmol/L AO ADM SS Creatinine [Mass/Vol] 0.68 mg/dL Normal 0.55 - 1.02 mg/dL AO ADM SS CRP [Mass/Vol] 0.2 mg/dL Normal 0.0 - 0.3 mg/dL AO ADM SS Electrolyte Balance 9.0 mEq/L Normal 4.0 - 15 .0 mEq/L AO ADM SS Eosinophil, Absolute 0.2 103/mcL Normal 0.0 - 0 .4 10^3/mcL AO Workflow SS Eosinophils/100 WBC (Bld) 2.2 % Normal 0.0 - 7.0 % AO Workflow SS Erythrocyte distribution width (RBC) [Ratio] 14.3 % Normal 11.5 - 14.5 % AO Workflow SS GFR/1.73 sq M.predicted among blacks MDRD (S/P/Bld) [Vol rate/Area] 104 ml/min/1.73sqm Invalid Interpretation Code AO Chemistry S Comment on above: Interpretive Data: GFR Population mean for , Non- Americans Ages 20-29 = 116 mL/min/1.73 sq.m. Ages 30-39 = 107 mL/min/1.73 sq.m. Ages 40-49 = 99 mL/min/1.73 sq.m. Ages 50-59 = 93 mL/min/1.73 sq.m. Ages 60-69 = 85 mL/min/1.73 sq.m. Ages 70+ = 75 mL/min/1.73 sq.m. Chronic Kidney Disease: Less than 60 mL/min/1.73 square meters End Stage Renal Disease: Less than 15 mL/min/1.73 square meters GFR/1.73 sq M.predicted among non-blacks MDRD (S/P/Bld) [Vol rate/Area] 86 ml/min/1.73sqm Invalid Interpretation Code AO Chemistry S Comment on above: Interpretive Data: GFR Population mean for , Non- Americans Ages 20-29 = 116 mL/min/1.73 sq.m. Ages 30-39 = 107 mL/min/1.73 sq.m. Ages 40-49 = 99 mL/min/1.73 sq.m. Ages 50-59 = 93 mL/min/1.73 sq.m. Ages 60-69 = 85 mL/min/1.73 sq.m. Ages 70+ = 75 mL/min/1.73 sq.m. Chronic Kidney Disease: Less than 60 mL/min/1.73 square meters End Stage Renal Disease: Less than 15 mL/min/1.73 square meters Globulin 3.8 G/dL Invalid Interpretation Code AO ADM SS Glucose [Mass/Vol] 92 mg/dL Normal 83 - 110 mg/dL AO ADM SS HBV surface Ag IA Ql Non-Reactive (01/25/24 3:12 PM) Normal Non-Reactiv e AH ADM SS Hematocrit (Bld) [Volume fraction] 41.5 % Normal 37.0 - 47.0 % AO Workflow SS Hemoglobin (Bld) [Mass/Vol] 13.8 G/dL Normal 12.0 - 16.0 G/dL AO Workflow SS Lymphocyte, Absolute 2.2 103/mcL Normal 0.8 - 3 .9 10^3/mcL AO Workflow SS Lymphocytes/100 WBC (Bld) 25.6 % Normal 10.0 - 50.0 % AO Workflow SS MCH (RBC) [Entitic mass] 30.8 pg Normal 27.0 - 31.2 pg AO Workflow SS MCHC 33.3 G/dL Normal 33.0 - 37.0 G/dL AO Workflow SS MCV (RBC) [Entitic vol] 92.8 fL Normal 80.0 - 94.0 fL AO Workflow SS Monocyte, Absolute 0.7 103/mcL Normal 0.2 - 1.0 10^3/mcL AO Workflow SS Monocytes/100 WBC (Bld) 7.6 % Normal 1.7 - 13.0 % AO Workflow SS Neutrophil, Absolute 5.4 103/mcL Normal 2.9 - 6 .2 10^3/mcL AO Workflow SS Neutrophils/100 WBC (Bld) 63.7 % Normal 37.0 - 80.0 % AO Workflow SS Platelet mean volume (Bld) [Entitic vol] 7.8 fL Normal 7.4 - 10.4 fL AO Workflow SS Platelets (Bld) [#/Vol] 387 103/mcL Normal 130 - 400 10^3/mcL AO Workflow SS Potassium [Moles/Vol] 3.8 mmol/L Normal 3.5 - 5.1 mmol/L AO ADM SS Protein [Mass/Vol] 7.6 G/dL Normal 6.4 - 8.2 G/dL AO ADM SS RBC (Bld) [#/Vol] 4.47 106/mcL Normal 4.20 - 5.4 0 10^6/mcL AO Workflow SS Sodium [Moles/Vol] 135 mmol/L Low 136 - 145 mmol/L AO ADM SS Urea nitrogen [Mass/Vol] 13 mg/dL Normal 7 - 18 mg/dL AO ADM SS Urea nitrogen/Creatinine [Mass ratio] 19 ratio Normal 7 - 27 ratio AO ADM SS WBC (Bld) [#/Vol] 8.5 103/mcL Normal 4.6 - 10.8 10^3/mcL AO Workflow SS LABORATORYOrdered By: Loy Bejarano on 01-25-2024 ESR Photometric method (Bld) [Velocity] 41 mm/hr High 0 - 30 mm/hr AO Man Heme SS LABORATORYOrdered By: Jean-Pierre Rojas on 01-25-2024 HCV Ab IA Ql Non-Reactive (01/25/24 3:12 PM) Normal Non-Reactiv e AH ADM SS HCV Ab IA Ql Nonreactive: Samples with a value < 0.80 are considered nonreactive (negative) for antibodies to HCV.A negative test result does not exclude the possibility of exposure to or infection with HCV. HCV antibodies may be undetectable in some stages of the infection and in some clinical conditions. Invalid Interpretation Code Chemistry S RPCURon 01-25-2024 U Creatinine 68.1 mg/dL Normal 28.0-117.0 [facility] ([place]) Comment on above: Performed By: #### L IPID, DLDL, ALT, BMP, FT4, VIDH, GFR, TSH, A1C, AST #### [place] [id number] [place], [place] [address] U Protein 10 mg/dL Normal 0-11 [facility] ([place]) Comment on above: Performed By: #### L IPID, DLDL, ALT, BMP, FT4, VIDH, GFR, TSH, A1C, AST #### [address] [address] U Ratio Prot/Creat 0.1 ratio Normal [facility] ([place]) Comment on above: Result Comment: resu lt calculated by rule GL_[id number]_PROT_[id number]_OLD (U Protein/U Creatinine) Performed By: #### L IPID, DLDL, ALT, BMP, FT4, VIDH, GFR, TSH, A1C, AST #### [address] [address] UAon 01-25-2024 Color (U) Yellow Normal [facility] ([place]) Comment on above: Performed By: #### L IPID, DLDL, ALT, BMP, FT4, VIDH, GFR, TSH, A1C, AST #### [place] [address] Glucose (U) [Mass/Vol] Negative Normal Negative [facility] ([place]) Comment on above: Performed By: #### L IPID, DLDL, ALT, BMP, FT4, VIDH, GFR, TSH, A1C, AST #### [address] [address] Ketones Ql (U) Negative Normal Negative [facility] ([place]) Comment on above: Performed By: #### L IPID, DLDL, ALT, BMP, FT4, VIDH, GFR, TSH, A1C, AST #### [address] [address] UA Appear Clear Normal Clear [facility] ([place]) Comment on above: Performed By: #### L IPID, DLDL, ALT, BMP, FT4, VIDH, GFR, TSH, A1C, AST #### [address] [address] UA Blood Negative Normal Negative [facility] ([place]) Comment on above: Performed By: #### L IPID, DLDL, ALT, BMP, FT4, VIDH, GFR, TSH, A1C, AST #### [address] [address] UA Leuk Est Negative Normal Negative [facility] ([place]) Comment on above: Performed By: #### L IPID, DLDL, ALT, BMP, FT4, VIDH, GFR, TSH, A1C, AST #### [place] [address] UA Nitrite Negative Normal Negative [facility] ([place]) Comment on above: Performed By: #### L IPID, DLDL, ALT, BMP, FT4, VIDH, GFR, TSH, A1C, AST #### [place] [address] UA pH 7.0 Normal 5.0 - 8.0 [facility] ([place]) Comment on above: Performed By: #### L IPID, DLDL, ALT, BMP, FT4, VIDH, GFR, TSH, A1C, AST #### [place] [address] UA Protein Negative Normal Negative [facility] ([place]) Comment on above: Performed By: #### L IPID, DLDL, ALT, BMP, FT4, VIDH, GFR, TSH, A1C, AST #### [place] [address] UA Spec Grav 1.015 Normal 1.015-1.025 [facility] ([place]) Comment on above: Performed By: #### L IPID, DLDL, ALT, BMP, FT4, VIDH, GFR, TSH, A1C, AST #### [place] [address] UA Specimen Type Clean Catch Normal [facility] ([place]) Comment on above: Performed By: #### L IPID, DLDL, ALT, BMP, FT4, VIDH, GFR, TSH, A1C, AST #### [place] [address] UA Urobilinogen 0.2 E.U./dL Normal 0.2-1.0 [facility] ([place]) Comment on above: Performed By: #### L IPID, DLDL, ALT, BMP, FT4, VIDH, GFR, TSH, A1C, AST #### [place] [address] Urobilinogen (U) [Mass/Vol] Negative Normal Negative [facility] ([place]) Comment on above: Performed By: #### L IPID, DLDL, ALT, BMP, FT4, VIDH, GFR, TSH, A1C, AST #### [address] [address] .ANATon 11-06-2023 JONAS Pattern 1 Homogeneous Normal [facility] ([place]) Comment on above: Result Comment: At A ultman, an JONAS titer of less than 160 is not considered suggestive of significant rheumatoid disease. If clinical suspicion is high, suggest repeat testing in 1-2 months. Performed By: #### L IPID, DLDL, ALT, BMP, FT4, VIDH, GFR, TSH, A1C, AST #### [address] [address] JONAS Titer 1 40 Normal [facility]) Comment on above: Performed By: #### L IPID, DLDL, ALT, BMP, FT4, VIDH, GFR, TSH, A1C, AST #### [address] [address] ANAon 11-05-2023 JONAS See Titer Normal Neg 40 [facility]) Comment on above: Result Comment: JONAS Screen and Titer methodology is an immunofluorescent technique utilizing Hep2 Substrate. Performed By: #### L IPID, DLDL, ALT, BMP, FT4, VIDH, GFR, TSH, A1C, AST #### [address] [address] RFon 11-04-2023 Rheumatoid Factor <6.0 Normal <=5.9 [facility] ([place]) Comment on above: Result Comment: RF I gM Antibody by Enzyme Immunoassay: Negative < or = 6 Positive > 6 A positive result indicates the presence of RF antibodies and suggests the possibility of rheumatoid arthritis. A negative result indicates no RF IgM antibody or levels below the negative cut-off of the assay. Results of this assay should be used in conjunction with clinical findings and other serological tests. These results were obtained with the [employer] QUANTA Lite RF IgM STIVEN. RF IgM values obtained with different manufacturers' assay methods may not be used interchangeably. The magnitude of the reported IgM levels cannot be correlated to an endpoint titer. Performed By: #### L IPID, DLDL, ALT, BMP, FT4, VIDH, GFR, TSH, A1C, AST #### [address] [address] B12on 11-03-2023 Cobalamin (Vitamin B12) [Mass/Vol] 957 pg/mL High 211-911 [facility] ([place]) Comment on above: Performed By: #### L IPID, DLDL, ALT, BMP, FT4, VIDH, GFR, TSH, A1C, AST #### [address] [address] .Auto Diffon 11-02-2023 Basophil, Absolute 0.1 10 3/mcL Normal 0.0-0.2 [facility] ([place]) Comment on above: Performed By: #### L IPID, DLDL, ALT, BMP, FT4, VIDH, GFR, TSH, A1C, AST #### [address] [address] Basophils/100 WBC (Bld) 0.8 % Normal 0.0-2.5 A [facility] ([place]) Comment on above: Performed By: #### L IPID, DLDL, ALT, BMP, FT4, VIDH, GFR, TSH, A1C, AST #### [address] [address] Eosinophil, Absolute 0.4 10 3/mcL Normal 0.0-0.4 [facility] ([place]) Comment on above: Performed By: #### L IPID, DLDL, ALT, BMP, FT4, VIDH, GFR, TSH, A1C, AST #### [address] [address] Eosinophils/100 WBC (Bld) 4.2 % Normal 0.0-7.0 [facility] ([place]) Comment on above: Performed By: #### L IPID, DLDL, ALT, BMP, FT4, VIDH, GFR, TSH, A1C, AST #### [address] [address] Lymphocyte, Absolute 2.3 10 3/mcL Normal 0.8-3.9 [facility] ([place]) Comment on above: Performed By: #### L IPID, DLDL, ALT, BMP, FT4, VIDH, GFR, TSH, A1C, AST #### [address] [address] Lymphocytes/100 WBC (Bld) 25.7 % Normal 10.0-50.0 [facility] ([place]) Comment on above: Performed By: #### L IPID, DLDL, ALT, BMP, FT4, VIDH, GFR, TSH, A1C, AST #### [address] [address] Monocyte, Absolute 0.7 10 3/mcL Normal 0.2-1.0 [facility] ([place]) Comment on above: Performed By: #### L IPID, DLDL, ALT, BMP, FT4, VIDH, GFR, TSH, A1C, AST #### [address] [address] Monocytes/100 WBC (Bld) 8.0 % Normal 1.7-13.0 A [facility] ([place]) Comment on above: Performed By: #### L IPID, DLDL, ALT, BMP, FT4, VIDH, GFR, TSH, A1C, AST #### [address] [address] Neutrophils/100 WBC (Bld) 61.3 % Normal 37.0-80.0 [facility] ([place]) Comment on above: Performed By: #### L IPID, DLDL, ALT, BMP, FT4, VIDH, GFR, TSH, A1C, AST #### [address] [address] .GFRon 11-02-2023 GFR 90 ml/min/1.73sqm Normal [facility] ([place]) Comment on above: Result Comment: GFR Population mean for , Non- Americans Ages 20-29 = 116 mL/min/1.73 sq.m. Ages 30-39 = 107 mL/min/1.73 sq.m. Ages 40-49 = 99 mL/min/1.73 sq.m. Ages 50-59 = 93 mL/min/1.73 sq.m. Ages 60-69 = 85 mL/min/1.73 sq.m. Ages 70+ = 75 mL/min/1.73 sq.m. Chronic Kidney Disease: Less than 60 mL/min/1.73 square meters End Stage Renal Disease: Less than 15 mL/min/1.73 square meters Performed By: #### L IPID, DLDL, ALT, BMP, FT4, VIDH, GFR, TSH, A1C, AST #### [address] [address] GFR Non- 74 ml/min/1.73sqm Normal [facility] ([place]) Comment on above: Result Comment: GFR Population mean for , Non- Americans Ages 20-29 = 116 mL/min/1.73 sq.m. Ages 30-39 = 107 mL/min/1.73 sq.m. Ages 40-49 = 99 mL/min/1.73 sq.m. Ages 50-59 = 93 mL/min/1.73 sq.m. Ages 60-69 = 85 mL/min/1.73 sq.m. Ages 70+ = 75 mL/min/1.73 sq.m. Chronic Kidney Disease: Less than 60 mL/min/1.73 square meters End Stage Renal Disease: Less than 15 mL/min/1.73 square meters Performed By: #### L IPID, DLDL, ALT, BMP, FT4, VIDH, GFR, TSH, A1C, AST #### [address] [address] .NEUABSon 11-02-2023 Neutrophil, Absolute 5.4 10 3/mcL Normal 2.9-6.2 [facility] ([place]) Comment on above: Performed By: #### L IPID, DLDL, ALT, BMP, FT4, VIDH, GFR, TSH, A1C, AST #### [address] [address] CBCon 11-02-2023 Erythrocyte distribution width (RBC) [Ratio] 13.9 % Normal 11.5-14.5 [facility] ([place]) Comment on above: Performed By: #### L IPID, DLDL, ALT, BMP, FT4, VIDH, GFR, TSH, A1C, AST #### [place] [address] Hematocrit (Bld) [Volume fraction] 42.3 % Normal 37.0-47.0 [facility] ([place]) Comment on above: Performed By: #### L IPID, DLDL, ALT, BMP, FT4, VIDH, GFR, TSH, A1C, AST #### [place] [address] Hgb 14.4 G/dL Normal 12.0-16.0 [facility] ([place]) Comment on above: Performed By: #### L IPID, DLDL, ALT, BMP, FT4, VIDH, GFR, TSH, A1C, AST #### [place] [address] MCH (RBC) [Entitic mass] 31.0 pg Normal 27.0-31.2 [facility] ([place]) Comment on above: Performed By: #### L IPID, DLDL, ALT, BMP, FT4, VIDH, GFR, TSH, A1C, AST #### [place] [address] MCHC 34.0 G/dL Normal 33.0-37.0 [facility] ([place]) Comment on above: Performed By: #### L IPID, DLDL, ALT, BMP, FT4, VIDH, GFR, TSH, A1C, AST #### [place] [address] MCV (RBC) [Entitic vol] 91.0 fL Normal 80.0-94.0 A [facility] ([place]) Comment on above: Performed By: #### L IPID, DLDL, ALT, BMP, FT4, VIDH, GFR, TSH, A1C, AST #### [place] [address] Platelet 360 10 3/mcL Normal 130-400 [facility] ([place]) Comment on above: Performed By: #### L IPID, DLDL, ALT, BMP, FT4, VIDH, GFR, TSH, A1C, AST #### [address] [address] Platelet mean volume (Bld) [Entitic vol] 8.0 fL Normal 7.4-10.4 [facility] ([place]) Comment on above: Performed By: #### L IPID, DLDL, ALT, BMP, FT4, VIDH, GFR, TSH, A1C, AST #### [address] [address] RBC 4.64 10 6/mcL Normal 4.20-5.40 [facility] ([place]) Comment on above: Performed By: #### L IPID, DLDL, ALT, BMP, FT4, VIDH, GFR, TSH, A1C, AST #### [address] [address] WBC 8.8 10 3/mcL Normal 4.6-10.8 [facility] ([place]) Comment on above: Performed By: #### L IPID, DLDL, ALT, BMP, FT4, VIDH, GFR, TSH, A1C, AST #### [address] [address] CKon 11-02-2023 CK [Catalytic activity/Vol] 74 U/L Normal 26-192 [facility] ([place]) Comment on above: Performed By: #### L IPID, DLDL, ALT, BMP, FT4, VIDH, GFR, TSH, A1C, AST #### [address] [address] CMPon 11-02-2023 Albumin Level 3.7 G/dL Normal 3.4-4.8 [facility]) Comment on above: Performed By: #### L IPID, DLDL, ALT, BMP, FT4, VIDH, GFR, TSH, A1C, AST #### [address] [address] Albumin/Globulin [Mass ratio] 0.9 {ratio} Low 1.1-2.5 [facility] ([place]) Comment on above: Performed By: #### L IPID, DLDL, ALT, BMP, FT4, VIDH, GFR, TSH, A1C, AST #### [address] [address] ALP [Catalytic activity/Vol] 81 U/L Normal 40-135 [facility] ([place]) Comment on above: Performed By: #### L IPID, DLDL, ALT, BMP, FT4, VIDH, GFR, TSH, A1C, AST #### [address] [address] ALT [Catalytic activity/Vol] 33 U/L Normal 14-59 [facility] ([place]) Comment on above: Performed By: #### L IPID, DLDL, ALT, BMP, FT4, VIDH, GFR, TSH, A1C, AST #### [place] [id number] AST [Catalytic activity/Vol] 19 U/L Normal 10-40 [facility] ([place]) Comment on above: Performed By: #### L IPID, DLDL, ALT, BMP, FT4, VIDH, GFR, TSH, A1C, AST #### [address] [address] Bili Total 0.2 mg/dL Normal 0.2-1.0 [facility] ([place]) Comment on above: Result Comment: Use of this assay is not recommended for patients undergoing treatment with eltrombopag due to the potential for falsely elevated results. Performed By: #### L IPID, DLDL, ALT, BMP, FT4, VIDH, GFR, TSH, A1C, AST #### [address] [address] BUN/Creatinine Ratio 21 ratio Normal 7-27 [facility] ([place]) Comment on above: Performed By: #### L IPID, DLDL, ALT, BMP, FT4, VIDH, GFR, TSH, A1C, AST #### [address] [address] Calcium [Mass/Vol] 9.3 mg/dL Normal 8.4-10.2 [facility] ([place]) Comment on above: Performed By: #### L IPID, DLDL, ALT, BMP, FT4, VIDH, GFR, TSH, A1C, AST #### [address] [address] Chloride [Moles/Vol] 101 mmol/L Normal 98-107 [facility] ([place]) Comment on above: Performed By: #### L IPID, DLDL, ALT, BMP, FT4, VIDH, GFR, TSH, A1C, AST #### [address] [address] CO2 [Moles/Vol] 29 mmol/L Normal 23-31 [facility] ([place]) Comment on above: Performed By: #### L IPID, DLDL, ALT, BMP, FT4, VIDH, GFR, TSH, A1C, AST #### [place] [address] Creatinine [Mass/Vol] 0.77 mg/dL Normal 0.55-1.02 [facility] ([place]) Comment on above: Performed By: #### L IPID, DLDL, ALT, BMP, FT4, VIDH, GFR, TSH, A1C, AST #### [address] [address] Electrolyte Balance 9.0 mEq/L Normal 4.0-15.0 formerly [facility] ([place]) Comment on above: Performed By: #### L IPID, DLDL, ALT, BMP, FT4, VIDH, GFR, TSH, A1C, AST #### [address] [address] Globulin 3.9 G/dL Normal [facility] ([place]) Comment on above: Performed By: #### L IPID, DLDL, ALT, BMP, FT4, VIDH, GFR, TSH, A1C, AST #### [address] [address] Glucose [Mass/Vol] 84 mg/dL Normal 83-110 [facility] ([place]) Comment on above: Performed By: #### L IPID, DLDL, ALT, BMP, FT4, VIDH, GFR, TSH, A1C, AST #### [address] [address] Potassium [Moles/Vol] 3.9 mmol/L Normal 3.5-5.1 [facility] ([place]) Comment on above: Performed By: #### L IPID, DLDL, ALT, BMP, FT4, VIDH, GFR, TSH, A1C, AST #### [address] [address] Sodium [Moles/Vol] 139 mmol/L Normal 136-145 [facility] ([place]) Comment on above: Performed By: #### L IPID, DLDL, ALT, BMP, FT4, VIDH, GFR, TSH, A1C, AST #### [address] [address] Total Protein 7.6 G/dL Normal 6.4-8.2 [facility] ([place]) Comment on above: Performed By: #### L IPID, DLDL, ALT, BMP, FT4, VIDH, GFR, TSH, A1C, AST #### [address] [address] Urea nitrogen [Mass/Vol] 16 mg/dL Normal 7-18 [facility] ([place]) Comment on above: Performed By: #### L IPID, DLDL, ALT, BMP, FT4, VIDH, GFR, TSH, A1C, AST #### [address] [id number] CRPon 11-02-2023 C-Reactive Protein 0.4 mg/dL High 0.0-0.3 [facility] ([place]) Comment on above: Performed By: #### L IPID, DLDL, ALT, BMP, FT4, VIDH, GFR, TSH, A1C, AST #### [address] [address] ESRon 11-02-2023 Erythrocyte Sed Rate 46 mm/hr High 0-30 [facility] ([place]) Comment on above: Performed By: #### L IPID, DLDL, ALT, BMP, FT4, VIDH, GFR, TSH, A1C, AST #### [id number] [place], [place] [address] LABORATORYOrdered By: SYSTEM SYSTEM on 11-02-2023 Albumin BCP dye [Mass/Vol] 3.7 G/dL Normal 3.4 - 4.8 G/dL AO ADM SS Albumin/Globulin [Mass ratio] 0.9 {ratio} Low 1.1 - 2.5 ratio AO ADM SS ALP [Catalytic activity/Vol] 81 U/L Normal 40 - 135 U/L AO ADM SS ALT With P-5'-P [Catalytic activity/Vol] 33 U/L Normal 14 - 59 U/L AO ADM SS AST With P-5'-P [Catalytic activity/Vol] 19 U/L Normal 10 - 40 U/L AO ADM SS Basophil, Absolute 0.1 103/mcL Normal 0.0 - 0.2 10^3/mcL AO Workflow SS Basophils/100 WBC (Bld) 0.8 % Normal 0.0 - 2.5 % AO Workflow SS Bilirubin [Mass/Vol] 0.2 mg/dL Normal 0.2 - 1 .0 mg/dL AO ADM SS Comment on above: Interpretive Data: U se of this assay is not recommended for patients undergoing treatment with eltrombopag due to the potential for falsely elevated results. Calcium [Mass/Vol] 9.3 mg/dL Normal 8.4 - 10. 2 mg/dL AO ADM SS Chloride [Moles/Vol] 101 mmol/L Normal 98 - 10 7 mmol/L AO ADM SS CK [Catalytic activity/Vol] 74 U/L Normal 26 - 192 U/L AO ADM SS CO2 [Moles/Vol] 29 mmol/L Normal 23 - 31 mmol/L AO ADM SS Creatinine [Mass/Vol] 0.77 mg/dL Normal 0.55 - 1.02 mg/dL AO ADM SS CRP [Mass/Vol] 0.4 mg/dL High 0.0 - 0.3 mg/dL AO ADM SS Electrolyte Balance 9.0 mEq/L Normal 4.0 - 15 .0 mEq/L AO ADM SS Eosinophil, Absolute 0.4 103/mcL Normal 0.0 - 0 .4 10^3/mcL AO Workflow SS Eosinophils/100 WBC (Bld) 4.2 % Normal 0.0 - 7.0 % AO Workflow SS Erythrocyte distribution width (RBC) [Ratio] 13.9 % Normal 11.5 - 14.5 % AO Workflow SS GFR/1.73 sq M.predicted among blacks MDRD (S/P/Bld) [Vol rate/Area] 90 ml/min/1.73sqm Invalid Interpretation Code AO Chemistry S Comment on above: Interpretive Data: GFR Population mean for , Non- Americans Ages 20-29 = 116 mL/min/1.73 sq.m. Ages 30-39 = 107 mL/min/1.73 sq.m. Ages 40-49 = 99 mL/min/1.73 sq.m. Ages 50-59 = 93 mL/min/1.73 sq.m. Ages 60-69 = 85 mL/min/1.73 sq.m. Ages 70+ = 75 mL/min/1.73 sq.m. Chronic Kidney Disease: Less than 60 mL/min/1.73 square meters End Stage Renal Disease: Less than 15 mL/min/1.73 square meters GFR/1.73 sq M.predicted among non-blacks MDRD (S/P/Bld) [Vol rate/Area] 74 ml/min/1.73sqm Invalid Interpretation Code AO Chemistry S Comment on above: Interpretive Data: GFR Population mean for , Non- Americans Ages 20-29 = 116 mL/min/1.73 sq.m. Ages 30-39 = 107 mL/min/1.73 sq.m. Ages 40-49 = 99 mL/min/1.73 sq.m. Ages 50-59 = 93 mL/min/1.73 sq.m. Ages 60-69 = 85 mL/min/1.73 sq.m. Ages 70+ = 75 mL/min/1.73 sq.m. Chronic Kidney Disease: Less than 60 mL/min/1.73 square meters End Stage Renal Disease: Less than 15 mL/min/1.73 square meters Globulin 3.9 G/dL Invalid Interpretation Code AO ADM SS Glucose [Mass/Vol] 84 mg/dL Normal 83 - 110 mg/dL AO ADM SS Hematocrit (Bld) [Volume fraction] 42.3 % Normal 37.0 - 47.0 % AO Workflow SS Hemoglobin (Bld) [Mass/Vol] 14.4 G/dL Normal 12.0 - 16.0 G/dL AO Workflow SS Lymphocyte, Absolute 2.3 103/mcL Normal 0.8 - 3 .9 10^3/mcL AO Workflow SS Lymphocytes/100 WBC (Bld) 25.7 % Normal 10.0 - 50.0 % AO Workflow SS Magnesium [Mass/Vol] 1.8 mg/dL Normal 1.8 - 2 .4 mg/dL AO ADM SS MCH (RBC) [Entitic mass] 31.0 pg Normal 27.0 - 31.2 pg AO Workflow SS MCHC 34.0 G/dL Normal 33.0 - 37.0 G/dL AO Workflow SS MCV (RBC) [Entitic vol] 91.0 fL Normal 80.0 - 94.0 fL AO Workflow SS Monocyte, Absolute 0.7 103/mcL Normal 0.2 - 1.0 10^3/mcL AO Workflow SS Monocytes/100 WBC (Bld) 8.0 % Normal 1.7 - 13.0 % AO Workflow SS Neutrophil, Absolute 5.4 103/mcL Normal 2.9 - 6 .2 10^3/mcL AO Workflow SS Neutrophils/100 WBC (Bld) 61.3 % Normal 37.0 - 80.0 % AO Workflow SS Platelet mean volume (Bld) [Entitic vol] 8.0 fL Normal 7.4 - 10.4 fL AO Workflow SS Platelets (Bld) [#/Vol] 360 103/mcL Normal 130 - 400 10^3/mcL AO Workflow SS Potassium [Moles/Vol] 3.9 mmol/L Normal 3.5 - 5.1 mmol/L AO ADM SS Protein [Mass/Vol] 7.6 G/dL Normal 6.4 - 8.2 G/dL AO ADM SS RBC (Bld) [#/Vol] 4.64 106/mcL Normal 4.20 - 5.4 0 10^6/mcL AO Workflow SS Sodium [Moles/Vol] 139 mmol/L Normal 136 - 145 mmol/L AO ADM SS Urea nitrogen [Mass/Vol] 16 mg/dL Normal 7 - 18 mg/dL AO ADM SS Urea nitrogen/Creatinine [Mass ratio] 21 ratio Normal 7 - 27 ratio AO ADM SS WBC (Bld) [#/Vol] 8.8 103/mcL Normal 4.6 - 10.8 10^3/mcL AO Workflow SS LABORATORYOrdered By: Huy long on 11-02-2023 ESR Photometric method (Bld) [Velocity] 46 mm/hr High 0 - 30 mm/hr AO Man Heme SS MGon 11-02-2023 Magnesium [Mass/Vol] 1.8 mg/dL Normal 1.8-2.4 [facility] ([place]) Comment on above: Performed By: #### L IPID, DLDL, ALT, BMP, FT4, VIDH, GFR, TSH, A1C, AST #### [place] [id number] DIRECT LDLon 09-20-2023 LDL Chol Direct 66 mg/dL Normal 0-99 [facility] ([place]) Comment on above: Result Comment: Perf ormed At: [facility] [address] [id number] Stephanie Evans PhD Ph:[phone] Performed By: #### L IPID, DLDL, ALT, BMP, FT4, VIDH, GFR, TSH, A1C, AST #### [address] [address] .GFRon 09-19-2023 GFR Non- 79 ml/min/1.73sqm Normal [facility] ([place]) Comment on above: Result Comment: GFR Population mean for , Non- Americans Ages 20-29 = 116 mL/min/1.73 sq.m. Ages 30-39 = 107 mL/min/1.73 sq.m. Ages 40-49 = 99 mL/min/1.73 sq.m. Ages 50-59 = 93 mL/min/1.73 sq.m. Ages 60-69 = 85 mL/min/1.73 sq.m. Ages 70+ = 75 mL/min/1.73 sq.m. Chronic Kidney Disease: Less than 60 mL/min/1.73 square meters End Stage Renal Disease: Less than 15 mL/min/1.73 square meters Performed By: #### L IPID, DLDL, ALT, BMP, FT4, VIDH, GFR, TSH, A1C, AST #### [place] [id number] GFR 96 ml/min/1.73sqm Normal [facility] ([place]) Comment on above: Result Comment: GFR Population mean for , Non- Americans Ages 20-29 = 116 mL/min/1.73 sq.m. Ages 30-39 = 107 mL/min/1.73 sq.m. Ages 40-49 = 99 mL/min/1.73 sq.m. Ages 50-59 = 93 mL/min/1.73 sq.m. Ages 60-69 = 85 mL/min/1.73 sq.m. Ages 70+ = 75 mL/min/1.73 sq.m. Chronic Kidney Disease: Less than 60 mL/min/1.73 square meters End Stage Renal Disease: Less than 15 mL/min/1.73 square meters Performed By: #### L IPID, DLDL, ALT, BMP, FT4, VIDH, GFR, TSH, A1C, AST #### [address] [address] A1Con 09-19-2023 HbA1c (Bld) [Mass fraction] 6.1 % Normal 4.3-6.4 [facility] ([place]) Comment on above: Performed By: #### L IPID, DLDL, ALT, BMP, FT4, VIDH, GFR, TSH, A1C, AST #### [address] [address] ALT/SGPTon 09-19-2023 ALT [Catalytic activity/Vol] 27 U/L Normal 14-59 [facility] ([place]) Comment on above: Performed By: #### L IPID, DLDL, ALT, BMP, FT4, VIDH, GFR, TSH, A1C, AST #### [address] [address] Josselin 09-19-2023 AST [Catalytic activity/Vol] 16 U/L Normal 10-40 [facility] ([place]) Comment on above: Performed By: #### L IPID, DLDL, ALT, BMP, FT4, VIDH, GFR, TSH, A1C, AST #### [address] [address] BMPon 09-19-2023 BUN/Creatinine Ratio 18 ratio Normal 7-27 [facility] ([place]) Comment on above: Performed By: #### L IPID, DLDL, ALT, BMP, FT4, VIDH, GFR, TSH, A1C, AST #### [address] [address] Calcium [Mass/Vol] 9.1 mg/dL Normal 8.4-10.2 [facility] ([place]) Comment on above: Performed By: #### L IPID, DLDL, ALT, BMP, FT4, VIDH, GFR, TSH, A1C, AST #### [address] [address] Chloride [Moles/Vol] 104 mmol/L Normal 98-107 [facility] ([place]) Comment on above: Performed By: #### L IPID, DLDL, ALT, BMP, FT4, VIDH, GFR, TSH, A1C, AST #### [address] [address] CO2 [Moles/Vol] 29 mmol/L Normal 23-31 [facility] ([place]) Comment on above: Performed By: #### L IPID, DLDL, ALT, BMP, FT4, VIDH, GFR, TSH, A1C, AST #### [address] [address] Creatinine [Mass/Vol] 0.73 mg/dL Normal 0.55-1.02 [facility] ([place]) Comment on above: Performed By: #### L IPID, DLDL, ALT, BMP, FT4, VIDH, GFR, TSH, A1C, AST #### [address] [address] Electrolyte Balance 8.0 mEq/L Normal 4.0-15.0 formerly [facility] ([place]) Comment on above: Performed By: #### L IPID, DLDL, ALT, BMP, FT4, VIDH, GFR, TSH, A1C, AST #### [address] [address] Glucose [Mass/Vol] 117 mg/dL High 83-110 [facility] ([place]) Comment on above: Performed By: #### L IPID, DLDL, ALT, BMP, FT4, VIDH, GFR, TSH, A1C, AST #### [address] [address] Potassium [Moles/Vol] 4.3 mmol/L Normal 3.5-5.1 [facility] ([place]) Comment on above: Performed By: #### L IPID, DLDL, ALT, BMP, FT4, VIDH, GFR, TSH, A1C, AST #### [address] [address] Sodium [Moles/Vol] 141 mmol/L Normal 136-145 [facility] ([place]) Comment on above: Performed By: #### L IPID, DLDL, ALT, BMP, FT4, VIDH, GFR, TSH, A1C, AST #### [address] [address] Urea nitrogen [Mass/Vol] 13 mg/dL Normal 7-18 [facility] ([place]) Comment on above: Performed By: #### L IPID, DLDL, ALT, BMP, FT4, VIDH, GFR, TSH, A1C, AST #### [address] [address] FT4on 09-19-2023 Free T4 [Mass/Vol] 1.14 ng/dL Normal 0.76-1.46 [facility] ([place]) Comment on above: Performed By: #### L IPID, DLDL, ALT, BMP, FT4, VIDH, GFR, TSH, A1C, AST #### [address] [address] LIPIDon 09-19-2023 Cholesterol [Mass/Vol] 157 mg/dL Normal 0-200 [facility] ([place]) Comment on above: Result Comment: Chol esterol Reference Interval: Less than 200 Desirable 200-239 Borderline high risk 240 and above High risk Performed By: #### L IPID, DLDL, ALT, BMP, FT4, VIDH, GFR, TSH, A1C, AST #### [address] [address] Cholesterol in HDL [Mass/Vol] 64 mg/dL High 40-60 [facility] ([place]) Comment on above: Performed By: #### L IPID, DLDL, ALT, BMP, FT4, VIDH, GFR, TSH, A1C, AST #### [address] [address] Cholesterol in LDL [Mass/Vol] 65 mg/dL Normal 0-130 [facility] ([place]) Comment on above: Performed By: #### L IPID, DLDL, ALT, BMP, FT4, VIDH, GFR, TSH, A1C, AST #### [address] [address] Triglyceride [Mass/Vol] 142 mg/dL Normal 0-150 A [facility] ([place]) Comment on above: Result Comment: Trig lyceride Reference Interval: Less than 150 Normal 150-199 Borderline high risk 200-499 High risk 500 or higher Very high risk Performed By: #### L IPID, DLDL, ALT, BMP, FT4, VIDH, GFR, TSH, A1C, AST #### [address] [address] MALBRon 09-19-2023 U Creatinine 70.7 mg/dL Normal 28.0-117.0 [facility] ([place]) Comment on above: Performed By: #### L IPID, DLDL, ALT, BMP, FT4, VIDH, GFR, TSH, A1C, AST #### [address] [address] U Microalb 481 mcg/dL Normal [facility] ([place]) Comment on above: Performed By: #### L IPID, DLDL, ALT, BMP, FT4, VIDH, GFR, TSH, A1C, AST #### [address] [address] U Ratio Alb/Cre 7 mcg/mg Normal 0-30 [facility] ([place]) Comment on above: Performed By: #### L IPID, DLDL, ALT, BMP, FT4, VIDH, GFR, TSH, A1C, AST #### [address] [address] TSHon 09-19-2023 TSH Qn 0.93 m[IU]/L Normal 0.36-3.74 [facility] ([place]) Comment on above: Performed By: #### L IPID, DLDL, ALT, BMP, FT4, VIDH, GFR, TSH, A1C, AST #### [address] [address] VIDHon 09-19-2023 Vit. D 25-Hydroxy 33.9 ng/mL Normal [facility] ([place]) Comment on above: Result Comment: Inte rpretive Values Based on Total 25(OH) Vitamin D: Deficient <20 ng/mL Insufficient 20 - <30 ng/mL Sufficient 30-100 ng/mL Performed By: #### L IPID, DLDL, ALT, BMP, FT4, VIDH, GFR, TSH, A1C, AST #### [address] [address] .GFRon 06-07-2023 GFR 82 ml/min/1.73sqm Normal [facility] ([place]) Comment on above: Result Comment: GFR Population mean for , Non- Americans Ages 20-29 = 116 mL/min/1.73 sq.m. Ages 30-39 = 107 mL/min/1.73 sq.m. Ages 40-49 = 99 mL/min/1.73 sq.m. Ages 50-59 = 93 mL/min/1.73 sq.m. Ages 60-69 = 85 mL/min/1.73 sq.m. Ages 70+ = 75 mL/min/1.73 sq.m. Chronic Kidney Disease: Less than 60 mL/min/1.73 square meters End Stage Renal Disease: Less than 15 mL/min/1.73 square meters Performed By: #### L IPID, DLDL, ALT, BMP, FT4, VIDH, GFR, TSH, A1C, AST #### [address] [address] GFR Non- 68 ml/min/1.73sqm Normal [facility] ([place]) Comment on above: Result Comment: GFR Population mean for , Non- Americans Ages 20-29 = 116 mL/min/1.73 sq.m. Ages 30-39 = 107 mL/min/1.73 sq.m. Ages 40-49 = 99 mL/min/1.73 sq.m. Ages 50-59 = 93 mL/min/1.73 sq.m. Ages 60-69 = 85 mL/min/1.73 sq.m. Ages 70+ = 75 mL/min/1.73 sq.m. Chronic Kidney Disease: Less than 60 mL/min/1.73 square meters End Stage Renal Disease: Less than 15 mL/min/1.73 square meters Performed By: #### L IPID, DLDL, ALT, BMP, FT4, VIDH, GFR, TSH, A1C, AST #### [address] [address] A1Con 06-07-2023 HbA1c (Bld) [Mass fraction] 6.1 % Normal 4.3-6.4 [facility] ([place]) Comment on above: Performed By: #### L IPID, DLDL, ALT, BMP, FT4, VIDH, GFR, TSH, A1C, AST #### [address] [address] ALT/SGPTon 06-07-2023 ALT [Catalytic activity/Vol] 31 U/L Normal 14-59 [facility] ([place]) Comment on above: Performed By: #### L IPID, DLDL, ALT, BMP, FT4, VIDH, GFR, TSH, A1C, AST #### [address] [address] Josselin 06-07-2023 AST [Catalytic activity/Vol] 17 U/L Normal 10-40 [facility] ([place]) Comment on above: Performed By: #### L IPID, DLDL, ALT, BMP, FT4, VIDH, GFR, TSH, A1C, AST #### [address] [address] CMPon 06-07-2023 Albumin Level 3.7 G/dL Normal 3.4-4.8 [facility] ([place]) Comment on above: Performed By: #### L IPID, DLDL, ALT, BMP, FT4, VIDH, GFR, TSH, A1C, AST #### [place] [id number] Albumin/Globulin [Mass ratio] 1.1 {ratio} Normal 1.1-2.5 [facility] ([place]) Comment on above: Performed By: #### L IPID, DLDL, ALT, BMP, FT4, VIDH, GFR, TSH, A1C, AST #### [address] [address] ALP [Catalytic activity/Vol] 80 U/L Normal 40-135 [facility] ([place]) Comment on above: Performed By: #### L IPID, DLDL, ALT, BMP, FT4, VIDH, GFR, TSH, A1C, AST #### [place] [address] ALT [Catalytic activity/Vol] 29 U/L Normal 14-59 [facility] ([place] Comment on above: Performed By: #### L IPID, DLDL, ALT, BMP, FT4, VIDH, GFR, TSH, A1C, AST #### [place] [address] AST [Catalytic activity/Vol] 19 U/L Normal 10-40 [facility] ([place] Comment on above: Performed By: #### L IPID, DLDL, ALT, BMP, FT4, VIDH, GFR, TSH, A1C, AST #### [address] [address] Bili Total 0.3 mg/dL Normal 0.2-1.0 [facility] ([place]) Comment on above: Result Comment: Use of this assay is not recommended for patients undergoing treatment with eltrombopag due to the potential for falsely elevated results. Performed By: #### L IPID, DLDL, ALT, BMP, FT4, VIDH, GFR, TSH, A1C, AST #### [place] [id number] BUN/Creatinine Ratio 20 ratio Normal 7-27 [facility] ([place]) Comment on above: Performed By: #### L IPID, DLDL, ALT, BMP, FT4, VIDH, GFR, TSH, A1C, AST #### [address] [address] Calcium [Mass/Vol] 9.0 mg/dL Normal 8.4-10.2 [facility] ([place]) Comment on above: Performed By: #### L IPID, DLDL, ALT, BMP, FT4, VIDH, GFR, TSH, A1C, AST #### [address] [address] Chloride [Moles/Vol] 99 mmol/L Normal 98-107 [facility] ([place]) Comment on above: Performed By: #### L IPID, DLDL, ALT, BMP, FT4, VIDH, GFR, TSH, A1C, AST #### [address] [address] CO2 [Moles/Vol] 24 mmol/L Normal 23-31 [facility] ([place]) Comment on above: Performed By: #### L IPID, DLDL, ALT, BMP, FT4, VIDH, GFR, TSH, A1C, AST #### [address] [address] Creatinine [Mass/Vol] 0.83 mg/dL Normal 0.55-1.02 [facility] ([place]) Comment on above: Performed By: #### L IPID, DLDL, ALT, BMP, FT4, VIDH, GFR, TSH, A1C, AST #### [address] [address] Electrolyte Balance 14.0 mEq/L Normal 4.0-15.0 [facility] ([place]) Comment on above: Performed By: #### L IPID, DLDL, ALT, BMP, FT4, VIDH, GFR, TSH, A1C, AST #### [address] [address] Globulin 3.5 G/dL Normal [facility] ([place]) Comment on above: Performed By: #### L IPID, DLDL, ALT, BMP, FT4, VIDH, GFR, TSH, A1C, AST #### [address] [address] Glucose [Mass/Vol] 134 mg/dL High 83-110 [facility] ([place]) Comment on above: Performed By: #### L IPID, DLDL, ALT, BMP, FT4, VIDH, GFR, TSH, A1C, AST #### [address] [address] Potassium [Moles/Vol] 4.0 mmol/L Normal 3.5-5.1 [facility] ([place]) Comment on above: Performed By: #### L IPID, DLDL, ALT, BMP, FT4, VIDH, GFR, TSH, A1C, AST #### [address] [address] Sodium [Moles/Vol] 137 mmol/L Normal 136-145 [facility] ([place]) Comment on above: Performed By: #### L IPID, DLDL, ALT, BMP, FT4, VIDH, GFR, TSH, A1C, AST #### [address] [address] Total Protein 7.2 G/dL Normal 6.4-8.2 [facility] ([place]) Comment on above: Performed By: #### L IPID, DLDL, ALT, BMP, FT4, VIDH, GFR, TSH, A1C, AST #### [address] [address] Urea nitrogen [Mass/Vol] 17 mg/dL Normal 7-18 [facility] ([place]) Comment on above: Performed By: #### L IPID, DLDL, ALT, BMP, FT4, VIDH, GFR, TSH, A1C, AST #### [address] [address] Direct LDLon 06-07-2023 LDL Cholesterol Direct 69 mg/dL Normal <100 [facility] ([place]) Comment on above: Result Comment: <100 mg/dL, Optimal 100-129 mg/dL, Near optimal/above optimal 130-159 mg/dL, Borderline high 160-189 mg/dL, High >189 mg/dL, Very high Secondary prevention optimal LDL Cholesterol levels are recommended to be < 70 mg/dL Performed By: [facility] [employer] [address] [place] [id number] Sales Account Associate: Moshe Velazquez III, M.D. CLIA#: [id number] Performed By: #### L IPID, DLDL, ALT, BMP, FT4, VIDH, GFR, TSH, A1C, AST #### [address] [address] VLDL Cholesterol See Below Normal [facility] ([place]) Comment on above: Result Comment: Test not indicated. Performed By: [facility] [employer] [address] [place], [place] [id number] Sales Account Associate: Moshe Velazquez III, M.D. CLIA#: [id number] Performed By: #### L IPID, DLDL, ALT, BMP, FT4, VIDH, GFR, TSH, A1C, AST #### [address] [address] FT4on 06-07-2023 Free T4 [Mass/Vol] 1.13 ng/dL Normal 0.76-1.46 [facility] ([place]) Comment on above: Performed By: #### L IPID, DLDL, ALT, BMP, FT4, VIDH, GFR, TSH, A1C, AST #### [address] [address] HCVon 06-07-2023 Hep C Ab Non-Reactive Normal Non-Reactiv e [facility] ([place]) Comment on above: Performed By: #### L IPID, DLDL, ALT, BMP, FT4, VIDH, GFR, TSH, A1C, AST #### [address] [address] Hep C Ab Int Normal [facility] ([place]) Comment on above: Result Comment: Nonr eactive: Samples with a value < 0.80 are considered nonreactive (negative) for antibodies to HCV. A negative test result does not exclude the possibility of exposure to or infection with HCV. HCV antibodies may be undetectable in some stages of the infection and in some clinical conditions. See Interp Performed By: #### L IPID, DLDL, ALT, BMP, FT4, VIDH, GFR, TSH, A1C, AST #### [address] [address] LIPIDon 06-07-2023 Cholesterol [Mass/Vol] 156 mg/dL Normal 0-200 [facility] ([place]) Comment on above: Result Comment: Chol esterol Reference Interval: Less than 200 Desirable 200-239 Borderline high risk 240 and above High risk Performed By: #### L IPID, DLDL, ALT, BMP, FT4, VIDH, GFR, TSH, A1C, AST #### [address] [address] Cholesterol in HDL [Mass/Vol] 69 mg/dL High 40-60 [facility] ([place]) Comment on above: Performed By: #### L IPID, DLDL, ALT, BMP, FT4, VIDH, GFR, TSH, A1C, AST #### [address] [address] Cholesterol in LDL [Mass/Vol] 70 mg/dL Normal 0-130 [facility] ([place]) Comment on above: Performed By: #### L IPID, DLDL, ALT, BMP, FT4, VIDH, GFR, TSH, A1C, AST #### [address] [address] Triglyceride [Mass/Vol] 87 mg/dL Normal 0-150 [facility] ([place]) Comment on above: Result Comment: Trig lyceride Reference Interval: Less than 150 Normal 150-199 Borderline high risk 200-499 High risk 500 or higher Very high risk Performed By: #### L IPID, DLDL, ALT, BMP, FT4, VIDH, GFR, TSH, A1C, AST #### [address] [address] TSHon 06-07-2023 TSH Qn 1.27 m[IU]/L Normal 0.36-3.74 [facility] ([place]) Comment on above: Performed By: #### L IPID, DLDL, ALT, BMP, FT4, VIDH, GFR, TSH, A1C, AST #### [place] [address] [place], [place] [address] VIDHon 06-07-2023 Vit. D 25-Hydroxy 32.2 ng/mL Normal [facility] ([place]) Comment on above: Result Comment: Inte rpretive Values Based on Total 25(OH) Vitamin D: Deficient <20 ng/mL Insufficient 20 - <30 ng/mL Sufficient 30-100 ng/mL Performed By: #### L IPID, DLDL, ALT, BMP, FT4, VIDH, GFR, TSH, A1C, AST #### [place] [address] [place], [place] [address] LABORATORYOrdered By: SYSTEM SYSTEM on 01-25-2023 ALT With P-5'-P [Catalytic activity/Vol] 37 U/L Invalid Interpretation Code 14 - 59 U/L AO ADM SS AST With P-5'-P [Catalytic activity/Vol] 20 U/L Invalid Interpretation Code 10 - 40 U/L AO ADM SS Calcium [Mass/Vol] 9.4 mg/dL Invalid Interpretation Code 8.4 - 10.2 mg/dL AO ADM SS Chloride [Moles/Vol] 100 mmol/L Invalid Interpretation Code 98 - 107 mmol/L AO ADM SS CO2 [Moles/Vol] 26 mmol/L Invalid Interpretation Code 23 - 31 mmol/L AO ADM SS Creatinine [Mass/Vol] 0.70 mg/dL Invalid Interpretation Code 0.55 - 1.02 mg/dL AO ADM SS Electrolyte Balance 12.0 mEq/L Invalid Interpretation Code 4.0 - 15.0 mEq/L AO ADM SS Free T4 [Mass/Vol] 1.19 ng/dL Invalid Interpretation Code 0.76 - 1.46 ng/dL AO ADM SS GFR/1.73 sq M.predicted among blacks MDRD (S/P/Bld) [Vol rate/Area] 101 ml/min/1.73sqm Invalid Interpretation Code AO Chemistry S GFR/1.73 sq M.predicted among non-blacks MDRD (S/P/Bld) [Vol rate/Area] 83 ml/min/1.73sqm Invalid Interpretation Code AO Chemistry S Glucose [Mass/Vol] 96 mg/dL Invalid Interpretation Code 80 - 115 mg/dL AO ADM SS HbA1c (Bld) [Mass fraction] 6.1 % Invalid Interpretation Code 4.3 - 6.4 % AO ADM SS Potassium [Moles/Vol] 3.8 mmol/L Invalid Interpretation Code 3.5 - 5.1 mmol/L AO ADM SS Sodium [Moles/Vol] 138 mmol/L Invalid Interpretation Code 136 - 145 mmol/L AO ADM SS TSH Qn 1.12 m[IU]/L Invalid Interpretation Code 0.36 - 3.74 mcIU/mL AO ADM SS Urea nitrogen [Mass/Vol] 19 mg/dL Invalid Interpretation Code 7 - 18 mg/dL AO ADM SS Urea nitrogen/Creatinine [Mass ratio] 27 ratio Invalid Interpretation Code 7 - 27 ratio AO ADM SS LABORATORYOrdered By: Verónica Madrigal on 01-25-2023 Cholesterol [Mass/Vol] 168 mg/dL Invalid Interpretation Code 0 - 200 mg/dL AO ADM SS Cholesterol in HDL [Mass/Vol] 66 mg/dL Invalid Interpretation Code 40 - 60 mg/dL AO ADM SS Cholesterol in LDL [Mass/Vol] 68 mg/dL Invalid Interpretation Code 0 - 130 mg/dL AO ADM SS Triglyceride [Mass/Vol] 170 mg/dL Invalid Interpretation Code 0 - 150 mg/dL AO ADM SS LABORATORYOrdered By: Tiffany Whitten on 10-04-2022 Albumin DL <= 20 mg/L (U) [Mass/Vol] 980 mcg/dL Invalid Interpretation Code AO ADM SS Albumin/Creatinine DL <= 20 mg/L (U) [Mass ratio] 24 mcg/mg Invalid Interpretation Code 0 - 30 mcg/mg AO ADM SS Cholesterol [Mass/Vol] 170 mg/dL Invalid Interpretation Code 0 - 200 mg/dL AO ADM SS Cholesterol in HDL [Mass/Vol] 59 mg/dL Invalid Interpretation Code 40 - 60 mg/dL AO ADM SS Cholesterol in LDL [Mass/Vol] 48 mg/dL Invalid Interpretation Code 0 - 130 mg/dL AO ADM SS Creatinine (U) [Mass/Vol] 41.4 mg/dL Invalid Interpretation Code 28.0 - 117.0 mg/dL AO ADM SS Triglyceride [Mass/Vol] 313 mg/dL Invalid Interpretation Code 0 - 150 mg/dL AO ADM SS LABORATORYOrdered By: SYSTEM SYSTEM on 10-04-2022 ALT With P-5'-P [Catalytic activity/Vol] 37 U/L Invalid Interpretation Code 14 - 59 U/L AO ADM SS AST With P-5'-P [Catalytic activity/Vol] 20 U/L Invalid Interpretation Code 10 - 40 U/L AO ADM SS Calcium [Mass/Vol] 9.1 mg/dL Invalid Interpretation Code 8.4 - 10.2 mg/dL AO ADM SS Chloride [Moles/Vol] 100 mmol/L Invalid Interpretation Code 98 - 107 mmol/L AO ADM SS CO2 [Moles/Vol] 30 mmol/L Invalid Interpretation Code 23 - 31 mmol/L AO ADM SS Creatinine [Mass/Vol] 0.80 mg/dL Invalid Interpretation Code 0.55 - 1.02 mg/dL AO ADM SS Electrolyte Balance 9.0 mEq/L Invalid Interpretation Code 4.0 - 15.0 mEq/L AO ADM SS Free T4 [Mass/Vol] 1.12 ng/dL Invalid Interpretation Code 0.76 - 1.46 ng/dL AO ADM SS GFR 86 ml/min/1.73sqm Invalid Interpretation Code AO Chemistry S GFR Non- 71 ml/min/1.73sqm Invalid Interpretation Code AO Chemistry S Glucose [Mass/Vol] 98 mg/dL Invalid Interpretation Code 80 - 115 mg/dL AO ADM SS HbA1c (Bld) [Mass fraction] 6.0 % Invalid Interpretation Code 4.3 - 6.4 % AO ADM SS Potassium [Moles/Vol] 3.8 mmol/L Invalid Interpretation Code 3.5 - 5.1 mmol/L AO ADM SS Sodium [Moles/Vol] 139 mmol/L Invalid Interpretation Code 136 - 145 mmol/L AO ADM SS TSH Qn 0.97 m[IU]/L Invalid Interpretation Code 0.36 - 3.74 mcIU/mL AO ADM SS Urea nitrogen [Mass/Vol] 18 mg/dL Invalid Interpretation Code 7 - 18 mg/dL AO ADM SS Urea nitrogen/Creatinine [Mass ratio] 22 ratio Invalid Interpretation Code 7 - 27 ratio AO ADM SS Vit. D 25-Hydroxy 34.7 ng/mL Invalid Interpretation Code AO ADM SS LABORATORYOrdered By: Tiffany Whitten on 06-05-2022 ALT With P-5'-P [Catalytic activity/Vol] 31 U/L Invalid Interpretation Code 14 - 59 U/L AO ADM SS AST With P-5'-P [Catalytic activity/Vol] 22 U/L Invalid Interpretation Code 10 - 40 U/L AO ADM SS Calcium [Mass/Vol] 9.7 mg/dL Invalid Interpretation Code 8.4 - 10.2 mg/dL AO ADM SS Chloride [Moles/Vol] 100 mmol/L Invalid Interpretation Code 98 - 107 mmol/L AO ADM SS Cholesterol [Mass/Vol] 159 mg/dL Invalid Interpretation Code 0 - 200 mg/dL AO ADM SS Cholesterol in HDL [Mass/Vol] 68 mg/dL Invalid Interpretation Code 40 - 60 mg/dL AO ADM SS Cholesterol in LDL [Mass/Vol] 54 mg/dL Invalid Interpretation Code 0 - 130 mg/dL AO ADM SS CO2 [Moles/Vol] 30 mmol/L Invalid Interpretation Code 23 - 31 mmol/L AO ADM SS Creatinine [Mass/Vol] 0.74 mg/dL Invalid Interpretation Code 0.55 - 1.02 mg/dL AO ADM SS Electrolyte Balance 8.0 mEq/L Invalid Interpretation Code 4.0 - 15.0 mEq/L AO ADM SS Free T4 [Mass/Vol] 1.18 ng/dL Invalid Interpretation Code 0.76 - 1.46 ng/dL AO ADM SS Glucose [Mass/Vol] 94 mg/dL Invalid Interpretation Code 80 - 115 mg/dL AO ADM SS HbA1c (Bld) [Mass fraction] 6.2 % Invalid Interpretation Code 4.3 - 6.4 % AO ADM SS Potassium [Moles/Vol] 3.9 mmol/L Invalid Interpretation Code 3.5 - 5.1 mmol/L AO ADM SS Sodium [Moles/Vol] 138 mmol/L Invalid Interpretation Code 136 - 145 mmol/L AO ADM SS Triglyceride [Mass/Vol] 185 mg/dL Invalid Interpretation Code 0 - 150 mg/dL AO ADM SS TSH Qn 1.18 m[IU]/L Invalid Interpretation Code 0.36 - 3.74 mcIU/mL AO ADM SS Urea nitrogen [Mass/Vol] 17 mg/dL Invalid Interpretation Code 7 - 18 mg/dL AO ADM SS Urea nitrogen/Creatinine [Mass ratio] 23 ratio Invalid Interpretation Code 7 - 27 ratio AO ADM SS Vit. D 25-Hydroxy 37.7 ng/mL Invalid Interpretation Code AO ADM SS LABORATORYOrdered By: SYSTEM SYSTEM on 06-05-2022 GFR 94 ml/min/1.73sqm Invalid Interpretation Code AO Chemistry S GFR Non- 78 ml/min/1.73sqm Invalid Interpretation Code AO Chemistry S LABORATORYOrdered By: Mariella Espinoza on 11-02-2021 Albumin DL <= 20 mg/L (U) [Mass/Vol] 155 mcg/dL Invalid Interpretation Code AO ADM SS Albumin/Creatinine DL <= 20 mg/L (U) [Mass ratio] 3 mcg/mg Invalid Interpretation Code 0 - 30 mcg/mg AO ADM SS ALT With P-5'-P [Catalytic activity/Vol] 34 U/L Invalid Interpretation Code 14 - 59 U/L AO ADM SS AST With P-5'-P [Catalytic activity/Vol] 17 U/L Invalid Interpretation Code 10 - 40 U/L AO ADM SS Calcium [Mass/Vol] 9.6 mg/dL Invalid Interpretation Code 8.4 - 10.2 mg/dL AO ADM SS Chloride [Moles/Vol] 100 mmol/L Invalid Interpretation Code 98 - 107 mmol/L AO ADM SS Cholesterol [Mass/Vol] 141 mg/dL Invalid Interpretation Code 0 - 200 mg/dL AO ADM SS Cholesterol in HDL [Mass/Vol] 61 mg/dL Invalid Interpretation Code 40 - 60 mg/dL AO ADM SS Cholesterol in LDL [Mass/Vol] 58 mg/dL Invalid Interpretation Code 0 - 130 mg/dL AO ADM SS CO2 [Moles/Vol] 29 mmol/L Invalid Interpretation Code 23 - 31 mmol/L AO ADM SS Creatinine (U) [Mass/Vol] 48.6 mg/dL Invalid Interpretation Code 28.0 - 117.0 mg/dL AO ADM SS Creatinine [Mass/Vol] 0.72 mg/dL Invalid Interpretation Code 0.55 - 1.02 mg/dL AO ADM SS Electrolyte Balance 9.0 mEq/L Invalid Interpretation Code 4.0 - 15.0 mEq/L AO ADM SS Free T4 [Mass/Vol] 1.38 ng/dL Invalid Interpretation Code 0.76 - 1.46 ng/dL AO ADM SS Glucose [Mass/Vol] 109 mg/dL Invalid Interpretation Code 80 - 115 mg/dL AO ADM SS HbA1c (Bld) [Mass fraction] 6.2 % Invalid Interpretation Code 4.3 - 6.4 % AO ADM SS Potassium [Moles/Vol] 4.7 mmol/L Invalid Interpretation Code 3.5 - 5.1 mmol/L AO ADM SS Sodium [Moles/Vol] 138 mmol/L Invalid Interpretation Code 136 - 145 mmol/L AO ADM SS Triglyceride [Mass/Vol] 110 mg/dL Invalid Interpretation Code 0 - 150 mg/dL AO ADM SS TSH Qn 0.32 m[IU]/L Invalid Interpretation Code 0.36 - 3.74 mcIU/mL AO ADM SS Urea nitrogen [Mass/Vol] 16 mg/dL Invalid Interpretation Code 7 - 18 mg/dL AO ADM SS Urea nitrogen/Creatinine [Mass ratio] 22 ratio Invalid Interpretation Code 7 - 27 ratio AO ADM SS Vit. D 25-Hydroxy 34.1 ng/mL Invalid Interpretation Code AO ADM SS LABORATORYOrdered By: SYSTEM SYSTEM on 11-02-2021 GFR 98 ml/min/1.73sqm Invalid Interpretation Code AO Chemistry S GFR Non- 81 ml/min/1.73sqm Invalid Interpretation Code AO Chemistry S LABORATORYOrdered By: Pascual Sanz on 08-02-2021 ALT With P-5'-P [Catalytic activity/Vol] 37 U/L Invalid Interpretation Code 14 - 59 U/L AO ADM SS AST With P-5'-P [Catalytic activity/Vol] 19 U/L Invalid Interpretation Code 10 - 40 U/L AO ADM SS Calcium [Mass/Vol] 9.2 mg/dL Invalid Interpretation Code 8.4 - 10.2 mg/dL AO ADM SS Chloride [Moles/Vol] 99 mmol/L Invalid Interpretation Code 98 - 107 mmol/L AO ADM SS Cholesterol [Mass/Vol] 167 mg/dL Invalid Interpretation Code 0 - 200 mg/dL AO ADM SS Cholesterol in HDL [Mass/Vol] 72 mg/dL Invalid Interpretation Code 40 - 60 mg/dL AO ADM SS Cholesterol in LDL [Mass/Vol] 73 mg/dL Invalid Interpretation Code 0 - 130 mg/dL AO ADM SS CO2 [Moles/Vol] 31 mmol/L Invalid Interpretation Code 23 - 31 mmol/L AO ADM SS Creatinine [Mass/Vol] 0.74 mg/dL Invalid Interpretation Code 0.55 - 1.02 mg/dL AO ADM SS Electrolyte Balance 9.0 mEq/L Invalid Interpretation Code AO ADM SS Free T4 [Mass/Vol] 1.19 ng/dL Invalid Interpretation Code 0.76 - 1.46 ng/dL AO ADM SS Glucose [Mass/Vol] 109 mg/dL Invalid Interpretation Code 80 - 115 mg/dL AO ADM SS HbA1c (Bld) [Mass fraction] 6.2 % Invalid Interpretation Code 4.3 - 6.4 % AO ADM SS Potassium [Moles/Vol] 4.4 mmol/L Invalid Interpretation Code 3.5 - 5.1 mmol/L AO ADM SS Sodium [Moles/Vol] 139 mmol/L Invalid Interpretation Code 136 - 145 mmol/L AO ADM SS Triglyceride [Mass/Vol] 108 mg/dL Invalid Interpretation Code 0 - 150 mg/dL AO ADM SS TSH Qn 0.54 m[IU]/L Invalid Interpretation Code 0.36 - 3.74 mcIU/mL AO ADM SS Urea nitrogen [Mass/Vol] 13 mg/dL Invalid Interpretation Code 7 - 18 mg/dL AO ADM SS Urea nitrogen/Creatinine [Mass ratio] 18 ratio Invalid Interpretation Code 7 - 27 ratio AO ADM SS Vit. D 25-Hydroxy 39.6 ng/mL Invalid Interpretation Code AO ADM SS LABORATORYOrdered By: Jayla Rosas on 08-02-2021 GFR 94 ml/min/1.73sqm Invalid Interpretation Code AO Chemistry S GFR Non- 78 ml/min/1.73sqm Invalid Interpretation Code AO Chemistry S LABORATORYOrdered By: SYSTEM SYSTEM on 08-02-2021 Thyroglobulin Ab IA Qn unit/mL Invalid Interpretation Code 15 - 60 unit/mL AH ADM SS TPO Ab IA Qn 29 unit/mL Invalid Interpretation Code 0 - 60 unit/mL AH ADM SS LABORATORYOrdered By: Mariella Espinoza on 06-13-2021 TSH Qn 0.52 m[IU]/L Invalid Interpretation Code 0.36 - 3.74 mcIU/mL AO ADM SS Vital Signs Date Time Vital Sign Value Performing Clinician Rao price 03-05-2025 13:02-040 Body height 149.[address] Boris Mae MD Work Phone: [facility] 03-05-2025 13:02-0400 Body mass index (BMI) [Ratio] 34.9 kg/m2 Dr. Boris Mae MD Work Phone: [facility] 03-05-2025 13:02-040 Body temperature 97.2 [degF] Dr. Boris Mae MD Work Phone: [facility] 03-05-2025 13:02-0400 Body weight 78.[address] Boris Mae MD Work Phone: [facility] 03-05-2025 13:02-0400 Diastolic blood pressure 74 mm[Hg] Dr. Boris Mae MD Work Phone: [facility] 03-05-2025 13:02-0400 Heart rate 81 /min Dr. Boris Mae MD Work Phone: [facility] 03-05-2025 13:02-0400 Respiratory rate 18 /min Dr. Boris Mae MD Work Phone: [facility] 03-05-2025 13:02-0400 SaO2% (BldA) [Mass fraction] 94 % Dr. Boris Mae MD Work Phone: [facility] 03-05-2025 13:02-0400 Systolic blood pressure 157 mm[Hg] Dr. Boris Mae MD Work Phone: 6(779)577-509734 [place] [address] 02-04-2025 12:53-0400 Body height 149.[address] Boris Mae MD Work Phone: 3(970)576-567062 [address] 02-04-2025 12:53-0400 Body mass index (BMI) [Ratio] 35 kg/m2 Dr. Boris Mae MD Work Phone: [facility] 02-04-2025 12:53-0400 Body temperature 98.8 [degF] Dr. Boris Mae MD Work Phone: [facility] 02-04-2025 12:53-0400 Body weight 78.[address] Boris Mae MD Work Phone: [facility] 02-04-2025 12:53-0400 Diastolic blood pressure 76 mm[Hg] Dr. Boris Mae MD Work Phone: [facility] 02-04-2025 12:53-0400 Heart rate 89 /min Dr. Boris Mae MD Work Phone: [facility] 02-04-2025 12:53-0400 Respiratory rate 16 /min Dr. Boris Mae MD Work Phone: [facility] 02-04-2025 12:53-0400 SaO2% (BldA) [Mass fraction] 95 % Dr. Boris Mae MD Work Phone: 2(107)353-971934 [place] [address] 02-04-2025 12:53-0400 Systolic blood pressure 147 mm[Hg] Dr. Boris Mae MD Work Phone: 0(057)034-173217 [place] [address] 01-28-2025 12:45-0400 Body height 149.[address] Boris Mae MD Work Phone: 1(152)750-393017 [place] [address] 01-28-2025 12:45-0400 Body mass index (BMI) [Ratio] 35.2 kg/m2 Dr. Boris Mae MD Work Phone: 4(641)322-149317 [place] [address] 01-28-2025 12:45-0400 Body temperature 98.6 [degF] Dr. Boris Mae MD Work Phone: 9(752)051-317617 [place] [address] 01-28-2025 12:45-0400 Body weight 79.[address] Boris Mae MD Work Phone: 1(155)416-181517 [place] [address] 01-28-2025 12:45-0400 Diastolic blood pressure 77 mm[Hg] Dr. Boris Mae MD Work Phone: 2(378)984-931217 [place] [address] 01-28-2025 12:45-0400 Heart rate 87 /min Dr. Boris Mae MD Work Phone: 7(160)882-052617 [place] [address] 01-28-2025 12:45-0400 Respiratory rate 18 /min Dr. Boris Mae MD Work Phone: 5(884)542-312717 [place] [address] 01-28-2025 12:45-0400 SaO2% (BldA) [Mass fraction] 95 % Dr. Boris Mae MD Work Phone: 6(275)477-708617 [place] [address] 01-28-2025 12:45-0400 Systolic blood pressure 145 mm[Hg] Dr. Boris Mae MD Work Phone: 7(098)246-954617 [place] [address] 01-21-2025 12:52-0400 Body height 149.[address] Boris Mae MD Work Phone: [facility] 01-21-2025 12:52-0400 Body mass index (BMI) [Ratio] 34.9 kg/m2 Dr. Boris Mae MD Work Phone: 8(808)512-602517 [place] [address] 01-21-2025 12:52-0400 Body temperature 98.3 [degF] Dr. Boris Mae MD Work Phone: 3(788)143-926717 [place] [address] 01-21-2025 12:52-0400 Body weight 78.[address] Boris Mae MD Work Phone: 2(151)922-927417 [place] [address] 01-21-2025 12:52-0400 Diastolic blood pressure 84 mm[Hg] Dr. Boris Mae MD Work Phone: 3(780)985-555917 [place] [address] 01-21-2025 12:52-0400 Heart rate 87 /min Dr. Boris Mae MD Work Phone: 2(793)015-014017 [place] [address] 01-21-2025 12:52-0400 Respiratory rate 16 /min Dr. Boris Mae MD Work Phone: 3(980)609-822317 [place] [address] 01-21-2025 12:52-0400 SaO2% (BldA) [Mass fraction] 94 % Dr. Boris Mae MD Work Phone: 2(044)597-302917 [place] [address] 01-21-2025 12:52-0400 Systolic blood pressure 138 mm[Hg] Dr. Boris Mae MD Work Phone: 5(454)651-100934 [place] [address] 01-14-2025 10:06-0400 Body height 149.[address] Boris Mae MD Work Phone: 7(985)786-829217 [place] [address] 01-14-2025 10:06-0400 Body mass index (BMI) [Ratio] 34.8 kg/m2 Dr. Boris Mae MD Work Phone: 8(715)587-204234 [place] [address] 01-14-2025 10:06-0400 Body temperature 98.8 [degF] Dr. Boris Mae MD Work Phone: 0(121)729-507934 [place] [address] 01-14-2025 10:06-0400 Body weight 78.[address] Boris Mae MD Work Phone: [facility] 01-14-2025 10:06-0400 Diastolic blood pressure 78 mm[Hg] Dr. Boris Mae MD Work Phone: 2(108)403-478034 [place] [address] 01-14-2025 10:06-0400 Heart rate 78 /min Dr. Boris Mae MD Work Phone: 6(831)833-331134 [place] [address] 01-14-2025 10:06-0400 Respiratory rate 18 /min Dr. Boris Mae MD Work Phone: 6(290)083-188034 [place] [address] 01-14-2025 10:06-0400 SaO2% (BldA) [Mass fraction] 94 % Dr. Boris Mae MD Work Phone: 6(831)228-718434 [place] [address] 01-14-2025 10:06-0400 Systolic blood pressure 184 mm[Hg] Dr. Boris Mae MD Work Phone: 4(623)440-033834 [place] [address] 12-30-2024 13:36-0400 Body height 149.[address] Boris Mae MD Work Phone: 5(013)082-668262 [address] 12-30-2024 13:36-0400 Body mass index (BMI) [Ratio] 35.2 kg/m2 Dr. Boris Mae MD Work Phone: 0(360)054-812562 [address] 12-30-2024 13:36-0400 Body temperature 97.2 [degF] Dr. Boris Mae MD Work Phone: [facility] 12-30-2024 13:36-0400 Body weight 78.[address] Boris Mae MD Work Phone: 5(023)337-955834 [place] [address] 12-30-2024 13:36-0400 Diastolic blood pressure 83 mm[Hg] Dr. Boris Mae MD Work Phone: 7(221)925-504034 [place] [address] 12-30-2024 13:36-0400 Heart rate 83 /min Dr. Boris Mae MD Work Phone: 6(194)524-108134 [place] [address] 12-30-2024 13:36-0400 Respiratory rate 18 /min Dr. Boris Mae MD Work Phone: 5(039)548-323534 [place] [address] 12-30-2024 13:36-0400 SaO2% (BldA) [Mass fraction] 96 % Dr. Boris Mae MD Work Phone: 5(099)458-978034 [place] [address] 12-30-2024 13:36-0400 Systolic blood pressure 155 mm[Hg] Dr. Boris Mae MD Work Phone: 7(015)659-299017 [place] [address] 12-17-2024 10:02-0400 Body mass index (BMI) [Ratio] 34.9 kg/m2 Dr. Boris Mae MD Work Phone: 0(553)227-090717 [place] [address] 12-17-2024 10:02-0400 Body temperature 98.4 [degF] Dr. Boris Mae MD Work Phone: 1(234)027-597317 [place] [address] 12-17-2024 10:02-0400 Body weight 78.[address] Boris Mae MD Work Phone: 6(648)074-118817 [place] [address] 12-17-2024 10:02-0400 Diastolic blood pressure 76 mm[Hg] Dr. Boris Mae MD Work Phone: 4(621)901-538217 [place] [address] 12-17-2024 10:02-0400 Heart rate 92 /min Dr. Boris Mae MD Work Phone: 8(261)485-253334 [place] [address] 12-17-2024 10:02-0400 Respiratory rate 18 /min Dr. Boris Mae MD Work Phone: 8(146)952-634034 [place] [address] 12-17-2024 10:02-0400 SaO2% (BldA) [Mass fraction] 94 % Dr. Boris Mae MD Work Phone: 1(606)551-987034 [place] [address] 12-17-2024 10:02-0400 Systolic blood pressure 161 mm[Hg] Dr. Boris Mae MD Work Phone: 6(136)371-278162 [address] 12-03-2024 09:28-0400 Body mass index (BMI) [Ratio] 34.9 kg/m2 Dr. Boris Mae MD Work Phone: [facility] 12-03-2024 09:28-0400 Body temperature 97.1 [degF] Dr. Boris Mae MD Work Phone: [facility] 12-03-2024 09:28-0400 Body weight 78.[address] Boris Mae MD Work Phone: 2(692)698-532634 [place] [address] 12-03-2024 09:28-0400 Diastolic blood pressure 75 mm[Hg] Dr. Boris Mae MD Work Phone: 4(314)159-122617 [place] [address] 12-03-2024 09:28-0400 Heart rate 86 /min Dr. Boris Mae MD Work Phone: 2(369)073-729117 [place] [address] 12-03-2024 09:28-0400 Respiratory rate 16 /min Dr. Boris Mae MD Work Phone: 1(211)306-075417 [place] [address] 12-03-2024 09:28-0400 SaO2% (BldA) [Mass fraction] 95 % Dr. Boris Mae MD Work Phone: 5(537)660-828834 [place] [address] 12-03-2024 09:28-0400 Systolic blood pressure 119 mm[Hg] Dr. Boris Mae MD Work Phone: [facility] 11-18-2024 14:21-0400 Body temperature 97 [degF] Dr. Boris Mae MD Work Phone: 0(818)881-497534 [place] [address] 11-18-2024 14:21-0400 Diastolic blood pressure 47 mm[Hg] Dr. Boris Mae MD Work Phone: 1(368)009-069434 [place] [address] 11-18-2024 14:21-0400 Heart rate 95 /min Dr. Boris Mae MD Work Phone: 5(719)755-363534 [place] [address] 11-18-2024 14:21-0400 Respiratory rate 16 /min Dr. Boris Mae MD Work Phone: [facility] 11-18-2024 14:21-0400 SaO2% (BldA) [Mass fraction] 98 % Dr. Boris Mae MD Work Phone: [facility] 11-18-2024 14:21-0400 Systolic blood pressure 132 mm[Hg] Dr. Boris Mae MD Work Phone: 4(332)512-514617 [place] [address] 11-18-2024 13:14-0400 Diastolic blood pressure 68 mm[Hg] Dr. Boris Mae MD Work Phone: 2(841)106-173717 [place] [address] 11-18-2024 13:14-0400 Heart rate 88 /min Dr. Boris Mae MD Work Phone: 5(928)386-974017 [place] [address] 11-18-2024 13:14-0400 Respiratory rate 16 /min Dr. Boris Mae MD Work Phone: 6(235)547-065717 [place] [address] 11-18-2024 13:14-0400 SaO2% (BldA) [Mass fraction] 93 % Dr. Boris Mae MD Work Phone: 4(443)067-852417 [place] [address] 11-18-2024 13:14-0400 Systolic blood pressure 130 mm[Hg] Dr. Boris Mae MD Work Phone: 8(504)644-546017 [place] [address] 11-18-2024 12:55-0400 Body temperature 98.3 [degF] Dr. Boris Mae MD Work Phone: 0(085)309-596917 [place] [address] 11-18-2024 09:55-0400 Body height 149.[address] Boris Mae MD Work Phone: 3(575)178-663117 [place] [address] 11-18-2024 09:55-0400 Body mass index (BMI) [Ratio] 34.2 kg/m2 Dr. Boris Mae MD Work Phone: 4(688)449-868117 [place] [address] 11-18-2024 09:55-0400 Body weight [address] Boris Mae MD Work Phone: 4(220)169-856817 [place] [address] 11-07-2024 09:53-0400 Body weight 78.[address] Boris Mae MD Work Phone: 4(227)356-365817 [place] [address] 11-07-2024 09:53-0400 Diastolic blood pressure 75 mm[Hg] Dr. Boris Mae MD Work Phone: [facility] 11-07-2024 09:53-0400 Heart rate 82 /min Dr. Boris Mae MD Work Phone: [facility] 11-07-2024 09:53-0400 Respiratory rate 17 /min Dr. Boris Mae MD Work Phone: [facility] 11-07-2024 09:53-0400 SaO2% (BldA) [Mass fraction] 98 % Dr. Boris Mae MD Work Phone: 4(970)706-592934 [place] [address] 11-07-2024 09:53-0400 Systolic blood pressure 161 mm[Hg] Dr. Boris Mae MD Work Phone: 4(510)083-061734 [place] [address] 10-23-2024 15:02-0400 Body height 162.[address] Boris Mae MD Work Phone: 4(962)711-397534 [place] [address] 10-23-2024 15:02-0400 Body mass index (BMI) [Ratio] 29.2 kg/m2 Dr. Boris Mae MD Work Phone: 8(041)747-055834 [place] [address] 10-23-2024 15:02-0400 Body temperature 97.4 [degF] Dr. Boris Mae MD Work Phone: 1(932)278-784834 [place] [address] 10-23-2024 15:02-0400 Body weight 77.[address] Boris Mae MD Work Phone: 9(197)362-588734 [place] [address] 10-23-2024 15:02-0400 Diastolic blood pressure 75 mm[Hg] Dr. Boris Mae MD Work Phone: 0(029)195-502434 [place] [address] 10-23-2024 15:02-0400 Heart rate 83 /min Dr. Boris Mae MD Work Phone: [facility] 10-23-2024 15:02-0400 Respiratory rate 17 /min Dr. Boris Mae MD Work Phone: [facility] 10-23-2024 15:02-0400 SaO2% (BldA) [Mass fraction] 92 % Dr. Boris Mae MD Work Phone: [facility] 10-23-2024 15:020 Systolic blood pressure 131 mm[Hg] Dr. Boris Mae MD Work Phone: [facility] Encounters Encounter Date Encounter Type Care Provider Facility Start: 03-05-2025 End: 03-05-[address] Deng Beard [facility] Work Phone: Start: 03-05-2025 End: 03-05-[address] Boris Mae MD Work Phone: [facility] Start: 02-11-2025 End: 02-11-[address] Boris Mae MD Work Phone: -[facility] Start: 02-11-2025 End: 02-11-[address] Izzy Michele MD -[facility] Work Phone: Start: 02-11-2025 End: 02-11-2025 ambulatory Izzy Michele Facility:[facility] Start: 02-04-[address] Deng Stephen on DO -Radiation Oncology Start: 02-04-2025 End: 02-04-[address] Deng Beard [facility] Work Phone: Start: 02-04-2025 Non-patient / Non-visit Dr. Deng Beard [facility] Work Phone: Start: 02-04-2025 End: 02-04-[address] Boris Mae MD Work Phone: [facility] Work Phone: Start: 01-28-[address] Deng Stephen on DO -Radiation Oncology Start: 01-28-2025 End: 01-28-[address] Deng Beard [facility] Work Phone: Start: 01-28-2025 End: 01-28-[address] Boris Mae MD Work Phone: [facility] Work Phone: Start: 01-21-[address] Deng Stephen on DO -Radiation Oncology Start: 01-21-2025 End: 01-21-[address] Jose Juan Obrien MD -[facility] Work Phone: Start: 01-21-2025 End: 01-21-[address] Boris Mae MD Work Phone: [facility] Work Phone: Start: 01-14-[address] Deng Stephen on DO -Radiation Oncology Start: 01-14-2025 End: 01-14-[address] Deng Beard DO [facility] Work Phone: Start: 01-14-2025 End: 01-14-[address] Boris Mae MD Work Phone: [facility] Work Phone: Start: 01-08-2025 ambulatory Deng Beard Facility: [facility] Start: 01-08-2025 Non-patient / Non-visit [facility] Start: 01-07-2025 ambulatory Deng Beard Facility: [facility] Start: 01-07-2025 Non-patient / Non-visit [facility] Start: 01-06-2025 ambulatory Deng Beard Facility: [facility] Start: 01-06-2025 Non-patient / Non-visit Dr. Deng Beard DO [facility] Start: 01-01-2025 ambulatory Deng Beard Facility: [facility] Start: 01-01-2025 Non-patient / Non-visit Dr. Deng Beard DO [facility] Start: 12-30-2024 End: 12-30-[address] Deng Beard [facility] Work Phone: Start: 12-30-2024 End: 12-30-[address] Boris Mae MD Work Phone: [facility] Work Phone: Start: 12-17-2024 End: 12-17-[address] Evin Bean MD -[facility] Work Phone: Start: 12-17-2024 End: 12-17-2024 ambulatory Boris Mae Facility:[facility] Start: 12-03-2024 End: 12-03-[address] Evin Bean MD -[facility] Work Phone: Start: 12-03-2024 End: 12-03-2024 ambulatory Boris Mae Facility:[facility] Start: 12-02-2024 End: 12-02-[address] Leela Rivera MD -[facility] Work Phone: Start: 12-02-2024 End: 12-02-2024 ambulatory Boris Mae Facility:[facility] Start: 11-18-2024 Non-patient / Non-visit Dr. Leela Rivera MD -[facility] Start: 11-18-2024 End: 11-18-2024 Admission to same day surgery center Dr. Leela Rivera MD -[facility] Start: 11-18-2024 End: 11-18-[address] Boris Mae MD Work Phone: [facility] Work Phone: Start: 11-07-2024 End: 11-07-[address] Leela Rivera MD -[facility] Work Phone: Start: 11-07-2024 End: 11-07-2024 ambulatory Leela Rivera Facility:[facility] Start: 10-23-2024 End: 10-23-[address] Boris Mae MD Work Phone: [facility] Work Phone: Start: 10-23-2024 End: 10-23-[address] Leela Rivera MD -Laboratory, Specimen Work Phone: Start: 10-23-2024 End: 10-23-[address] Leela Rivera MD -[facility] Work Phone: Start: 10-23-2024 End: 10-23-20[facility] Start: 10-23-2024 End: 10-23-2024 ambulatory [facility] Facility:[facility] Start: 10-14-2024 End: 10-14-[address] Boris Mae MD Work Phone: [facility] Work Phone: Start: 10-14-2024 End: 10-14-[address] Boris Mae MD -[facility] Work Phone: Start: 10-14-2024 End: 10-14-[address] [facility] Facility:[facility] Start: 10-07-2024 End: 10-07-[address] Boris Mae MD Work Phone: [facility] Work Phone: Start: 10-07-2024 End: 10-07-[address] Boris Mae MD Work Phone: -[facility] Work Phone: Start: 10-07-2024 End: 10-07-2024 ambulatory Boris Mae Facility:[facility] Start: 09-12-2024 End: 09-12-[address] Boris Mae MD -Laboratory, [place] Work Phone: Start: 09-12-2024 End: 09-12-2024 ambulatory Boris Mae Facility:[facility] Start: 08-25-2024 End: 08-25-[address] Izzy Michele MD -Laboratory, [place] Work Phone: Start: 08-25-2024 End: 08-25-[address] [facility] Facility:[facility] Start: 07-14-2024 End: 07-14-2024 Patient encounter procedure Victorina Carter RESIDENT BUYER-C -[facility], [place] Work Phone: Start: 07-14-2024 End: 07-14-2024 ambulatory Victorina Carter NP Facility:[facility] Start: 05-29-2024 End: 05-29-2024 ambulatory Izzy Michele Facility:[facility] Start: 05-01-2024 End: 05-01-2024 ambulatory Boris Mae Facility:[facility] Start: 04-04-2024 End: 04-04-2024 [facility] Start: 02-05-2024 End: 02-05-2024 ambulatory DOMINIQUE PEDROZA DO Facility:B Start: 02-05-2024 End: 02-05-[address] IZZY MICHELE MD [facility] Start: 02-01-2024 End: 02-01-2024 ambulatory DOMINIQUE PEDROZA DO Facility:[facility] Start: 02-01-2024 End: 02-01-2024 Patient encounter procedure VICTORINA CARTER RESIDENT BUYER [facility] Start: 01-25-2024 End: 01-25-[address] IZZY MICHELE MD Facility:[facility] Start: 01-25-2024 End: 01-25-[address] IZZY MICHELE MD [facility] Start: 11-02-2023 End: 11-02-2023 ambulatory DOMINIQUE PEDROZA DO Facility:[facility] Start: 11-02-2023 End: 11-02-2023 Patient encounter procedure DOMINIQUE PEDROZA DO [facility] Start: 09-19-2023 End: 09-19-2023 ambulatory DOMINIQUE PEDROZA DO Facility:B Start: 06-07-2023 End: 06-07-2023 ambulatory DOMINIQUE PEDROZA DO Facility:[facility] Start: 01-25-2023 End: 01-25-2023 Patient encounter procedure VICTORINA CARTER RESIDENT BUYER [facility] Start: 10-18-2022 End: 10-18-2022 Patient encounter procedure DOMINIQUE Isrrael PEDROZA DO [facility] Start: 10-04-2022 End: 10-04-2022 Patient encounter procedure VICTORINA CARTER RESIDENT BUYER [facility] Start: 06-30-2022 End: 06-30-2022 Patient encounter procedure VICTORINA CARTER RESIDENT BUYER [facility] Start: 06-05-2022 End: 06-05-2022 Patient encounter procedure MALIA GOFF MD [facility] Start: 11-02-2021 End: 11-02-2021 Patient encounter procedure VICTORINA CARTER RESIDENT BUYER [facility] Start: 10-20-2021 End: 10-20-2021 Patient encounter procedure DOMINIQUE M YOVANY [facility] Start: 08-02-2021 End: 08-02-2021 Patient encounter procedure VICTORINA CARTER RESIDENT BUYER [facility] Start: 06-13-2021 End: 06-13-2021 Patient encounter procedure VICTORINA CARTER RESIDENT BUYER [facility] Procedures Date Procedure Procedure Detail Performing Clinician Start: 02-11-2025 Vitamin D, 25-hydrox y measurement Dr. Boris Mae MD Work Phone: Comment on above: Vitamin D StatusDefi ciency: <20 ng/mL (50nmol/L)Insufficiency: 20-30 ng/mL (50-75 nmol/L)Sufficiency: 30-100 ng/mL (75-250 nmol/L)Toxicity: >100 ng/mL (>250 nmol/L) Start: 11-18-[address] Mary Mae MD Work Phone: Start: 11-18-[address] Mary Mae MD Work Phone: Start: 11-18-2024 Radionuclide sentine l lymph node study Dr. Boris Mae MD Work Phone: Start: 10-14-[address] Boris Mae MD Work Phone: Start: 10-14-2024 Vitamin D, 25-hydrox y measurement Dr. Boris Mae MD Work Phone: Comment on above: Vitamin D StatusDefi ciency: <20 ng/mL (50nmol/L)Insufficiency: 20-30 ng/mL (50-75 nmol/L)Sufficiency: 30-100 ng/mL (75-250 nmol/L)Toxicity: >100 ng/mL (>250 nmol/L) Start: 10-07-2024 Dual energy X-ray absorptiometry Dr. Boris Mae MD Work Phone: Start: 10-07-2024 Screening mammography Jerrod aMe MD Work Phone: Start: 09-12-2024 Measurement of renal function Dr. Boris Mae MD Work Phone: Comment on above: GFR Calc Start: 09-12-2024 Vitamin D, 25-hydrox y measurement Dr. Boris Mae MD Work Phone: Comment on above: Vitamin D 25(OH) Sta tus Range Deficiency <20 ng/mL (50nmol/L) Insufficiency 20 - 30 ng/mL (50 - 75 nmol/L) Sufficiency 30 - 100 ng/mL (75 - 250 nmol/L) Toxicity >100 ng/mL (>250 nmol/L) Start: 02-17-2019 Colonoscopy VICTORINA ARAYA RESIDENT BUYER Start: 09-27-2016 History of lumbar discectomy VICTORINA CARTER NP Biopsy of breast VICTORINA GUERRA NP Comment on above: left Entire elbow region (body structure) VICTORINA CARTER RESIDENT BUYER Comment on above: right for tendonitis Trina fundoplication VICTORINA CARTER RESIDENT BUYER Thyroidectomy VICTORINA Javier NP Plan of Treatment Date Care Activity Detail Author Start: 12-17-2024 Patient referral [facility] Work Phone: Start: 11-18-2024 Anesthesia radical/modified radical breast ANESTH SURGERY OF BREAST [facility] Start: 11-18-2024 Inj radioactive trac er for id of sentinel node RA TRACER ID OF SENTINL NODE [facility] Start: 11-18-2024 Mastectomy partial PARTIAL MASTECTOM Y [facility] Start: 11-18-2024 Patient discharge [facility] Start: 11-18-2024 MG Breast specimen Views [facility] Start: 11-18-2024 Specimen mammography Breast Biopsy S pecimen [facility] Patient referral [facility] Work Phone: Immunizations Immunization Date Immunization Notes Care Provider [facility] 09-10-2023 pneumococcal 20-gibson nt conjugate vaccine DOMINIQUE PEDROZA DO [facility] 09-10-2023 RSV vaccine preF3, recombinant DOMINIQUE PEDROZA DO [facility] 05-03-2023 influenza virus vacc ine, unspecified formulation DOMINIQUE PEDROZA DO [facility] 03-15-2023 Pneumococcal conjuga te PCV20, polysaccharide [id number] conjugate, adjuvant, PF; Translations: [Prevnar 20] DOMINIQUE PEDROZA DO [facility] Comment on above: Result Comment: Aldo Hernandez [employer] 05-29-2022 influenza virus vacc ine, unspecified formulation VICTORINA CARTER NP [facility] 06-23-2021 pneumococcal polysaccharide vaccine, 23 valent; Translations: [Pneumovax 23] VICTORINA CARTER RESIDENT BUYER [facility] 06-13-2021 influenza virus vacc ine, unspecified formulation VICTORINA CARTER RESIDENT BUYER [facility] 06-13-2021 SARS-CoV-2 (COVID-19 ) mRNA-1273 vaccine VICTORINA CARTER RESIDENT BUYER [facility] Comment on above: Result Comment: 2020: [id number] 10-21-2020 SARS-CoV-2 (COVID-19 ) Ad26 vaccine, recombinant VICTORINA CARTER RESIDENT BUYER [facility] Comment on above: Result Comment: 2020: [id number] 06-29-2020 tetanus toxoid, redu je diphtheria toxoid, and acellular pertussis vaccine, adsorbed; Translations: [Boostrix (Tdap)] VICTORINA CARTER RESIDENT BUYER [facility] 05-08-2020 influenza virus vacc ine, unspecified formulation VICTORINA CARTER RESIDENT BUYER [facility] Comment on above: Result Comment: [facility] 09-09-2015 pneumococcal polysaccharide vaccine, 23 valent VICTORINA CARTER [facility] Payers Date Payer Category Payer Self-pay 2023 Private Health Insurance [id number] 1955 Unknown [id number] 2.16.8 40.1.070635.3.579.2. 1955 Unknown [id number] 2.16.8 40.1.171215.3.579.2. 1955 Unknown [id number] 2.16.8 40.1.068348.3.579.2. 1955 Unknown [id number] 2.16.8 40.1.299411.3.579.2.627 1955 Unknown [id number] 2.16.8 40.1.622417.3.579.2.627 1955 Unknown [id number] 2.16.8 40.1.238378.3.579.2.627 1955 Unknown [id number] 2.16.8 40.1.465117.3.579.2.627 Unknown [id number] Unknown [id number] 2.16.8 40.1.591584.3.579.2.462 Unknown [id number] 2.16.8 40.1.079680.3.579.2.462 Unknown [id number] 2.16.8 40.1.051365.3.579.2.462 Unknown [id number] 2.16.8 40.1.507953.3.579.2.462 Unknown [id number] 2.16.8 40.1.845045.3.579.2.462 Unknown [id number] 2.16.8 40.1.167203.3.579.2.462 Unknown [id number] 2.16.8 40.1.252871.3.579.2.462 Unknown [id number] 2.16.8 40.1.920826.3.579.2.462 Unknown [id number] 2.16.8 40.1.371925.3.579.2.462 Unknown [id number] 2.16.8 40.1.920664.3.579.2.462 Unknown [id number] 2.16.8 40.1.052197.3.579.2.462 Unknown [id number] 2.16.8 40.1.921436.3.579.2.462 Unknown [id number] 2.16.8 40.1.910847.3.579.2.462 Unknown [id number] 2.16.8 40.1.911576.3.579.2.462 Unknown [id number] 2.16.8 40.1.831378.3.579.2.462 Unknown [id number] 2.16.8 40.1.211952.3.579.2.462 Unknown [id number] 2.16.8 40.1.560259.3.579.2.462 Unknown [id number] 2.16.8 40.1.762168.3.579.2.462 Unknown [id number] 2.16.8 40.1.937716.3.579.2.462 Unknown [id number] 2.16.8 40.1.601680.3.579.2.462 Unknown [id number] 2.16.8 40.1.307935.3.579.2.462 Unknown [id number] 2.16.8 40.1.248208.3.579.2.462 Unknown [id number] 2.16.8 40.1.791621.3.579.2.462 Unknown [id number] 2.16.8 40.1.479275.3.579.2.462 Unknown [id number] 2.16.8 40.1.928464.3.579.2.462 Unknown [id number] 2.16.8 40.1.969808.3.579.2.462 Unknown [id number] 2.16.8 40.1.208596.3.579.2.462 Unknown [id number] 2.16.8 40.1.768812.3.579.2.462 Unknown [id number] 2.16.8 40.1.661222.3.579.2.462 Social History Date Type Detail Facility Start: 09-01-2020 End: 12-03-2024 Ex-smoker (finding) [facility] Start: 1955 Sex Assigned At Female [facility] Tobacco smoking status NHIS Unknown if ever smoked [facility] Work Phone: Start: 10-20-2024 End: 11-18-2024 Sex Female (finding) [facility] Start: 10-23-2024 Tobacco smoking status NHIS Never smoked tobacco (finding) [facility] NEGATED: Highlighted row Not [facility] Medical Equipment Procedure Code Equipment Code Equipment Origin al Text Equipment Identifier Dates Lumpectomy, breast, bilateral, after needle localization, with bilateral sentinel and Ligation clip, metallic [id number] FDA Start: 11-18-2024 Lumpectomy, breast, bilateral, after needle localization, with bilateral sentinel and Ligation clip, metallic ()[id number] FDA Start: 11-18-2024 BD UF NERIS PEN NEEDLE [id number] Start: 03-04-2019 [employer] TRUE METR IX TEST STRIP Start: 03-04-2019 BD UF NERIS PEN NEEDLE [id number] Start: 03-04-2019 [employer] TRUE METR IX TEST STRIP Start: 03-04-2019 BD UF NERIS PEN NEEDLE [id number] Start: 03-04-2019 [employer] TRUE METR IX TEST STRIP Start: 03-04-2019 BD UF NERIS PEN NEEDLE [id number] Start: 03-04-2019 [employer] TRUE METR IX TEST STRIP Start: 03-04-2019 BD UF NERIS PEN NEEDLE [id number], 0 Refill(s) Start: 03-04-2019 [employer] TRUE METR IX TEST STRIP, 0 Refill(s) Start: 03-04-2019 BD UF NERIS PEN NEEDLE [id number], 0 Refill(s) Start: 03-04-2019 [employer] TRUE METR IX TEST STRIP, 0 Refill(s) Start: 03-04-2019 BD UF NERIS PEN NEEDLE [id number], 0 Refill(s) Start: 03-04-2019 [employer] TRUE METR IX TEST STRIP, 0 Refill(s) Start: 03-04-2019 BD UF NERIS PEN NEEDLE [id number], 0 Refill(s) Start: 03-04-2019 [employer]NA TRUE METR IX TEST STRIP, 0 Refill(s) Start: 03-04-2019 BD UF NERIS PEN NEEDLE [id number], 0 Refill(s) Start: 03-04-2019 [employer] TRUE METR IX TEST STRIP, 0 Refill(s) Start: 03-04-2019 BD UF NERIS PEN NEEDLE [id number], 0 Refill(s) Start: 03-04-2019 [employer]NA TRUE METR IX TEST STRIP, 0 Refill(s) Start: 03-04-2019 BD UF NERIS PEN NEEDLE [id number], 0 Refill(s) Start: 03-04-2019 [employer]NA TRUE METR IX TEST STRIP, 0 Refill(s) Start: 03-04-2019 BD UF NERIS PEN NEEDLE [id number], 0 Refill(s) Start: 03-04-2019 [employer]NA TRUE METR IX TEST STRIP, 0 Refill(s) Start: 03-04-2019 BD UF NERIS PEN NEEDLE [id number], 0 Refill(s) Start: 03-04-2019 [employer] TRUE METR IX TEST STRIP, 0 Refill(s) Start: 03-04-2019 Goals Date Patient Goal Desired Activity /State Mental Status Date Assessment Result Facility 11-18-2024 Cognitive function Level Of Cons ciousness Awake;Drowsy;Disoriented [facility] Work Phone: 11-18-2024 Cognitive function Arousable To Voice/Nam e [facility] Work Phone: Clinical Notes 05-04-2021 to 02-04-2025 Note Date & Type Note Facility 02-04-2025 Progress note [facility] 02-04-2025 Progress note Note Date/Time February 04, 2025 1:09pm [facility] [address] [place] [address] OFFICE VISIT Date of Service: 02/04/25 1251 MR#: [id number] Acct: [id number] Name: ALLYSON CLAUDIO Rep #: [id number] : 1955 From: Deng dixon DO Age/Sex: 69/F [place] [facility] [place]: Signed Intake Vital Signs 12/30/24 13:36 01/28/25 12:45 02/04/25 12:53 Height 4 ft 11 in 4 ft 11 in 4 ft 11 in Weight: 174 lb 6 oz 173 lb 8 oz BMI 35.2 35.0 BP 145/77 H 147/76 H Blood Pressure Location Lt brachial Lt brachial Position Sitting Sitting Respiration 18 16 Pulse 87 89 Pulse Source Monitor Monitor Temp 98.6 F 98.8 F Temperature Source Temporal Artery Temporal Artery Pulse Oximetry (%) 95 95 Oxygen Delivery Method room air room air Intake Visit Reasons: OTV Is patient in pain?: No Allergies sitagliptin (From Januvia) Allergy (Intermediate, Verified 02/04/25 12:53) hallucinations Sulfa (Sulfonamide Antibiotics) Allergy (Intermediate, Verified 02/04/25 12:53) Hives venlafaxine (From Effexor) Allergy (Intermediate, Verified 02/04/25 12:53) Other Medications ?Medication ?Instructions ?Recorded ?Confirmed ?Type alendronate 70 mg tablet 70 mg PO ADAMS 10/23/24 5 History amlodipine 5 mg-benazepril 20 mg 1 cap PO QDAY 5 02/04/25 History capsule aspirin 81 mg tablet,delayed 81 mg PO QHS 10/23/24 History release Held on 11/18/24. Instructions: Resume on 11/20/24. atorvastatin 20 mg tablet 20 mg PO QDAY 10/23/2402/04 History calcium glucarate 500 mg capsule 1 tab-cap PO QDAY 02/04/25 History levothyroxine 137 mcg tablet 68.5 mcg PO ADAMS 10/23/24 0 02/04/25 History (Synthroid) methotrexate (PF) 25 mg/0.5 mL 25 mg subcut FR 5 02/04/25 History subcutaneous auto-injector multivitamin 1 tab PO QAM 10/23/24 History pantoprazole 40 mg tablet,delayed 40 mg PO QDAY 02/04/25 History release semaglutide 0.25 mg or 0.5 mg (2 1 mg subcut FR 02/04/25 History mg/3 mL) subcutaneous pen injector (Ozempic) sertraline 100 mg tablet (Zoloft) 100 mg PO QDAY 10/2302/04/25 History meloxicam 15 mg tablet 7.5 mg PO DAILY PRN PRN pain 11/10/24 02/04/25 History mirtazapine 15 mg tablet 15 mg PO QHS ANXIETY AND SLE EP 11/10/24 02/04/25 History triamterene 50 cap PO 12/03/24 02/04/25 His tory mg-hydrochlorothiazide 25 mg capsule folic acid 1 mg tablet 1 mg PO QDAY 12/30/24 History Have you fallen in the past year?: No PFSH PFSH Medical History Wears glasses Wears dentures Cancer Post-menopausal Anxiety Alcohol use Depression High cholesterol Dietary restriction History of ulceration Former smoker History of rheumatic fever Thyroid disease Rheumatoid arthritis Heart murmur GERD (gastroesophageal reflux disease) HTN (hypertension) Diabetes Home Medications ?Medication ?Instructions ?Recorded ?Last Taken ?Type alendronate 70 mg tablet 70 mg PO ADAMS 10/23/24 Unknown History amlodipine 5 mg-benazepril 20 mg 1 cap PO QDAY 5 11/18/24 08:00 History capsule aspirin 81 mg tablet,delayed 81 mg PO QHS 10/23/2410/07 History release Held on 11/18/24. Instructions: Resume on 11/20/24. atorvastatin 20 mg tablet 20 mg PO QDAY 10/23/24 Unkno wn History calcium glucarate 500 mg capsule 1 tab-cap PO QDAY Unknown History levothyroxine 137 mcg tablet 68.5 mcg PO ADAMS 10/23/24 0 11/18/24 08:00 History (Synthroid) methotrexate (PF) 25 mg/0.5 mL 25 mg subcut FR 5 11/14/24 History subcutaneous auto-injector multivitamin 1 tab PO QAM 10/23/24 Unknow n History pantoprazole 40 mg tablet,delayed 40 mg PO QDAY 11/18/24 08:00 History release semaglutide 0.25 mg or 0.5 mg (2 1 mg subcut FR 11/07/24 History mg/3 mL) subcutaneous pen injector (Ozempic) sertraline 100 mg tablet (Zoloft) 100 mg PO QDAY 10/23 Unknown History meloxicam 15 mg tablet 7.5 mg PO DAILY PRN PRN pain 11/10/24 Unknown History mirtazapine 15 mg tablet 15 mg PO QHS ANXIETY AND SLE EP 11/10/24 Unknown History triamterene 50 cap PO 12/03/24 Unknown Hist ory mg-hydrochlorothiazide 25 mg capsule folic acid 1 mg tablet 1 mg PO QDAY 12/30/24 Unknow n History Allergy/AdvReac Type Severity Reaction Status Date / Time sitagliptin (From Januvia) Allergy Intermediate hallucinati Verified 02/04/25 12:53 ons Sulfa (Sulfonamide Allergy Intermediate Hives Verified 02/04/25 12:53 Antibiotics) venlafaxine (From Effexor) Allergy Intermediate Other Verified 02/04/25 12:53 Family History Aunt Breast cancer Father Diabetes Heart disease Hypertension Mother Cancer Sister Diabetes Heart disease AD (Alzheimer's disease) Surgical History S/P lumpectomy, right breast History of Trina fundoplication History of colonoscopy History of back surgery H/O thyroidectomy Social History Smoking Status: Former smoker Tobacco: How many years used: 20 alcohol intake: never substance use type: does not use Diagnosis: Allyson Claudio is a 69 year-old female diagnosed with pathologic stage IA (pT1c pN0 (sn) Mx) grade 2 invasive ductal carcinoma (ER 95%, MI 95%, HER2 2+ IHC and negative on FISH) of the right breast 9:00 location status post bilateral great mammogram (10/07/2024), right breast ultrasound (10/14/2024), right breast ultrasound-guided biopsy (10/24/2024), and completion of right breast lumpectomy and sentinel lymph node biopsy (11/18/2024). Plan: Plan was made to complete adjuvant radiation therapy consisting of 4256 cGy delivered to the right breast. Treatment Data: Treatment Site: right breast Current total dose/Total dose planned: 4256 cGy / 4256 cGy Fraction number: Chemotherapy: none Subjective: Pain: 0 / 10 Fatigue: none Breast: no edema or pain. mild skin erythema, no rash or desquamation. Resp: no SOB, cough Objective: Weight: 173 lbs Physical Exam: Gen: NAD Breast: mild skin erythema, no rash or desquamation. Assessment & Plan Assessment/Plan (1) Invasive ductal carcinoma of right breast: PLAN: Plan Assessment: Tolerated treatment well overall.? I reviewed and approved all treatment associated imaging. Skin grade 1 erythema Plan: Completed treatment as planned.? I have reviewed potential treatment associated toxicities as well as timing for resolution and management. Skin: reviewed skin care instructions Follow up in one month or sooner if needed. Thank you for allowing me to participate in the management and care of your patient. If I may answer any questions in the interim, please do not hesitate tocontact me at any time. Deng Beard DO, MS [employer]visor [employer], Department of Radiation Oncology [facility] Coding Level of Care Code Radiation Tx Management x5 Diagnoses Invasive ductal carcinoma of right breast C50.911 02/04/25 1309 <Electronically signed by Deng Beard DO> Date _ Deng Beard DO [facility] Signature: Date (if applicable) CC: ~ [place] [employer] Work Phone: 1(716) 565-995106-04-2025 Progress [facility] [place] [address] OFFICE VISIT Date of Service: 01/14/25 1004 MR#: [id number] Acct: [id number] Name: ALLYSON CLAUDIO Jami Rep #: [id number] : 1955 From: Deng dixon DO Age/Sex: 69/F [place] [facility] Status: Signed Intake Vital Signs 12/30/24 13:36 01/14/25 10:06 Height 4 ft 11 in 4 ft 11 in Weight: 172 lb 7 oz BMI 34.8 BP 184/78 H Blood Pressure Location Lt radial Position Sitting Respiration 18 Pulse 78 Pulse Source Monitor Temp 98.8 F Temperature Source Temporal Artery Pulse Oximetry (%) 94 Oxygen Delivery Method room air Intake Visit Reasons: OTV Chief Complaint: Breast cancer Is patient in pain?: No Allergies sitagliptin (From Januvia) Allergy (Intermediate, Verified 01/14/25 10:04) hallucinations Sulfa (Sulfonamide Antibiotics) Allergy (Intermediate, Verified 01/14/25 10:04) Hives venlafaxine (From Effexor) Allergy (Intermediate, Verified 01/14/25 10:04) Other Medications ?Medication ?Instructions ?Recorded ?Confirmed ?Type alendronate 70 mg tablet 70 mg PO ADAMS 10/23/24 5 History amlodipine 5 mg-benazepril 20 mg 1 cap PO QDAY 5 01/14/25 History capsule aspirin 81 mg tablet,delayed 81 mg PO QHS 10/23/2412/05 History release Held on 11/18/24. Instructions: Resume on 11/20/24. atorvastatin 20 mg tablet 20 mg PO QDAY 10/23/2401/14 History calcium glucarate 500 mg capsule 1 tab-cap PO QDAY 01/14/25 History levothyroxine 137 mcg tablet 68.5 mcg PO ADAMS 10/23/24 0 01/14/25 History (Synthroid) methotrexate (PF) 25 mg/0.5 mL 25 mg subcut FR 5 01/14/25 History subcutaneous auto-injector multivitamin 1 tab PO QAM 10/23/24 History pantoprazole 40 mg tablet,delayed 40 mg PO QDAY 01/14/25 History release semaglutide 0.25 mg or 0.5 mg (2 1 mg subcut FR 01/14/25 History mg/3 mL) subcutaneous pen injector (Ozempic) sertraline 100 mg tablet (Zoloft) 100 mg PO QDAY 10/2301/14/25 History meloxicam 15 mg tablet 7.5 mg PO DAILY PRN PRN pain 11/10/24 01/14/25 History mirtazapine 15 mg tablet 15 mg PO QHS ANXIETY AND SLE EP 11/10/24 01/14/25 H istory triamterene 50 cap PO 12/03/24 01/14/25 His tory mg-hydrochlorothiazide 25 mg capsule folic acid 1 mg tablet 1 mg PO QDAY 12/30/24 History Have you fallen in the past year?: No PFSH PFSH Medical History Wears glasses Wears dentures Cancer Post-menopausal Anxiety Alcohol use Depression High cholesterol Dietary restriction History of ulceration Former smoker History of rheumatic fever Thyroid disease Rheumatoid arthritis Heart murmur GERD (gastroesophageal reflux disease) HTN (hypertension) Diabetes Home Medications ?Medication ?Instructions ?Recorded ?Last Taken ?Type alendronate 70 mg tablet 70 mg PO ADAMS 10/23/24 Unknown History amlodipine 5 mg-benazepril 20 mg 1 cap PO QDAY 5 11/18/24 08:00 History capsule aspirin 81 mg tablet,delayed 81 mg PO QHS 10/23/2410/07 History release Held on 11/18/24. Instructions: Resume on 11/20/24. atorvastatin 20 mg tablet 20 mg PO QDAY 10/23/24 Unkno wn History calcium glucarate 500 mg capsule 1 tab-cap PO QDAY Unknown History levothyroxine 137 mcg tablet 68.5 mcg PO ADAMS 10/23/24 0 11/18/24 08:00 History (Synthroid) methotrexate (PF) 25 mg/0.5 mL 25 mg subcut FR 5 11/14/24 History subcutaneous auto-injector multivitamin 1 tab PO QAM 10/23/24 Unknow n History pantoprazole 40 mg tablet,delayed 40 mg PO QDAY 11/18/24 08:00 History release semaglutide 0.25 mg or 0.5 mg (2 1 mg subcut FR 11/07/24 History mg/3 mL) subcutaneous pen injector (Ozempic) sertraline 100 mg tablet (Zoloft) 100 mg PO QDAY 10/23 Unknown History meloxicam 15 mg tablet 7.5 mg PO DAILY PRN PRN pain 11/10/24 Unknown History mirtazapine 15 mg tablet 15 mg PO QHS ANXIETY AND SLE EP 11/10/24 Unknown History triamterene 50 cap PO 12/03/24 Unknown Hist ory mg-hydrochlorothiazide 25 mg capsule folic acid 1 mg tablet 1 mg PO QDAY 12/30/24 Unknow n History Allergy/AdvReac Type Severity Reaction Status Date / Time sitagliptin (From Januvia) Allergy Intermediate hallucinati Verified 01/14/25 10:04 ons Sulfa (Sulfonamide Allergy Intermediate Hives Verified 01/14/25 10:04 Antibiotics) venlafaxine (From Effexor) Allergy Intermediate Other Verified 01/14/25 10:04 Family History Aunt Breast cancer Father Diabetes Heart disease Hypertension Mother Cancer Sister Diabetes Heart disease AD (Alzheimer's disease) Surgical History S/P lumpectomy, right breast History of Trina fundoplication History of colonoscopy History of back surgery H/O thyroidectomy Social History Smoking Status: Former smoker Tobacco: How many years used: 20 alcohol intake: never substance use type: does not use Diagnosis: Allyson Claudio is a 69 year-old female diagnosed with pathologic stage IA (pT1c pN0 (sn) Mx) grade 2invasive ductal carcinoma (ER 95%, MI 95%, HER2 2+ IHC and negative on FISH) of the right breast 9:00 location status post bilateral great mammogram (10/07/2024), right breast ultrasound (10/14/2024), right breast ultrasound-guided biopsy (10/24/2024), and completion of right breast lumpectomy and sentinel lymph node biopsy (11/18/2024). Plan: Plan was made to complete adjuvant radiation therapy consisting of 4256 cGy delivered to the right breast. Treatment Data: Treatment Site: right breast Current total dose/Total dose planned: 532 cGy / 4256 cGy Fraction number: 2 / 16 Chemotherapy: none Subjective: Pain: 0 / 10 Fatigue: none Breast: no edema or pain. No skin erythema, rash, desquamation. Resp: no SOB, cough Objective: Weight: Physical Exam: Gen: NAD Breast: well healed lumpectomy incision. No edema or pain. No skin erythema, rash, desquamation. Assessment & Plan Assessment/Plan (1) Invasive ductal carcinoma of right breast: PLAN: Plan Assessment: Tolerating treatment well overall.? I reviewed and approved all treatment associated imaging. No treatment associated toxicities are noted at this time Plan: Continue treatment as planned.? I have reviewed potential treatment associated toxicities as well as timing for resolution and management. Skin: reviewed skin care instructions Follow up next week or sooner if needed. Thank you for allowing me to participate in the management and care of your patient. If I may answer any questions in the interim, please do not hesitate tocontact me at any time. Deng Beard DO, MS Supervisor [employer], Department of Radiation Oncology [facility] Coding Level of Care Code Radiation Tx Management x5 Diagnoses Invasive ductal carcinoma of right breast C50.911 01/14/25 1026 DO> Date _ Deng Beard DO Cosigner Signature: Date (if applicable) CC: ~ [facility]04-08-2025 Consult note Author [facility] Note Date/Time November 18, 2024 11:1 2am [facility] Medical Records Department [address] [place] [address] Pre-Anesthesia Evaluation 11/18/24 1105 MR#: [id number] Acct: [id number] Name: ALLYSON CLAUDIO Rep #:[id number] : 1955 69 From: Fredo Hayward MD PCP: Dr. Boris Mae MD Status:RE [facility] Y Race: C Location: [place] [address]- ASA Classification* ASA Classification ASA Classification: 2 Assessment & Plan Anesthesia* Anesthesia Assessment Anesthesia Assessment: Discussed sedation and/or anesthesia options, risks, benefits, and alternatives with patient/parents/legal guardian/POA. Questions invited. The patient/parents/legal guardian/POA seems to understand and agrees to proceedwith anesthesia plan. Reviewed the physical assessment, medical history, allergy history and patient home medications list prior to surgery/procedure/anesthetic and documented any changes. Performed airway and anesthesia risk assessments. Anesthesia Type Anesthesia Type: General History Source History Obtained from:: Patient and Chart Anesthesia Focused Assessment* Temperature: 98.4 F Pulse Rate: 86 Blood Pressure: 160/51 Respiratory Rate: 16 Pulse Ox: 98 Oxygen Delivery Method: Room Air Airway Assessment Mouth opens: >3 cm Mallampati Score: II Teeth Condition: Missing (Missing molars on the lower jaw.) and Partial (Patienthas upper partial. It is out. Rest of the teeth are tight.) Neck Range of motion (ROM): Full ROM Focused Labs Anesthesia Preop lab: CBC WBC 8.1 K/mm3 (4.4-11.0) 10/14/24 10:15 10/14/24 RBC 4.52 M/mm3 (4.2-5.4) 10/14/24 10:15 10/14/24 Hgb 13.8 g/dL (12.0-15.0) 10/14/24 10:15 10/14/24 Hct 42.0 % (37-47) 10/14/24 10:15 10/14/24 Plt Count 401 K/mm3 (150-450) 10/14/24 10:15 10/14/24 CHEMISTRY Potassium 3.5 mmol/L (3.3-5.1) 10/14/24 10:15 10/14/24 Sodium 138 mmol/L (133-145) 10/14/24 10:15 10/14/24 Magnesium 1.8 mg/dL (1.6-2.6) 05/01/24 10:25 05/01/24 BUN 11 mg/dL (4-19) 10/14/24 10:15 10/14/24 Creatinine 0.64 mg/dL (0.70-1.20) L 10/14/24 10:15 Glucose 111 mg/dL (70-99) H 10/14/24 10:15 10/14/24 POC Glucose 127 mg/dL (74-106) H 11/18/24 09:54 11/18/24 TSH 1.030 uIU/mL (0.300-4.200) 10/14/24 10:15 03/0 12/05 COAG Pre-Assessment Diagnosis/Proposed Procedure Planned Operative Procedure(s): (R) U/S wire loc right Breast, Lumpectomy,[place] Node,blue dye & lymphoseek, poss Ax Dis Anesthesia History 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 When Was Last Pacemaker Check QUESTION #4 FULL TEXT: You/Your Family Experience fever (hyperthermia) with Anesthesia Last Oral Intake Last Oral intake: Last Oral Intake NPO since 07:30 11/18/24 09:55 Meds taken in AM with sips of Yes 11/18/24 09:55 water? Meds patient instructed to take am of surgery Any additional information?: Yes NPO since: 07:30 (Patient took a.m. 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 Female Yes 11/10/24 09:11 HX of Motion Sickness No 11/10/24 09:11 HX of N/V After Surgery No 11/10/24 09:11 Non-Smoker Yes 11/10/24 09:11 Duration of Surgery greater Yes 11/10/24 09:11 than 60 minutes Number of Risk Factors 3 11/10/24 09:11 PONV Score Moderate Risk 03/31/25 09:11 Height & Weight Height & Weight: Anesthesia: Height & Weight Height 4 ft 11 in 11/18/24 09:55 Weight: 77 kg 11/18/24 09:55 Body Mass Index (BMI) 34.2 11/18/24 09:55 Respiratory Assessment Respiratory Assessment - 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 Has anyone observed you stop No 11/10/24 09:11 breathing during sleep? STOP Results Positive 11/10/24 09:11 QUESTION #5 FULL TEXT : Do you snore loudly (louder than talking or can be heard through closed doors)? 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 Specify any problems Hx of Preganancy in last 3 No 11/10/24 09:11 Months Nurse Filling Out Transfusion MGRIFFITH 11/10/24 09:11 & Questions: Date: 11/10/24 11/10/24 09:11 Time: 09:13 11/10/24 09:11 Patient unable to answer at this time (ie. 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: /Reproductive Hx- secondary school special ed teacher Hx Now No 11/10/24 09:11 Gestational Age (in weeks): EDC: Hx Hx Para Hx Section SAB No 11/10/24 09:11 Active Medications Active Medications: Current Medications Generic Name Dose Route Start Last Admin Trade Name Freq PRN Reason Stop Dose Admin Cefazolin Sodium 2 gm/ N/A 20 mls @ 400 mls/hr 11/18/24 11:30 IV 11/18/24 11:32 PREOP ONE Sodium Chloride 1,000 mls @ 15 mls/hr 11/18/24 09:40 11/18/24 10:07 IV 15 mls/hr .Q48H EDIN Administration PFSH Medical History Wears glasses Wears dentures Cancer Post-menopausal Anxiety Alcohol use Depression High cholesterol Dietary restriction History of ulceration Former smoker History of rheumatic fever Thyroid disease Rheumatoid arthritis Heart murmur GERD (gastroesophageal reflux disease) HTN (hypertension) Diabetes Home Medications ?Medication ?Instructions ?Recorded ?Last Taken ?Type alendronate 70 mg tablet 70 mg PO ADAMS 10/23/24 Unknown History amlodipine 5 mg-benazepril 20 mg 1 cap PO QDAY 5 11/18/24 08:00 History capsule aspirin 81 mg tablet,delayed 81 mg PO QHS 10/23/2410/07 History release atorvastatin 20 mg tablet 20 mg PO QDAY 10/23/24 Unkno wn History calcium glucarate 500 mg capsule 1 tab-cap PO QDAY Unknown History levothyroxine 137 mcg tablet 68.5 mcg PO ADAMS 10/23/24 0 11/18/24 08:00 History (Synthroid) methotrexate (PF) 25 mg/0.5 mL 25 mg subcut FR 5 11/14/24 History subcutaneous auto-injector multivitamin 1 tab PO QAM 10/23/24 Unknow n History pantoprazole 40 mg tablet,delayed 40 mg PO QDAY 11/18/24 08:00 History release semaglutide 0.25 mg or 0.5 mg (2 1 mg subcut FR 11/07/24 History mg/3 mL) subcutaneous pen injector (Ozempic) sertraline 100 mg tablet (Zoloft) 100 mg PO QDAY 10/23 Unknown History meloxicam 15 mg tablet 7.5 mg PO DAILY PRN PRN pain 11/10/24 Unknown History mirtazapine 15 mg tablet 15 mg PO QHS ANXIETY AND SLE EP 11/10/24 Unknown History Allergy/AdvReac Type Severity Reaction Status Date / Time sitagliptin (From Januvia) Allergy Intermediate hallucinati Verified 11/18/24 09:50 ons Sulfa (Sulfonamide Allergy Intermediate Hives Verified 11/18/24 09:50 Antibiotics) venlafaxine (From Effexor) Allergy Intermediate Other Verified 11/18/24 09:50 Family History Aunt Breast cancer Father Diabetes Heart disease Hypertension Mother Cancer Sister Diabetes Heart disease Surgical History History of Trina fundoplication History of colonoscopy History of back surgery H/O thyroidectomy Social History Smoking Status: Former smoker Review of Systems (Anesthesia) ROS Narrative System reviewed and no additional complaints, except as documented. 11/18/24 1112 <Electronically signed by Fredo hernandez MD> Date _ Fredo Hayward MD Cosigner Signature: Date CC: ~ Signed [facility] Work Phone: 1(338) 897-575604-08-2025 Discharge summary [facility] Medical Records Department [address] [address] Instructions for Home/Discharge Instructions 11/18/24 1239 MR#: [id number] Acct: [id number] Name: ALLYSON CLAUDIO Rep #:[id number] : 1955 69 From: Leela Rivera MD PCP: Dr. Boris Mae MD Status:RE G [facility] Discharge Instructions Diet Discharge Diet: No restrictions Activity Discharge Activity: May Not Drive (for 2-3 days or while taking narcotic pain meds.) May shower in (days): 1 Lifting Restrictions: 10 pounds for 1 week. Dressing / Incision Call your doctor if your incision/area has: Continuous Slow Oozing, Sudden Increased Bleeding, Increased Pain/ Swelling and Increased Redness Call your doctor if you observe: Fever of 101 or Higher Suture Line Care: Avoid Pulling/Pushing and Avoid Pinching/Bending Remove Dressing in: 1 day Additional Dressing/Incision Instructions:: Remove bulky dressing tomorrow. Mayleave op-site dressing for 3-4 days. Dermabond (glue) was used at the axillary incision this may start to peel off in about 5 days. Okay to remove Steri-Strips from the breast incision in 7 to 10 days. Follow Up Care Please Follow Up With: Leela Rivera MD When: Please call [phone] for an appointment to be seen in 2 week. Test Results: Test results from this visit will be discussed in further detail at your follow- up appointment, if applicable. Discharge Plan Admission Attending Provider: Leela Rivera Primary Care Provider: Boris Mae Instructions Print Language: [place] Discharge Orders/Prescriptions Prescriptions: New tramadol 50 mg tablet 50 mg PO Q6H PRN (Reason: pain) 2 Days Qty: 5 0RF Continued atorvastatin 20 mg tablet 20 mg PO QDAY alendronate 70 mg tablet 70 mg PO ADAMS calcium glucarate 500 mg capsule 1 tab-cap PO QDAY methotrexate (PF) 25 mg/0.5 mL auto-injector 25 mg subcut FR pantoprazole 40 mg tablet,delayed release (DR/EC) 40 mg PO QDAY multivitamin Tablet 1 tab PO QAM Ozempic 0.25 mg or 0.5 mg (2 mg/3 mL) pen injector 1 mg subcut FR Patient Comments: PT TO STOP TAKING 7 DAYS BEFORE SURGERY ON 11/18/[address] RIVERA INSTRUCTIONS Rx Instructions: for 4 weeks levothyroxine [Synthroid] 137 mcg tablet 68.5 mcg PO ADAMS sertraline [Zoloft] 100 mg tablet 100 mg PO QDAY amlodipine-benazepril 5-20 mg capsule 1 cap PO QDAY mirtazapine 15 mg tablet 15 mg PO QHS Patient Comments: [NO ORIGINAL SIG] meloxicam 15 mg tablet 7.5 mg PO DAILY PRN PRN (Reason: pain) Patient Comments: [NO ORIGINAL SIG] Held aspirin 81 mg tablet,delayed release (DR/EC) 81 mg PO QHS Hold Instructions: Resume on 11/20/24. Patient Comments: PT TO STOP ON 11/13/24 FOR SURGERY ON 11/18/[address] RIVEAR INSTRUCTIONS; LAST DOSE 11/12/2024 Referrals / Follow Up: Boris Mae MD [Primary Care Provider] - Disposition Disposition (needs filled in before D/C Order can be placed): Home, Self Care 11/18/24 1245Leela Rivera MD CC: Dr. Boris Mae MD ~ Signed [facility]04-08-2025 History and physical note Author [facility] Note Date/Time November 18, 2024 10:[address] [facility] Medical Records Department [address] [place] [address] History & Physical Exam 11/18/24 1021 MR#: [id number] Acct: [id number] Name: ALLYSON CLAUDIO Jami Rep #:[id number] : 1955 69 From: Leela Rivera MD PCP: Dr. Boris Mae MD Status:[facility] Location: [place] [address] History and Physical Date of Admission: 11/18/24 Date of Service: 11/07/24 MR#: [id number] Acct: [id number] Name: CLAUDIODANNY OLIVERGordon Farrell Rep #: [id number] : 1955 Provider: Dr. Leela Rivera MD Age/Sex: 69/F Location: [facility] Status: Signed Intake Vital Signs 10/23/2514:02 11/07/2508:53 Height 5 ft 4 in Weight: 170 lb 173 lb BMI 29.2 BP 131/75 H 161/75 H Blood Pressure Location Lt brachial Rt brachial Position Sitting Sitting Respiration 17 17 Pulse 83 82 Pulse Source Monitor Monitor Temp 97.4 F L Temp Source Temporal Pulse Oximetry (%) 92 98 Oxygen Delivery Method room air room air Intake Visit Reasons: DISCUSS BREAST SURGERY Chief Complaint: discuss breast surgery Is patient in pain?: No Allergies sitagliptin (From Januvia) Allergy (Intermediate, Verified 11/10/24 09:00) hallucinationsSulfa (Sulfonamide Antibiotics) Allergy (Intermediate, Verified 11/10/24 09:00) Hivesvenlafaxine (From Effexor) Allergy (Intermediate, Verified 11/10/24 09:00) Other Medications ?Medication ?Instructions ?Recorded ?Confirmed ?Type alendronate 70 mg tablet 70 mg PO ADAMS 10/23/24 11/10/24 History amlodipine 5 mg-benazepril 20 mg 1 cap PO QDAY 10/23/24 11/10/24 History capsule aspirin 81 mg tablet,delayed 81 mg PO QHS 10/23/24 11/10/24 History release atorvastatin 20 mg tablet 20 mg PO QDAY 10/23/24 11/10/24 History calcium glucarate 500 mg capsule 1 tab-cap PO QDAY 10/23/24 11/10/24 Hist ory levothyroxine 137 mcg tablet 68.5 mcg PO ADAMS 10/23/24 11/10/24 History (Synthroid) methotrexate (PF) 25 mg/0.5 mL 25 mg subcut FR 10/23/24 11/10/24 Histor y subcutaneous auto-injector multivitamin 1 tab PO QAM 10/23/24 11/10/24 History pantoprazole 40 mg tablet,delayed 40 mg PO QDAY 10/23/24 11/10/24 History release semaglutide 0.25 mg or 0.5 mg (2 1 mg subcut FR 10/23/24 11/10/24 History mg/3 mL) subcutaneous pen injector (Ozempic) sertraline 100 mg tablet (Zoloft) 100 mg PO QDAY 10/23/24 11/10/24 History meloxicam 15 mg tablet 7.5 mg PO DAILY PRN PRN pain 11/10/24 History mirtazapine 15 mg tablet 15 mg PO QHS ANXIETY AND SLEEP 11/10/24 11/10/24 History Have you fallen in the past year?: No PFSH Medical History (Updated 11/10/24 @ 09:22 by Lori Ashton) Wears glasses Wears dentures Cancer Post-menopausal Anxiety Alcohol use Depression High cholesterol Dietary restriction History of ulceration Former smoker History of rheumatic fever Thyroid disease Rheumatoid arthritis Heart murmur GERD (gastroesophageal reflux disease) HTN (hypertension) Diabetes Surgical History (Updated 11/10/24 @ 09:10 by Lori Ashton) History of Trina fundoplication History of colonoscopy History of back surgery H/O thyroidectomy Family History (Updated 10/23/24 @ 14:34 by Annalise Matos) Aunt Breast cancerFather Diabetes Heart disease HypertensionMother CancerSister Diabetes Heart disease Social History (Updated 10/23/24 @ 15:01 by Annalise Matos) Smoking Status: Former smoker HPI HPI HPI: 69-year-old female presents with her to discuss right breast biopsy pathology and plan for surgical treatment. Pathology showed invasive ductal carcinoma ER/MI positive, HER2/josselyn equivocal, FISH pending, grade 2. This was approximately a centimeter on ultrasound. ROS General General: Yes breast cancer; No weight change, appetite, fatigue or colon cancer HEENT HEENT: Yes eye surgery; No difficulty swallowing, eye injury, swollen glands or hoarseness Endo Endocrine: Yes thyroid disease, diabetes mellitus and thyroid cancer; No Hair loss, heat intolerance or cold intolerance Skin Skin: No rash or changing moles Breast Breast: Yes right breast lump, abnormal mammogram and abnormal US; No left breast lump, nipple discharge, breast pain or breast enlargement Musc Musculoskeletal: Yes rheumatoid arthritis; No back problems, arthritis, gout or joint pain Cardio Cardiovascular: Yes murmur and high blood pressure; No pacemaker, heart disease, atrial fibrillation, heart attack, heart stent, palpitations, shortness of breath with exertion or chest pain Psych Psychiatric: No depression, anxiety or hearing voices Resp Respiratory: No shortness of breath, No sleep apnea, No cough, No COPD, No asthma, No emphysema and No wheezing Gastro Gastrointestinal: No abdominal pain, No nausea or vomiting, No diarrhea, No constipation, No blood in stool, Yes acid reflux, No hemorrhoids, No ulcers, No gallbladder problem and No black,tarry stools Pancho Hematologic: No blood thinners, No blood disorders, No bleeding, No anemia and No blood clots Neuro Neurologic: No numbness and No tingling Exam Const General: cooperative, healthy appearing and no acute distress [facility] Head: normal to inspection Chest Other: Right breast biopsy well-healed, able to visualize mass with bedside ultrasound Resp Effort & Inspection: normal respiratory effort Cardio Rate: regular rate GI Inspection: non-distended Palpation: soft Skin General: no rashes or lesions noted Neuro General: patient oriented x3 Extrem General: no clubbing, cyanosis or edema Psych Affect: normal affect Assessment and Plan Assessment and Plan (1) Invasive ductal carcinoma of right breast: Status: Acute Orders: Orders Lymph Node Injection Only 11/18/24 C50.911 - Malignant neoplasm of unspecified site of right female breast, N63.10 - Unspecified lump in the right breast, unspecified quadrant Plan I have given the patient options for initial surgical treatment. Options are thefollowing: lumpectomy followed by radiation therapy vs. mastectomy vs. mastectomy followed by immediate reconstruction (which would be covered with insurance due to breast cancer). I have described the procedures to the patient.I have described the advantages and disadvantages of the options, but I have told the patient that among the options, the survival rate for breast cancer is the same. I have told the patient that with all the surgeries that a sentinel lymph node biopsy is required. I have described the procedure of sentinel lymph node biopsyto the patient. I have told the patient that if the biopsy is positive for metastatic disease (greater than 2 nodes), then a full axillary lymph node dissection would be considered at time of operation. I have told the patient that adjuvant chemotherapy will be discussed if the lymph nodes reveal metastatic disease. Also, a full lymph node dissection will increase the risk for lymphedema, especially if there are 4 or more lymph nodes positive for metastatic disease and radiation to the axilla is also required. I have told thepatient the risks of surgery, including but not limited to: infection, bleeding,scar tissue, seroma and persistent seroma, lymph leak, injury to any blood vessels, injury to any nerves (particularly the long thoracic, the thoracodorsal, and the second intercostal brachial and the resultant sequelae), lymphedema, cosmetic deformity, dysesthesias, wound infections, further surgery (especially if margins are not clear), complications of anesthesia, etc. the patient understands. Patient plan to have an ultrasound wire needle localization right breast lumpectomy, sentinel lymph node biopsy with nuclear tracer and blue dye and possible axillary node dissection. I have answered all the patient?s questions at this point to her satisfaction and she has no further questions. Leela Rivera M.D. Pager: [phone] [facility] [address] [place] [address], [facility], [address] [place] [address] Office: [phone] Coding Level of Care Code Off vis,est,level 4 Diagnoses Invasive ductal carcinoma of right breast C50.911 Clinical Quality Measures Falls Risk Screening/Assistive Devices Have you fallen in the past year?: No 11/10/24 1141 <Electronically signed by Leela Rivera MD> Date Leela Rivera MD 11/18/24 1021 <Electronically signed by Leela Rivera MD> Cosigner Signature (if applicable): CC: Dr. Boris Mae MD; Dr. Leela Rivera MD~ Signed ADDENDUM by Dr. Leela Rivera MD on 11/18/24 at 1021 Addendum I have examined the patient and the H&P has been reviewed. There are no clinicalchanges since date of exam. 11/18/24 102<Electronically signed by Leela Rivera MD> Cosigner Signature (if applicable): cc: Dr. Boris Mae MD; Dr. Leela Rivera MD ~* Signed [facility] Work Phone: 1(172) 428-762204-08-2025 Consult note [facility] Medical Records Department [address] [place] [id number] Pre-Anesthesia Evaluation 11/18/24 1105 MR#: [id number] Acct: [id number] Name: ALLYSON CLAUDIO Rep #:[id number] : 1955 69 From: Fredo Hayward MD PCP: Dr. Boris Mae MD Status:RE G [facility] Y Race: C Location: [place] [address] ASA Classification* ASA Classification ASA Classification: 2 Assessment & Plan Anesthesia* Anesthesia Assessment Anesthesia Assessment: Discussed sedation and/or anesthesia options, risks, benefits, and alternatives with patient/parents/legal guardian/POA. Questions invited. The patient/parents/legal guardian/POA seems to understand and agrees to proceedwith anesthesia plan. Reviewed the physical assessment, medical history, allergy history and patient home medications list prior to surgery/procedure/anesthetic and documented any changes. Performed airway and anesthesia risk assessments. Anesthesia Type Anesthesia Type: General History Source History Obtained from:: Patient and Chart Anesthesia Focused Assessment* Temperature: 98.4 F Pulse Rate: 86 Blood Pressure: 160/51 Respiratory Rate: 16 Pulse Ox: 98 Oxygen Delivery Method: Room Air Airway Assessment Mouth opens: >3 cm Mallampati Score: II Teeth Condition: Missing (Missing molars on the lower jaw.) and Partial (Patienthas upper partial. It is out. Rest of the teeth are tight.) Neck Range of motion (ROM): Full ROM Focused Labs Anesthesia Preop lab: CBC WBC 8.1 K/mm3 (4.4-11.0) 10/14/24 10:15 10/14/24 RBC 4.52 M/mm3 (4.2-5.4) 10/14/24 10:15 10/14/24 Hgb 13.8 g/dL (12.0-15.0) 10/14/24 10:15 10/14/24 Hct 42.0 % (37-47) 10/14/24 10:15 10/14/24 Plt Count 401 K/mm3 (150-450) 10/14/24 10:15 10/14/24 CHEMISTRY Potassium 3.5 mmol/L (3.3-5.1) 10/14/24 10:15 10/14/24 Sodium 138 mmol/L (133-145) 10/14/24 10:15 10/14/24 Magnesium 1.8 mg/dL (1.6-2.6) 05/01/24 10:25 05/01/24 BUN 11 mg/dL (4-19) 10/14/24 10:15 10/14/24 Creatinine 0.64 mg/dL (0.70-1.20) L 10/14/24 10:15 Glucose 111 mg/dL (70-99) H 10/14/24 10:15 10/14/24 POC Glucose 127 mg/dL (74-106) H 11/18/24 09:54 11/18/24 TSH 1.030 uIU/mL (0.300-4.200) 10/14/24 10:15 03/12/05 COAG Pre-Assessment Diagnosis/Proposed Procedure Planned Operative Procedure(s): (R) U/S wire loc right Breast, Lumpectomy,[place] Node,blue dye & lymphoseek, poss Ax Dis Anesthesia History 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 When Was Last Pacemaker Check QUESTION #4 FULL TEXT: You/Your Family Experience fever (hyperthermia) with Anesthesia Last Oral Intake Last Oral intake: Last Oral Intake NPO since 07:30 11/18/24 09:55 Meds taken in AM with sips of Yes 11/18/24 09:55 water? Meds patient instructed to take am of surgery Any additional information?: Yes NPO since: 07:30 (Patient took a.m. 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 Female Yes 11/10/24 09:11 HX of Motion Sickness No 11/10/24 09:11 HX of N/V After Surgery No 11/10/24 09:11 Non-Smoker Yes 11/10/24 09:11 Duration of Surgery greater Yes 11/10/24 09:11 than 60 minutes Number of Risk Factors 3 11/10/24 09:11 PONV Score Moderate Risk 11/10/24 09:11 Height & Weight Height & Weight: Anesthesia: Height & Weight Height 4 ft 11 in 11/18/24 09:55 Weight: 77 kg 11/18/24 09:55 Body Mass Index (BMI) 34.2 11/18/24 09:55 Respiratory Assessment Respiratory Assessment - 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 Has anyone observed you stop No 11/10/24 09:11 breathing during sleep? STOP Results Positive 11/10/24 09:11 QUESTION #5 FULL TEXT : Do you snore loudly (louder than talking or can be heard through closeddoors)? 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 Specify any problems Hx of Preganancy in last 3 No 11/10/24 09:11 Months Nurse Filling Out Transfusion MGRIFFITH 11/10/24 09:11 & Questions: Date: 11/10/24 11/10/24 09:11 Time: 09:13 11/10/24 09:11 Patient unable to answer at this time (ie. 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: /Reproductive Hx- secondary school special ed teacher Hx Now No 11/10/24 09:11 Gestational Age (in weeks): EDC: Hx Hx Para Hx Section SAB No 11/10/24 09:11 Active Medications Active Medications: Current Medications Generic Name Dose Route Start Last Admin Trade Name Uzair PRN Reason Stop Dose Admin Cefazolin Sodium 2 gm/ N/A 20 mls @ 400 mls/hr 11/18/24 11:30 IV 11/18/24 11:32 PREOP ONE Sodium Chloride 1,000 mls @ 15 mls/hr 11/18/24 09:40 11/18/24 10:07 IV 15 mls/hr .Q48H EDIN Administration PFSH Medical History Wears glasses Wears dentures Cancer Post-menopausal Anxiety Alcohol use Depression High cholesterol Dietary restriction History of ulceration Former smoker History of rheumatic fever Thyroid disease Rheumatoid arthritis Heart murmur GERD (gastroesophageal reflux disease) HTN (hypertension) Diabetes Home Medications ?Medication ?Instructions ?Recorded ?Last Taken ?Type alendronate 70 mg tablet 70 mg PO ADAMS 10/23/24 Unknown History amlodipine 5 mg-benazepril 20 mg 1 cap PO QDAY 5 11/18/24 08:00 History capsule aspirin 81 mg tablet,delayed 81 mg PO QHS 10/23/2410/07 History release atorvastatin 20 mg tablet 20 mg PO QDAY 10/23/24 Unkno wn History calcium glucarate 500 mg capsule 1 tab-cap PO QDAY Unknown History levothyroxine 137 mcg tablet 68.5 mcg PO ADAMS 10/23/24 0 11/18/24 08:00 History (Synthroid) methotrexate (PF) 25 mg/0.5 mL 25 mg subcut FR 5 11/14/24 History subcutaneous auto-injector multivitamin 1 tab PO QAM 10/23/24 Unknow n History pantoprazole 40 mg tablet,delayed 40 mg PO QDAY 11/18/24 08:00 History release semaglutide 0.25 mg or 0.5 mg (2 1 mg subcut FR 11/07/24 History mg/3 mL) subcutaneous pen injector (Ozempic) sertraline 100 mg tablet (Zoloft) 100 mg PO QDAY 10/23 Unknown History meloxicam 15 mg tablet 7.5 mg PO DAILY PRN PRN pain 11/10/24 Unknown History mirtazapine 15 mg tablet 15 mg PO QHS ANXIETY AND SLE EP 11/10/24 Unknown History Allergy/AdvReac Type Severity Reaction Status Date / Time sitagliptin (From Januvia) Allergy Intermediate hallucinati Verified 11/18/24 09:50 ons Sulfa (Sulfonamide Allergy Intermediate Hives Verified 11/18/24 09:50 Antibiotics) venlafaxine (From Effexor) Allergy Intermediate Other Verified 11/18/24 09:50 Family History Aunt Breast cancer Father Diabetes Heart disease Hypertension Mother Cancer Sister Diabetes Heart disease Surgical History History of Trina fundoplication History of colonoscopy History of back surgery H/O thyroidectomy Social History Smoking Status: Former smoker Review of Systems (Anesthesia) ROS Narrative System reviewed and no additional complaints, except as documented. 11/18/24 1112 mary HAGAN> Date _ Fredo Hayward MD Cosigner Signature: Date CC: ~ Signed [facility]04-08-2025 History and physical note [facility] Medical Records Department [address] [place] [address] History & Physical Exam 11/18/24 1021 MR#: [id number] Acct: [id number] Name: ALLYSON CLAUDIO Rep #:[id number] : 1955 69 From: Leela Rivera MD PCP: Dr. Boris Mae MD Status:[facility] Location: [place] [address] History and Physical Date of Admission: 11/18/24 Date of Service: 11/07/24 MR#: [id number] Acct: [id number] Name: ALLYSON CLAUDIO Rep #: [id number] : 1955 Provider: Dr. Leela Rivera MD Age/Sex: 69/F Location: [facility] Status: Signed Intake Vital Signs 10/23/2514:02 11/07/2508:53 Height 5 ft 4 in Weight: 170 lb 173 lb BMI 29.2 BP 131/75 H 161/75 H Blood Pressure Location Lt brachial Rt brachial Position Sitting Sitting Respiration 17 17 Pulse 83 82 Pulse Source Monitor Monitor Temp 97.4 F L Temp Source Temporal Pulse Oximetry (%) 92 98 Oxygen Delivery Method room air room air Intake Visit Reasons: DISCUSS BREAST SURGERY Chief Complaint: discuss breast surgery Is patient in pain?: No Allergies sitagliptin (From Januvia) Allergy (Intermediate, Verified 11/10/24 09:00) hallucinationsSulfa (Sulfonamide Antibiotics) Allergy (Intermediate, Verified 11/10/24 09:00) Hivesvenlafaxine (From Effexor) Allergy (Intermediate, Verified 11/10/24 09:00) Other Medications ?Medication ?Instructions ?Recorded ?Confirmed ?Type alendronate 70 mg tablet 70 mg PO ADAMS 10/23/24 11/10/24 History amlodipine 5 mg-benazepril 20 mg 1 cap PO QDAY 10/23/24 11/10/24 History capsule aspirin 81 mg tablet,delayed 81 mg PO QHS 10/23/24 11/10/24 History release atorvastatin 20 mg tablet 20 mg PO QDAY 10/23/24 11/10/24 History calcium glucarate 500 mg capsule 1 tab-cap PO QDAY 10/23/24 11/10/24 Hist ory levothyroxine 137 mcg tablet 68.5 mcg PO ADAMS 10/23/24 11/10/24 History (Synthroid) methotrexate (PF) 25 mg/0.5 mL 25 mg subcut FR 10/23/24 11/10/24 Histor y subcutaneous auto-injector multivitamin 1 tab PO QAM 10/23/24 11/10/24 History pantoprazole 40 mg tablet,delayed 40 mg PO QDAY 10/23/24 11/10/24 History release semaglutide 0.25 mg or 0.5 mg (2 1 mg subcut FR 10/23/24 11/10/24 History mg/3 mL) subcutaneous pen injector (Ozempic) sertraline 100 mg tablet (Zoloft) 100 mg PO QDAY 10/23/24 11/10/24 History meloxicam 15 mg tablet 7.5 mg PO DAILY PRN PRN pain 11/10/24 History mirtazapine 15 mg tablet 15 mg PO QHS ANXIETY AND SLEEP 11/10/24 11/10/24 History Have you fallen in the past year?: No PFSH Medical History (Updated 11/10/24 @ 09:22 by Lori Ashton) Wears glasses Wears dentures Cancer Post-menopausal Anxiety Alcohol use Depression High cholesterol Dietary restriction History of ulceration Former smoker History of rheumatic fever Thyroid disease Rheumatoid arthritis Heart murmur GERD (gastroesophageal reflux disease) HTN (hypertension) Diabetes Surgical History (Updated 11/10/24 @ 09:10 by Lori Ashton) History of Trina fundoplication History of colonoscopy History of back surgery H/O thyroidectomy Family History (Updated 10/23/24 @ 14:34 by Annalise Matos) Aunt Breast cancerFather Diabetes Heart disease HypertensionMother CancerSister Diabetes Heart disease Social History (Updated 10/23/24 @ 15:01 by Annalise Matos) Smoking Status: Former smoker HPI HPI HPI: 69-year-old female presents with her to discuss right breast biopsy pathology and plan for surgical treatment. Pathology showed invasive ductal carcinoma ER/MI positive, HER2/josselyn equivocal, FISH pending, grade 2. This was approximately a centimeter on ultrasound. ROS General General: Yes breast cancer; No weight change, appetite, fatigue or colon cancer HEENT HEENT: Yes eye surgery; No difficulty swallowing, eye injury, swollen glands or hoarseness Endo Endocrine: Yes thyroid disease, diabetes mellitus and thyroid cancer; No Hair loss, heat intolerance or cold intolerance Skin Skin: No rash or changing moles Breast Breast: Yes right breast lump, abnormal mammogram and abnormal US; No left breast lump, nipple discharge, breast pain or breast enlargement Musc Musculoskeletal: Yes rheumatoid arthritis; No back problems, arthritis, gout or joint pain Cardio Cardiovascular: Yes murmur and high blood pressure; No pacemaker, heart disease, atrial fibrillation, heart attack, heart stent, palpitations, shortness of breath with exertion or chest pain Psych Psychiatric: No depression, anxiety or hearing voices Resp Respiratory: No shortness of breath, No sleep apnea, No cough, No COPD, No asthma, No emphysema andNo wheezing Gastro Gastrointestinal: No abdominal pain, No nausea or vomiting, No diarrhea, No constipation, No blood in stool, Yes acid reflux, No hemorrhoids, No ulcers, No gallbladder problem and No black,tarry stools Pancho Hematologic: No blood thinners, No blood disorders, No bleeding, No anemia and No blood clots Neuro Neurologic: No numbness and No tingling Exam Const General: cooperative, healthy appearing and no acute distress [facility] Head: normal to inspection Chest Other: Right breast biopsy well-healed, able to visualize mass with bedside ultrasound Resp Effort & Inspection: normal respiratory effort Cardio Rate: regular rate GI Inspection: non-distended Palpation: soft Skin General: no rashes or lesions noted Neuro General: patient oriented x3 Extrem General: no clubbing, cyanosis or edema Psych Affect: normal affect Assessment and Plan Assessment and Plan (1) Invasive ductal carcinoma of right breast: Status: Acute Orders: Orders Lymph Node Injection Only 11/18/24 C50.911 - Malignant neoplasm of unspecified site of right femalebreast, N63.10 - Unspecified lump in the right breast, unspecified quadrant Plan I have given the patient options for initial surgical treatment. Options are thefollowing: lumpectomy followed by radiation therapy vs. mastectomy vs. mastectomy followed by immediate reconstruction (which would be covered with insurance due to breast cancer). I have described the procedures to thepatient.I have described the advantages and disadvantages of the options, but I have told the patient that among the options, the survival rate for breast cancer is the same. I have told the patient that with all the surgeries that a sentinel lymph node biopsy is required. I have described the procedure of sentinel lymph node biopsyto the patient. I have told the patient that if the biopsy is positive for metastatic disease (greater than 2 nodes), then a full axillary lymph node dissection would be considered at time of operation. I have told the patient that adjuvantchemotherapy will be discussed if the lymph nodes reveal metastatic disease. Also, a full lymph node dissection will increase the risk for lymphedema, especially if there are 4 or more lymph nodes positive for metastatic disease and radiation to the axilla is also required. I have told thepatient the risks of surgery, including but not limited to: infection, bleeding,scar tissue, seroma and persistent seroma, lymph leak, injury to any blood vessels, injury to any nerves (particularly the long thoracic, the thoracodorsal, and the second intercostal brachial and the resultant sequelae), lymphedema, cosmetic deformity, dysesthesias, wound infections, further surgery (especially if margins are not clear), complications of anesthesia, etc. the patient understands. Patient plan to have an ultrasound wire needle localization right breast lumpectomy, sentinel lymphnode biopsy with nuclear tracer and blue dye and possible axillary node dissection. I have answered all the patient?s questions at this point to her satisfaction and she has no further questions. Leela Rivera M.D. Pager: [phone] [facility] [address] [place] [address], [address] [place] [address] Office: [phone] Coding Level of Care Code Off vis,est,level 4 Diagnoses Invasive ductal carcinoma of right breast C50.911 Clinical Quality Measures Falls Risk Screening/Assistive Devices Have you fallen in the past year?: No 11/10/24 1141 Date Leela Rivera MD 11/18/24 1021 Cosigner Signature (if applicable): CC: Dr. Boris Mae MD; Dr. Leela Rivera MD~ Signed ADDENDUM by Dr. Leela Rivera MD on 11/18/24 at 1021 Addendum I have examined the patient and the H&P has been reviewed. There are no clinicalchanges since date of exam. 11/18/24 1021 Cosigner Signature (if applicable): cc: Dr. Boris Mae MD; Dr. Leela Rivera MD ~* Signed [facility]04-08-2025 [facility] Medical Records Department [address] [place] [id number] History Physical Exam 11/18/24 1021 MR#: [id number] Acct: [id number] Name: ALLYSON CLAUDIO Rep #: [id number] : 1955 69 From: Leela Rivera MD PCP: Dr. Boris Mae MD Status:[facility] Location: [place] [address] History and Physical Date of Admission: 11/18/24 Date of Service: 11/07/24 MR#: [id number] Acct: [id number] Name: ALLYSON CLAUDIO Rep #: [id number] : 1955 Provider: Dr. Leela Rivera MD Age/Sex: 69/F Location: [facility] Status: Signed Intake Vital Signs 10/23/2514:02 11/07/2508:53 Height 5 ft 4 in Weight: 170 lb 173 lb BMI 29.2 BP 131/75 H 161/75 H Blood Pressure Location Lt brachial Rt brachial Position Sitting Sitting Respiration 17 17 Pulse 83 82 Pulse Source Monitor Monitor Temp 97.4 F L Temp Source Temporal Pulse Oximetry (%) 92 98 Oxygen Delivery Method room air room air Intake Visit Reasons: DISCUSS BREAST SURGERY Chief Complaint: discuss breast surgery Is patient in pain?: No Allergies sitagliptin (From Januvia) Allergy (Intermediate, Verified 11/10/24 09:00) hallucinationsSulfa (Sulfonamide Antibiotics) Allergy (Intermediate, Verified 11/10/24 09:00) Hivesvenlafaxine (From Effexor) Allergy (Intermediate, Verified 11/10/24 09:00) Other Medications ???Medication ???Instructions ???Recorded ???Confirmed ???Type alendronate 70 mg tablet 70 mg PO ADAMS 10/23/24 11/10/24 History amlodipine 5 mg-benazepril 20 mg 1 cap PO QDAY 10/23/24 11/10/24 History capsule aspirin 81 mg tablet,delayed 81 mg PO QHS 10/23/24 11/10/24 History release atorvastatin 20 mg tablet 20 mg PO QDAY 10/23/24 11/10/24 History calcium glucarate 500 mg capsule 1 tab-cap PO QDAY 10/23/24 11/10/24 History levothyroxine 137 mcg tablet 68.5 mcg PO ADAMS 10/23/24 11/10/24 History (Synthroid) methotrexate (PF) 25 mg/0.5 mL 25 mg subcut FR 10/23/24 11/10/24 History subcutaneous auto-injector multivitamin 1 tab PO QAM 10/23/24 11/10/24 History pantoprazole 40 mg tablet,delayed 40 mg PO QDAY 10/23/24 11/10/24 History release semaglutide 0.25 mg or 0.5 mg (2 1 mg subcut FR 10/23/24 11/10/24 History mg/3 mL) subcutaneous pen injector (Ozempic) sertraline 100 mg tablet (Zoloft) 100 mg PO QDAY 10/23/24 11/10/24 History meloxicam 15 mg tablet 7.5 mg PO DAILY PRN PRN pain 11/10/24 11/10/24 His tory mirtazapine 15 mg tablet 15 mg PO QHS ANXIETY AND SLEEP 11/10/24 11/10/24 H istory Have you fallen in the past year?: No PFSH Medical History (Updated 11/10/24 @ 09:22 by Lori Ashton) Wears glasses Wears dentures Cancer Post-menopausal Anxiety Alcohol use Depression High cholesterol Dietary restriction History of ulceration Former smoker History of rheumatic fever Thyroid disease Rheumatoid arthritis Heart murmur GERD (gastroesophageal reflux disease) HTN (hypertension) Diabetes Surgical History (Updated 11/10/24 @ 09:10 by Lori Ashton) History of Trina fundoplication History of colonoscopy History of back surgery H/O thyroidectomy Family History (Updated 10/23/24 @ 14:34 by Annalise Matos) Aunt Breast cancerFather Diabetes Heart disease HypertensionMother CancerSister Diabetes Heart disease Social History (Updated 10/23/24 @ 15:01 by Annalise Matos) Smoking Status: Former smoker HPI HPI HPI: 69-year-old female presents with her to discuss right breast biopsy pathology and plan for surgical treatment. Pathology showed invasive ductal carcinoma ER/MI positive, HER2/josselyn equivocal, FISH pending, grade 2. This was approximately a centimeter on ultrasound. ROS General General: Yes breast cancer; No weight change, appetite, fatigue or colon cancer HEENT HEENT: Yes eye surgery; No difficulty swallowing, eye injury, swollen glands or hoarseness Endo Endocrine: Yes thyroid disease, diabetes mellitus and thyroid cancer; No Hair loss, heat intolerance or cold intolerance Skin Skin: No rash or changing moles Breast Breast: Yes right breast lump, abnormal mammogram and abnormal US; No left breast lump, nipple discharge, breast pain or breast enlargement Musc Musculoskeletal: Yes rheumatoid arthritis; No back problems, arthritis, gout or joint pain Cardio Cardiovascular: Yes murmur and high blood pressure; No pacemaker, heart disease, atrial fibrillation, heart attack, heart stent, palpitations, shortness of breath with exertion or chest pain Psych Psychiatric: No depression, anxiety or hearing voices Resp Respiratory: No shortness of breath, No sleep apnea, No cough, N (more content not included)...[facility]03-28-2025 Evaluation note* Diagnosis Onset Date Resolution Status Admit Date Invasive ductal carcinoma of right breast acute November 07, 2024 9:43am S/P lumpectomy, right breast acute December 02, 2024 1:48pm Invasive ductal carcinoma of right breast acute December 03, 2024 9:14am Invasive ductal carcinoma of right breast acute December 17, 2024 9: 50am Invasive ductal carcinoma of right breast acute December 30, 2024 1 :19pm Invasive ductal carcinoma of right breast acute January 14, 2025 9 :30am Invasive ductal carcinoma of right breast acute January 21, 2025 12:18pm Invasive ductal carcinoma of right breast acute January 28, 2025 12:20pm Invasive ductal carcinoma of right breast acute February 04, 2025 12:08pm [facility] Work Phone: 1(654) 738-514703-13-2025 Evaluation note* Diagnosis Onset Date Resolution Status Admit Date Breast mass, right acute October 23, 2024 2:08pm [facility] Work Phone: 1(474) 473-750303-13-2025 Evaluation note* Diagnosis Onset Date Resolution Status Admit Date Breast mass, right deleted October 23, 2024 2:08pm Invasive ductal carcinoma of right breast acute November 07, 2024 9:43am [facility] Work Phone: 1(325) 948-263103-13-2025 Evaluation note* Diagnosis Onset Date Resolution Status Admit Date Breast mass, right deleted October 23, 2024 2:08pm Invasive ductal carcinoma of right breast acute November 07, 2024 9:43am S/P lumpectomy, right breast acute December 02, 2024 1:48pm Invasive ductal carcinoma of right breast acute December 03, 2024 9:14am Invasive ductal carcinoma of right breast acute December 17, 2024 9: 50am [facility] Work Phone: 1(308) 296-819903-13-2025 Evaluation note* Diagnosis Onset Date Resolution Status Admit Date Breast mass, right deleted October 23, 2024 2:08pm Invasive ductal carcinoma of right breast acute November 07, 2024 9:43am S/P lumpectomy, right breast acute December 02, 2024 1:48pm Invasive ductal carcinoma of right breast acute December 03, 2024 9:14am Invasive ductal carcinoma of right breast acute December 17, 2024 9: 50am Invasive ductal carcinoma of right breast acute December 30, 2024 1 :19pm Invasive ductal carcinoma of right breast acute January 14, 2025 9 :30am [place] [employer] [facility] Work Phone: 1(306) 540-476203-13-2025 Evaluation note* Diagnosis Onset Date Resolution Status Admit Date Breast mass, right deleted October 23, 2024 2:08pm Invasive ductal carcinoma of right breast acute November 07, 2024 9:43am S/P lumpectomy, right breast acute December 02, 2024 1:48pm Invasive ductal carcinoma of right breast acute December 03, 2024 9:14am Invasive ductal carcinoma of right breast acute December 17, 2024 9: 50am Invasive ductal carcinoma of right breast acute December 30, 2024 1 :19pm Invasive ductal carcinoma of right breast acute January 14, 2025 9 :30am Invasive ductal carcinoma of right breast acute January 21, 2025 12:18pm [place] [employer] Work Phone: 1(860) 581-176103-13-2025 Evaluation note* Diagnosis Onset Date Resolution Status Admit Date Breast mass, right deleted October 23, 2024 2:08pm Invasive ductal carcinoma of right breast acute November 07, 2024 9:43am S/P lumpectomy, right breast acute December 02, 2024 1:48pm Invasive ductal carcinoma of right breast acute December 03, 2024 9:14am Invasive ductal carcinoma of right breast acute December 17, 2024 9: 50am Invasive ductal carcinoma of right breast acute December 30, 2024 1 :19pm Invasive ductal carcinoma of right breast acute January 14, 2025 9 :30am Invasive ductal carcinoma of right breast acute January 21, 2025 12:18pm Invasive ductal carcinoma of right breast acute January 28, 2025 12:20pm Invasive ductal carcinoma of right breast acute February 04, 2025 12:08pm [facility] Work Phone: 1([phone]) 930-664403-04-2025 Radiology Diagnostic study note [facility] Imaging Services [address] [place] [address] Breast Limited Unilateral MR#: [id number] Acct: [id number] Name: ALLYSON CLAUDIO Rep #: [id number] : 1955 F 69 From: Ritu Armendariz MD PCP: Dr. Boris Mae MD Status: RE G CLI Study:Breast Limited Unilateral Date of Exam: 10/14/24 Exam# [id number] Ordering Dr: Boris Mae MD PROCEDURE: BREAST LIMITED UNILATERAL REASON FOR EXAM: 69-year-old female presents for diagnostic ultrasound of the right breast, callback from screening mammogram of 10/07/2024. Family history of breast cancer in a paternal aunt in her 70s.. TECHNIQUE: Targeted right breast ultrasound. COMPARISON: Mammogram 10/07/2024, 10/18/2022 and 05/04/2021 FINDINGS: RIGHT: Follow-up examination performed of the right breast mass seen on the screening mammogram of 10/07/2024. On the present examination, the ultrasound performed of the upper-outer right breast demonstrates an irregular hypoechoic mass with ill-defined margins and posterior acoustic shadowing at 9-10 o'clock 10 cm from the nipple measuring 1.0 x 0.7 x 0.8 cm. There is increased flow at the periphery of the mass. This mass correlates to the mammographic finding. Also, at 12 o'clock 8 cm from the nipple there is a cystic mass, with an internal septation and no associated flow measuring 0.5 x 0.3 x 0.5 cm. This mass appears mammographically stable dating back to 2020 and is considered benign. US/Breast Limited Unilateral IMPRESSION: Suspicious right breast mass at 9-10 o'clock 10 cm from the nipple. Recommend further evaluation with tissue sampling with ultrasound-guided core needle biopsy. BI-RADS 4: SUSPICIOUS ABNORMALITY. Follow-up code: Biopsy Recommended Reading Location: [id number] CC: Dr. Boris Mae MD ~ Production Solderer: Signed [facility]11-18-2022 Note ORIGINAL EXAMINATION: BONE [id number]/18/2022 2:22 pm TECHNIQUE: Dual energy bone densitometry left forearm and left hip. COMPARISON: 01/19/2020 HISTORY: Reason for Exam: screening Osteoporosis screening. FINDINGS: Total bone mineral density of the 1/3 left radius is 0.581 grams per square centimeters, and T-score being -1.8, indicating that this patient has osteopenia. BMD change: 3.8%, significant. Bone mineral density of the left femoral neck is 0.512 grams per square centimeters, and T-score being -3.0, indicating that this patient has osteoporosis. Total bone mineral density of the left hip is 0.782 grams per square centimeters, and T-score being -1.3, indicating that this patient has osteopenia. BMD change: 1.9%. IMPRESSION: Osteoporosis. Interpreted by: Irma Rogers MD Preliminary Report By: Irma Rogers MD Electronically signed By Irma Rogers MD Dictated Date: 06/30/2022 6:44:08 PM Prelim Date: 06/30/2022 6:46:08 PM Sign Date: 06/30/2022 6:46:08 PM Ordering Provider: VICTORINA CARTER [facility]11-18-2022 Note ORIGINAL EXAMINATION: BONE [id number]/18/2022 2:22 pm TECHNIQUE: Dual energy bone densitometry left forearm and left hip. COMPARISON: 01/19/2020 HISTORY: Reason for Exam: screening Osteoporosis screening. FINDINGS: Total bone mineral density of the 1/3 left radius is 0.581 grams per square centimeters, and T-score being -1.8, indicating that this patient has osteopenia. BMD change: 3.8%, significant. Bone mineral density of the left femoral neck is 0.512 grams per square centimeters, and T-score being -3.0, indicating that this patient has osteoporosis. Total bone mineral density of the left hip is 0.782 grams per square centimeters, and T-score being -1.3, indicating that this patient has osteopenia. BMD change: 1.9%. IMPRESSION: Osteoporosis. Interpreted by: Irma Rogers MD Preliminary Report By: Irma Rogers MD Electronically signed By Irma Rogers MD Dictated Date: 06/30/2022 6:44:08 PM Prelim Date: 06/30/2022 6:46:08 PM Sign Date: 06/30/2022 6:46:08 PM Ordering Provider: [facility] Evaluation + Plan note Diagnostic Tests Pending * LDL-Cholesterol, Direct 11/02/21 Future Scheduled Tests Radiology* MA Mammo Screening Bilateral w/ Mauricio 05/04/21 [facility] 09-22-2021 Evaluation + Plan note Future Scheduled Tests Radiology* MA Mammo Screening Bilateral w/ Mauricio 05/04/21 [facility] Discharge summary Author Leela Rivera [facility] Note Date/Time November 18, 2024 12:4 5pm [facility] Medical Records Department [address] [place] [address] Instructions for Home/Discharge Instructions 11/18/24 1239 MR#: [id number] Acct: [id number] Name: ALLYSON CLAUDIO Rep #:[id number] : 1955 69 From: Leela Rivera MD PCP: Dr. Brois Mae MD Status:[facility] Discharge Instructions Diet Discharge Diet: No restrictions Activity Discharge Activity: May Not Drive (for 2-3 days or while taking narcotic pain meds.) May shower in (days): 1 Lifting Restrictions: 10 pounds for 1 week. Dressing / Incision Call your doctor if your incision/area has: Continuous Slow Oozing, Sudden Increased Bleeding, Increased Pain/ Swelling and Increased Redness Call your doctor if you observe: Fever of 101 or Higher Suture Line Care: Avoid Pulling/Pushing and Avoid Pinching/Bending Remove Dressing in: 1 day Additional Dressing/Incision Instructions:: Remove bulky dressing tomorrow. Mayleave op-site dressing for 3-4 days. Dermabond (glue) was used at the axillary incision this may start to peel off in about 5 days. Okay to remove Steri-Strips from the breast incision in 7 to 10 days. Follow Up Care Please Follow Up With: Leela Rivera MD When: Please call [phone] for an appointment to be seen in 2 week. Test Results: Test results from this visit will be discussed in further detail at your follow- up appointment, if applicable. Discharge Plan Admission Attending Provider: Leela Rivera Primary Care Provider: Boris Mae Instructions Print Language: [place] Discharge Orders/Prescriptions Prescriptions: New tramadol 50 mg tablet 50 mg PO Q6H PRN (Reason: pain) 2 Days Qty: 5 0RF Continued atorvastatin 20 mg tablet 20 mg PO QDAY alendronate 70 mg tablet 70 mg PO ADAMS calcium glucarate 500 mg capsule 1 tab-cap PO QDAY methotrexate (PF) 25 mg/0.5 mL auto-injector 25 mg subcut FR pantoprazole 40 mg tablet,delayed release (DR/EC) 40 mg PO QDAY multivitamin Tablet 1 tab PO QAM Ozempic 0.25 mg or 0.5 mg (2 mg/3 mL) pen injector 1 mg subcut FR Patient Comments: PT TO STOP TAKING 7 DAYS BEFORE SURGERY ON 11/18/[address] RIVERA INSTRUCTIONS Rx Instructions: for 4 weeks levothyroxine [Synthroid] 137 mcg tablet 68.5 mcg PO ADAMS sertraline [Zoloft] 100 mg tablet 100 mg PO QDAY amlodipine-benazepril 5-20 mg capsule 1 cap PO QDAY mirtazapine 15 mg tablet 15 mg PO QHS Patient Comments: [NO ORIGINAL SIG] meloxicam 15 mg tablet 7.5 mg PO DAILY PRN PRN (Reason: pain) Patient Comments: [NO ORIGINAL SIG] Held aspirin 81 mg tablet,delayed release (DR/EC) 81 mg PO QHS Hold Instructions: Resume on 11/20/24. Patient Comments: PT TO STOP ON 11/13/24 FOR SURGERY ON 11/18/[address] RIVERA INSTRUCTIONS; LAST DOSE 11/12/2024 Referrals / Follow Up: Boris Mae MD [Primary Care Provider] - Disposition Disposition (needs filled in before D/C Order can be placed): Home, Self Care 11/18/24 1245<Electronically signed by Leela Rivera MD>Leela Rivera MD CC: Dr. Boris Mae MD ~ Signed [facility] Work Phone: Evaluation + Plan note Future Appointments Appointment Date:06/23/2021 03:00:00 PM Scheduled Provider:DOMINIQUE PEDROZA DO Location:[facility] Appointment Type:PC Wellness Medicare Appointment Date:09/20/2021 01:40:00 PM Scheduled Provider:DOMINIQUE PEDROZA DO Location:[facility] Appointment Type:PC OV Future Scheduled Tests Radiology* MA Mammo Screening Bilateral w/ Mauricio 05/04/21 [facility] Evaluation + Plan note Future Appointments Appointment Date:09/20/2021 01:40:00 PM Scheduled Provider:DOMINIQUE PEDROZA DO Location:[facility] Appointment Type:PC OV Diagnostic Tests Pending * LDL-Cholesterol, Direct 08/02/21 Future Scheduled Tests Radiology* MA Mammo Screening Bilateral w/ Mauricio 05/04/21 [facility] Evaluation + Plan note Future Appointments Appointment Date:06/16/2022 10:15:00 AM Scheduled Provider:NERY BURRIS MD Location:[facility] Appointment Type:GS OV [facility] Evaluation + Plan note Future Appointments [facility] Evaluation + Plan note Future Appointments Appointment Date:10/18/2022 11:30:00 AM Scheduled Provider: Location:RAD Appointment Type:MA Mammogram Screening Bilateral w/ Mauricio Appointment Date:10/20/2022 09:30:00 AM Scheduled Provider:ENRY BURRIS MD Location:[facility] Appointment Type:GS OV Post Op Appointment Date:03/15/2023 03:00:00 PM Scheduled Provider:DOMINIQUE PEDROZA DO Location:[facility] Appointment Type: Wellness Medicare Diagnostic Tests Pending * LDL-Cholesterol, Direct 10/04/22 Future Scheduled Tests Laboratory* Hepatitis C Antibody IgG 09/08/22 * Microalbumin Level Urine 09/08/22 * Complete Metabolic Panel 09/08/22 Radiology* MA Mammo Screening Bilateral w/ Mauricio 10/18/22 [facility] Evaluation + Plan note Future Appointments Appointment Date:10/20/2022 09:30:00 AM Scheduled Provider:NERY BURRIS MD Location:[facility] [place] Appointment Type:GS OV Post Op Appointment Date:03/15/2023 03:00:00 PM Scheduled Provider:DOMINIQUE PEDROZA DO Location:[facility] Appointment Type:PC Wellness Medicare Future Scheduled Tests Laboratory* Hepatitis C Antibody IgG 09/08/22 * Microalbumin Level Urine 09/08/22 * Complete Metabolic Panel 09/08/22 [facility] CHARGED.fmaluation + Plan note Future Appointments Appointment Date:03/15/2023 03:00:00 PM Scheduled Provider:DOMINIQUE PEDROZA DO Location:[facility] Appointment Type:PC Wellness Medicare Diagnostic Tests Pending * LDL-Cholesterol, Direct 01/25/23 * Vitamin D Level 01/25/23 Future Scheduled Tests Laboratory* Hepatitis C Antibody IgG 09/08/22 * Microalbumin Level Urine 09/08/22 * Complete Metabolic Panel 09/08/22 [facility] CHARGED.fmaluation + Plan note Future Appointments Appointment Date:03/18/2024 01:00:00 PM Scheduled Provider:DOMINIQUE PEDROZA DO Location:[facility] Appointment Type:PC Wellness Medicare Diagnostic Tests Pending * Vitamin B12 Level 11/02/23 * Rheumatoid Factor 11/02/23 * Antinuclear Antibody Screen, Serum 11/02/23 [facility] Evaluation + Plan note Future Appointments Appointment Date:03/18/2024 01:00:00 PM Scheduled Provider:DOMINIQUE PEDROZA DO Location:[facility] Appointment Type:PC Wellness Medicare Diagnostic Tests Pending * Hep B Core Ab, Tot 01/25/24 [facility] Evaluation + Plan note Future Appointments Appointment Date:03/18/2024 01:00:00 PM Scheduled Provider:DOMINIQUE PEDROZA DO Location:[facility] Appointment Type:PC Wellness Medicare [facility] Evaluation noteNo assessment information available [facility] Work Phone: Hospital course Narrative No data available for this section [facility] Hospital Discharge instructions No data available for this section [facility] Progress note No data available for this section [facility] Proymeig note Author Deng Beard [facility] Note Date/Time January 14, 2025 10:26 am [facility] [address] [address] OFFICE VISIT Date of Service: 01/14/25 1004 MR#: [id number] Acct: [id number] Name: ALLYSON CLAUDIO Rep #: [id number] : 1955 From: Deng dixon DO Age/Sex: 69/F [place] [facility] Status: Signed Intake Vital Signs 12/30/24 13:36 01/14/25 10:06 Height 4 ft 11 in 4 ft 11 in Weight: 172 lb 7 oz BMI 34.8 BP 184/78 H Blood Pressure Location Lt radial Position Sitting Respiration 18 Pulse 78 Pulse Source Monitor Temp 98.8 F Temperature Source Temporal Artery Pulse Oximetry (%) 94 Oxygen Delivery Method room air Intake Visit Reasons: OTV Chief Complaint: Breast cancer Is patient in pain?: No Allergies sitagliptin (From Januvia) Allergy (Intermediate, Verified 01/14/25 10:04) hallucinations Sulfa (Sulfonamide Antibiotics) Allergy (Intermediate, Verified 01/14/25 10:04) Hives venlafaxine (From Effexor) Allergy (Intermediate, Verified 01/14/25 10:04) Other Medications ?Medication ?Instructions ?Recorded ?Confirmed ?Type alendronate 70 mg tablet 70 mg PO ADAMS 10/23/24 5 History amlodipine 5 mg-benazepril 20 mg 1 cap PO QDAY 5 01/14/25 History capsule aspirin 81 mg tablet,delayed 81 mg PO QHS 10/23/2412/05 History release Held on 11/18/24. Instructions: Resume on 11/20/24. atorvastatin 20 mg tablet 20 mg PO QDAY 10/23/2401/14 History calcium glucarate 500 mg capsule 1 tab-cap PO QDAY 01/14/25 History levothyroxine 137 mcg tablet 68.5 mcg PO ADAMS 10/23/24 0 01/14/25 History (Synthroid) methotrexate (PF) 25 mg/0.5 mL 25 mg subcut FR 5 01/14/25 History subcutaneous auto-injector multivitamin 1 tab PO QAM 10/23/24 History pantoprazole 40 mg tablet,delayed 40 mg PO QDAY 01/14/25 History release semaglutide 0.25 mg or 0.5 mg (2 1 mg subcut FR 01/14/25 History mg/3 mL) subcutaneous pen injector (Ozempic) sertraline 100 mg tablet (Zoloft) 100 mg PO QDAY 10/2301/14/25 History meloxicam 15 mg tablet 7.5 mg PO DAILY PRN PRN pain 11/10/24 01/14/25 History mirtazapine 15 mg tablet 15 mg PO QHS ANXIETY AND SLE EP 11/10/24 01/14/25 H istory triamterene 50 cap PO 12/03/24 01/14/25 His tory mg-hydrochlorothiazide 25 mg capsule folic acid 1 mg tablet 1 mg PO QDAY 12/30/24 History Have you fallen in the past year?: No PFSH PFSH Medical History Wears glasses Wears dentures Cancer Post-menopausal Anxiety Alcohol use Depression High cholesterol Dietary restriction History of ulceration Former smoker History of rheumatic fever Thyroid disease Rheumatoid arthritis Heart murmur GERD (gastroesophageal reflux disease) HTN (hypertension) Diabetes Home Medications ?Medication ?Instructions ?Recorded ?Last Taken ?Type alendronate 70 mg tablet 70 mg PO ADAMS 10/23/24 Unknown History amlodipine 5 mg-benazepril 20 mg 1 cap PO QDAY 5 11/18/24 08:00 History capsule aspirin 81 mg tablet,delayed 81 mg PO QHS 10/23/2410/07 History release Held on 11/18/24. Instructions: Resume on 11/20/24. atorvastatin 20 mg tablet 20 mg PO QDAY 10/23/24 Unkno wn History calcium glucarate 500 mg capsule 1 tab-cap PO QDAY Unknown History levothyroxine 137 mcg tablet 68.5 mcg PO ADAMS 10/23/24 0 11/18/24 08:00 History (Synthroid) methotrexate (PF) 25 mg/0.5 mL 25 mg subcut FR 5 11/14/24 History subcutaneous auto-injector multivitamin 1 tab PO QAM 10/23/24 Unknow n History pantoprazole 40 mg tablet,delayed 40 mg PO QDAY 11/18/24 08:00 History release semaglutide 0.25 mg or 0.5 mg (2 1 mg subcut FR 11/07/24 History mg/3 mL) subcutaneous pen injector (Ozempic) sertraline 100 mg tablet (Zoloft) 100 mg PO QDAY 10/23 Unknown History meloxicam 15 mg tablet 7.5 mg PO DAILY PRN PRN pain 11/10/24 Unknown History mirtazapine 15 mg tablet 15 mg PO QHS ANXIETY AND SLE EP 11/10/24 Unknown History triamterene 50 cap PO 12/03/24 Unknown Hist ory mg-hydrochlorothiazide 25 mg capsule folic acid 1 mg tablet 1 mg PO QDAY 12/30/24 Unknow n History Allergy/AdvReac Type Severity Reaction Status Date / Time sitagliptin (From Januvia) Allergy Intermediate hallucinati Verified 01/14/25 10:04 ons Sulfa (Sulfonamide Allergy Intermediate Hives Verified 01/14/25 10:04 Antibiotics) venlafaxine (From Effexor) Allergy Intermediate Other Verified 01/14/25 10:04 Family History Aunt Breast cancer Father Diabetes Heart disease Hypertension Mother Cancer Sister Diabetes Heart disease AD (Alzheimer's disease) Surgical History S/P lumpectomy, right breast History of Trina fundoplication History of colonoscopy History of back surgery H/O thyroidectomy Social History Smoking Status: Former smoker Tobacco: How many years used: 20 alcohol intake: never substance use type: does not use Diagnosis: Allyson Claudio is a 69 year-old female diagnosed with pathologic stage IA (pT1c pN0 (sn) Mx) grade 2 invasive ductal carcinoma (ER 95%, MI 95%, HER2 2+ IHC and negative on FISH) of the right breast 9:00 location status post bilateral great mammogram (10/07/2024), right breast ultrasound (10/14/2024), right breast ultrasound-guided biopsy (10/24/2024), and completion of right breast lumpectomy and sentinel lymph node biopsy (11/18/2024). Plan: Plan was made to complete adjuvant radiation therapy consisting of 4256 cGy delivered to the right breast. Treatment Data: Treatment Site: right breast Current total dose/Total dose planned: 532 cGy / 4256 cGy Fraction number: Chemotherapy: none Subjective: Pain: 0 / 10 Fatigue: none Breast: no edema or pain. No skin erythema, rash, desquamation. Resp: no SOB, cough Objective: Weight: Physical Exam: Gen: NAD Breast: well healed lumpectomy incision. No edema or pain. No skin erythema, rash, desquamation. Assessment & Plan Assessment/Plan (1) Invasive ductal carcinoma of right breast: PLAN: Plan Assessment: Tolerating treatment well overall.? I reviewed and approved all treatment associated imaging. No treatment associated toxicities are noted at this time Plan: Continue treatment as planned.? I have reviewed potential treatment associated toxicities as well as timing for resolution and management. Skin: reviewed skin care instructions Follow up next week or sooner if needed. Thank you for allowing me to participate in the management and care of your patient. If I may answer any questions in the interim, please do not hesitate tocontact me at any time. Deng Beard DO, MS [employer]visor [employer], Department of Radiation Oncology [facility] Coding Level of Care Code Radiation Tx Management x5 Diagnoses Invasive ductal carcinoma of right breast C50.911 01/14/25 1026 <Electronically signed by Deng Beard DO> Date _ Deng Manciaigner Signature: Date (if applicable) CC: ~ [facility] Work Phone: Reason for referral (narrative)No reason for referral information availableWSt. [facility] Work Phone: Summary Purpose Family History Relationship Condition Age at Onset Recorded Date/T dileep aunt Malignant neoplasm of breast Unknown father Diabetes mellitus Unknown Cardiac disease Unknown Hypertension Unknown mother Malignant neoplasm Unknown sister Diabetes mellitus Unknown No Family History Records Found Advance Directives No Advanced Directives Records Found Advance Directive Response Recorded Date/ Time Living Will No November 10, 2024 9:11am Do you have a Healthcare Power of [employer]? No November 10, 2024 9:11am Chief Complaint and Reason for Visit Chief Complaint Admit Date PAIN- COPY PCP August 25, 2024 1 0:01am EORDER September 12, 2024 9 :54am Age-related osteoporosis without current pathologi October 07, 2024 12:51pm RIGHT BREAST/ LABWORK 2 DRS October 14, 2 025 10:12am Chief Complaint Admit Date PAIN- COPY PCP August 25, 2024 1 0:01am EORDER September 12, 2024 9 :54am Age-related osteoporosis without current pathologi October 07, 2024 12:51pm RIGHT BREAST/ LABWORK 2 DRS October 14, 2 025 10:12am BIRADS 4 October 23, 2024 2:0 8pm R BREAST MASS October 23, 2024 3:2 2pm Reason for Visit Admit Date Breast mass, right October 23, 2024 2:0 8pm Chief Complaint Admit Date PAIN- COPY PCP August 25, 2024 1 0:01am EORDER September 12, 2024 9 :54am Age-related osteoporosis without current pathologi October 07, 2024 12:51pm RIGHT BREAST/ LABWORK 2 DRS October 14, 2 025 10:12am BIRADS 4 October 23, 2024 2:0 8pm R BREAST MASS October 23, 2024 3:2 2pm DISCUSS BREAST SURGERY November 07, 2024 9:43am U/S wire loc right Breast, Lumpectomy,Se ntinel Nod November 18, 2024 9:26am U/S wire loc right Breast, Lumpectomy,Se ntinel Nod November 18, 2024 10:21am Reason for Visit Admit Date Breast mass, right October 23, 2024 2:0 8pm Invasive ductal carcinoma of right breas t November 07, 2024 9:43am Chief Complaint Admit Date EORDER September 12, 2024 9 :54am Age-related osteoporosis without current pathologi October 07, 2024 12:51pm RIGHT BREAST/ LABWORK 2 DRS October 14, 2 025 10:12am BIRADS 4 October 23, 2024 2:0 8pm R BREAST MASS October 23, 2024 3:2 2pm DISCUSS BREAST SURGERY November 07, 2024 9:43am U/S wire loc right Breast, Lumpectomy,Se ntinel Nod November 18, 2024 9:26am U/S wire loc right Breast, Lumpectomy,Se ntinel Nod November 18, 2024 10:21am LUMPECTOMY DOS /8 December 02, 2024 1:4 8pm BREAST CA December 03, 2024 9:1 4am REVIEW ONCOTYPE (RESULTED/SCANNED) December 172024 9:50am CONSULT - BREAST December 30, 2024 1:19p m Reason for Visit Admit Date Breast mass, right October 23, 2024 2:0 8pm Invasive ductal carcinoma of right breas t November 07, 2024 9:43am S/P lumpectomy, right breast December 02, 2024 1:48pm Invasive ductal carcinoma of right breas t December 03, 2024 9:14am Invasive ductal carcinoma of right breas t December 17, 2024 9:50am Chief Complaint Admit Date Age-related osteoporosis without current pathologi October 07, 2024 12:51pm RIGHT BREAST/ LABWORK 2 DRS October 14, 2 025 10:12am BIRADS 4 October 23, 2024 2:0 8pm R BREAST MASS October 23, 2024 3:2 2pm DISCUSS BREAST SURGERY November 07, 2024 9:43am U/S wire loc right Breast, Lumpectomy,Se ntinel Nod November 18, 2024 9:26am U/S wire loc right Breast, Lumpectomy,Se ntinel Nod November 18, 2024 10:21am LUMPECTOMY DOS /8 December 02, 2024 1:4 8pm BREAST CA December 03, 2024 9:1 4am REVIEW ONCOTYPE (RESULTED/SCANNED) December 172024 9:50am CONSULT - BREAST December 30, 2024 1:19p m OTV January 14, 2025 9:30a m OTV January 21, 2025 12:1 8pm . January 21, 2025 12:4 0pm Reason for Visit Admit Date Breast mass, right October 23, 2024 2:0 8pm Invasive ductal carcinoma of right breas t November 07, 2024 9:43am S/P lumpectomy, right breast December 02, 2024 1:48pm Invasive ductal carcinoma of right breas t December 03, 2024 9:14am Invasive ductal carcinoma of right breas t December 17, 2024 9:50am Invasive ductal carcinoma of right breas t December 30, 2024 1:19pm Invasive ductal carcinoma of right breas t January 14, 2025 9:30am Chief Complaint Admit Date Age-related osteoporosis without current pathologi October 07, 2024 12:51pm RIGHT BREAST/ LABWORK 2 DRS October 14, 2 025 10:12am BIRADS 4 October 23, 2024 2:0 8pm R BREAST MASS October 23, 2024 3:2 2pm DISCUSS BREAST SURGERY November 07, 2024 9:43am U/S wire loc right Breast, Lumpectomy,Se ntinel Nod November 18, 2024 9:26am U/S wire loc right Breast, Lumpectomy,Se ntinel Nod November 18, 2024 10:21am LUMPECTOMY DOS /8 December 02, 2024 1:4 8pm BREAST CA December 03, 2024 9:1 4am REVIEW ONCOTYPE (RESULTED/SCANNED) December 172024 9:50am CONSULT - BREAST December 30, 2024 1:19p m OTV January 14, 2025 9:30a m . January 14, 2025 9:40a m Chief Complaint Admit Date Age-related osteoporosis without current pathologi October 07, 2024 12:51pm RIGHT BREAST/ LABWORK 2 DRS October 14, 2 025 10:12am BIRADS 4 October 23, 2024 2:0 8pm R BREAST MASS October 23, 2024 3:2 2pm DISCUSS BREAST SURGERY November 07, 2024 9:43am U/S wire loc right Breast, Lumpectomy,Se ntinel Nod November 18, 2024 9:26am U/S wire loc right Breast, Lumpectomy,Se ntinel Nod November 18, 2024 10:21am LUMPECTOMY DOS 11/18December 02, 2024 1:4 8pm BREAST CA December 03, 2024 9:1 4am REVIEW ONCOTYPE (RESULTED/SCANNED) December 172024 9:50am CONSULT - BREAST December 30, 2024 1:19p m OTV January 14, 2025 9:30a m OTV January 21, 2025 12:1 8pm OTV January 28, 2025 12:2 0pm . January 28, 2025 12:4 0pm Reason for Visit Admit Date Breast mass, right October 23, 2024 2:0 8pm Invasive ductal carcinoma of right breas t November 07, 2024 9:43am S/P lumpectomy, right breast December 02, 2024 1:48pm Invasive ductal carcinoma of right breas t December 03, 2024 9:14am Invasive ductal carcinoma of right breas t December 17, 2024 9:50am Invasive ductal carcinoma of right breas t December 30, 2024 1:19pm Invasive ductal carcinoma of right breas t January 14, 2025 9:30am Invasive ductal carcinoma of right breas t January 21, 2025 12:18pm Chief Complaint Admit Date Age-related osteoporosis without current pathologi October 07, 2024 12:51pm RIGHT BREAST/ LABWORK 2 DRS October 14, 2 025 10:12am BIRADS 4 October 23, 2024 2:0 8pm R BREAST MASS October 23, 2024 3:2 2pm DISCUSS BREAST SURGERY November 07, 2024 9:43am U/S wire loc right Breast, Lumpectomy,Se ntinel Nod November 18, 2024 9:26am U/S wire loc right Breast, Lumpectomy,Se ntinel Nod November 18, 2024 10:21am LUMPECTOMY DOS /8 December 02, 2024 1:4 8pm BREAST CA December 03, 2024 9:1 4am REVIEW ONCOTYPE (RESULTED/SCANNED) December 172024 9:50am CONSULT - BREAST December 30, 2024 1:19p m OTV January 14, 2025 9:30a m OTV January 21, 2025 12:1 8pm OTV January 28, 2025 12:2 0pm Amb Documentation February 04, 2025 9:00 am OTV February 04, 2025 12:0 8pm . February 04, 2025 12:2 0pm Reason for Visit Admit Date Breast mass, right October 23, 2024 2:0 8pm Invasive ductal carcinoma of right breas t November 07, 2024 9:43am S/P lumpectomy, right breast December 02, 2024 1:48pm Invasive ductal carcinoma of right breas t December 03, 2024 9:14am Invasive ductal carcinoma of right breas t December 17, 2024 9:50am Invasive ductal carcinoma of right breas t December 30, 2024 1:19pm Invasive ductal carcinoma of right breas t January 14, 2025 9:30am Invasive ductal carcinoma of right breas t January 21, 2025 12:18pm Invasive ductal carcinoma of right breas t January 28, 2025 12:20pm Invasive ductal carcinoma of right breas t February 04, 2025 12:08pm Chief Complaint Admit Date BIRADS 4 October 23, 2024 2:0 8pm R BREAST MASS October 23, 2024 3:2 2pm DISCUSS BREAST SURGERY November 07, 2024 9:43am U/S wire loc right Breast, Lumpectomy,Se ntinel Nod November 18, 2024 9:26am U/S wire loc right Breast, Lumpectomy,Se ntinel Nod November 18, 2024 10:21am LUMPECTOMY DOS 4/8 December 02, 2024 1:4 8pm BREAST CA December 03, 2024 9:1 4am REVIEW ONCOTYPE (RESULTED/SCANNED) December 172024 9:50am CONSULT - BREAST December 30, 2024 1:19p m OTV January 14, 2025 9:30a m OTV January 21, 2025 12:1 8pm OTV January 28, 2025 12:2 0pm Amb Documentation February 04, 2025 9:00 am OTV February 04, 2025 12:0 8pm . February 04, 2025 12:2 0pm 2 DRS/ 2 ORDERS February 11, 2025 10:25 am Chief Complaint Admit Date DISCUSS BREAST SURGERY November 07, 2024 9:43am U/S wire loc right Breast, Lumpectomy,Se ntinel Nod November 18, 2024 9:26am U/S wire loc right Breast, Lumpectomy,Se ntinel Nod November 18, 2024 10:21am LUMPECTOMY DOS 4/8 December 02, 2024 1:4 8pm BREAST CA December 03, 2024 9:1 4am REVIEW ONCOTYPE (RESULTED/SCANNED) December 172024 9:50am CONSULT - BREAST December 30, 2024 1:19p m OTV January 14, 2025 9:30a m OTV January 21, 2025 12:1 8pm OTV January 28, 2025 12:2 0pm Amb Documentation February 04, 2025 9:00 am OTV February 04, 2025 12:0 8pm . February 04, 2025 12:2 0pm 2 DRS/ 2 ORDERS February 11, 2025 10:25 am 1 MONTH F/U POST RT March 05, 2025 12:4 8pm Reason for Visit Admit Date Invasive ductal carcinoma of right breas t November 07, 2024 9:43am S/P lumpectomy, right breast December 02, 2024 1:48pm Invasive ductal carcinoma of right breas t December 03, 2024 9:14am Invasive ductal carcinoma of right breas t December 17, 2024 9:50am Invasive ductal carcinoma of right breas t December 30, 2024 1:19pm Invasive ductal carcinoma of right breas t January 14, 2025 9:30am Invasive ductal carcinoma of right breas t January 21, 2025 12:18pm Invasive ductal carcinoma of right breas t January 28, 2025 12:20pm Invasive ductal carcinoma of right breas t February 04, 2025 12:08pm Additional Source Comments Care Team (unrecognized sect ion and content) Care Team Personnel Name: VICTORINA CARTER MSN,SALT CUTTER,CDE Member Role: [employer] Driver Name: DOMINIQUE PEDROZA DO Position: P4 Physician - Primary Care Member Role: Primary Care Physician Address: Address: [address] [place] [address]- Care Team Related Persons Name: BORIS CLAUDIO Address: Home [address] [place], [place] [id number] [place] Care Team Personnel Name: DOMINIQUE PEDROZA DO Position: P4 Physician - Primary Care Member Role: Primary Care Physician Address: Address: [address] [place] [address]- Care Team Related Persons Name: BORIS CLAUDIO Address: Home [address] [place], [place] [id number] [place] Care Team Personnel Name: NERY BURRIS MD Position: P4 Physician - General Surgery Member Role: Surgeon Address: Address: [address] [place] [address] [place] [address]- Name: MALIA GOFF MD Position: P3 Physician - Endocrinology Member Role: [employer] Driver Address: Address: [address] [place] [address]- [place] Name: DOMINIQUE PEDROZA DO Position: P4 Physician - Primary Care Member Role: Primary Care Physician Address: Address: [address] [place] [id number]- Name: BRITTA NEWMAN MD Member Role: Shelving Supervisor Address: Address: [address] [place] [id number] [place] Care Team Related Persons Name: BORIS CLAUDIO Address: Home [address] [place], [place] [phone] [place] Care Team Personnel Name: NERY BURRIS MD Position: P4 Physician - General Surgery Member Role: Surgeon Address: Address: [address] [place] [address] [address] [place] [address]- Name: MALIA GOFF MD Position: P3 Physician - Endocrinology Member Role: [employer] Driver Address: Address: [address] [place] [address]- [place] Name: DOMINIQUE PEDROZA DO Position: P4 Physician - Primary Care Member Role: Primary Care Physician Address: Address: [address] [facility] [place] [address]- Name: BRITTA NEWMAN MD Member Role: Shelving Supervisor Address: Address: [facility] [place] [address] [place] Care Team Related Persons Name: CLAUDIO VAZQUEZ Address: Home [address] [place], [place] [phone] Patient Care team informatio n (unrecognized section and content) Team Status: Active Member Role Status Dates Dr. Boris Mae MD Primary Care Provider Active Team Status: Inactive Member Role Status Dates Dr. Boris Mae MD Primary Care Provider Active Start: July 14, 2024 End: July 14, 2024 Victorina Carter RESIDENT BUYER, RESIDENT BUYER-C Attending Provider Active Start: July 14, 2024 End: July 14, 2024 Victorina Carter RESIDENT BUYER, RESIDENT BUYER-C Referring Provider Active Start: July 14, 2024 End: July 14, 2024 Team Status: Inactive Member Role Status Dates Dr. Boris Mae MD Primary Care Provider Active Start: August 25, 2024 End: August 25, 2024 Dr. Izzy Michele MD Attending Provider Active Start: August 25, 2024 End: August 25, 2024 Dr. Izzy Michele MD Referring Provider Active Start: August 25, 2024 End: August 25, 2024 Team Status: Inactive Member Role Status Dates Dr. Boris Mae MD Primary Care Provider Active Start: September 12, 2024 End: September 12, 2024 Dr. Boris Mae MD Attending Provider Active Start: September 12, 2024 End: September 12, 2024 Dr. Boris Mae MD Referring Provider Active Start: September 12, 2024 End: September 12, 2024 Team Status: Inactive Member Role Status Dates Dr. Boris Mae MD Primary Care Provider Active Start: October 07, 2024 End: October 07, 2024 Dr. Boris Mae MD Other Provider Active S tart: October 07, 2024 End: October 07, 2024 [facility] [place] Attending Provider Active Start: 2024 End: October 07, 2024 [facility] [place] Referring Provider Active Start: [place] 2024 End: October 07, 2024 Team Status: Active Member Role Status Dates Dr. Boris Mae MD Primary Care Provider Active Start: October 14, 2024 Dr. Boris Mae MD Attending Provider Active Start: October 14, 2024 Dr. Boris Mae MD Referring Provider Active Start: October 14, 2024 Dr. Izzy Michele MD Other Provider Active St art: October 14, 2024 Kacie Andujar , RESIDENT BUYER-C Other Provider Active Start : October 14, 2024 Team Status: Inactive Member Role Status Dates Dr. Boris Mae MD Primary Care Provider Active Start: October 14, 2024 End: October 14, 2024 Dr. Boris Mae MD Attending Provider Active Start: October 14, 2024 End: October 14, 2024 Dr. Boris Mae MD Referring Provider Active Start: October 14, 2024 End: October 14, 2024 Dr. Izzy Michele MD Other Provider Active St art: October 14, 2024 End: October 14, 2024 Kacie Andujar , RESIDENT BUYER-C Other Provider Active Start : October 14, 2024 End: October 14, 2024 Team Status: Inactive Member Role Status Dates Dr. Boris Mae MD Primary Care Provider Active Start: October 23, 2024 End: October 23, 2024 Dr. Boris Mae MD Referring Provider Active Start: October 23, 2024 End: October 23, 2024 Dr. Leela Rivera MD Attending Provider Active Start: October 23, 2024 End: October 23, 2024 Team Status: Active Member Role Status Dates Dr. Boris Mae MD Primary Care Provider Active Start: October 23, 2024 Dr. Leela Rivera MD Attending Provider Active Start: October 23, 2024 Dr. Leela Rivera MD Referring Provider Active Start: October 23, 2024 Team Status: Inactive Member Role Status Dates Dr. Boris Mae MD Primary Care Provider Active Start: October 23, 2024 End: October 23, 2024 Dr. Leela Rivera MD Attending Provider Active Start: October 23, 2024 End: October 23, 2024 Dr. Lelea Rivera MD Referring Provider Active Start: October 23, 2024 End: October 23, 2024 Team Status: Inactive Member Role Status Dates Dr. Boris Mae MD Primary Care Provider Active Start: November 07, 2024 End: November 07, 2024 Dr. Boris Mae MD Referring Provider Active Start: November 07, 2024 End: November 07, 2024 Dr. Leela Rivera MD Attending Provider Active Start: November 07, 2024 End: November 07, 2024 Team Status: Inactive Member Role Status Dates Dr. Boris Mae MD Primary Care Provider Active Start: November 18, 2024 End: November 18, 2024 Dr. Leela Rivera MD Attending Provider Active Start: November 18, 2024 End: November 18, 2024 Dr. Leela Rivera MD Referring Provider Active Start: November 18, 2024 End: November 18, 2024 Team Status: Active Member Role Status Dates Dr. Boris Mae MD Primary Care Provider Active Start: November 18, 2024 Dr. Leela Rivera MD Attending Provider Active Start: November 18, 2024 Dr. Leela Rivera MD Referring Provider Active Start: November 18, 2024 Dr. Leela Rivera MD Other Provider Active S tart: November 18, 2024 Team Status: Inactive Member Role Status Dates Dr. Boris Mae MD Primary Care Provider Active Start: December 02, 2024 End: December 02, 2024 Dr. Boris Mae MD Referring Provider Active Start: December 02, 2024 End: December 02, 2024 Dr. Leela Rivera MD Attending Provider Active Start: December 02, 2024 End: December 02, 2024 Team Status: Inactive Member Role Status Dates Dr. Boris Mae MD Primary Care Provider Active Start: December 03, 2024 End: December 03, 2024 Dr. Evin Bean MD Attending Provider Active Start: December 03, 2024 End: December 03, 2024 Dr. Leela Rivera MD Referring Provider Active Start: December 03, 2024 End: December 03, 2024 Team Status: Inactive Member Role Status Dates Dr. Boris Mae MD Primary Care Provider Active Start: December 17, 2024 End: December 17, 2024 Dr. Boris Mae MD Referring Provider Active Start: December 17, 2024 End: December 17, 2024 Dr. Evin Bean MD Attending Provider Active Start: December 17, 2024 End: December 17, 2024 Team Status: Inactive Member Role Status Dates Dr. Boris Mae MD Primary Care Provider Active Start: December 30, 2024 End: December 30, 2024 Dr. Boris Mae MD Referring Provider Active Start: December 30, 2024 End: December 30, 2024 Dr. Deng Beard DO Attending Provider Active Start: December 30, 2024 End: December 30, 2024 Team Status: Active Member Role Status Dates Dr. Boris Mae MD Primary Care Provider Active Start: January 01, 2025 Dr. Deng Beard DO Attending Provider Active Start: January 01, 2025 Team Status: Active Member Role Status Dates Dr. Boris Mae MD Primary Care Provider Active Start: January 06, 2025 Dr. Deng Beard DO Attending Provider Active Start: January 06, 2025 Team Status: Active Member Role Status Dates Dr. Boris Mae MD Primary Care Provider Active Start: January 07, 2025 Dr. Deng Beard DO Attending Provider Active Start: January 07, 2025 Team Status: Active Member Role Status Dates Dr. Boris Mae MD Primary Care Provider Active Start: January 08, 2025 Dr. Deng Beard DO Attending Provider Active Start: January 08, 2025 Team Status: Inactive Member Role Status Dates Dr. Boris Mae MD Primary Care Provider Active Start: January 14, 2025 End: January 14, 2025 Dr. Boris Mae MD Referring Provider Active Start: January 14, 2025 End: January 14, 2025 Dr. Deng Beard DO Attending Provider Active Start: January 14, 2025 End: January 14, 2025 Team Status: Inactive Member Role Status Dates Dr. Boris Mae MD Primary Care Provider Active Start: January 21, 2025 End: January 21, 2025 Dr. Boris Mae MD Referring Provider Active Start: January 21, 2025 End: January 21, 2025 Dr. Jose Juan Obrien MD Attending Provider Active Start: January 21, 2025 End: January 21, 2025 Team Status: Active Member Role Status Dates Dr. Boris Mae MD Primary Care Provider Active Start: January 21, 2025 Dr. Deng Beard DO Attending Provider Active Start: January 21, 2025 Dr. Deng Beard DO Referring Provider Active Start: January 21, 2025 Team Status: Active Member Role Status Dates Dr. Boris Mae MD Primary Care Provider Active Start: January 14, 2025 Dr. Deng Beard DO Attending Provider Active Start: January 14, 2025 Dr. Deng Beard DO Referring Provider Active Start: January 14, 2025 Team Status: Inactive Member Role Status Dates Dr. Boris Mae MD Primary Care Provider Active Start: January 28, 2025 End: January 28, 2025 Dr. Deng Beard DO Attending Provider Active Start: January 28, 2025 End: January 28, 2025 Team Status: Active Member Role Status Dates Dr. Boris Mae MD Primary Care Provider Active Start: January 28, 2025 Dr. Deng Beard DO Attending Provider Active Start: January 28, 2025 Dr. Deng Beard DO Referring Provider Active Start: January 28, 2025 Team Status: Active Member Role Status Dates Dr. Boris Mae MD Primary Care Provider Active Start: February 04, 2025 Dr. Deng Beard DO Attending Provider Active Start: February 04, 2025 Team Status: Inactive Member Role Status Dates Dr. Boris Mae MD Primary Care Provider Active Start: February 04, 2025 End: February 04, 2025 Dr. Boris Mae MD Referring Provider Active Start: February 04, 2025 End: February 04, 2025 Dr. Deng Beard DO Attending Provider Active Start: February 04, 2025 End: February 04, 2025 Team Status: Active Member Role Status Dates Dr. Boris Mae MD Primary Care Provider Active Start: February 04, 2025 Dr. Deng Beard DO Attending Provider Active Start: February 04, 2025 Dr. Deng Beard DO Referring Provider Active Start: February 04, 2025 Team Status: Active Member Role/Relationship Status Dates Dr. Boris Mae MD Primary Care Provider Active Team Status: Inactive Member Role/Relationship Status Dates Dr. Boris Mae MD Primary Care Provider Active Start: October 23, 2024 End: October 23, 2024 Dr. Boris Mae MD Referring Provider Active Start: October 23, 2024 End: October 23, 2024 Dr. Leela Rivera MD Attending Provider Active Start: October 23, 2024 End: October 23, 2024 Team Status: Inactive Member Role/Relationship Status Dates Dr. Boris Mae MD Primary Care Provider Active Start: October 23, 2024 End: October 23, 2024 Dr. Leela Rivera MD Attending Provider Active Start: October 23, 2024 End: October 23, 2024 Dr. Leela Rivera MD Referring Provider Active Start: October 23, 2024 End: October 23, 2024 Team Status: Inactive Member Role/Relationship Status Dates Dr. Boris Mae MD Primary Care Provider Active Start: November 07, 2024 End: November 07, 2024 Dr. Boris Mae MD Referring Provider Active Start: November 07, 2024 End: November 07, 2024 Dr. Leela Rivera MD Attending Provider Active Start: November 07, 2024 End: November 07, 2024 Team Status: Inactive Member Role/Relationship Status Dates Dr. Boris Mae MD Primary Care Provider Active Start: November 18, 2024 End: November 18, 2024 Dr. Leela Rivera MD Attending Provider Active Start: November 18, 2024 End: November 18, 2024 Dr. Leela Rivera MD Referring Provider Active Start: November 18, 2024 End: November 18, 2024 Team Status: Active Member Role/Relationship Status Dates Dr. Boris Mae MD Primary Care Provider Active Start: November 18, 2024 Dr. Leela Rivera MD Attending Provider Active Start: November 18, 2024 Dr. Leela Rivera MD Referring Provider Active Start: November 18, 2024 Dr. Leela Rivera MD Other Provider Active S tart: November 18, 2024 Team Status: Inactive Member Role/Relationship Status Dates Dr. Boris Mae MD Primary Care Provider Active Start: December 02, 2024 End: December 02, 2024 Dr. Boris Mae MD Referring Provider Active Start: December 02, 2024 End: December 02, 2024 Dr. Leela Rivera MD Attending Provider Active Start: December 02, 2024 End: December 02, 2024 Team Status: Inactive Member Role/Relationship Status Dates Dr. Boris Mae MD Primary Care Provider Active Start: December 03, 2024 End: December 03, 2024 Dr. Evin Bean MD Attending Provider Active Start: December 03, 2024 End: December 03, 2024 Dr. Leela Rivera MD Referring Provider Active Start: December 03, 2024 End: December 03, 2024 Team Status: Inactive Member Role/Relationship Status Dates Dr. Boris Mae MD Primary Care Provider Active Start: December 17, 2024 End: December 17, 2024 Dr. Boris Mae MD Referring Provider Active Start: December 17, 2024 End: December 17, 2024 Dr. Evin Bean MD Attending Provider Active Start: December 17, 2024 End: December 17, 2024 Team Status: Inactive Member Role/Relationship Status Dates Dr. Boris Mae MD Primary Care Provider Active Start: December 30, 2024 End: December 30, 2024 Dr. Boris Mae MD Referring Provider Active Start: December 30, 2024 End: December 30, 2024 Dr. Deng Beard DO Attending Provider Active Start: December 30, 2024 End: December 30, 2024 Team Status: Active Member Role/Relationship Status Dates Dr. Boris Mae MD Primary Care Provider Active Start: January 01, 2025 Dr. Deng Beard DO Attending Provider Active Start: January 01, 2025 Dr. Deng Beard DO Referring Provider Active Start: January 01, 2025 Team Status: Active Member Role/Relationship Status Dates Dr. Boris Mae MD Primary Care Provider Active Start: January 06, 2025 Dr. Deng Beard DO Attending Provider Active Start: January 06, 2025 Dr. Deng Beard DO Referring Provider Active Start: January 06, 2025 Team Status: Active Member Role/Relationship Status Dates Dr. Boris Mae MD Primary Care Provider Active Start: January 07, 2025 Dr. Deng Beard DO Attending Provider Active Start: January 07, 2025 Dr. Deng Beard DO Referring Provider Active Start: January 07, 2025 Team Status: Active Member Role/Relationship Status Dates Dr. Boris Mae MD Primary Care Provider Active Start: January 08, 2025 Dr. Deng Beard DO Attending Provider Active Start: January 08, 2025 Dr. Deng Beard DO Referring Provider Active Start: January 08, 2025 Team Status: Inactive Member Role/Relationship Status Dates Dr. Boris Mae MD Primary Care Provider Active Start: January 14, 2025 End: January 14, 2025 Dr. Deng Beard DO Attending Provider Active Start: January 14, 2025 End: January 14, 2025 Dr. Deng Beard DO Referring Provider Active Start: January 14, 2025 End: January 14, 2025 Team Status: Inactive Member Role/Relationship Status Dates Dr. Boris Mae MD Primary Care Provider Active Start: January 21, 2025 End: January 21, 2025 Dr. Boris Mae MD Referring Provider Active Start: January 21, 2025 End: January 21, 2025 Dr. Jose Juan Obrien MD Attending Provider Active Start: January 21, 2025 End: January 21, 2025 Team Status: Inactive Member Role/Relationship Status Dates Dr. Boris Mae MD Primary Care Provider Active Start: January 28, 2025 End: January 28, 2025 Dr. Deng Beard DO Attending Provider Active Start: January 28, 2025 End: January 28, 2025 Team Status: Active Member Role/Relationship Status Dates Dr. Boris Mae MD Primary Care Provider Active Start: February 04, 2025 Dr. Deng Beard DO Attending Provider Active Start: February 04, 2025 Team Status: Inactive Member Role/Relationship Status Dates Dr. Boris Mae MD Primary Care Provider Active Start: February 04, 2025 End: February 04, 2025 Dr. Boris Mae MD Referring Provider Active Start: February 04, 2025 End: February 04, 2025 Dr. Deng Beard DO Attending Provider Active Start: February 04, 2025 End: February 04, 2025 Team Status: Active Member Role/Relationship Status Dates Dr. Boris Mae MD Primary Care Provider Active Start: February 04, 2025 Dr. Deng Beard DO Attending Provider Active Start: February 04, 2025 Dr. Deng Beard DO Referring Provider Active Start: February 04, 2025 Team Status: Inactive Member Role/Relationship Status Dates Dr. Boris Mae MD Primary Care Provider Active Start: February 11, 2025 End: February 11, 2025 Dr. Izzy Michele MD Attending Provider Active Start: February 11, 2025 End: February 11, 2025 Dr. Izzy Michele MD Referring Provider Active Start: February 11, 2025 End: February 11, 2025 Victorina Carter RESIDENT BUYER, RESIDENT BUYER-C Other Provider Active S tart: February 11, 2025 End: February 11, 2025 Team Status: Inactive Member Role/Relationship Status Dates Dr. Boris Mae MD Primary Care Provider Active Start: November 07, 2024 End: November 07, 2024 Dr. Boris Mae MD Referring Provider Active Start: November 07, 2024 End: November 07, 2024 Dr. Leela Rivera MD Attending Provider Active Start: November 07, 2024 End: November 07, 2024 Team Status: Inactive Member Role/Relationship Status Dates Dr. Boris Mae MD Primary Care Provider Active Start: November 18, 2024 End: November 18, 2024 Dr. Leela Rivera MD Attending Provider Active Start: November 18, 2024 End: November 18, 2024 Dr. Leela Rivera MD Referring Provider Active Start: November 18, 2024 End: November 18, 2024 Team Status: Active Member Role/Relationship Status Dates Dr. Boris Mae MD Primary Care Provider Active Start: November 18, 2024 Dr. Leela Rivera MD Attending Provider Active Start: November 18, 2024 Dr. Leela Rivera MD Referring Provider Active Start: November 18, 2024 Dr. Leela Rivera MD Other Provider Active S tart: November 18, 2024 Team Status: Inactive Member Role/Relationship Status Dates Dr. Boris Mae MD Primary Care Provider Active Start: December 02, 2024 End: December 02, 2024 Dr. Boris Mae MD Referring Provider Active Start: December 02, 2024 End: December 02, 2024 Dr. Leela Rivera MD Attending Provider Active Start: December 02, 2024 End: December 02, 2024 Team Status: Inactive Member Role/Relationship Status Dates Dr. Boris Mae MD Primary Care Provider Active Start: December 03, 2024 End: December 03, 2024 Dr. Evin Bean MD Attending Provider Active Start: December 03, 2024 End: December 03, 2024 Dr. Leela Rivera MD Referring Provider Active Start: December 03, 2024 End: December 03, 2024 Team Status: Inactive Member Role/Relationship Status Dates Dr. Boris Mae MD Primary Care Provider Active Start: December 17, 2024 End: December 17, 2024 Dr. Boris Mae MD Referring Provider Active Start: December 17, 2024 End: December 17, 2024 Dr. Evin Bean MD Attending Provider Active Start: December 17, 2024 End: December 17, 2024 Team Status: Inactive Member Role/Relationship Status Dates Dr. Boris Mae MD Primary Care Provider Active Start: December 30, 2024 End: December 30, 2024 Dr. Boris Mae MD Referring Provider Active Start: December 30, 2024 End: December 30, 2024 Dr. Deng Beard DO Attending Provider Active Start: December 30, 2024 End: December 30, 2024 Team Status: Active Member Role/Relationship Status Dates Dr. Boris Mae MD Primary Care Provider Active Start: January 01, 2025 Dr. Deng Beard DO Attending Provider Active Start: January 01, 2025 Dr. Deng Beard DO Referring Provider Active Start: January 01, 2025 Team Status: Active Member Role/Relationship Status Dates Dr. Boris Mae MD Primary Care Provider Active Start: January 06, 2025 Dr. Deng Beard DO Attending Provider Active Start: January 06, 2025 Dr. Deng Beard DO Referring Provider Active Start: January 06, 2025 Team Status: Active Member Role/Relationship Status Dates Dr. Boris Mae MD Primary Care Provider Active Start: January 07, 2025 Dr. Deng Beard DO Attending Provider Active Start: January 07, 2025 Dr. Deng Beard DO Referring Provider Active Start: January 07, 2025 Team Status: Active Member Role/Relationship Status Dates Dr. Boris Mae MD Primary Care Provider Active Start: January 08, 2025 Dr. Deng Beard DO Attending Provider Active Start: January 08, 2025 Dr. Deng Beard DO Referring Provider Active Start: January 08, 2025 Team Status: Inactive Member Role/Relationship Status Dates Dr. Boris Mae MD Primary Care Provider Active Start: January 14, 2025 End: January 14, 2025 Dr. Deng Beard DO Attending Provider Active Start: January 14, 2025 End: January 14, 2025 Dr. Deng Beard DO Referring Provider Active Start: January 14, 2025 End: January 14, 2025 Team Status: Inactive Member Role/Relationship Status Dates Dr. Boris Mae MD Primary Care Provider Active Start: January 21, 2025 End: January 21, 2025 Dr. Deng Beard DO Attending Provider Active Start: January 21, 2025 End: January 21, 2025 Dr. Deng Beard DO Referring Provider Active Start: January 21, 2025 End: January 21, 2025 Team Status: Inactive Member Role/Relationship Status Dates Dr. Boris Mae MD Primary Care Provider Active Start: January 28, 2025 End: January 28, 2025 Dr. Deng Beard DO Attending Provider Active Start: January 28, 2025 End: January 28, 2025 Dr. Deng Beard DO Referring Provider Active Start: January 28, 2025 End: January 28, 2025 Team Status: Active Member Role/Relationship Status Dates Dr. Boris Mae MD Primary Care Provider Active Start: February 04, 2025 Dr. Deng Beard DO Attending Provider Active Start: February 04, 2025 Team Status: Inactive Member Role/Relationship Status Dates Dr. Boris Mae MD Primary Care Provider Active Start: February 04, 2025 End: February 04, 2025 Dr. Boris Mae MD Referring Provider Active Start: February 04, 2025 End: February 04, 2025 Dr. Deng Beard DO Attending Provider Active Start: February 04, 2025 End: February 04, 2025 Team Status: Active Member Role/Relationship Status Dates Dr. Boris Mae MD Primary Care Provider Active Start: February 04, 2025 Dr. Deng Beard DO Attending Provider Active Start: February 04, 2025 Dr. Deng Beard DO Referring Provider Active Start: February 04, 2025 Team Status: Inactive Member Role/Relationship Status Dates Dr. Boris Mae MD Primary Care Provider Active Start: February 11, 2025 End: February 11, 2025 Dr. Izzy Michele MD Attending Provider Active Start: February 11, 2025 End: February 11, 2025 Dr. Izzy Michele MD Referring Provider Active Start: February 11, 2025 End: February 11, 2025 Victorina Carter [employer], [employer] Other Provider Active S tart: February 11, 2025 End: February 11, 2025 Team Status: Inactive Member Role/Relationship Status Dates Dr. Boris Mae MD Primary Care Provider Active Start: March 05, 2025 End: March 05, 2025 Dr. Boris Mae MD Referring Provider Active Start: March 05, 2025 End: March 05, 2025 Dr. Deng Beard DO Attending Provider Active Start: March 05, 2025 End: March 05, 2025 INFORMATION SOURCE (unrecogn ized section and content) DATE CREATED AUTHOR 02/06/2024 [facility] ([place]) DATE CREATED AUTHOR AUTHOR'S ORGANIZ ATION 11/09/2024 [facility] DATE CREATED AUTHOR AUTHOR'S ORGANIZ ATION 03/18/2025 [facility] Goals (unrecognized section and content) Goals may be documented in a n alternate section FOR RECORDS PERTAINING TO PATIENTS WHO ARE OR HAVE BEEN ENROLLED IN A CHEMICAL DEPENDENCY/SUBSTANCEABUSE PROGRAM, SOME INFORMATION MAY BE OMITTED. This clinical summary was aggregated from multiple sources. Caution should be exercised in using it in the provision of clinical care. This summary normalizes information from multiple sources, and as a consequence, information in this document may materially change the coding, format and clinical context of patient data. In addition, data may be omitted in some cases. CLINICAL DECISIONS SHOULD BE BASED ON THE PRIMARY CLINICAL RECORDS. [facility] [employer] [facility]. provides no warranty or guarantee of the accuracy or completeness of information in this document.
== END | disposition home or self-care (01) ==
LOC: MTLAB 10:09
PROVIDERS: PCP Family Medicine; Referring Provider Internal Medicine Rheumatology; Visit Provider Internal Medicine Rheumatology
DX: M06.4 Inflammatory polyarthropathy (principal); Z79.899 Other long term (current) drug therapy; M19.041 Primary osteoarthritis, right hand
CPT/HCPCS: 36415; 80053; 85025

== ENCOUNTER → 2025-05-15 | Outpatient (CLI) | payer MEDICARE, SELFPAY ==
[2025-05-15 14:59] LABS: Hematocrit 42.0 % (37-47); Hemoglobin 13.5 g/dL (12.0-15.0); Immature Granulocytes Count 0.020 X10^3/uL (0.0-0.0); Mean Corp Hgb Conc 32.1 g/dL (32-36); Mean Corpuscular Volume 96.8 fL (81-99); Mean Platelet Vol. 9.9 fl (6.2-12.0); NRBC Flagged by Analyzer 0 % (0-5); Platelet Count 324 K/mm3 (150-450); RBC Distribution Width CV 14.9 % (11.6-14.6); RBC Distribution Width SD 51.9 fl (35.1-43.9); Red Blood Count 4.34 M/mm3 (4.2-5.4); White Blood Count 7.4 K/mm3 (4.4-11.0)
[2025-05-15 15:38] LABS: AST(SGOT) 25 U/L (<=31); Alanine Aminotransfer ALT/SGPT 29 U/L (<=34); Albumin, Serum 4.1 g/dL (3.4-4.8); Alkaline Phosphatase 76 U/L (35-104); Anion Gap 14 (5-15); BUN 14 mg/dL (4-19); BUN/Creat Ratio 22.0 RATIO (10-20); Calcium,Total 9.3 mg/dL (7.6-11.0); Carbon Dioxide 25.7 mmol/L (21.0-32.0); Chloride 98 mmol/L (98-108); Globulin 3.1 g/dL (2.2-4.2); Glucose 113 mg/dL (70-99); Potassium 3.7 mmol/L (3.3-5.1)
== END | disposition home or self-care (01) ==
LOC: MTLAB 13:09
PROVIDERS: PCP Family Medicine; Referring Provider Internal Medicine Rheumatology; Visit Provider Internal Medicine Rheumatology
DX: M06.4 Inflammatory polyarthropathy (principal); Z79.899 Other long term (current) drug therapy; M19.041 Primary osteoarthritis, right hand
CPT/HCPCS: 36415; 80053; 85025

== ENCOUNTER → 2025-06-02 | Outpatient (CLI) | payer MEDICARE, SELFPAY ==
[2025-06-02 21:50] LABS: Creatinine, Urine (random) 49.60 mg/dL (28.00-217.00); Microalbumin,Random Urine < 12.0 mg/L (<20 mg/L)
[2025-06-02 22:06] LABS: AST(SGOT) 26 U/L (<=31); Alanine Aminotransfer ALT/SGPT 30 U/L (<=34); Anion Gap 13 (5-15); BUN 15 mg/dL (4-19); BUN/Creat Ratio 24.8 RATIO (10-20); Calcium,Total 9.6 mg/dL (7.6-11.0); Carbon Dioxide 26.0 mmol/L (21.0-32.0); Chloride 99 mmol/L (98-108); Cholesterol 152 mg/dL (<=200); Glucose 90 mg/dL (70-99); Low Density Lipoprotein Calc. 60 mg/dL; Potassium 3.5 mmol/L (3.3-5.1); Triglycerides 251 mg/dL; Very Low Density Lipoprotein 50 mg/dL (5-40); Vitamin D,25 Hydroxy 49.4 ng/mL (30-100); cholesterol:hdl ratio screen 2.92
== END | disposition home or self-care (01) ==
LOC: LABSPEC 15:48 → MTLAB 18:06
PROVIDERS: PCP Family Medicine; Referring Provider Nurse Practitioner Adult Health; Visit Provider Nurse Practitioner Adult Health
DX: E11.65 Type 2 diabetes mellitus with hyperglycemia (principal); E89.0 Postprocedural hypothyroidism; E55.9 Vitamin D deficiency, unspecified
CPT/HCPCS: 36415; 80048; 80061; 82043; 82306; 82570; 83036; 84439; 84443; 84450; 84460

== ENCOUNTER → 2025-08-10 | Outpatient (CLI) | payer MEDICARE, SELFPAY ==
[2025-08-10 12:10] LABS: Hematocrit 39.8 % (37-47); Hemoglobin 13.4 g/dL (12.0-15.0); Immature Granulocytes Count 0.020 X10^3/uL (0.0-0.0); Mean Corp Hgb Conc 33.7 g/dL (32-36); Mean Corpuscular Volume 93.6 fL (81-99); Mean Platelet Vol. 9.5 fl (6.2-12.0); NRBC Flagged by Analyzer 0 % (0-5); Platelet Count 330 K/mm3 (150-450); RBC Distribution Width CV 13.9 % (11.6-14.6); RBC Distribution Width SD 47.6 fl (35.1-43.9); Red Blood Count 4.25 M/mm3 (4.2-5.4); White Blood Count 6.2 K/mm3 (4.4-11.0)
[2025-08-10 12:33] LABS: AST(SGOT) 30 U/L (<=31); Alanine Aminotransfer ALT/SGPT 35 U/L (<=34); Albumin, Serum 4.1 g/dL (3.4-4.8); Alkaline Phosphatase 79 U/L (35-104); Anion Gap 12 (7-18); BUN 11 mg/dL (4-19); BUN/Creat Ratio 18.7 RATIO (10-20); Calcium,Total 9.6 mg/dL (7.6-11.0); Carbon Dioxide 26.8 mmol/L (20.0-29.0); Chloride 100 mmol/L (96-106); Globulin 2.9 g/dL (2.2-4.2); Glucose 131 mg/dL (70-99); Potassium 4.2 mmol/L (3.5-5.1)
== END | disposition home or self-care (01) ==
LOC: MTLAB 09:50
PROVIDERS: PCP Family Medicine; Referring Provider Internal Medicine Rheumatology; Visit Provider Internal Medicine Rheumatology
DX: M06.4 Inflammatory polyarthropathy (principal); Z79.899 Other long term (current) drug therapy; M19.041 Primary osteoarthritis, right hand
CPT/HCPCS: 36415; 80053; 85025